=== PATIENT | female | born 1970 | race Hispanic/Latino ===

== ENCOUNTER 2018-02-02 13:15 | Inpatient (IN) | payer MEDICAID, OTHER ==
[2018-02-02 13:22] VITALS: BMI 43.0
[2018-02-02] MEDS ORDERED: Albuterol-Ipratrop 3 mg / 0.5 (3 ml) UD IH STA (13:28)
[2018-02-02] MEDS ORDERED: Magnesium Sulfate 2 GM in Sodium Chloride 0.9% 100 ML IVPB ONE (13:28)
--- NOTE | 2018-02-02 13:34 | ED PDOC ---
Arrival/HPI - General Time Seen by Provider: 02/02/18 13:28 Historian: Patient - History of Present Illness Narrative History of Present Illness (Text): 02/02/18 13:29 47 year old female, with past medical history of asthma, presents to the ED complaining of shortness of breath associated with cough since prior to arrival. [place], prompting her to present to the Ed for medical evaluation. Patient states her last episode of asthma exacerbation was many years ago and is currently not on any breathing treatment. Patient denies any chest pain, fever, chills, nausea, vomiting, abdominal pain, palpitations or any other complaints. Patient denies smoking cigarettes. Time/Duration: Prior to Arrival Symptom Onset: Gradual Symptom Course: Unchanged Activities at Onset: Light Context: Other ([facility]) Past Medical History - Provider Review Nursing Documentation Reviewed: Yes - Infectious Disease Hx of Infectious Diseases: None - Tetanus Immunization Tetanus Immunization: Unknown - Past Medical History Past Medical History: No Previous - Psychiatric Hx Depression: No Hx Emotional Abuse: No Hx Physical Abuse: No Hx Substance Use: No - Past Surgical History Past Surgical History: No Previous - Suicidal Assessment Feels Threatened In Home Enviroment: No Family/Social History - Physician Review Nursing Documentation Reviewed: Yes Family/Social History: No Known Family HX Hx Alcohol Use: No Hx Substance Use: No Hx Substance Use Treatment: No Allergies/Home Meds Allergies/Adverse Reactions: Allergies No Known Allergies Allergy (Verified 10/29/12 05:37) Review of Systems - Physician Review All systems were reviewed & negative as marked: Yes - Review of Systems Constitutional: absent: Fevers Respiratory: SOB, Cough Cardiovascular: absent: Chest Pain, Palpitations Gastrointestinal: absent: Abdominal Pain, Nausea, Vomiting Physical Exam Vital Signs Reviewed: Yes Vital Signs Temp Pulse Resp BP Pulse Ox 02/02/18 17:50 115 H 18 145/87 98 02/02/18 17:04 109 H 18 149/90 93 L 02/02/18 14:51 112 H 18 152/94 H 93 L 02/02/18 13:50 18 02/02/18 13:40 98.7 F 02/02/18 13:32 123 H 24 164/99 H 100 Temperature: Afebrile Blood Pressure: Hypertensive Pulse: Tachycardic Respiratory Rate: Normal Appearance: Positive for: Well-Appearing, Non-Toxic Pain Distress: None Mental Status: Positive for: Alert and Oriented X 3 - Systems Exam Head: Present: Atraumatic, Normocephalic Pupils: Present: PERRL Extroacular Muscles: Present: EOMI Conjunctiva: Present: Normal Mouth: Present: Moist Mucous Membranes Neck: Present: Normal Range of Motion Respiratory/Chest: Present: Good Air Exchange, Wheezes (prolonged expiratory wheeze ). No: Respiratory Distress, Accessory Muscle Use Cardiovascular: Present: Regular Rate and Rhythm, Normal S1, S2. No: Murmurs Abdomen: No: Tenderness, Distention, Peritoneal Signs Back: Present: Normal Inspection Upper Extremity: Present: Normal Inspection. No: Cyanosis, Edema Lower Extremity: Present: Normal Inspection. No: Edema Neurological: Present: GCS=15, CN II-XII Intact, Speech Normal Skin: Present: Warm, Dry, Normal Color. No: Rashes Psychiatric: Present: Alert, Oriented x 3, Normal Insight, Normal Concentration Medical Decision Making ED Course and Treatment: 02/02/18 13:28 Impression: 47 year old female presents to the ED for shortness of breath associated with cough since prior to arrival. Plan: -- EKG -- Labs -- CXR -- Albuterol -- solumedrol Progress Note: 02/02/18 13:52 EKG: Ordered, reviewed, and independently interpreted the EKG. Rate : 122 BPM Rhythm : Sinus Tachycardia Interpretation : Normal axis; normal interval; non-specific ST/T wave changes. 02/02/18 16:49 Patient ambulating in ED and talking on phone. States she is feeling better. Patient continues to wheeze. Discussed case with Dr. Dixon, who is aware and agrees with Emergency department management plan to admit patient to remote Telemetry for further observation. - Lab Interpretations Lab Results: 02/02/18 13:40 02/02/18 13:40 Lab Results 02/02/18 13:40: Sodium 140, Potassium 4.5, Chloride 102, Carbon Dioxide 23, Anion Gap 19, BUN 21, Creatinine 1.0, Est GFR ( Amer) > 60, Est GFR (Non- Af Amer) 59, Random Glucose 118 H, Calcium 9.1, Magnesium 2.2, Total Bilirubin 0.6, AST 59 H, ALT 55, Alkaline Phosphatase 103, Lactate Dehydrogenase 872 H, Total Creatine Kinase 1528 H, CK-MB (CK-2) 6.3 H, CK-MB (CK-2) % 0.4 L, Troponin I < 0.01, Total Protein 8.1, Albumin 4.7, Globulin 3.4, Albumin/ Globulin Ratio 1.4 02/02/18 13:40: WBC 17.9 H, RBC 3.94, Hgb 11.1 L, Hct 34.7 L, MCV 88.1, MCH 28.2 , MCHC 32.0, RDW 15.7 H, Plt Count 411, MPV 8.5, Gran % 74.4 H, Lymph % (Auto) 16.3 L, [place] % (Auto) 6.7 H, Eos % (Auto) 2.4, Baso % (Auto) 0.2, Gran # 13.31 H , Lymph # (Auto) 2.9, [place] # (Auto) 1.2 H, Eos # (Auto) 0.4, Baso # (Auto) 0.03 - RAD Interpretation Narrative RAD Interpretations (Text): 02/02/18 14:35 Chest X-ray reviewed by radiologist, shows: no active disease. Radiology Orders: 02/02/18 13:29 CHEST PORTABLE [RAD] Stat Baggage Checker: Radiologist - EKG Interpretation Interpreted by ED Physician: Yes Type: 12 lead EKG - Medication Orders Current Medication Orders: Ipratropium [place] (Atrovent) 0.5 mg IH [id number] PRN PRN Reason: Shortness of Breath Levalbuterol HCl (Xopenex) 1.25 mg IH [id number] MANJINDER Levalbuterol HCl (Xopenex) 1.25 mg IH [id number] PRN PRN Reason: Shortness of Breath Methylprednisolone (Solu-Medrol) 60 mg IVP Q12 MANJINDER Oxycodone/Acetaminophen (Percocet 5/325 Mg Tab) 1 tab PO Q6H PRN PRN Reason: Pain, moderate (4-7) Stop: 02/05/18 19:47 Discontinued Medications Albuterol/Ipratropium (Duoneb 3 Mg/0.5 Mg (3 Ml) Ud) 3 ml IH STAT STA Stop: 02/02/18 13:29 Last Admin: 02/02/18 13:41 Dose: 3 ml Alprazolam (Xanax) 0.5 mg PO STAT STA PRN Reason: Protocol Stop: 02/02/18 19:25 Last Admin: 02/02/18 19:36 Dose: 0.5 mg Behavioural Document 02/02/18 19:36 FC (Rec: 02/02/18 19:36 FC [id number]) Maintenance Maintenance Dose No Nonmedicinal Nonmedicinal Interventions Redirect Behavior Behavior for Medication: Anxiety Continuous crying/screaming/ yelling Re-Assess: Reassess Psych Meds Document 02/02/18 20:36 FC (Rec: 02/02/18 20:52 FC [id number]) Reassess Psych Med Effective Magnesium 2 gm/50 ml NS (Magnesium Sulfate 2 Gm/50 Ml Ns) 2 gm in 50 mls @ 102 mls/hr IVPB ONCE ONE Stop: 02/02/18 13:57 Last Admin: 02/02/18 14:17 Dose: 102 mls/hr eMAR Start Stop Document 02/02/18 14:17 SF (Rec: 02/02/18 14:17 SF [id number]) Intravenous Solution Start Date 02/02/18 Start Time 14:17 End Date 02/02/18 End time 14:47 Total Infusion Time 30 Azithromycin (Zithromax 500mg In Ns) 500 mg in 250 mls @ 167 mls/hr IVPB STAT STA PRN Reason: Protocol Stop: 02/02/18 18:26 Last Admin: 02/02/18 17:49 Dose: 167 mls/hr eMAR Start Stop Document 02/02/18 17:49 SF (Rec: 02/02/18 17:50 SF [id number]) Intravenous Solution Start Date 02/02/18 Start Time 17:49 End Date 02/02/18 End time 19:20 Total Infusion Time 91 Levalbuterol HCl (Xopenex) 1.25 mg IH STAT STA Stop: 02/02/18 19:17 Last Admin: 02/02/18 19:28 Dose: 1.25 mg Methylprednisolone (Solu-Medrol) 125 mg IVP STAT STA Stop: 02/02/18 13:29 Last Admin: 02/02/18 13:41 Dose: 125 mg IVP Administration Document 02/02/18 13:41 GMD (Rec: 02/02/18 13:41 GMD [id number]) Charges for Administration # of IVP Administrations 1 Methylprednisolone (Solu-Medrol) 60 mg IVP STAT STA Stop: 02/02/18 19:10 Last Admin: 02/02/18 19:26 Dose: 60 mg IVP Administration Document 02/02/18 19:26 JULITA (Rec: 02/02/18 19:26 [id number]) Charges for Administration # of IVP Administrations 1 Pneumococcal Polyvalent Vaccine (Pneumovax 23 Vaccine) 0.5 ml IM .ONCE ONE Stop: 02/02/18 21:19 - Scribe Statement The provider has reviewed the documentation as recorded by the Scribe Minda White. All medical record entries made by the Scribe were at my direction and personally dictated by me. I have reviewed the chart and agree that the record accurately reflects my personal performance of the history, physical exam, medical decision making, and the department course for this patient. I have also personally directed, reviewed, and agree with the discharge instructions and disposition. Disposition/Present on Arrival - Present on Arrival Any Indicators Present on Arrival: No History of DVT/PE: No History of Uncontrolled Diabetes: No Urinary Catheter: No History Surgical Site Infection Following: None - Disposition Have Diagnosis and Disposition been Completed?: Yes Diagnosis: Asthma exacerbation Disposition: HOSPITALIZED Disposition Time: 15:00 Condition: STABLE
[2018-02-02] MEDS ORDERED: Magnesium 2 gm/50 ml NS 2 GM/50 ML BAG IVPB ONE (13:39)
[2018-02-02 13:56] LABS: BASO # 0.03 K/mm3 (0.0-2.0); BASO % 0.2 % (0.0-3.0); EOS # 0.4 (0.0-0.7); EOS % 2.4 % (1.5-5.0); GRAN # 13.31 (1.4-6.5); GRAN % 74.4 % (50.0-68.0); HEMOGLOBIN 11.1 g/dL (12.0-16.0); LYMPH # 2.9 (1.2-3.4); LYMPH % 16.3 % (22.0-35.0); MEAN CELL VOLUME 88.1 fl (80.0-105.0); MEAN CORPUSCULAR HEMOGLOBIN 28.2 pg (25.0-35.0); MEAN PLATELET VOLUME 8.5 fl (7.0-11.0); MONO # 1.2 (0.1-0.6); MONO % 6.7 % (1.0-6.0); RBC 3.94 10^6/uL (3.5-6.1); RED CELL DISTRIBUTION WIDTH 15.7 % (11.5-14.5); WHITE BLOOD COUNT 17.9 10^3/ul (4.5-11.0)
[2018-02-02 13:57] LABS: ALB/GLOB RATIO 1.4 (1.1-1.8); ALBUMIN 4.7 g/dL (3.0-4.8); ALT/SGPT 55 U/L (7-56); AST/SGOT 59 U/L (14-36); BLOOD UREA NITROGEN 21 mg/dL (7-21); CALCIUM 9.1 mg/dL (8.4-10.5); GFR AFRICAN-AMERICAN > 60; GFR NON-AFRICAN AMERICAN 59
[2018-02-02 14:09] LABS: TROPONIN I < 0.01 ng/mL
--- NOTE | 2018-02-02 14:24 | RAD ---
Date of service: 02/02/2018 HISTORY: r/o infiltrate COMPARISON: No prior. FINDINGS: LUNGS: No active pulmonary disease. PLEURA: No significant pleural effusion identified, no pneumothorax apparent. CARDIOVASCULAR: Cardiomegaly. No evidence of acute, significant cardiovascular disease. OSSEOUS STRUCTURES: No significant abnormalities. VISUALIZED UPPER ABDOMEN: Normal. OTHER FINDINGS: None. IMPRESSION: No active disease.
[2018-02-02 14:42] LABS: CK MB% 0.4 % (2.5-3.0); CK-MB 6.3 ng/mL (0.0-3.6)
--- NOTE | 2018-02-02 16:36 | CARD ---
APPROVED REPORT Date of service: 02/02/2018 EKG Measurement Heart [id number] <Conclusion> Sinus tachycardia Minimal voltage criteria for LVH, may be normal variant Anteroseptal infarct, age undetermined Abnormal ECG
[2018-02-02] MEDS ORDERED: Azithromycin 500MG/NS 250ml 500 MG/250 ML BAG IVPB STA (16:57)
[2018-02-02] MEDS ORDERED: Albuterol 0.083% Inhal Sol (2.5 mg/3 mL) UD INH PRN (16:58)
[2018-02-02] MEDS ORDERED: Albuterol-Ipratrop 3 mg / 0.5 (3 ml) UD ONE (19:10)
[2018-02-02] MEDS ORDERED: Albuterol 0.042% Inhal Sol (1.25 mg/3 mL) UD IH STA (19:10)
[2018-02-02] MEDS ORDERED: Levalbuterol 0.63 MG/3 ML Inhal Soln UD ONE (19:14)
[2018-02-02] MEDS ORDERED: methylPREDNISolone 60 MG in Sodium Chloride 0.9% 100 ML IVPB ONE (19:15)
[2018-02-02] MEDS ORDERED: Levalbuterol 1.25 MG/3 ML Inhal Soln UD IH STA (19:16)
[2018-02-02 19:23] LABS: ARTERIAL BLOOD GAS HCO3 16.9 mmol/L (21-28); ARTERIAL BLOOD GAS HEMOGLOBIN 10.7 g/dL (11.7-17.4); ARTERIAL BLOOD GAS O2 CAPACITY 15.2 mL/dl (16-24); ARTERIAL BLOOD GAS O2 CONTENT 15.1 ML/dl (15-23); ARTERIAL BLOOD GAS O2 SAT 99.6 % (95-98); ARTERIAL BLOOD GAS PCO2 32 mm/Hg (35-45); ARTERIAL BLOOD GAS PH 7.33 (7.35-7.45); ARTERIAL BLOOD GAS TCO2 17.9 mmol.L (22-28)
[2018-02-02] MEDS ORDERED: Levalbuterol 1.25 MG/3 ML Inhal Soln UD ONE (19:27)
[2018-02-02] MEDS ORDERED: Ipratropium 0.02% Inhal Soln (0.5 mg/2.5 ml) UD IH PRN (19:42)
--- NOTE | 2018-02-02 19:42 | PCM.RRT ---
<Heron Gonzales - Last Filed: 02/02/18 20:42> [employer]PORATE B[employer]ING OFFICER Nurse Assessment - Situation Date: 02/02/18 Time CORPORATE BANKING OFFICER was called: 17:00 CORPORATE BANKING OFFICER Responder Arrival Time: 17:05 CORPORATE BANKING OFFICER Location:: [address] [place] [address] [employer]PORATE B[employer]ING OFFICER Reason for Call: Respiratory Distress CORPORATE BANKING OFFICER Called By: RN - IV IV Inserted during CORPORATE BANKING OFFICER?: No - Respiratory Oxygen Delivery Method: Face Mask @% Oxygen Flow Rate: 50 Received Nebulizer Treatments:: Yes Was the Patient Ventilated with Bag/Mask 100% O2?: No Secretions Suctioned?: No Was the Patient Intubated?: No Was the Patient Placed on a Ventilator?: No - Medication Medications Administered During CORPORATE BANKING OFFICER: Solumedrol. Albuterol. DuoNebs - Diagnostic Test Ordered EKG: Yes Chest X-Ray: No CT Scan: No - Stat Labs Ordered CORPORATE BANKING OFFICER Stat Labs Ordered: TROPONIN, ABG CPR started during CORPORATE BANKING OFFICER?: No - Vital Signs Vital Sign: Rapid Response Vital Sign Blood Pressure 150/92 Pulse Rate 120 Respiratory Rate 24 Temperature 98.2 F Oxygen Saturation 100 - Time CORPORATE BANKING OFFICER Ended Time CORPORATE BANKING OFFICER Ended: 19:25 - Vital Signs at end of CORPORATE BANKING OFFICER Vital Signs at end of CORPORATE BANKING OFFICER: Rapid Response End Vital Sign Blood Pressure 148/89 Pulse Rate 110 Respiratory Rate 19 Temperature 98.6 F - Recommendations Notifications: Attending Physician, Consultations, Family or Designated Caregiver I.Reason for CORPORATE BANKING OFFICER - A) Acute Change in Patient: (Select all that apply): Staff member or family is worried about patient Subjective: Rapid response team was called to evaluate pt for worsening shortness of breath. Per staff, pt was hyperventilating and was having difficulty breathing. Pt was a recent admission from the ED this am. Pt was complaining also of associated chest tightness, non-radiating. Pt was placed on venti mask at 50 L O2, was given duonebs and xopenex x3 with improvement. Pt received 1x dose solumedrrol 125 mg in ED earlier in day, then received 60 mg solumedrol x1 during rapid response. Spoke with PMD Dr. Dixon, who agreed with intervention and recommended pt be evaluated by ICU finishing area supervisor. Dr. Taylor notified. Dr. Walton present at bedside during rapid response. Per discussion with pt's son, pt is trying to kill herself and has been taking her late 's pain meds which he was prescribed for his cancer. Pt denied suicidal ideation/homicidal ideation at time of rapid response. 1:1 watch and psych consult ordered. EKG was sinus tachycardia, otherwise no acute St-T changes. VS: 154/98, P 131, SpO2 100% on 50 L venti mask Gen: mild acute distress, hyperventilating at bedside HEENT: NCAT, PERRLA CV: normal s1/s2, tachycardic Resp: diffuse wheezes heard in all lung kerr, increased respirations ( improved s/p duonebs, oxygen, and xopenex) Abd: soft, NTND, normal bowel sounds x4 Ext: normal capillary refill, 1+ nonpitting edema in lower exts b/l - Neurological Status (Select all that apply): Alert, Responsive, Oriented, Verbal, Follows Commands - Respiratory Oxygen Delivery Method: Face Mask @% Oxygen Flow Rate: 50 - Constitutional Additional Comments: Mild acute distress - Head Head Exam: ATRAUMATIC, NORMAL INSPECTION, NORMOCEPHALIC - Eyes Eye Exam: EOMI, Normal appearance, PERRL - Respiratory Exam Additional comments: Rapid breathing pattern, wheezes auscultated in all lung kerr - Cardiovascular Exam Cardiovascular Exam: Tachycardia, +S1, +S2 - GI/Abdominal Exam GI & Abdominal Exam: Soft, Normal Bowel Sounds - Neurological Exam Neurological Exam: Alert, Awake, Oriented x3 - Extremities Exam Extremities Exam: Full ROM, Normal Capillary Refill, Normal Inspection Additional comments: 1+ lower extremity edema b/l, nonpitting Plan - Assessment of Findings&Treatment Plan 47 y o female PMhx HTN, asthma, admitted for asthma exacerbation, presenting with worsening shortness of breath. Likely 2/2 asthma exacerbation vs. anxiety attack. Pt's clinical status improved s/p duonebs x3 and xopenex. EKG showed sinus tachycardia. Pt placed on 1:1 watch and psych consult ordered. ABG performed, pH 7.33, pC02 32, pO2 215, HCO3 16.9. Serial troponins ordered, to be trended overnight. Plan d/w Dr. Walton, attending. Pending ICU consult as per Dr. Dixon, Dr. Taylor aware. Dr. Dixon notified, agrees with management. <Yamila Walton - Last Filed: 02/02/18 22:49> CORPORATE BANKING OFFICER Nurse Assessment - Vital Signs Vital Sign: Rapid Response Vital Sign Blood Pressure 150/92 Pulse Rate 120 Respiratory Rate 24 Temperature 98.2 F Oxygen Saturation 100 - Vital Signs at end of CORPORATE BANKING OFFICER Vital Signs at end of CORPORATE BANKING OFFICER: Rapid Response End Vital Sign Blood Pressure 148/89 Pulse Rate 110 Respiratory Rate 19 Temperature 98.6 F Attending/Attestation - Attestation I have personally seen and examined this patient.: Yes I have fully participated in the care of the patient.: Yes I have reviewed all pertinent clinical information, including history, physical exam and plan: Yes Notes (Text): 02/02/18 22:49 Patient was seen. Agree with documentation by resident.
[2018-02-02] MEDS ORDERED: Levalbuterol 1.25 MG/3 ML Inhal Soln UD IH PRN (19:49)
[2018-02-02] MEDS ORDERED: Levalbuterol 1.25 MG/3 ML Inhal Soln UD IH SCH ×2 (20:00→21:00)
[2018-02-02 20:05] LABS: TROPONIN I < 0.01 ng/mL
[2018-02-02 20:12] LABS: CK-MB 4.8 ng/mL (0.0-3.6)
--- NOTE | 2018-02-02 20:31 | CP.PCM.CON ---
History of Present Illness - History of Present Illness History of Present Illness: ICU consult note for Dr. Claudia Rodriguez PGY2 Chief Complaint: Dyspnea HPI: Patient is a 47 F with past history significant for asthma for which she was never intubated and currently not medicated for as well as present history of opioid abuse presenting with complains of dyspnea and productive cough which has been going on for the past few days. Patient states her symptoms have been going on for the past few days but were exacerbated today during the burial of her . In the ED patient was given STAT duonebs, magnesium, 125 mg solumedrol IVP, and one dose of azithromycin. As per patient's son, patient has been addicted to opioids since her was receiving treatment for his cancer and is currently consuming xanax/oxycodone/percocet. Patient was taking 's pain meds in excess as of late in attempts to commit suicide. Due to patient's acute respiratory distress, Rapid response was called for which patient was given 3 rounds of xopenex and 60 mg IVP solumedrol and Xanax which appeared to have help alleviate patient's symptoms. Review of Systems - Constitutional Constitutional: absent: Anorexia, Chills, Fever - EENT Eyes: absent: Blurred Vision - Cardiovascular Cardiovascular: absent: Chest Pain (chest tightness) - Respiratory Respiratory: Cough, Dyspnea, Chest Congestion, Change in Mucous Color (green) - Gastrointestinal Gastrointestinal: absent: Abdominal Pain, Bloating - Genitourinary Genitourinary: absent: Hematuria - Neurological Neurological: absent: Dizziness, Numbness - Psychiatric Psychiatric: Anxiety, Suicidal Ideation - Endocrine Endocrine: Fatigue Past Patient History - Infectious Disease Hx of Infectious Diseases: None - Tetanus Immunizations Tetanus Immunization: Unknown - Past Social History Smoking Status: Never Smoked - CARDIAC Hx Hypertension: Yes - PULMONARY Hx Asthma: Yes - MUSCULOSKELETAL/RHEUMATOLOGICAL Other/Comment: R leg problem - PSYCHIATRIC Hx Depression: No Hx Emotional Abuse: No Hx Physical Abuse: No Hx Substance Use: No Meds Allergies/Adverse Reactions: Allergies Allergy/AdvReac Type Severity Reaction Status Date / Time No Known Allergies Allergy Verified 10/29/12 05:37 - Medications Medications: Current Medications Ipratropium [place] (Atrovent) 0.5 mg IH [id number] PRN PRN Reason: Shortness of Breath Levalbuterol HCl (Xopenex) 1.25 mg IH [id number] MANJINDER Levalbuterol HCl (Xopenex) 1.25 mg IH [id number] PRN PRN Reason: Shortness of Breath Methylprednisolone (Solu-Medrol) 60 mg IVP Q12 MANJINDER Oxycodone/Acetaminophen (Percocet 5/325 Mg Tab) 1 tab PO Q6H PRN PRN Reason: Pain, moderate (4-7) Stop: 02/05/18 19:47 Physical Exam - Head Exam Head Exam: ATRAUMATIC, NORMAL INSPECTION, NORMOCEPHALIC - Eye Exam Eye Exam: EOMI, Normal appearance - ENT Exam ENT Exam: Mucous Membranes Moist - Respiratory Exam Respiratory Exam: Rhonchi, Wheezes. absent: Clear to Auscultation Bilateral, NORMAL BREATHING PATTERN - Cardiovascular Exam Cardiovascular Exam: Tachycardia, REGULAR RHYTHM, +S1, +S2 - GI/Abdominal Exam GI & Abdominal Exam: Normal Bowel Sounds, Soft - Extremities Exam Extremities exam: Positive for: normal inspection - Back Exam Back exam: NORMAL INSPECTION - Neurological Exam Neurological exam: Alert, Oriented x3 - Psychiatric Exam Psychiatric exam: Anxious - Skin Skin Exam: Normal Color, Warm Results - Vital Signs Recent Vital Signs: Last Vital Signs Temp 98.5 F 02/02/18 18:02 Pulse 114 H 02/02/18 18:02 Resp 18 02/02/18 18:02 BP 145/87 02/02/18 17:50 Pulse Ox 97 02/02/18 18:02 - Labs Result Diagrams: 02/02/18 13:40 02/02/18 13:40 Labs: Laboratory Results - last 24 hr 02/02/18 02/02/18 18:15 19:25 pCO2 32 L pO2 215.0 H HCO3 16.9 L ABG pH 7.33 L ABG Total CO2 17.9 L ABG O2 Saturation 99.6 H ABG O2 Content 15.1 ABG Base Excess -8.1 L ABG Hemoglobin 10.7 L ABG Carboxyhemoglobin 1.4 POC ABG HHb (Measured) 0.4 ABG Methemoglobin 1.5 ABG O2 Capacity 15.2 L Hgb O2 Saturation 96.8 FiO2 50.0 Lactate Dehydrogenase 828 H Total Creatine Kinase 1320 H CK-MB (CK-2) 4.8 H CK-MB (CK-2) % Cancelled Troponin I < 0.01 Assessment & Plan - Assessment and Plan (Free Text) Assessment: Patient is a 47 F with past history significant for asthma for which she was never intubated and currently not medicated for as well as present history of opioid abuse presenting with complains of dyspnea and productive cough which has been going on for the past few days. Plan: Neurological/Psychiatric -AAO x3 -Current hx of drug abuse (xanax,oxycodone,percocet) -Psychiatry consulted -Hx of suicidal ideation; 1:1 sitter -Continue 1 dose of percocet q6 so patient does not go through withdrawals Cardiovascular -EKG from admission reveals Sinus tachycardia, LVH. Repeat EKG reveals no acute changes -Troponin negative x 2 Respiratory -ABG on room air: PCO2 32, pO2 215, HCO3 16.9, pH 7.33 -99% on 2L NC -Continue with xopenex, acetylcysteine, atrovent, solu-medrol, robitussin -Continue with azithromycin Infectious disease -Leukocytosis 17.9 -Continue with azthromycin -Procalcitonin ordered; results pending -Urinalysis ordered; results pending Gastroinestinal -Protonix for GI ppx -Heart healthy diet Hematological -Heparin for DVT ppx -Monitor H&H currently 11.1&34.7 Nephrological -CPK >1000 -Will treat with NS @100 Patient does not need ICU admission at this time and will remain on remote telemetry for continued management and treamtnet.
[2018-02-02] MEDS ORDERED: Pneumococcal 23-Valent Vaccine IM ONE (21:18)
[2018-02-02] MEDS: Levalbuterol 1.25 MG/3 ML Inhal Soln UD IH SCH (22:54)
[2018-02-03] MEDS: guaiFENesin DM 200 mg-20 mg/10 ml UD PO PRN ×3 (00:14→22:31)
[2018-02-03] MEDS: Sodium Chloride 0.9% 1,000 ML IV SCH ×2 (00:14→10:31)
[2018-02-03] MEDS: Acetylcysteine 20% Inhal Soln (4ml) IH SCH ×3 (01:07→23:20)
[2018-02-03] MEDS: Levalbuterol 1.25 MG/3 ML Inhal Soln UD IH SCH ×6 (04:16→23:20)
[2018-02-03 07:01] LABS: URINE BILIRUBIN NEGATIVE (NEGATIVE); URINE BLOOD NEGATIVE (NEGATIVE); URINE GLUCOSE (UA) 250 mg/dL (NEGATIVE); URINE LEUKOCYTE ESTERASE NEGATIVE Leu/uL (NEGATIVE); URINE PROTEIN NEGATIVE mg/dL (<30 mg/dL); URINE UROBILINOGEN 0.2 E.U./dL (<1 E.U./dL)
[2018-02-03 07:35] LABS: PHENCYCLIDINE, UR NEGATIVE (NEGATIVE)
[2018-02-03 07:46] LABS: URINE APPEARANCE CLEAR (CLEAR); URINE COLOR YELLOW (YELLOW)
[2018-02-03 07:52] LABS: BARBITURATES, UR NEGATIVE (NEGATIVE); BENZODIAZEPINES, UR POSITIVE (NEGATIVE); OPIATES, UR POSITIVE (NEGATIVE)
--- NOTE | 2018-02-03 08:27 | CARD ---
APPROVED REPORT Date of service: 02/02/2018 EKG Measurement Heart [id number] <Conclusion> Sinus tachycardia Septal infarct, age Probably Old.
[2018-02-03] MEDS ORDERED: Oxycodone/Acetaminophen 5/325 mg Tab PO ONE (09:00)
[2018-02-03] MEDS: Azithromycin 500MG/NS 250ml 500 MG/250 ML BAG IVPB SCH (10:19)
[2018-02-03] MEDS: Insulin Reg-LOW-Coverage SC SCH ×2 (16:34→22:29)
[2018-02-04] MEDS: Acetylcysteine 20% Inhal Soln (4ml) IH SCH ×5 (02:01→19:01)
[2018-02-04] MEDS: guaiFENesin DM 200 mg-20 mg/10 ml UD PO PRN ×3 (03:18→22:20)
[2018-02-04] MEDS: Levalbuterol 1.25 MG/3 ML Inhal Soln UD IH SCH ×6 (03:22→23:40)
--- NOTE | 2018-02-04 03:28 | CON ---
DATE: 02/03/2018 HISTORY OF PRESENT ILLNESS: Shortly, the patient is a 47-year-old female with not known previous psychiatric history, multiple medical problems including asthma. The patient [place] when symptoms of asthma worsened and the patient came to the hospital for help. The patient was admitted on the medical side for evaluation of asthma exacerbation. The patient was in rapid response because the patient was not able to breathe. This ad copy writer consult was called for evaluation of possible suicidal ideation. The patient was seen and examined. The patient presented to be alert and oriented. The patient reported that she feels a little bit better. The patient currently is on one-to-one. The patient reported that yesterday it was very hard day for her. The patient said that she never verbalized any thoughts of killing herself and she does care about her kids who, two of them are adults 32 and 25 and her daughter is 12 years old. The patient reported that she promised her that she would raise kids and she will take good care of them. The patient adamantly denied that she wanted to kill herself. The patient reported that yesterday her sister who has "a lot of problems maybe seen in the cemetery and she was very upset." The patient presented to be emotional, crying, but not appears to be severely depressed. The patient seems to be adjusting to her laws relatively well. The patient reported that her was dying from cancer for the past 4 years and that was kind of expected. At the same time, the patient reported that she was with her for more than 30 years and she is grieving, which is expected. The patient denied hearing voices, denied seeing things, denied paranoid ideation. Medical team raised concerns about possible overdosing on the patient's 's pain medication. The patient adamantly denied of doing so. The patient said that she is prescribed painkillers for her arthritis. The patient gave permission to speak to her son. Supervisor Wool Shearing was advised to give a call and obtain collateral information up until then. The patient requires one-to-one for observation. The patient reported no history of mental illness. The patient denied that she ever tried to kill herself. The patient denied any intent or plan to kill herself right now. The patient denied hearing any voices, seeing things. Denied using any drugs. The patient reports that she feels anxious now, but denied history of anxiety. No history of admission to the psychiatric inpatient unit. Denied history of suicidal attempt. MEDICATIONS: Reviewed. The patient is on , atenolol, Zithromax, Robitussin, heparin, Humulin, Atrovent, , Solu-Medrol, Percocet as needed, Protonix, sodium chloride. LABORATORY DATA: Reviewed. WBC cells 17.9, hemoglobin and hematocrit 11.1 and 34.7. Blood gas reviewed. Chemistry reviewed. The patient's lactate dehydrogenase is 828, creatine kinase is 1320. Urinalysis reviewed. Toxicology positive for opioids and benzodiazepines. MENTAL STATUS EXAMINATION: The patient appears to be alert and oriented, pleasant, cooperative, at times tearful, which is expected. Mood described as "I am sad. I lost my , but I am fine." Affect was tearful, but reactive. Mood congruent. Thought process coherent and goal directed. Thought content, the patient denied visual, auditory or tactile hallucinations. Denied paranoid ideation. The patient denied thoughts of harming herself or others. Denied intent or plan. Insight and judgment seems to be fair. Impulses are well controlled. IMPRESSION: Most likely, this is adjustment disorder with depressed and anxious mood. PLAN: Continue one-to-one up until collateral information will be obtained from the family. Ativan as needed for anxiety. The patient denied feeling hopeless or helpless. Denied feeling depressed. We will follow up and advise accordingly. Thank you very much for letting me participate in the care of your patient. The patient was willing to provide consent for collateral information from the family. Thank you very much. Zee Bloom MD
--- NOTE | 2018-02-04 04:29 | CON ---
DATE: 02/03/2018 PULMONARY CONSULT REFERRING PHYSICIAN: Blas Dixon MD REASON FOR CONSULT: Chronic lung disease. HISTORY OF PRESENT ILLNESS: This is a 47 years old female with past medical history significant for childhood asthma, from the last few days been having some cough, shortness of breath, and wheezing, came into emergency room, received IV and inhaled bronchodilator, and was admitted for further workup. This morning, has a rapid response called because of shortness of breath. She was given inhaled bronchodilator and felt better. Presently under one-to-one supervision, lying in the bed, feels better, but still have cough and shortness of breath. No hemoptysis or emesis. No hematuria, no diarrhea reported. PAST MEDICAL HISTORY: As per the history of present illness. FAMILY HISTORY: No significant cardiopulmonary disease reported. SOCIAL HISTORY: Denying smoking or alcohol use. ALLERGIES: NONE KNOWN. MEDICATIONS: She is on Mucomyst inhaled every 6 hours, lorazepam 0.5 mg three times a day p.r.n., Atrovent inhaled every 6 hours, heparin 5000 units subcu every 12 hours, insulin coverage, Percocet 5/325 one tablet every 6 hours p.r.n., Protonix 40 mg daily, Robitussin DM 10 mL every 4 hours p.r.n., IV fluid normal saline 100 mL/hour, Solu-Medrol 60 mg every 12 hours, Tenormin 25 mg daily, Xopenex inhale every 6 hours p.r.n., also Zithromax 500 mg daily. REVIEW OF SYSTEMS: No headache. Has some rhinitis, cough, clear sputum, shortness of breath, wheezing. No nausea, no vomiting, no diarrhea. No leg pain or leg swelling. PHYSICAL EXAMINATION: GENERAL: No acute distress. VITAL SIGNS: Temperature is 98, heart rate is 99, respiratory rate is 20, blood pressure 136/80, pulse ox 95% on nasal cannula. HEENT: Moist mucous membranes. Crowded airway. NECK: Supple. No JVD. LUNGS: Expiratory wheezing. Few scattered rhonchi. HEART: S1 and S2. ABDOMEN: Soft, nontender. No organomegaly. EXTREMITIES: No edema. NEUROLOGIC: Awake, alert, and follows simple commands. LABORATORY DATA: Shows hemoglobin 11.1, hematocrit 34.7, WBC 17.9, and platelet count is 411. Blood gases show pH 7.33, pCO2 of 32, O2 of 215, this is on 50% oxygen. Sodium 140, potassium 4.5, chloride 102, bicarbonate 23. BUN 21, creatinine 1. Glucose 128. Calcium 9.1, magnesium 2.2. Total bili 0.6, AST 59, ALT 55, alk phos is 103. LDH 828. Troponin less than 0.01. Procalcitonin 0.12. Drug screen done today is opiates and benzodiazepine positive. Chest x-ray done yesterday in ER, there is no active disease. IMPRESSION AND PLAN: Exacerbation of chronic obstructive lung disease, rule out anxiety disorder, adjustment disorder. Pulmonary point of view, keep steroids, antibiotics, inhaled bronchodilator. Gastric and deep venous thrombosis prophylaxes. We will recommend PFT as outpatient, need Psychiatry consult. Thank you and we will follow with you. Miguelina Glynn MD
[2018-02-04] MEDS: Sodium Chloride 0.9% 1,000 ML IV SCH ×2 (06:08→16:47)
[2018-02-04] MEDS: Pantoprazole 40 mg EC Tab PO SCH ×2 (08:39→09:39)
[2018-02-04] MEDS: Azithromycin 500MG/NS 250ml 500 MG/250 ML BAG IVPB SCH (09:31)
[2018-02-04] MEDS: Insulin Reg-LOW-Coverage SC SCH ×4 (09:32→22:23)
[2018-02-04] MEDS: Oxycodone/Acetaminophen 5/325 mg Tab PO PRN ×2 (11:58→17:40)
--- NOTE | 2018-02-04 14:53 | PN ---
DATE: 02/04/2018 FOLLOWUP NOTE SUBJECTIVE: The patient was on one-to-one observation since the time of admission for questionable suicide precaution. This advertising copy writer initially evaluated the patient yesterday. Please see initial evaluation for more detailed information. As per one-to-one report, the patient is talkative, does not express any thoughts of harming herself or others. The patient is compliant with the medications. Has episodes of crying spells, but which is expected because the patient's at the day when the patient was admitted to the medical floor. There are no signs of agitation or aggression. The patient is compliant with the medication. As per nursing report, the patient had some bag of medications and it was sent to the pharmacy. The patient is not psychotic. The patient is not aggressive. This advertising copy writer called to the patient's pharmacy, phone number is [phone] and it was confirmed that the patient was prescribed oxycodone 30 mg three times a day, last time the patient filled medication on 12/18/2017 and 1-month supply was given to her, alprazolam 2 mg twice a day, the patient filled that medication at the same day, the patient got 1-month supply. The patient also was on amitriptyline 25 mg at the nighttime, prescriber is Dr. Enrique Hernandez. As per the patient, this is her pain management doctor and amitriptyline was prescribed to her for her chronic pain and insomnia. The patient reported that she was compliant with the medication and did not take any increased doses or did not overuse or abuse medication. In regards of the notes of Medical team, the patient was consuming her 's medication in order to kill herself. The patient adamantly denied that. This advertising copy writer gave a call to the patient's son, Dat, phone number [phone]. There is no option to leave a message because mailbox is full. The patient reported that she has 12-year-old daughter and 2 grown kids and she promised her that she will take care of them. The patient wants to keep her promises. Vital signs reviewed. Pulse is 107, blood pressure 158/97. Medications reviewed. The patient is on atenolol, N-acetylcysteine, Zithromax 500 mg daily, Robitussin, heparin, Humulin, Atrovent, Claritin, lorazepam 0.5 mg three times a day as needed for anxiety, Solu-Medrol, Singulair, Percocet, Protonix, sodium chloride. We will resume amitriptyline at the nighttime as needed for insomnia. The patient's vital signs reviewed. Medications reviewed. Labs most recent were from 02/02/2018. Urine drug screen was positive for opioids as well as benzodiazepines. At the same time, the patient was prescribed oxycodone as well as alprazolam. MENTAL STATUS EXAMINATION: The patient appears to be alert and oriented, pleasant, cooperative, talkative, at times tearful during the interview, which is expected. The patient lost her less than 3 days ago. Mood described, I am hanging in there. Affect was constricted, but reactive. Mood congruent. Thought process was coherent and goal directed. Thought content, the patient denied visual, auditory or tactile hallucinations. Denied paranoid ideation. The patient denied thoughts of harming herself or others. Denied intent or plan. Insight and judgment seems to be fair. Impulses are well controlled. IMPRESSION: Rule out adjustment disorder. PLAN: We will discontinue one-to-one for now. This advertising copy writer attempted to call to her son, but mailbox is full. Medications confirmed. The patient does not exhibit any aggressive or agitated behavior. This advertising copy writer will follow up and advise accordingly. Should you have any questions, give me a call back. Zee Bloom MD MTDMati
--- NOTE | 2018-02-04 19:32 | HP ---
MAIN COMPLAINT: Dyspnea. HISTORY OF PRESENT ILLNESS: This is a 47-year-old female with a history of asthma. She came in with shortness of breath, wheezing, coughing, and the patient does note she has been sick for the last couple of days, got worse, and came to the emergency room for evaluation. She does have some cough, but she denied any nausea, any vomiting, any diarrhea, any fever or chills. The patient does have a history of asthma; however, her asthma is not severe. She has been off any medications for years, and for being intubated or in the ICU due to her asthma. The patient denied any allergic reaction to any chemicals or perfumes. The patient noted that she does have a lot of emotional stress due to loss of her recently. FAMILY HISTORY: Grandfather has coronary artery disease. Also, there is a family history of breast CA. PAST MEDICAL HISTORY: As I mentioned, asthma. She also has meniscus injury, and recently she has been suffering from anxiety, for which she was taking the 's oxycodone for her knee pain, 30 mg three times or four times depending on her pain. She also was taking his Xanax 2 mg or Ativan 2 mg everyday, I think Xanax 2 mg everyday, for her chronic anxiety from the 's medications. The patient also has been taking sleeping pills, Elavil 25 mg at night from 's medications. REVIEW OF SYSTEMS: As in the present illness, she does have knee pain and anxiety. Denied any chest pain, any cardiac disease, any GI symptoms or any urological symptoms. ALLERGIES: NO KNOWN ALLERGY. SOCIAL HISTORY: She does not smoke or drink, or used any other except in recent years from 's medications. HOME MEDICATIONS: As I mentioned, oxycodone and Xanax from the , and he reported also tramadol. PHYSICAL EXAMINATION GENERAL: The patient was seen initially by our physician; however, she did have a lot of anxiety associated with her asthma. Now, she is calm, quite and seems comfortable, no respiratory distress. She is alert, awake, oriented x3. VITAL SIGNS: Temperature is 97.8, heart rate 99, blood pressure 136/80, respirations 20, saturating is 95% on room air and she has been 99% on 2 liters before that. HEAD AND NECK: Normal. No JVD. No thyromegaly. CHEST: Few rhonchi; otherwise, chest is clear, good air entry bilaterally. CARDIAC: First sound and second sound normal. No murmur, rub or gallop. ABDOMEN: Obese, nontender. EXTREMITIES: No edema. NEUROLOGIC: Normal. LABORATORY DATA: When she came in, white count 17.9, hemoglobin 11.1, hematocrit 34.7, platelets 411. Chemistry: Sodium 140, potassium 4.5, chloride 102, bicarb 23, BUN 21, creatinine is 1. The patient's blood sugar 118, magnesium 2.2, total bilirubin 0.6, AST 59, ALT 55, alkaline phosphatase 103. The patient has CPK of 1528, and CK-MB is 6.3. Troponin x2 are negative. Procalcitonin was done, was 0.12 which is low. The patient also had a chest x-ray which shows no active disease. She also had an EKG which shows sinus tachycardia, minimal voltage criteria for LVH, anteroseptal infarct age undermined, abnormal EKG. IMPRESSION AND PLAN: 1. A 47-year-old female with history of asthma with recent emotional distress, probably reactive depression, on Xanax 2 mg daily, not using her asthma pump on the regular basis, came in with acute asthma exacerbation. Plan is to admit the patient to telemetry and IV Solu-Medrol; the patient received mg IV now, and we will continue 60 IV every 6, insulin coverage, inhaled bronchodilator, Xopenex, Combivent, and we will follow up clinically. 2. Chronic anxiety, benzodiazepine dependence. We will maintain her benzodiazepine. Psychiatry consult for possible depression, and will follow up with the psychiatrist. 3. Morbid obesity. The patient needs to avoid excessive calorie intake. Weight loss is recommended to prevent further medical illnesses. 4. Possible obstructive sleep apnea. The patient will benefit from sleep study as outpatient. 5. Chronic meniscus injury with knee pain. She does take pain medicine at the home. Probably, the patient is narcotic or opioid dependent, she may benefit from Suboxone therapy or more with psychiatric consultation. 6. Anemia. The patient needs further evaluation of her anemia, underlying etiology, and may benefit from GI evaluations, colonoscopy and upper endoscopy. The patient will benefit from mammogram on a regular basis. At this time, continue current medications, Zithromax IV, Xopenex, Solu-Medrol, IV fluid and given Percocet p.r.n. for pain. She is on deep venous thrombosis prophylaxis and follow up clinically. She is also on Mucomyst and Ativan 0.5 t.i.d. Blas Dixon MD
--- NOTE | 2018-02-04 22:10 | PN ---
DATE: 02/04/2018 PULMONARY/MEDICINE PROGRESS NOTE REFERRING PHYSICIAN: Blas Dixon MD SUBJECTIVE: She is lying in the bed, head at 45 degrees. Feels better. Decreased cough and shortness of breath. No nausea. No vomiting, no diarrhea. No leg pain or leg swelling. OBJECTIVE GENERAL: In no acute distress. VITAL SIGNS: Temperature is 98, heart rate is 85, respiratory rate is 20, blood pressure 177/114, pulse ox 100% on nasal cannula. HEENT: Moist mucous membrane. Crowded airway. Mallampati score is 4. NECK: Supple. No JVD. LUNGS: Have a few scattered rhonchi. HEART: S1 and S2. ABDOMEN: Soft, nontender. No organomegaly. EXTREMITIES: No edema. NEUROLOGICAL: Awake and alert. Follows simple command. MEDICATIONS: She is on Mucomyst 20% inhaled every 6 hours, lorazepam 0.5 mg three times a day p.r.n., mg every 6 hours p.r.n., clonidine 0.1 mg every 6 hours p.r.n., Claritin 10 mg daily, Elavil 25 mg at bedtime p.r.n., heparin 5000 units subcu every 12 hours, insulin coverage, Percocet 5/325 one tablet every 6 hours p.r.n., Protonix 40 mg a.c.b. Singulair 10 mg daily, Robitussin DM 10 mL every 4 hours p.r.n., Solu-Medrol 60 mg every 12 hours, Tenormin 25 mg twice a day, Xopenex inhaled every 6 hours p.r.n., Zithromax 500 mg daily LABORATORY DATA: Shows blood sugar this morning is 104, procalcitonin is 0.12. IMPRESSION AND PLAN: Exacerbation of chronic obstructive lung disease, anxiety disorder, adjustment disorder. Pulmonary point of view, she is doing okay. I am going to cut down steroids to 40 mg every 12 hours, continue antibiotics, gastric prophylaxis, deep venous thrombosis prophylaxis, Psychiatry followup. Thank you and we will follow with you. Miguelina Glynn MD
[2018-02-04] MEDS: MethylPREDNISolone 40 mg Vial IVP SCH (22:22)
[2018-02-05] MEDS: Oxycodone/Acetaminophen 5/325 mg Tab PO PRN ×2 (03:14→08:54)
[2018-02-05] MEDS: Levalbuterol 1.25 MG/3 ML Inhal Soln UD IH SCH ×5 (03:31→19:50)
[2018-02-05] MEDS: Acetylcysteine 20% Inhal Soln (4ml) IH SCH ×4 (07:25→19:50)
[2018-02-05] MEDS: Insulin Reg-LOW-Coverage SC SCH ×4 (08:31→21:31)
[2018-02-05] MEDS: guaiFENesin DM 200 mg-20 mg/10 ml UD PO PRN ×4 (08:57→21:28)
[2018-02-05] MEDS: Pantoprazole 40 mg EC Tab PO SCH ×2 (08:57→12:38)
[2018-02-05] MEDS: MethylPREDNISolone 40 mg Vial IVP SCH ×2 (10:41→21:28)
[2018-02-05] MEDS: Azithromycin 500MG/NS 250ml 500 MG/250 ML BAG IVPB SCH (10:44)
--- NOTE | 2018-02-05 13:05 | PN ---
DATE: 02/05/2018 FOLLOWUP NOTE SUBJECTIVE: Shortly, the patient is a 47-year-old who was admitted on the medical site for evaluation of asthma exacerbation. Psych consult was called for evaluation of depressive symptoms. The patient burred her at the time of admission and medical. The patient's family was concerned about suicidality, which the patient adamantly denied. This account underwriter was following on this patient for the past 2 days. The patient does not have signs of any suicidal ideations. The patient is not psychotic, compliant with the medications. At times has tearful spells, which is expected because her just 3 days ago. The patient does not exhibit any aggression or agitation. The patient's medications were confirmed with the pharmacy, resumed. Vital signs seems to be stable, but blood pressure is elevated 171/97, pulse is 69, temperature 97.6, respirations 20, oxygen saturation of 98. Medications reviewed. The patient is on Elavil 25 mg at the nighttime as needed for insomnia, atenolol 25 mg twice a day, Zithromax, Catapres, Robitussin, heparin, Humulin, Atrovent, , Claritin, Ativan as needed, Solu-Medrol, Singulair, Percocet and Protonix. Labs were reviewed. Most recent was from 02/02/2018. Urine drug screen was positive for opioids as well as benzodiazepines. Benzodiazepines and opioids were prescribed by her primary care physician. MENTAL STATUS EXAMINATION: The patient presented to be alert and oriented, pleasant, cooperative, fair eye contact. Speech was normal rate, tone, quality and quantity, but at times overproductive. Thought process, coherent and goal directed. Thought content, the patient denied visual, auditory or tactile hallucinations. Denied paranoid ideation. Denied thoughts of harming herself or others. Denied intents or plan. Thought content, no psychosis. Insight and judgment fair. Impulses are well controlled. IMPRESSION: Rule out adjustment disorder. Medical team raised concern about possible overusing and abusing medication, but the patient adamantly denied. Moreover, the patient was prescribed benzodiazepines and pain killers. PLAN: This account underwriter attempted to speak to the to the patient's son, but mailbox is full. There is no option to leave a message. The patient does not exhibit any aggression or agitation. Never verbalized thoughts of killing herself. Affect is full. The patient is doing well in regards of grieving. This account underwriter will follow up every other day on this patient. There is no need of one-to-one. Please contact family for collaterals. Meanwhile, continue current management. Elavil was confirmed 25 mg at the nighttime as needed for insomnia. Thank you very much for letting me participate in the care of your patient. Zee Bloom MD
--- NOTE | 2018-02-05 14:22 | PN ---
DATE: 02/05/2018 PULMONARY PROGRESS NOTE REFERRING PHYSICIAN: Blas Dixon MD SUBJECTIVE: The patient is lying in the bed, head at 45 degrees, night was unremarkable. Breathing is okay, but still has some cough. No more sputum production. No nausea, vomiting, or diarrhea. No leg pain, no leg swelling. OBJECTIVE: GENERAL: In no acute distress. VITAL SIGNS: Temperature is 98, heart rate 72, respiratory rate is 20, blood pressure 171/97, pulse 78, on nasal cannula. HEENT: Moist mucous membrane. Crowded airway. NECK: Supple. No JVD. LUNGS: Scattered rhonchi. HEART: S1, S2. ABDOMEN: Soft, nontender. No organomegaly. EXTREMITIES: There is no edema. NEUROLOGIC: Awake, alert, follow simple commands. MEDICATIONS: She is on Mucomyst twice a day, the patient refused this morning. Ativan 0.5 mg three times a day p.r.n., Atrovent 0.5 mg inhaled every 6 hours, clonidine 0.1 mg every 6 hours p.r.n., Claritin 10 mg daily, Elavil 25 mg at bedtime p.r.n., heparin 5000 units subcu every 12 hours, Percocet 5/325 one tablet every 6 hours p.r.n., Protonix 40 mg daily, Robitussin DM 10 mL every 4 hours p.r.n., Singulair 10 mg daily, Solu-Medrol 40 mg every 12 hours, Tenormin 25 mg twice a day, Xopenex inhaled every 6 hours p.r.n., Zithromax 500 mg daily. LABORATORY DATA: Reviewed and noted. No new changes in medications reported since yesterday. IMPRESSION AND PLAN: Exacerbation of chronic obstructive lung disease, anxiety disorder, adjustment disorder. Pulmonary point of view, doing okay. Continue IV and inhaled bronchodilator. Keep head at 45 degrees. Cough suppressant. Gastric prophylaxis. She will follow by Psychiatry. Thank you and we will follow with you. Miguelina Glynn MD
[2018-02-05] MEDS ORDERED: hydroCHLOROthiazide-Triamterene 25 mg-37.5 mg Cap UD PO ONE (17:43)
[2018-02-05] MEDS: Oxycodone/Acetaminophen 10/325 mg Tab PO PRN ×2 (18:03→22:54)
[2018-02-05] MEDS: Sodium Chloride 0.9% 1,000 ML IV SCH (22:12)
[2018-02-06] MEDS: Levalbuterol 1.25 MG/3 ML Inhal Soln UD IH SCH ×6 (00:15→19:46)
[2018-02-06] MEDS: guaiFENesin DM 200 mg-20 mg/10 ml UD PO PRN ×3 (01:44→21:05)
[2018-02-06] MEDS: Oxycodone/Acetaminophen 10/325 mg Tab PO PRN ×3 (01:45→21:04)
[2018-02-06] MEDS: Acetylcysteine 20% Inhal Soln (4ml) IH SCH ×4 (03:55→19:46)
[2018-02-06] MEDS: Insulin Reg-LOW-Coverage SC SCH ×4 (07:30→22:40)
[2018-02-06] MEDS ORDERED: MethylPREDNISolone 40 mg Vial IV SCH (08:00)
[2018-02-06] MEDS ORDERED: Sodium Chloride 0.45% 1,000 ML IV SCH (08:00)
[2018-02-06 09:50] LABS: MEAN CELL VOLUME 87.1 fl (80.0-105.0); MEAN CORPUSCULAR HEMOGLOBIN 28.2 pg (25.0-35.0); MEAN CORPUSCULAR HGB CONC 32.4 g/dl (31.0-37.0); MEAN PLATELET VOLUME 8.6 fl (7.0-11.0); RBC 4.25 10^6/uL (3.5-6.1); RED CELL DISTRIBUTION WIDTH 15.6 % (11.5-14.5)
[2018-02-06 09:59] LABS: ALB/GLOB RATIO 1.3 (1.1-1.8); ALBUMIN 4.3 g/dL (3.0-4.8); ALT/SGPT 94 U/L (7-56); AST/SGOT 38 U/L (14-36); BLOOD UREA NITROGEN 17 mg/dL (7-21); CALCIUM 9.5 mg/dL (8.4-10.5); GFR AFRICAN-AMERICAN > 60; GFR NON-AFRICAN AMERICAN > 60
[2018-02-06] MEDS ORDERED: hydroCHLOROthiazide-Triamterene 25 mg-37.5 mg Cap UD PO SCH (10:00)
[2018-02-06] MEDS: Azithromycin 500MG/NS 250ml 500 MG/250 ML BAG IVPB SCH (10:00)
[2018-02-06] MEDS: hydroCHLOROthiazide-Triamterene 25 mg-37.5 mg Cap UD PO SCH (10:17)
[2018-02-06] MEDS: Pantoprazole 40 mg EC Tab PO SCH (10:18)
--- NOTE | 2018-02-06 12:22 | CP.PCM.CON ---
History of Present Illness - History of Present Illness History of Present Illness: Nephrology Consultation Note: Assessment: Stable uncontrolled severe HTN possibly trigger as asthma exacerbation mild rhabomyolysis glycosuria hypertension (years), chronic back pain, asthma and morbid obesity adjustment disorder Plan Hypertension control with meds as ordered. Patient not on ACEI/ARB hence started losartan 50 mg/day. agree with Diazide sec HTN work up with renin/nikos, metanephrines, TSH, renal artery doppler. also checking vit D level, A1c CPK level normal now hence d/c IVF if CPK level high recurrence in future then consider further work up Dose meds/antibiotics for GFR >60. Glycemic control Recommend weight loss, diet, exercise and lifestyle modifications Further work up/management as per primary team Thanks for allowing me to participate in care of your patient. Will follow patient with you. Please call if any Qs. had d/w team Dr Eloy Iyer Office: [phone] Chief Complaint; high BP reason for consult: HTN and rhabdo management HPI: Pt is a 47 F with hx of hypertension (years), chronic back pain, asthma and morbid obesity presented with complaints of SOB and is being managed for asthma exacerbation. pt also seen by psychiatry for evaluation of depression. pt feels better at this time. SOB is much better. has cough which is mild. Denies OTC/herbal meds or NSAIDs No recent iodinated contrast exposure. denies tobacco/smoking/etoh/drugs. ROS: Cardiovascular: No chest pain. Pulmonary: No shortness of breath now Gastrointestinal: denies abdominal pain No nausea. No vomiting. Genitourinary: No pain while urinating. Denies blood in urine. All other negative except as mentioned in HPI Physical Examination: General Appearance: Comfortable, in no acute respiratory distress, co-operative . obese Vitals reviewed and noted as below Head; Atraumatic, normocephalic ENT: no ulcers no thrush. Tongue is midline. Oropharynx: no rash or ulcers. EYES: Pupils are equal, round and reactive to light accommodation. Eye muscles and extraocular movement intact. Sclera is anicteric. Neck; supple no lymphadenopathy, no thyromegaly or bruit Lungs: Normal respiratory rate/effort. Breath sounds bilateral equal and clear Heart: Normal rate. s1s2 normal. No rub or gallop. Extremities: no edema. No varicose veins Neurological: Patient is alert, awake and oriented to person, place and time. No focal deficit. Strength bilateral appropriate and equal Skin: Warm and dry. Normal turgor. No rash. Palpitation: Normal elasticity for age Abdomen: Abdomen is soft. Bowel sounds +. There is no abdominal tenderness, no guarding/rigidity no organomegaly Psych: normal insight and normal affect/mood MSK: no joint tenderness or swelling. Digits and nails normal, no deformity : kidney or bladder not palpable Labs/imaging reviewed. Past medical history, past surgical history, family history, social history, allergy reviewed and noted as below Family hx: no hx of CKD. Rest non-contributory work up: UA no protein Past Patient History - Infectious Disease Hx of Infectious Diseases: None - Tetanus Immunizations Tetanus Immunization: Unknown - Past Social History Smoking Status: Never Smoked - CARDIAC Hx Hypertension: Yes - PULMONARY Hx Asthma: Yes - NEUROLOGICAL Hx Neurological Disorder: No - HEENT Hx HEENT Problems: No - RENAL Hx Chronic Kidney Disease: No - ENDOCRINE/METABOLIC Hx Endocrine Disorders: No - HEMATOLOGICAL/ONCOLOGICAL Hx Blood Disorders: No - INTEGUMENTARY Hx Dermatological Problems: No - MUSCULOSKELETAL/RHEUMATOLOGICAL Other/Comment: R leg problem - GASTROINTESTINAL Hx Gastrointestinal Disorders: Yes (obese) - GENITOURINARY/GYNECOLOGICAL Hx Genitourinary Disorders: No - PSYCHIATRIC Hx Depression: No Hx Emotional Abuse: No Hx Physical Abuse: No Hx Substance Use: No - SURGICAL HISTORY Hx Surgeries: No Meds Allergies/Adverse Reactions: Allergies Allergy/AdvReac Type Severity Reaction Status Date / Time No Known Allergies Allergy Verified 10/29/12 05:37 - Medications Medications: Current Medications Acetylcysteine (Acetylcysteine 20%) 4 ml IH [id number] [facility] Last Admin: 02/06/18 11:02 Dose: 4 ml Amitriptyline HCl (Elavil) 25 mg PO HS PRN PRN Reason: Insomnia Last Admin: 02/05/18 23:00 Dose: 25 mg Atenolol (Tenormin) 25 mg PO BID [facility] Last Admin: 02/06/18 10:18 Dose: 25 mg Clonidine HCl (Catapres) 0.1 mg PO Q4 PRN PRN Reason: Systolic Blood Pressure Clonidine HCl (Catapres) 0.1 mg PO BID [facility] Last Admin: 02/06/18 10:16 Dose: 0.1 mg Guaifenesin/Dextromethorphan (Robitussin Dm) 10 ml PO Q4H PRN PRN Reason: Cough Last Admin: 02/06/18 09:08 Dose: 10 ml Heparin Sodium (Porcine) (Heparin) 5,000 units SC Q12 MANJINDER PRN Reason: Protocol Last Admin: 02/06/18 10:17 Dose: 5,000 units Hydralazine HCl (Apresoline) 10 mg IVP Q6 PRN PRN Reason: SBP 170 or greater Insulin Human Regular (Humulin R Low) 0 units SC ACHS MANJINDER PRN Reason: Protocol Last Admin: 02/05/18 21:31 Dose: Not Given Ipratropium [place] (Atrovent) 0.5 mg IH [id number] PRN PRN Reason: Shortness of Breath Levalbuterol HCl (Xopenex) 1.25 mg IH [id number] MANJINDER Last Admin: 02/06/18 11:02 Dose: 1.25 mg Levalbuterol HCl (Xopenex) 1.25 mg IH [id number] PRN PRN Reason: Shortness of Breath Last Admin: 02/03/18 01:07 Dose: 1.25 mg Loratadine (Claritin) 10 mg PO DAILY [facility] Last Admin: 02/06/18 10:17 Dose: 10 mg Lorazepam (Ativan) 0.5 mg PO TID PRN; Protocol PRN Reason: Anxiety/AGITATION Last Admin: 02/05/18 18:02 Dose: 0.5 mg Losartan Potassium (Cozaar) 50 mg PO DAILY [facility] Last Admin: 02/06/18 11:07 Dose: 50 mg Methylprednisolone (Solu-Medrol) 40 mg IVP Q12 [facility] Last Admin: 02/05/18 21:28 Dose: 40 mg Methylprednisolone (Solu-Medrol) 30 mg IV Q12H [facility] Last Admin: 02/06/18 09:07 Dose: 30 mg Montelukast Sodium (Singulair) 10 mg PO HS [facility] Last Admin: 02/05/18 21:29 Dose: 10 mg Oxycodone/Acetaminophen (Percocet 10/325 Mg Tab) 1 tab PO Q4H PRN PRN Reason: Pain, severe (8-10) Last Admin: 02/06/18 09:06 Dose: 1 tab Pantoprazole Sodium (Protonix Ec Tab) 40 mg PO ACB MANJINDER Last Admin: 02/06/18 10:18 Dose: 40 mg Triamterene/HCTZ (Dyazide 25 Mg-37.5 Mg) 1 cap PO DAILY [facility] Last Admin: 02/06/18 10:17 Dose: 1 cap Results - Vital Signs Recent Vital Signs: Last Vital Signs Temp 97.9 F 02/06/18 08:51 Pulse 68 02/06/18 10:16 Resp 18 02/06/18 08:51 BP 158/86 H 02/06/18 10:16 Pulse Ox 98 02/06/18 08:51 - Labs Result Diagrams: 02/06/18 07:50 02/06/18 07:50 Labs: Laboratory Results - last 24 hr 02/06/18 11:08 POC Glucose (mg/dL) 80
--- NOTE | 2018-02-06 16:25 | US ---
PROCEDURE: Bilateral renal artery duplex ultrasound. CLINICAL HISTORY: Renal artery stenosis. Uncontrolled hypertension. Evaluate for renovascular hypertension. PHYSICIAN(S): Tam Rodgers M.D. TECHNIQUE: Duplex sonography with color-flow Doppler was used to evaluate the visualized segments of the main renal arteries. The patient was evaluated in a fasting state. Imaging in a supine and decubitus position was performed. Limited evaluation of the arcuate waveforms and resistive indices were performed. FINDINGS: The exam is somewhat limited by body habitus. The kidneys are normal in size, shape, and location. The right kidney measures 9.9cm in length and the left kidney measures 10.1cm in length. No solid renal masses, abnormal calcifications, or hydronephrosis is seen. The main right renal artery is well visualized from the aorta to the hilum. The peak systolic velocity in the right main renal artery is 91 cm/sec. This is consistent with a 0 to 49% stenosis in the main right renal artery. The arcuate waveforms are normal. The resistive index is normal. The main left renal artery is somewhat tortuous and only visualized in segments.. The peak systolic velocity in the main left renal artery is 77cm/sec. This corresponds to a 0 to 49% stenosis in the main left renal artery. The arcuate waveforms and resistive indices are normal. IMPRESSION: 1. The main renal arteries are fairly well visualized. 2. No sonographically significant stenosis is identified. 3. The kidneys are normal and symmetric in size. There are no solid renal masses, abnormal calcifications or hydronephrosis noted.
--- NOTE | 2018-02-06 21:00 | PN ---
DATE: 02/06/2018 SUBJECTIVE: The patient was followed up today. The patient presented with reactive affect. The patient presented very well today. The patient reported that she feels much better. Her breathing is improving. The patient reported that her mood is the same. She feels hopeful for the future dealing with the loss of her well. The patient does not exhibit any agitation or aggression. The patient has fair appetite and sleep. The patient tolerated medications well. No side effects observed or reported. As per nursing report, the patient never verbalized any thoughts of harming herself or others, compliant with the medications, not in any acute distress. VITAL SIGNS: Reviewed. Temperature 97.9, pulse 68, blood pressure 158/86, respirations 18, oxygen saturation is 98. MEDICATIONS: Reviewed. She is on acetylcysteine, Elavil was resumed 25 mg at the nighttime, atenolol, Catapres, Robitussin, heparin, hydralazine, Humulin, Atrovent, levalbuterol , Claritin, Ativan as needed, Cozaar, Solu-Medrol, Percocet, and . LABORATORY DATA: Reviewed. Most recent was from today. WBC cells 12. MENTAL STATUS EXAMINATION: The patient presented to be alert and oriented, pleasant, cooperative. Mood described, "I feel better." Affect was reactive, mood congruent. Thought process was coherent and goal directed. Thought content, the patient denied visual, auditory, tactile hallucinations. Denied paranoid ideation. The patient denied thoughts of harming herself or others. Denied intent or plan. Insight and judgment seems to be improving. Impulses well controlled. IMPRESSION: Rule out adjustment disorder. Normal grief. PLAN: Continue current management. Continue current medication. There are no signs of aggression or agitation. The patient never verbalized thoughts of killing herself or others. The patient is taking her medication. Denied any side effects. Information about outpatient program provided to the patient. The patient pose no imminent danger to self or others. Can be followed up with her outpatient primary care physician, pain management as well as information about outpatient clinic provided. This information writer will sign off. Should you have any questions give me a call back. Thank you very much for letting me participate in care of your patient. Zee Bloom MD [facility] # [phone]
--- NOTE | 2018-02-06 21:06 | PN ---
DATE: 02/06/2018 PULMONARY PROGRESS NOTE REFERRING PHYSICIAN: Blas Dixon MD SUBJECTIVE: The patient is ambulating in the room. Night was unremarkable. Feels better. Decreased cough. Decreased shortness of breath. No nausea. No vomiting or diarrhea. No leg pain or leg swelling. OBJECTIVE: GENERAL: In no acute distress. VITAL SIGNS: Temperature is 99, heart rate 74, respiratory rate is 20, blood pressure 158/97, pulse ox 95% on nasal cannula. HEENT: Moist mucous membrane. No ulcer or oral thrush noted. NECK: Supple. No JVD. LUNGS: Have a fair airflow with few rhonchi. HEART: S1 and S2. ABDOMEN: Soft, nontender. No organomegaly. EXTREMITIES: No edema. NEUROLOGICAL: Awake and alert. Follows simple command. MEDICATIONS: She is on Mucomyst inhaled every 6 hours, hydralazine 10 mg every 6 hours p.r.n., lorazepam 0.5 mg three times a day p.r.n., Atrovent inhaled every 6 hours p.r.n., clonidine 0.1 mg every 4 hours p.r.n., Catapres 0.1 mg twice a day, Claritin 10 mg daily, Cozaar 50 mg daily, Dyazide 25/37.5 one tablet daily, Elavil 25 mg at bedtime, heparin 5000 units subcu every 12 hours, insulin coverage, Percocet 10/325 every 4 hours p.r.n., Protonix 40 mg daily, Robitussin DM 10 mL every 4 hours p.r.n., Singulair 10 mg daily, Solu-Medrol 30 mg every 12 hours, Tenormin 25 mg twice a day, Xopenex inhaled every 6 hours p.r.n. LABORATORY DATA: Shows hemoglobin 12, hematocrit 37, WBC 12, platelet is 384. Sodium 141, potassium 3.8, chloride 99, bicarbonate 28, BUN 17, creatinine 0.6, glucose 105, calcium 9.5, AST 38, ALT 94, alkaline phosphatase is 93, creatine kinase 60, albumin is 4.3. Beta-hCG quantitative less than 2.39. Has a renal artery duplex done, which shows the main renal arteries are fairly well visualized. No sonographic evidence of stenosis is identified. IMPRESSION AND PLAN: Chronic obstructive lung disease, adjustment disorder, anxiety disorder, may have sleep apnea syndrome. Pulmonary point of view, doing okay. We will discontinue Solu-Medrol, Be-Tab prednisone 20 mg daily and taper off. Sleep apnea precaution. Fall precaution. Recommend sleep study and PFT as outpatient. Thank you and we will follow with you. Miguelina Glynn MD
[2018-02-07] MEDS: Levalbuterol 1.25 MG/3 ML Inhal Soln UD IH SCH ×5 (01:21→16:32)
--- NOTE | 2018-02-07 01:39 | CON ---
DATE: 02/06/2018 SERVICE: CARDIOLOGY REASON FOR THE CONSULTATION: Cardiac evaluation, abnormal EKG flipping of T-wave, chest pain, admitted with asthma. BRIEF CLINICAL HISTORY: This is a 47-year-old female with past medical history significant for asthma since childhood, improved and recently did not have any asthma attacks, but recently the patient was taking the grandson to the park and was stressed out because of the 's cancer, he . So, because of lot of social issues, the patient started feeling tightness in chest, shortness of breath and asthma, and was admitted here. Denies any prior episodes of dyspnea on exertion or chest pain on exertion. PAST MEDICAL HISTORY: Significant for hypertension for more than 13 to 15 years, was on atenolol at one time. Recently, the patient started taking lot of analgesics from the 's, including oxycodone for the knee pain. On admission, history of hypertension and asthma. FAMILY HISTORY: Significant for coronary artery disease in grandfather from the mother's side. Mother has hypertension history of coronary artery disease. Family history of breast cancer. CURRENT MEDICATIONS: The patient at home was taking atenolol, tramadol and potassium pills. SOCIAL HISTORY: Denies any smoking. Denies any history of alcohol abuse. No recent cardiac workup is done. REVIEW OF SYSTEMS: As per HPI. PHYSICAL EXAMINATION: VITAL SIGNS: Height of the patient is 5 feet 2 inches, weight of the patient 230 pounds, body mass index 43 kg/m2. Rest of the vitals shows temperature afebrile, heart rate 60, blood pressure 150/86. HEENT: PERRLA. Extraocular muscles are intact. NECK: Supple. No carotid bruit. No thyromegaly. CHEST: Clear to auscultation. HEART: S1 and S2 regular. ABDOMEN: Soft. EXTREMITIES: Clubbing and cyanosis negative. LABORATORY DATA: Blood workup as follows; WBC 12, hemoglobin 12, hematocrit 37, platelet count 384. Chemistry shows sodium 141, potassium 3.8, chloride 99, carbon dioxide 28, anion gap of 18, BUN 17, creatinine 0.6. Total protein 7.5, albumin 4.3, albumin globulin ratio 1.3. EKG shows normal sinus rhythm, no acute ST-T changed noted, but telemetry strip shows II, III, aVF T wave flipping in the telemetry and was an upright in EKG but now is T wave inversion noted. IMPRESSION: A 47-year-old female with past medical history significant for obesity, increased body mass index, hypertension for many years, admitted with acute exacerbation of COPD, taking a lot of analgesics, narcotic analgesics, from the and complaining of the knee pain. Admitted with some chest tightness secondary to wheezing, but flipping of T wave so far, does not look like any acute myocardial infarction, but given the multiple risk factors for coronary artery disease, suggest echo and a stress test. She has a troponin x2 negative, but given the risk factors including diabetes, hypertension for many years, obesity and abnormal EKG flipping the T wave in telemetry suggest echo and a stress test, lipid profile, TSH and hemoglobin A1c. Further recommendations after the stress test. We will follow with you. We will keep n.p.o. after get echo and a stress test. Thank you Dr. Dixon for providing us the opportunity in taking of the patient, Lashaun Mosher. Miguelina Bains MD
[2018-02-07] MEDS: Acetylcysteine 20% Inhal Soln (4ml) IH SCH ×3 (06:38→16:26)
[2018-02-07 07:10] LABS: HDL CHOLESTEROL 44 mg/dL (29-60)
--- NOTE | 2018-02-07 07:11 | CP.PCM.PN ---
Subjective - Date & Time of Evaluation Date of Evaluation: 02/07/18 Time of Evaluation: 06:05 - Subjective Subjective: Awake, alert, in the bathroom,denies shortness of breath Reason for consultation and follow up: Cardiac evaluation for chest pain who came in to the ER due to shortness of breath. history of asthma Seen and examined by me and Dr. Bains Objective - Vital Signs/Intake and Output Vital Signs (last 24 hours): Temp Pulse Resp BP Pulse Ox 99.0 F 65 19 158/97 H 95 02/06/18 18:00 02/07/18 05:59 02/06/18 18:00 02/06/18 18:00 02/06/18 18:00 Intake and Output: 02/07/18 02/07/18 06:59 18:59 Intake Total 360 Balance 360 - Medications Medications: Current Medications Acetylcysteine (Acetylcysteine 20%) 4 ml IH [id number] [facility] Last Admin: 02/07/18 06:38 Dose: Not Given Amitriptyline HCl (Elavil) 25 mg PO HS PRN PRN Reason: Insomnia Last Admin: 02/06/18 23:15 Dose: 25 mg Atenolol (Tenormin) 25 mg PO BID [facility] Last Admin: 02/06/18 17:29 Dose: 25 mg Clonidine HCl (Catapres) 0.1 mg PO Q4 PRN PRN Reason: Systolic Blood Pressure Clonidine HCl (Catapres) 0.1 mg PO BID [facility] Last Admin: 02/06/18 17:28 Dose: 0.1 mg Guaifenesin/Dextromethorphan (Robitussin Dm) 10 ml PO Q4H PRN PRN Reason: Cough Last Admin: 02/06/18 21:05 Dose: 10 ml Heparin Sodium (Porcine) (Heparin) 5,000 units SC Q12 MANJINDER PRN Reason: Protocol Last Admin: 02/06/18 21:01 Dose: 5,000 units Hydralazine HCl (Apresoline) 10 mg IVP Q6 PRN PRN Reason: SBP 170 or greater Insulin Human Regular (Humulin R Low) 0 units SC ACHS MANJINDER PRN Reason: Protocol Last Admin: 02/06/18 22:40 Dose: Not Given Ipratropium [place] (Atrovent) 0.5 mg IH [id number] PRN PRN Reason: Shortness of Breath Levalbuterol HCl (Xopenex) 1.25 mg IH [id number] [facility] Last Admin: 02/07/18 06:38 Dose: Not Given Levalbuterol HCl (Xopenex) 1.25 mg IH [id number] PRN PRN Reason: Shortness of Breath Last Admin: 02/03/18 01:07 Dose: 1.25 mg Loratadine (Claritin) 10 mg PO DAILY [facility] Last Admin: 02/06/18 10:17 Dose: 10 mg Lorazepam (Ativan) 0.5 mg PO TID PRN; Protocol PRN Reason: Anxiety/AGITATION Last Admin: 02/05/18 18:02 Dose: 0.5 mg Losartan Potassium (Cozaar) 50 mg PO DAILY [facility] Last Admin: 02/06/18 11:07 Dose: 50 mg Montelukast Sodium (Singulair) 10 mg PO HS [facility] Last Admin: 02/06/18 21:01 Dose: 10 mg Oxycodone/Acetaminophen (Percocet 10/325 Mg Tab) 1 tab PO Q4H PRN PRN Reason: Pain, severe (8-10) Last Admin: 02/06/18 21:04 Dose: 1 tab Pantoprazole Sodium (Protonix Ec Tab) 40 mg PO ACB [facility] Last Admin: 02/06/18 10:18 Dose: 40 mg Prednisone (Prednisone Tab) 20 mg PO DAILY [facility] Triamterene/HCTZ (Dyazide 25 Mg-37.5 Mg) 1 cap PO DAILY [facility] Last Admin: 02/06/18 10:17 Dose: 1 cap - Constitutional Appears: No Acute Distress - Eye Exam Eye Exam: Normal appearance - ENT Exam ENT Exam: Mucous Membranes Moist - Respiratory Exam Respiratory Exam: Decreased Breath Sounds, Rhonchi, NORMAL BREATHING PATTERN - Cardiovascular Exam Cardiovascular Exam: REGULAR RHYTHM, +S1, +S2 Additional comments: telemetry NSR 70's - Exam Additional comments: continent - Extremities Exam Extremities Exam: Normal Capillary Refill - Neurological Exam Neurological Exam: Alert, Awake, Oriented x3 - Psychiatric Exam Psychiatric exam: Normal Affect - Skin Skin Exam: Dry, Warm Assessment and Plan - Assessment and Plan (Free Text) Assessment: A 47 year old female who came in to the ER due to shortness of breath and chest thightness. History of asthma and hypertension. recently due to cancer. [employer] yesterday due to worsening shortness of breath. no previous cardiac work up. Plan: Denies chest pain or shortness of breath For ECHO and Stress test today Control blood pressure Pulmonary on consult Nephrology on consult On Tenormin 25 mg BID, Catapres 0.1 mg BID,Cozaar 50 mg daily, Triamterene/HCTZ 1 tab daily, PRN Clonidine and Hydralazine for elevated BP Lifestyle modification Continue current treatment Continue current medications Will follow up Plan and treatment discusses with Dr. Bains
[2018-02-07 07:20] LABS: LDL CHOLESTEROL 100 mg/dL (0-129)
[2018-02-07] MEDS: Insulin Reg-LOW-Coverage SC SCH (08:48)
[2018-02-07 09:18] VITALS: RESP 20; TEMP 98; O2SAT 94
[2018-02-07] MEDS ORDERED: Potassium Chloride 20 mEq ER Tab PO ONE (09:54)
[2018-02-07] MEDS ORDERED: Ergocalciferol 50,000 Intl Units Cap PO SCH (12:30)
--- NOTE | 2018-02-07 12:43 | CARD ---
APPROVED REPORT Date of service: 02/07/2018 EXAM: Two-dimensional and M-mode echocardiogram with Doppler and color Doppler. INDICATION 2D DIMENSIONS IVSd1.0 (0.7-1.1cm)LVDd5.3 (3.9-5.9cm) PWd1.1 (0.7-1.1cm)LVDs3.6 (2.5-4.0cm) FS (%) 31.3 %LVEF (%)58.8 (>50%) M-Mode DIMENSIONS Left Atrium (MM)4.60 (2.5-4.0cm)Aortic Root2.80 (2.2-3.7cm) Aortic Cusp Exc.2.00 (1.5-2.0cm) Aortic Valve AoV Peak Myoqwqwf258.0cm/Xavier Peak GR.8mmHg Mitral Valve MV E Ntcjtdpj44.8cm/sMV A Forrwwhy764.0cm/sE/A ratio0.9 TDI Lateral E' Peak V6.43cm/sMedial E' Peak V4.87cm/sE/Lateral E'14.3 E/Medial E'18.9 Tricuspid Valve TR Peak [id number]/sRAP [id number] Peak Gr.23mmHg [id number] LEFT VENTRICLE The left ventricle is normal size. There is normal left ventricular wall thickness. The left ventricular function is normal.EF-55-60% There is normal LV segmental wall motion. The left ventricular diastolic function is normal. No left ventricle thrombus noted on this study. There is no ventricular septal defect visualized. There is no left ventricular aneurysm. There is no mass noted in the left ventricle. RIGHT VENTRICLE The right ventricle is normal size. There is normal right ventricular wall thickness. The right ventricular systolic function is normal. ATRIA The left atrium is mildly dilated. The right atrium size is normal. The interatrial septum is intact with no evidence for an atrial septal defect. AORTIC VALVE The aortic valve is thickened but opens well. No aortic regurgitation is present. There is no aortic valvular stenosis. There is no aortic valvular vegetation. MITRAL VALVE The mitral valve is thickened but opens well. Mitral regurgitation is trace. There is no mitral valve stenosis. There is no evidence of mitral valve prolapse. TRICUSPID VALVE The tricuspid valve leaflets are thickened , but open well. There is trace to mild tricuspid regurgitation.RVSP-33 mmof Hg. There is no tricuspid valve stenosis. There is no tricuspid valve prolapse or vegetation. PULMONIC VALVE The pulmonic valve is borderline thickened. There is trace pulmonic valvular regurgitation. There is no pulmonic valvular stenosis. GREAT VESSELS The aortic root is normal in size. The ascending aorta is normal in size. The pulmonary artery is normal. The IVC is normal in size and collapses >50% with inspiration. PERICARDIAL EFFUSION There is no pleural effusion. There is no pericardial effusion. <Conclusion> The left ventricle is normal size. There is normal left ventricular wall thickness. The left ventricular function is normal.EF-55-60% Mitral regurgitation is trace. There is trace to mild tricuspid regurgitation.RVSP-33 mmof Hg. There is trace pulmonic valvular regurgitation. The IVC is normal in size and collapses >50% with inspiration. There is no pericardial effusion.
--- NOTE | 2018-02-07 13:29 | PN ---
DATE: 02/06/2018 SUBJECTIVE: The patient sitting in the bed, comfortable, in no respiratory distress. Blood pressure is down and she feels comfortable, off IV fluid right now, and laboratory checked was okay. PHYSICAL EXAMINATION: VITAL SIGNS: Afebrile. Temperature is 97.9, heart rate 68, blood pressure 158/86, respirations 18, saturation 98% on 4 liters. HEAD AND NECK: Normal. No JVD. No thyromegaly. CHEST: Clear bilaterally. No wheezing. CARDIAC: First sound and second sound normal. ABDOMEN: Soft, obese, nontender. EXTREMITIES: No edema. NEUROLOGICAL: Normal. LABORATORY DATA: Her laboratory studies show white count 12, which is down; hemoglobin 12; hematocrit 37; platelets 384. Chemistry shows blood sugar in the 90, here. Sodium 141, potassium 3.8, chloride 99, bicarbonate 28, BUN 17, creatinine 0.6. Liver function tests are slightly elevated. AST 38, ALT 94 and total bilirubin 0.8. Blood glucose 168, calcium 9.5. Albumin, globulin, and alkaline phosphatase is normal. IMPRESSION AND PLAN: 1. Acute asthma exacerbations. Continue tapering down steroids; probably the patient is doing very well, we may need to switch to p.o. and discharge her. Her blood pressure is better. Dr. Eloy Iyer will see her. According to him, it is possibly asthma related. The patient is doing well with her current regimen, possible part of it was withdrawal from narcotics with hyperadrenergic state causing tachycardia and high blood pressures, so continue clonidine which help blood pressure and withdrawal twice a day, in addition p.r.n. every four hours. 2. Chronic pain due to osteoarthritis. According to her, she has seen Pain Management as outpatient and was given here oxycodone higher dose. She seems okay with the current dose. Continue oxycodone as prescribed here 10 mg, and we will continue to monitor her condition. She should follow up with her Pain Management doctor. 3. Abnormal liver function tests, probably medication related, should be monitored as outpatient. I did discuss the lab with the patient in detail including liver function abnormalities. 4. Osteoarthritis, chronic osteoarthritis of her back and knee and shoulder and follow up with the jet inspector. The patient also has some chronic anxiety, possible depression, continue Elavil 25 mg nightly, continue Ativan 0.5 mg t.i.d. p.r.n. PLAN: Continue current therapy. We are starting the patient on p.o. medications. Hopefully, we will taper her down at home and will be discharged in the morning. CURRENT MEDICATIONS: Mucomyst, hydralazine 10 mg IV every six hours p.r.n., Ativan 0.5 t.i.d., Atrovent, Catapres every six hours p.r.n., Claritin, Cozaar 50 mg p.o. daily, Dyazide one capsule daily, heparin subcu for DVT prophylaxis, insulin coverage due to steroids, Percocet 10 every four hours p.r.n., Protonix 40, Robitussin DM, Singulair, Tenormin 25 b.i.d., Xopenex every four hours scheduled and every six hours p.r.n. Continue current therapy. Follow up clinically. Blas Dixon MD
[2018-02-07] MEDS: hydroCHLOROthiazide-Triamterene 25 mg-37.5 mg Cap UD PO SCH (14:38)
[2018-02-07] MEDS: Pantoprazole 40 mg EC Tab PO SCH (14:39)
[2018-02-07 14:42] VITALS: BP 160/90; PULSE 82
--- NOTE | 2018-02-07 15:17 | PN ---
DATE: 02/07/2018 PULMONARY PROGRESS NOTE REFERRING PHYSICIAN: Blas Dixon MD SUBJECTIVE: Night was unremarkable. No new pulmonary complaints. Still has a mild cough. No sputum production. No nausea, vomiting or diarrhea. No leg pain or leg swelling. PHYSICAL EXAMINATION: GENERAL: In no acute distress. VITAL SIGNS: Temperature is 98, heart rate 60, respiratory rate is 20, blood pressure 163/90, pulse ox 94% on room air. HEENT: Moist mucous membrane. Crowded airway. NECK: Supple. No JVD. LUNGS: Have a fair airflow with prolonged expiratory phase. HEART: S1 and S2. ABDOMEN: Soft, nontender. No organomegaly. EXTREMITIES: No edema. NEUROLOGICAL: Awake and alert. Follows simple command. MEDICATIONS: She is on Mucomyst inhaled every 6 hours, hydralazine 10 mg every 6 hours p.r.n., lorazepam 0.5 mg three times a day p.r.n., Atrovent inhaled every 6 hours p.r.n., Catapres 0.1 mg twice a day, Claritin 10 mg daily, Cozaar 100 mg daily, Dyazide 25/37.5 one capsule daily, Elavil 25 mg at bedtime p.r.n., heparin 5000 units subcu every 12 hours, Percocet 10/325 one tab every 4 hours p.r.n., prednisone 20 mg daily, Protonix 40 mg daily, guaifenesin p.r.n. basis, Singulair 10 mg daily, Tenormin 25 mg twice a day, Xopenex inhaled also p.r.n. basis. LABORATORY DATA: Shows blood sugar this morning 78, cholesterol is 180, triglycerides 218. IMPRESSION AND PLAN: Chronic obstructive lung disease, adjustment disorder, anxiety disorder, may have sleep apnea. Cardiac workup is in progress. Pulmonary point of view, doing well. Taper off prednisone next couple of days. Continue inhaled bronchodilator, antihistamine, nasal steroids. Will benefit outpatient sleep study and pulmonary function test. Fall precaution. Thank you and we will follow with you. Miguelina Glynn MD [facility] # [id number]
--- NOTE | 2018-02-07 22:35 | CARD ---
APPROVED REPORT Date of service: 02/07/2018 Protocol: LEXISCAN Test Type: Lexiscan Sestamibi Stress Test Attending Physician: Dr. Miguelina Bains Referring Physician: Dr. Blas Dixon Test Indications: Chest Pain Height:5 ft 2 in Weight:235lbs Medications: Claritin,Ativan,Cozaar, Singulair, Percocet, Protonix, Prednisone, Heparin,Elavil, Diazide,Muconyst Medical History: 47 y/o female. Hx of chest pain,shortness of breath, asthma,hypertension,anxiety, family hx of heart disease. Target HR: 172 bpm Resting ECG: NSR Poor RR progression Resting Heart Rate: 76 bpm Resting Blood Pressure: 162/94mmHg Submaximum (85%): 146 bpm PROCEDURE Pharmacologic stress testing was performed using 0.4mg per 5ml of regadenoson given intravenously over 7-10 seconds. Reversal agent aminophyline 50 mg, given intravenously for Other. POST EXERCISE Reason for Termination: Protocol completed Target HR: No Max HR: 76 bpm 51% of Maximum Predicted HR: 172 bpm Exercise duration: 00:33 min:sec, 0 Stage Exercise capacity: 1.0METs Max Blood Pressure: 162/94mmHg Blood Pressure response to exercise: normal resting BP - appropriate response Heart Rate response to exercise: appropriate Chest Pain: No, none Angina index: 0 Arrhythmia: No, none ST Change: No, none Deviation: 0 mm INTERPRETATION Stress EKG Conclusion: Negative IV Lexiscan for ischemia and for chest pain, Nuclear scan to follow. Signed by Miguelina Bains Electronically Approved: 02/07/2018 11:50:38 EXAM: Myocardial Perfusion REST/STRESS Stress Test Type: Pharmacologic Imaging Protocol Rest Spect myocardial perfusion imaging was performed in supine position 45 minutes following the injection of 10.3 mCi of Tc-99 Myoview. At peak stress, the patient was injected intravenously with 30.8mCi of Tc-99 tetrofosmin after an infusion time of 0 minutes and 10 seconds. Gated StressStress Spect was performed 65 minutes after intravenous Tc-99 Myoview injection. The images were gated to evaluate regional wall motion and calculate ventricular ejection fraction.Images were reconstructed using backfilter projection method in short horizontal and verticle long axis. Spect slices were generated. LV Perfusion The quality of the study is somewhat suboptimal due to significant breast attenuation on stress and rest studies. The left ventricle is normal in size. The right ventricle is unremarkable. The lung uptake is normal. The distribution of tracer reveals mildly decreased perfusion involving mid to distal anteroseptal wall on the stress study. The remainder of the LV myocardium is unremarkable. The rest myocardial perfusion study shows slight improvemento the defect. Wall Motion Gated wall motion study shows good contractility of the left ventricle. LVEF = 70%. Conclusion 1. Probably normal SPECT myocardial perfusion study. 2. Partially reversible, anteroseptal defect is most likely due to shifting breast artifact rather than ischemia. 3. Normal gated wall motion of the left ventricle.
--- NOTE | 2018-02-08 19:35 | DS ---
HISTORY OF PRESENT ILLNESS: A 47-year-old female came in with acute asthma exacerbations. The patient was given IV steroids, pulmonary consult Dr. Glynn. The patient improved clinically regarding her asthma, was given Zithromax and she did well. However, blood pressure was very high. The patient has been on narcotics for chronic arthritis of her knees, her back and seen by Pain Management as outpatient and she was taking oxycodone 30 mg, part of it from her and part of it from Pain Management. The patient was given Percocet 10 mg to control her symptoms. She was having no pain and she was doing okay. Also was seen by psychiatrist due to chronic anxiety and of course with loss of her , so was given Ativan 0.5 mg t.i.d. While she was in the hospital, she was seen by renal consult and her duplex renal was negative and she was maintained on current blood pressure medicine and follow it up by her primary care or follow it up in the office within one week. The patient was advised to maintain her medicines including blood pressure medicine, Medrol Dosepak, antibiotic, and follow up clinically. PHYSICAL EXAMINATION: VITAL SIGNS: Temperature 98, heart rate 68, blood pressure is 160/90, respirations 20, saturation 95% on room air. LABORATORY STUDIES: Last lab shows white count 12, hemoglobin 12, hematocrit 37, and platelets 384. Chemistries: Blood sugar in 90s, hemoglobin A1c 5.7, blood sugar was not high. Sodium 141, potassium 3.8, chloride 99, bicarb 28. BUN 17, creatinine 0.6. She does have slight liver function elevation, AST 38 and ALT 94. The patient has been discussed all the labs, all the findings with the patient. DISCHARGE DIAGNOSES: 1. Acute asthma exacerbation. 2. Hypertension, could be chronic with worsening recently due to asthma and stress. 3. Obesity. 4. Chronic osteoarthritis and back pain. 5. Generalized anxiety disorder. PLAN: Continue current medication. The patient have already pain medicine at home, so she does not want any pain medicine, 10 mg of Percocet, she have it. She was given Ativan 0.5 mg t.i.d. for one week or 10 days to follow up with her primary care for followup, Protonix 40 mg once a day, Singulair 10, Claritin 10, Medrol Dosepak, Cozaar 100 mg daily, and she was given Advair 50/250 b.i.d., Tenormin 25 b.i.d., Elavil 25 mg p.o. daily, and Dyazide one capsule daily. The patient was also advised to get clonidine b.i.d. especially with a blood pressure above 170 and she should follow up with her primary care doctor. Clonidine helped for withdrawal symptoms from chronic narcotic abuse and drug abuse and helped her symptoms due to anxiety and advised to follow up with me in a week or her primary care doctor. All medication risks explained to the patient, her condition explained in details, and risk and benefits explained of all medications. Follow up clinically in one week in my office. Blas Dixon MD
== END 2018-02-07 17:31 | disposition home or self-care (01) | DRG 88 ==
LOC: ED 13:15 → ERH 16:59 → 3RSO 18:24 → OBSVTOIN 02-06 07:53
PROVIDERS: ADMIT Internal Medicine; ATTEND Internal Medicine
DX: J44.1 Chronic obstructive pulmonary disease with (acute) exacerbation (principal); J45.901 Unspecified asthma with (acute) exacerbation; F11.20 Opioid dependence, uncomplicated; F13.20 Sedative, hypnotic or anxiolytic dependence, uncomplicated; F43.23 Adjustment disorder with mixed anxiety and depressed mood; D64.9 Anemia, unspecified; E11.9 Type 2 diabetes mellitus without complications; E66.01 Morbid (severe) obesity due to excess calories; G47.00 Insomnia, unspecified; G89.29 Other chronic pain; I10 Essential (primary) hypertension; M19.90 Unspecified osteoarthritis, unspecified site; Z80.3 Family history of malignant neoplasm of breast; Z82.49 Family history of ischemic heart disease and other diseases of the circulatory system; Z68.41 Body mass index [BMI] 40.0-44.9, adult

== ENCOUNTER 2018-02-10 11:06 | Inpatient (IN) | payer MEDICAID ==
[2018-02-10] MEDS ORDERED: Albuterol-Ipratrop 3 mg / 0.5 (3 ml) UD ONE (11:53)
--- NOTE | 2018-02-10 12:10 | ED PDOC ---
Arrival/HPI - General Time Seen by Provider: 02/10/18 11:24 Historian: EMS EM Caveat: Respiratory Distress - Critical Care Critical Care Minutes: 30 minutes - History of Present Illness Narrative History of Present Illness (Text): 02/10/18 12:08 A 47 year old female, whose past medical history includes asthma, is brought into the emergency room by EMS for complaint of shortness of breath. Patient is brought into the emergency room covered in stool and unkept. She was showered in the emergency room. Patient ROS/ HPI is limited due to respiratory distress. Time/Duration: Prior to Arrival Symptom Onset: Sudden Symptom Course: Unchanged Activities at Onset: Rest, Light Context: Home Past Medical History - Provider Review Nursing Documentation Reviewed: Yes - Infectious Disease Hx of Infectious Diseases: None - Tetanus Immunization Tetanus Immunization: Unknown - Past Medical History Past Medical History: No Previous - Cardiac Hx Hypertension: Yes - Pulmonary Hx Asthma: Yes - Neurological Hx Neurological Disorder: No - HEENT Hx HEENT Disorder: No - Renal Hx Renal Disorder: No - Endocrine/Metabolic Hx Endocrine Disorders: No - Hematological/Oncological Hx Blood Disorders: No - Integumentary Hx Dermatological Disorder: No - Musculoskeletal/Rheumatological Other/Comment: R leg problem - Gastrointestinal Hx Gastrointestinal Disorders: Yes (obese) - Genitourinary/Gynecological Hx Genitourinary Disorders: No - Psychiatric Hx Depression: No Hx Emotional Abuse: No Hx Physical Abuse: No Hx Substance Use: No - Past Surgical History Past Surgical History: No Previous - Suicidal Assessment Feels Threatened In Home Enviroment: No Family/Social History - Physician Review Nursing Documentation Reviewed: Yes Family/Social History: No Known Family HX Smoking Status: Never Smoked Hx Alcohol Use: No Hx Substance Use: No Hx Substance Use Treatment: No Allergies/Home Meds Allergies/Adverse Reactions: Allergies No Known Allergies Allergy (Verified 02/10/18 11:56) Review of Systems - Physician Review All systems were reviewed & negative as marked: Yes - Review of Systems Systems not reviewed;Unavailable: Respiratory Distress Respiratory: SOB Physical Exam Vital Signs Reviewed: Yes Vital Signs Temp Pulse Resp BP Pulse Ox 02/10/18 14:15 100.6 F H 02/10/18 13:51 107 H 20 150/73 95 02/10/18 11:56 117 H 24 121/62 67 L 02/10/18 11:39 99.0 F 100 H 22 121/62 100 Temperature: Febrile Blood Pressure: Normal Pulse: Regular Respiratory Rate: Normal Appearance: Positive for: Non-Toxic, Unkept Pain Distress: None Mental Status: Positive for: Lethargic - Systems Exam Head: Present: Atraumatic, Normocephalic, Other (Periorbital edema. ) Pupils: Present: PERRL Extroacular Muscles: Present: EOMI Conjunctiva: Present: Normal Mouth: Present: Moist Mucous Membranes Neck: Present: Normal Range of Motion Respiratory/Chest: Present: Respiratory Distress (Severe), Accessory Muscle Use , Wheezes (Severe wheezing), Decreased Breath Sounds (Decreased breath sounds bilaterally), Retracting, Tachypneic Cardiovascular: Present: Tachycardic Abdomen: No: Tenderness, Distention, Peritoneal Signs Back: Present: Normal Inspection Upper Extremity: Present: Normal Inspection. No: Cyanosis, Edema Lower Extremity: Present: Normal Inspection. No: Edema Neurological: Present: GCS=15, CN II-XII Intact, Speech Normal Skin: Present: Warm, Dry, Normal Color. No: Rashes Psychiatric: Present: Alert, Oriented x 3, Normal Insight, Normal Concentration Medical Decision Making ED Course and Treatment: 02/10/18 12:18 Impression: A 47 year old female is brought into the emergency room via EMS for worsening shortness of breath. Plan: -- EKG -- Chest X-ray -- Labs -- Blood Culture -- Urinalysis -- Aspirin, Duoneb, Pepcid, SOLU-Medrol, Rocephin, Pepcid, -- Reassess and disposition Progress Notes: 02/10/18 12:20: Patient was seen immediately upon arrival. Patient was placed on BiPAP 02/10/18 13:27: Case discussed in detail with Dr. Dixon who accepts patient to his service. Dr. Kendall will take patient to the unit. 02/10/18 13:30: Chest X-ray shows bilateral increased marking consistent with congestive heart failure. No infiltrates. 02/10/18 13:44 EKG shows sinus tachycardia rate approximately [address] or T-wave changes and poor R-wave progression. Patient was seen in the emergency department by the telemetry tech and the PMD. 02/10/18 13:47 Dr. Glynn will see in consult. 02/10/18 14:27 - Lab Interpretations Lab Results: 02/10/18 12:15 02/10/18 12:15 Lab Results 02/10/18 13:05: Urine Opiates Screen Positive H, Urine Methadone Screen Negative , Ur Barbiturates Screen Negative, Ur Phencyclidine Scrn Negative, Ur Amphetamines Screen Negative, U Benzodiazepines Scrn Positive H, U Oth Cocaine Metabols Negative, U Cannabinoids Screen Negative 02/10/18 13:05: Urine Color Yellow, Urine Appearance Sl cloudy, Urine pH 6.0, Ur Specific [place] >= 1.030, Urine Protein 100 H, Urine Glucose (UA) Negative, Urine Ketones Negative, Urine Blood Large H, Urine Nitrate Negative, Urine Bilirubin Negative, Urine Urobilinogen 0.2, Ur Leukocyte Esterase Negative, Urine RBC 5 - 10, Urine WBC 2 - 5, Ur Epithelial Cells 4 - 5, Amorphous Sediment Few, Urine Bacteria Many, Coarse Granular Casts Small H, Urine HCG, Qual Negative 02/10/18 12:40: pCO2 44, pO2 92.0, HCO3 21.6, ABG pH 7.30 L, ABG Total CO2 23.0 , ABG O2 Saturation 98.7 H, ABG O2 Content 12.5 L, ABG Base Excess -4.6 L, ABG Hemoglobin 9.2 L, ABG Carboxyhemoglobin 1.9 H, POC ABG HHb (Measured) 1.3, ABG Methemoglobin 1.2, ABG O2 Capacity 12.7 L, Hgb O2 Saturation 95.7, FiO2 40.0 02/10/18 12:15: Alcohol, Quantitative < 10 02/10/18 12:15: Sodium 140, Potassium 4.3, Chloride 100, Carbon Dioxide 25, Anion Gap 19, BUN 57 H, Creatinine 1.7 H, Est GFR ( Amer) 39, Est GFR ( Non-Af Amer) 32, Random Glucose 138 H, Calcium 8.5, Magnesium 2.3 H, Total Bilirubin 0.7, AST 68 H D, ALT 65 H, Alkaline Phosphatase 128 H D, Lactate Dehydrogenase 1725 H, Total Creatine Kinase 1563 H, CK-MB (CK-2) 24.2 H, CK-MB ( CK-2) % 1.5 L, Troponin I 0.08 D, NT-Pro-B Natriuret Pep 2320 H, Total Protein 7.4, Albumin 4.1, Globulin 3.3, Albumin/Globulin Ratio 1.2 02/10/18 12:15: PT 12.2, INR 1.06, APTT 26.4, D-Dimer, Quantitative 924 H 02/10/18 12:15: WBC 26.4 H* D, RBC 3.58, Hgb 10.1 L, Hct 31.3 L, MCV 87.4, MCH 28.2, MCHC 32.3, RDW 16.3 H, Plt Count 353, MPV 8.9, Gran % 94.6 H, Lymph % ( Auto) 2.3 L, [place] % (Auto) 3.0, Eos % (Auto) 0.1 L, Baso % (Auto) 0.0, Gran # 24.99 H, Lymph # (Auto) 0.6 L, [place] # (Auto) 0.8 H, Eos # (Auto) 0.0, Baso # ( Auto) 0.01, Neutrophils % (Manual) 89 H, Band Neutrophils % 3 H, Lymphocytes % ( Manual) 3 L, Monocytes % (Manual) 5, Platelet Evaluation Normal I have reviewed the lab results: Yes - RAD Interpretation Radiology Orders: 02/10/18 12:17 CHEST PORTABLE [RAD] Stat 02/10/18 13:23 LUNG PERF & VENT SCAN [NM] Stat - EKG Interpretation Interpreted by ED Physician: Yes Type: 12 lead EKG - Medication Orders Current Medication Orders: Albuterol/Ipratropium (Duoneb 3 Mg/0.5 Mg (3 Ml) Ud) 3 ml IH Q2H PRN PRN Reason: Shortness of Breath Vancomycin HCl (Vancomycin 1gm) 1 gm in 250 mls @ 167 mls/hr IVPB DAILY MANJINDER PRN Reason: Protocol Last Admin: 02/10/18 14:20 Dose: 167 mls/hr eMAR Start Stop Document 02/10/18 14:20 EL[facility] (Rec: 02/10/18 14:21 [email or web address] Intravenous Solution Start Date 02/10/18 Start Time 14:20 Piperacillin Sod/Tazobactam Sod (Zosyn 3.375 In Ns 100ml) 100 mls @ 200 mls/hr IVPB Q6 MANJINDER PRN Reason: Protocol Stop: 02/11/18 00:29 Lorazepam (Ativan) 0.5 mg IVP Q6H PRN; Protocol PRN Reason: Anxiety Discontinued Medications Albuterol/Ipratropium (Duoneb 3 Mg/0.5 Mg (3 Ml) Ud) 3 ml IH STAT STA Stop: 02/10/18 12:17 Last Admin: 02/10/18 12:05 Dose: 3 ml Albuterol/Ipratropium (Duoneb 3 Mg/0.5 Mg (3 Ml) Ud) 3 ml IH STAT STA Stop: 02/10/18 12:33 Last Admin: 02/10/18 12:15 Dose: 3 ml Albuterol/Ipratropium (Duoneb 3 Mg/0.5 Mg (3 Ml) Ud) 3 ml IH STAT STA Stop: 02/10/18 14:03 Last Admin: 02/10/18 14:21 Dose: 3 ml Aspirin (Aspirin Supp) 300 mg RC STAT STA Stop: 02/10/18 13:26 Last Admin: 02/10/18 13:58 Dose: 300 mg Famotidine (Pepcid) 20 mg IVP STAT STA Stop: 02/10/18 12:18 Last Admin: 02/10/18 12:25 Dose: 20 mg IVP Administration Document 02/10/18 12:25 [email or web address] Charges for Administration # of IVP Administrations 1 Ceftriaxone Sodium (Rocephin 1 Gram Ivpb) 1 gm in 100 mls @ 200 mls/hr IVPB STAT STA PRN Reason: Protocol Stop: 02/10/18 13:07 Last Admin: 02/10/18 13:21 Dose: 200 mls/hr eMAR Start Stop Document 02/10/18 13:21 ELSA (Rec: 02[facility]10/18 13:22 [email or web address] Intravenous Solution Start Date 02/10/18 Start Time 13:22 End Date 02/10/18 End time 13:52 Total Infusion Time 30 Methylprednisolone (Solu-Medrol) 125 mg IVP STAT STA Stop: 02/10/18 12:17 Last Admin: 02/10/18 12:10 Dose: 125 mg IVP Administration Document 02/10/18 12:10 ELSA (Rec: 02/10/18 12:25 [email or web address] Charges for Administration # of IVP Administrations 1 - Scribe Statement Yoanna Dobbins Provider Scribe Attestation: All medical record entries made by the Scribe were at my direction and personally dictated by me. I have reviewed the chart and agree that the record accurately reflects my personal performance of the history, physical exam, medical decision making, and the department course for this patient. I have also personally directed, reviewed, and agree with the discharge instructions and disposition. Disposition/Present on Arrival - Present on Arrival Any Indicators Present on Arrival: No History of DVT/PE: No History of Uncontrolled Diabetes: No Urinary Catheter: No History of Decub. Ulcer: No History Surgical Site Infection Following: None - Disposition Have Diagnosis and Disposition been Completed?: Yes Diagnosis: Respiratory failure, Renal failure, Elevated troponin, Hypoxia, Congestive heart failure, Altered mental status, Elevated d-dimer Disposition: HOSPITALIZED Disposition Time: 13:33 Patient Plan: Admission, ICU Patient Problems: Current Active Problems Problem Status Onset Altered mental status Acute Congestive heart failure Acute Elevated d-dimer Acute Elevated troponin Acute Hypoxia Acute Renal failure Acute Respiratory failure Acute Condition: CRITICAL
[2018-02-10 12:16] VITALS: BMI 37.8
[2018-02-10] MEDS ORDERED: Albuterol-Ipratrop 3 mg / 0.5 (3 ml) UD IH STA ×3 (12:16→14:02)
[2018-02-10 12:35] LABS: BASO # 0.01 K/mm3 (0.0-2.0); EOS % 0.1 % (1.5-5.0); GRAN # 24.99 (1.4-6.5); GRAN % 94.6 % (50.0-68.0); HEMOGLOBIN 10.1 g/dL (12.0-16.0); LYMPH # 0.6 (1.2-3.4); LYMPH % 2.3 % (22.0-35.0); MEAN CELL VOLUME 87.4 fl (80.0-105.0); MEAN CORPUSCULAR HEMOGLOBIN 28.2 pg (25.0-35.0); MEAN CORPUSCULAR HGB CONC 32.3 g/dl (31.0-37.0); MEAN PLATELET VOLUME 8.9 fl (7.0-11.0); MONO # 0.8 (0.1-0.6); PLATELET COUNT 353 10^3/uL (120.0-450.0); RBC 3.58 10^6/uL (3.5-6.1); RED CELL DISTRIBUTION WIDTH 16.3 % (11.5-14.5)
[2018-02-10 12:37] LABS: WHITE BLOOD COUNT 26.4 10^3/ul (4.5-11.0)
[2018-02-10] MEDS ORDERED: cefTRIAXone 1 gm 1 GM/100 ML BAG IVPB STA (12:38)
[2018-02-10 12:45] LABS: ARTERIAL BLOOD GAS HCO3 21.6 mmol/L (21-28); ARTERIAL BLOOD GAS HEMOGLOBIN 9.2 g/dL (11.7-17.4); ARTERIAL BLOOD GAS O2 CAPACITY 12.7 mL/dl (16-24); ARTERIAL BLOOD GAS O2 CONTENT 12.5 ML/dl (15-23); ARTERIAL BLOOD GAS O2 SAT 98.7 % (95-98); ARTERIAL BLOOD GAS PCO2 44 mm/Hg (35-45)
[2018-02-10 12:48] LABS: INR 1.06 (0.93-1.08); PARTIAL THROMBOPLASTIN TIME 26.4 Seconds (25.1-36.5); PROTHROMBIN TIME 12.2 SECONDS (9.4-12.5)
[2018-02-10 13:04] LABS: ALB/GLOB RATIO 1.2 (1.1-1.8); ALBUMIN 4.1 g/dL (3.0-4.8); CALCIUM 8.5 mg/dL (8.4-10.5)
[2018-02-10 13:06] LABS: TROPONIN I 0.08 ng/mL
[2018-02-10 13:07] LABS: CK MB% 1.5 % (2.5-3.0); CK-MB 24.2 ng/mL (0.0-3.6)
[2018-02-10] MEDS ORDERED: Iohexol 350 MG/100 ML VIAL ONE (13:07)
--- NOTE | 2018-02-10 13:10 | RAD ---
Date of service: 02/10/2018 HISTORY: sob COMPARISON: No prior. FINDINGS: LUNGS: Moderate vascular and interstitial congestion PLEURA: No significant pleural effusion identified, no pneumothorax apparent. CARDIOVASCULAR: Normal. OSSEOUS STRUCTURES: No significant abnormalities. VISUALIZED UPPER ABDOMEN: Normal. OTHER FINDINGS: None. IMPRESSION: Moderate vascular and interstitial congestion
[2018-02-10 13:19] LABS: BAND 3 % (0-2); LYMPHOCYTE 3 % (22.0-35.0); MONOCYTE 5 % (1.0-6.0); NEUTROPHIL 89 % (50.0-70.0); PLATELET ESTIMATE NORMAL (NORMAL)
[2018-02-10 13:30] LABS: URINE BILIRUBIN NEGATIVE (NEGATIVE); URINE BLOOD LARGE (NEGATIVE); URINE GLUCOSE (UA) NEGATIVE (NEGATIVE); URINE LEUKOCYTE ESTERASE NEGATIVE Leu/uL (NEGATIVE); URINE PROTEIN 100 mg/dL (<30 mg/dL); URINE UROBILINOGEN 0.2 E.U./dL (<1 E.U./dL)
[2018-02-10 13:36] LABS: URINE APPEARANCE SL CLOUDY (CLEAR); URINE COLOR YELLOW (YELLOW)
[2018-02-10 13:49] LABS: URINE BACTERIA MANY (NEG)
[2018-02-10 13:50] LABS: HCG,QUALITATIVE URINE NEGATIVE (NEGATIVE); URINE AMORPHOUS SEDIMENT FEW; URINE COARSE GRANULAR CAST SMALL /hpf (0-2)
[2018-02-10 14:14] LABS: BARBITURATES, UR NEGATIVE (NEGATIVE); BENZODIAZEPINES, UR POSITIVE (NEGATIVE)
[2018-02-10 14:15] LABS: OPIATES, UR POSITIVE (NEGATIVE); PHENCYCLIDINE, UR NEGATIVE (NEGATIVE)
[2018-02-10] MEDS: Vancomycin 1gm in NS 250ml 1 GM/250 ML BAG IVPB SCH (14:20)
--- NOTE | 2018-02-10 14:55 | CP.PCM.CON ---
<Anjum Ayers - Last Filed: 02/10/18 14:33> History of Present Illness - History of Present Illness History of Present Illness: Anjum Ayers, PGY1 Critical Care Consult Note for Dr. Kendall Patient is a 47 y/o F with PMHx of Asthma, Anxiety and Bipolar disorder who presented to the ED complaining of shortness of breath. In the ED, patient was covered in stool and unkempt. She was showered in the ED. She was in respiratory distress in the ED, with wheezing on exam and accessory muscle use. In the ED, patient received EKG, CXR, blood cultures, UA, ASA, duonebs, steroids. CXR indicated moderate congestion. BNP noted to be 2320. Patient's ABG was 7.30/44/92. Vital signs on presentation were Temp 99, HR 98, BP 140/69, RR 21. History was limited since patient was in respiratory distress. As per ED nurse, patient had an episode of desaturation to 67%. Patient was placed on BiPAP in the ED. ICU was consulted. Patient was interviewed, however, she was in respiratory distress and had a dry, hacking cough that made history difficult to obtain. As noted from prior charts, patient was admitted to [facility] in the past for a similar presentation. Patient has asthma but has been off medications for years. Patient also has a recent history of anxiety related to loss of her . PMHx: Asthma, Anxiety, Bipolar Disorder, HTN PSHx: None Meds: Ativan, Amitrptyline, Claritin, Cozaar, Singulair, Protonix, Ultracet, Triamterene-Hctz, Advair Allergies: NKDA SocialHx: denies smoking and drinking. FamilyHx: Grandfather has CAD. Review of Systems - Review of Systems Systems not reviewed;Unavailable: Respiratory Distress (Patient on BiPAP with frequent, hacking cough. ROS difficult to obtain) Past Patient History - Infectious Disease Hx of Infectious Diseases: None - Tetanus Immunizations Tetanus Immunization: Unknown - Past Social History Smoking Status: Never Smoked - CARDIAC Hx Hypertension: Yes - PULMONARY Hx Asthma: Yes - NEUROLOGICAL Hx Neurological Disorder: No - HEENT Hx HEENT Problems: No - RENAL Hx Chronic Kidney Disease: No - ENDOCRINE/METABOLIC Hx Endocrine Disorders: No - HEMATOLOGICAL/ONCOLOGICAL Hx Blood Disorders: No - INTEGUMENTARY Hx Dermatological Problems: No - MUSCULOSKELETAL/RHEUMATOLOGICAL Other/Comment: R leg problem - GASTROINTESTINAL Hx Gastrointestinal Disorders: Yes (obese) - GENITOURINARY/GYNECOLOGICAL Hx Genitourinary Disorders: No - PSYCHIATRIC Hx Depression: No Hx Emotional Abuse: No Hx Physical Abuse: No Hx Substance Use: No - SURGICAL HISTORY Hx Surgeries: No Meds Allergies/Adverse Reactions: Allergies Allergy/AdvReac Type Severity Reaction Status Date / Time No Known Allergies Allergy Verified 02/10/18 11:56 - Medications Medications: Current Medications Albuterol/Ipratropium (Duoneb 3 Mg/0.5 Mg (3 Ml) Ud) 3 ml IH Q2H PRN PRN Reason: Shortness of Breath Vancomycin HCl (Vancomycin 1gm) 1 gm in 250 mls @ 167 mls/hr IVPB DAILY MANJINDER PRN Reason: Protocol Last Admin: 02/10/18 14:20 Dose: 167 mls/hr Piperacillin Sod/Tazobactam Sod (Zosyn 3.375 In Ns 100ml) 100 mls @ 200 mls/hr IVPB Q6 MANJINDER PRN Reason: Protocol Stop: 02/11/18 00:29 Lorazepam (Ativan) 0.5 mg IVP Q6H PRN; Protocol PRN Reason: Anxiety Physical Exam - Constitutional Appears: Unkempt - Head Exam Head Exam: ATRAUMATIC, NORMAL INSPECTION, NORMOCEPHALIC - Eye Exam Pupil Exam: PERRL - Neck Exam Neck exam: Positive for: Full Rom - Respiratory Exam Respiratory Exam: Wheezes (wheezing heard bilaterally ), Respiratory Distress. absent: Accessory Muscle Use, Decreased Breath Sounds, Rhonchi Additional comments: Frequent, hacking dry cough - Cardiovascular Exam Cardiovascular Exam: RRR, +S1, +S2. absent: JVD - GI/Abdominal Exam GI & Abdominal Exam: Normal Bowel Sounds, Soft. absent: Bruit, Organomegaly, Rebound, Rigid, Tenderness - Extremities Exam Extremities exam: Positive for: pedal edema, pedal pulses present. Negative for : calf tenderness, tenderness Additional comments: bilateral swelling of the lower extremities - Back Exam Back exam: NORMAL INSPECTION - Neurological Exam Neurological exam: Alert (Alert and Oriented x2 (Person, Time)) - Psychiatric Exam Psychiatric exam: Anxious - Skin Skin Exam: Dry, Normal Color, Warm Results - Vital Signs Recent Vital Signs: Last Vital Signs Temp 100.6 F H 07/27/18 14:15 Pulse 98 H 02/10/18 14:30 Resp 21 02/10/18 14:30 BP 140/69 02/10/18 14:30 Pulse Ox 96 02/10/18 14:30 - Labs Result Diagrams: 02/10/18 12:15 02/10/18 12:15 Assessment & Plan - Assessment and Plan (Free Text) Assessment: Patient is a 47 y/o F with PMHx of Asthma, Anxiety and Bipolar disorder who presented to the ED complaining of shortness of breath. Patient was in respiratory distress in the ED, using accessory muscles to breath and had an episode of desaturation to SaO2 67%. BiPAP was placed and appropriate labwork was ordered. ICU was consulted. Patient is being worked up for respiratory distress 2/2 Asthma/COPD Exacerbation. Plan: 1. Respiratory Distress 2/2 Asthma/COPD Exacerbation - c/w BiPAP - duonebs prn - Leukocytosis (26.4) and low grade fever (100.6) - vanc/zosyn broad spectrum coverage - f/u cbc - f/u blood cx - Possibly related to anxiety: ativan .5 mg prn - hold diuretics and fluids 2. Acute Kidney Injury - BUN/Cr 57/1.7 (baseline Cr is 0.6) - f/u BMP - Renal sonogram - UA - Urine lytes - Mark catheter in place: draining 150 cc 3. Mild Transaminitis - AST/ALT 68/65 - f/u LFTs 4. HTN - Currently normotensive - Maintain MAP > 65 - c/w home meds once stable 5. Bipolar disorder: - c/w home meds once stable Dispo: Patient will be monitored in the ICU. Case was discussed and reviewed with Attending Physician Dr. Kendall. <Sebastien Kendall - Last Filed: 02/10/18 15:54> Meds - Medications Medications: Current Medications Albuterol/Ipratropium (Duoneb 3 Mg/0.5 Mg (3 Ml) Ud) 3 ml IH Q2H PRN PRN Reason: Shortness of Breath Vancomycin HCl (Vancomycin 1gm) 1 gm in 250 mls @ 167 mls/hr IVPB DAILY MANJINDER PRN Reason: Protocol Last Admin: 02/10/18 14:20 Dose: 167 mls/hr Cefepime HCl (Maxipime 2gm) 2 gm in 100 mls @ 100 mls/hr IVPB Q12 MANJINDER PRN Reason: Protocol Stop: 02/15/18 15:01 Doxycycline Hyclate 100 mg/ (Sodium Chloride) 100 mls @ 100 mls/hr IVPB Q12 MANJINDER PRN Reason: Protocol Sodium Chloride (Sodium Chloride 0.9%) 1,000 mls @ 75 mls/hr IV [id number] MANJINDER Lorazepam (Ativan) 0.5 mg IVP Q6H PRN; Protocol PRN Reason: Anxiety Results - Vital Signs Recent Vital Signs: Last Vital Signs Temp 100.6 F H 02/10/18 14:15 Pulse 98 H 02/10/18 14:35 Resp 20 02/10/18 14:35 BP 140/69 02/10/18 14:35 Pulse Ox 96 02/10/18 14:35 - Labs Result Diagrams: 02/10/18 12:15 02/10/18 12:15 Assessment & Plan - Assessment and Plan (Free Text) Plan: Patient seen and examined on rounds with resident, agree with note with following additions/exceptions: Patient is 47yo female with PMHx of morbid obesity, asthma, MARIAM, bipolar disorder, presents with SOB, unkept, covered in feces. Patient was placed on BIPAP amd given IV steroids, with improvement in SOB. Currently afebrile, BP stable, sat 95% on BIPAP 12//40% Resp failure COPD/Asthma exacerbation SOB HTN Renal failure Leukocytosis Recommend: - cont with BIPAP as tolerated, wean off, to NC - Duonebs PRN - IV steroids Solumedrol - Broad spectrum abx, Vanco, Zosyn - Panculture, UCx, BCx, procal - ECHO - ID eval - UA, Ulytes - renal sono - GI ppx - DVT ppx - Admit to MICU critical care time 30 minutes
[2018-02-10] MEDS ORDERED: Cefepime IV 2 gm in NS 2 GM/100 ML BAG IVPB SCH (15:00)
--- NOTE | 2018-02-10 16:15 | NM ---
Date of service: 02/10/2018 COMPARISON: February 10, 2018. Chest radiograph TECHNIQUE: 30.4 mCi technetium 99-m DTPA aerosol. 3.2 mCI technetium 99-m MAA administered intravenously. FINDINGS: VENTILATION COMPONENT: Diminished ventilation which is moderately heterogeneous consistent with findings on comparison chest radiograph. Retention of radionuclide in the tracheobronchial tree and ingestion of radionuclide in the stomach, incidental findings PERFUSION COMPONENT: Heterogeneous distribution of radionuclide. Similar findings in distribution to that seen on chest radiograph and ventilatory component. No geographic, segmental, lobar abnormalities apparent on the present examination. IMPRESSION: Low probability ventilation perfusion scan for pulmonary embolism.
--- NOTE | 2018-02-10 16:25 | CP.PCM.CON ---
History of Present Illness - History of Present Illness History of Present Illness: 47 year old female with PMH of obesity with BMI 38, anxiety, bipolar disorder, asthma, HTN came in to [facility] complaining of shortness of breath. She was seen by her PMD as an outpatient and was given a course of Z-primo and steroids but she continued to have shortness of breath. In the ED, she was noted to be somewhat lethargic and was placed on BiPAP. She was noted to have leukocytosis and low grade fever. There is no note of vomiting, no diarrhea. Infectious diseases consult is requested to further evaluate and manage. Review of Systems - Review of Systems Systems not reviewed;Unavailable: Other (lethargic) Past Patient History - Infectious Disease Hx of Infectious Diseases: None - Tetanus Immunizations Tetanus Immunization: Unknown - Past Social History Smoking Status: Never Smoked - CARDIAC Hx Hypertension: Yes - PULMONARY Hx Asthma: Yes - NEUROLOGICAL Hx Neurological Disorder: No - HEENT Hx HEENT Problems: No - RENAL Hx Chronic Kidney Disease: No - ENDOCRINE/METABOLIC Hx Endocrine Disorders: No - HEMATOLOGICAL/ONCOLOGICAL Hx Blood Disorders: No - INTEGUMENTARY Hx Dermatological Problems: No - MUSCULOSKELETAL/RHEUMATOLOGICAL Other/Comment: R leg problem - GASTROINTESTINAL Hx Gastrointestinal Disorders: Yes (obese) - GENITOURINARY/GYNECOLOGICAL Hx Genitourinary Disorders: No - PSYCHIATRIC Hx Depression: No Hx Emotional Abuse: No Hx Physical Abuse: No Hx Substance Use: No - SURGICAL HISTORY Hx Surgeries: No Meds Allergies/Adverse Reactions: Allergies Allergy/AdvReac Type Severity Reaction Status Date / Time No Known Allergies Allergy Verified 02/10/18 11:56 - Medications Medications: Current Medications Albuterol/Ipratropium (Duoneb 3 Mg/0.5 Mg (3 Ml) Ud) 3 ml IH Q2H PRN PRN Reason: Shortness of Breath Vancomycin HCl (Vancomycin 1gm) 1 gm in 250 mls @ 167 mls/hr IVPB DAILY MANJINDER PRN Reason: Protocol Last Admin: 02/10/18 14:20 Dose: 167 mls/hr Cefepime HCl (Maxipime 2gm) 2 gm in 100 mls @ 100 mls/hr IVPB Q12 MANJINDER PRN Reason: Protocol Stop: 02/15/18 15:01 Lorazepam (Ativan) 0.5 mg IVP Q6H PRN; Protocol PRN Reason: Anxiety Physical Exam - Constitutional Appears: Chronically Ill, Other (lethargic, on BiPAP) - Head Exam Head Exam: NORMAL INSPECTION - Neck Exam Neck exam: Negative for: Meningismus - Respiratory Exam Respiratory Exam: Decreased Breath Sounds - Cardiovascular Exam Cardiovascular Exam: +S1, +S2 - GI/Abdominal Exam GI & Abdominal Exam: Soft. absent: Tenderness Results - Vital Signs Recent Vital Signs: Last Vital Signs Temp 100.6 F H 02/10/18 14:15 Pulse 98 H 02/10/18 14:35 Resp 20 02/10/18 14:35 BP 140/69 02/10/18 14:35 Pulse Ox 96 02/10/18 14:35 - Labs Result Diagrams: 02/10/18 12:15 02/10/18 12:15 Assessment & Plan - Assessment and Plan (Free Text) Plan: Assessment systemic inflammatory response syndrome with hypoxic respiratory failure and acute renal failure, R/O severe sepsis due to healthcare-associated pneumonia with possible gram positive cocci and/or gram negative bacilli and/or atypical organisms, on top of acute bronchitis in this patient with chronic asthma obesity with BMI 38 anxiety bipolar disorder HTN Plan Started the patient on intermittent Vancomycin, Cefepime and Doxycycline pending blood, sputum cx, PCT; reviewed CXR follow up Pulmonary evaluation and recommendations will monitor clinically will check HIV test due to her age
[2018-02-10 17:11] LABS: URINE BILIRUBIN NEGATIVE (NEGATIVE); URINE BLOOD LARGE (NEGATIVE); URINE GLUCOSE (UA) NEGATIVE (NEGATIVE); URINE LEUKOCYTE ESTERASE NEGATIVE Leu/uL (NEGATIVE); URINE PROTEIN 100 mg/dL (<30 mg/dL); URINE UROBILINOGEN 0.2 E.U./dL (<1 E.U./dL)
[2018-02-10 17:12] LABS: URINE APPEARANCE SLIGHT-CLOUDY (CLEAR); URINE COLOR YELLOW (YELLOW)
[2018-02-10] MEDS: Sodium Chloride 0.9% 1,000 ML IV SCH (17:16)
[2018-02-10 17:19] LABS: URINE BACTERIA MANY (NEG)
[2018-02-10 17:20] LABS: URINE AMORPHOUS SEDIMENT FEW
--- NOTE | 2018-02-10 17:30 | CARD ---
APPROVED REPORT Date of service: 02/10/2018 EKG Measurement Heart [id number] <Conclusion> Sinus tachycardia Possible Left atrial enlargement Septal infarct, age undetermined Abnormal ECG
--- NOTE | 2018-02-10 17:56 | US ---
Date of service: 02/10/2018 PROCEDURE: Ultrasound of the Kidneys HISTORY: Worsening Renal function COMPARISON: None available. TECHNIQUE: Sonogram of the kidneys. FINDINGS: RIGHT KIDNEY: Measures: 10.8 x 4.9 x 5.9 cm. Normal in size, contour and echogenicity. No stone, solid mass lesion or hydronephrosis visualized. LEFT KIDNEY: Measures: 10.7 x 4.9 x 5.2 cm. Normal in size, contour and echogenicity. No stone, solid mass lesion or hydronephrosis visualized. OTHER FINDINGS: None. IMPRESSION: Unremarkable renal sonogram.
[2018-02-10] MEDS ORDERED: Piperacillin/Tazobact 3.375 gm 100 ML IVPB SCH (18:00)
[2018-02-10] MEDS ORDERED: Pneumococcal 23-Valent Vaccine IM ONE (22:34)
[2018-02-11] MEDS: Albuterol-Ipratrop 3 mg / 0.5 (3 ml) UD IH PRN ×3 (00:10→07:54)
[2018-02-11] MEDS: guaiFENesin 600 mg ER Tab PO SCH ×3 (00:19→18:51)
[2018-02-11] MEDS: Cefepime IV 2 gm in NS 2 GM/100 ML BAG IVPB SCH ×2 (05:17→18:56)
[2018-02-11 05:46] LABS: BASO # 0.01 K/mm3 (0.0-2.0); BASO % 0.1 % (0.0-3.0); GRAN # 17.39 (1.4-6.5); GRAN % 92.3 % (50.0-68.0); HEMOGLOBIN 9.2 g/dL (12.0-16.0); LYMPH # 0.9 (1.2-3.4); LYMPH % 4.7 % (22.0-35.0); MEAN CELL VOLUME 88.6 fl (80.0-105.0); MEAN CORPUSCULAR HEMOGLOBIN 27.5 pg (25.0-35.0); MEAN CORPUSCULAR HGB CONC 31.1 g/dl (31.0-37.0); MEAN PLATELET VOLUME 9.1 fl (7.0-11.0); MONO # 0.6 (0.1-0.6); MONO % 2.9 % (1.0-6.0); RBC 3.34 10^6/uL (3.5-6.1); RED CELL DISTRIBUTION WIDTH 16.8 % (11.5-14.5); WHITE BLOOD COUNT 18.8 10^3/ul (4.5-11.0)
[2018-02-11 05:55] LABS: ALB/GLOB RATIO 1.1 (1.1-1.8); ALBUMIN 3.6 g/dL (3.0-4.8); ALT/SGPT 58 U/L (7-56); AST/SGOT 64 U/L (14-36); BLOOD UREA NITROGEN 28 mg/dL (7-21); CALCIUM 8.6 mg/dL (8.4-10.5); GFR AFRICAN-AMERICAN > 60; GFR NON-AFRICAN AMERICAN > 60
[2018-02-11 06:49] LABS: ARTERIAL BLOOD GAS HCO3 27.2 mmol/L (21-28); ARTERIAL BLOOD GAS HEMOGLOBIN 9.4 g/dL (11.7-17.4); ARTERIAL BLOOD GAS O2 CAPACITY 13.1 mL/dl (16-24); ARTERIAL BLOOD GAS O2 SAT 99.2 % (95-98); ARTERIAL BLOOD GAS PCO2 46 mm/Hg (35-45); ARTERIAL BLOOD GAS PH 7.38 (7.35-7.45); ARTERIAL BLOOD GAS TCO2 28.6 mmol.L (22-28)
--- NOTE | 2018-02-11 08:32 | PN ---
DATE: 02/11/2018 SUBJECTIVE: The patient is in bed, in no acute distress. She is awake. She had an uneventful night. She did have a low-grade fevers yesterday. PHYSICAL EXAMINATION: VITAL SIGNS: Temperature is 98, T-max for 24 hours is 100.6, respiratory rate of 18, heart rate of 85. HEENT: Examination of HEENT is unremarkable. NECK: Supple. LUNGS: Have decreased breath sounds. HEART: Normal S1, S2. ABDOMEN: Soft, nontender. No rebound or guarding. LABORATORY DATA: Laboratory examination reveals a white count of 18,000, hemoglobin is 9, platelets of 284. BUN of 28, creatinine of 0.8. Urinalysis is noted. Urine for Legionella antigen is negative. ASSESSMENT AND PLAN: A 47-year-old female with obesity with body mass index of 38, anxiety, bipolar disorder, asthma, hypertension, who is admitted with systemic inflammatory response syndrome with acute renal failure and possible severe sepsis with healthcare-associated possible gram-positive cocci, possible gram-negative kristin pneumonia. Urinary antigen is negative. Her renal function is resolved being the creatinine today is down to 0.8. Awaiting for a procalcitonin and culture results. Currently on the doxycycline, cefepime and vancomycin. We will make further recommendations. Harley Le MD
--- NOTE | 2018-02-11 09:31 | CP.PCM.PN ---
Subjective - Date & Time of Evaluation Date of Evaluation: 02/11/18 Time of Evaluation: 07:30 - Subjective Subjective: Patient seen and examined on rounds, reports to be doing well. OFF BIPAP, on 2LNC, sat 100% Complaining of cough. Objective - Vital Signs/Intake and Output Vital Signs (last 24 hours): Temp Pulse Resp BP Pulse Ox 9 F L 86 19 161/84 H 92 L 02/11/18 04:00 02/11/18 06:00 02/11/18 06:00 02/11/18 06:00 02/11/18 06:00 Intake and Output: 02/11/18 02/11/18 06:59 18:59 Intake Total 1350 Output Total 800 Balance 550 - Medications Medications: Current Medications Albuterol/Ipratropium (Duoneb 3 Mg/0.5 Mg (3 Ml) Ud) 3 ml IH Q2H PRN PRN Reason: Shortness of Breath Last Admin: 02/11/18 07:54 Dose: 3 ml Albuterol/Ipratropium (Duoneb 3 Mg/0.5 Mg (3 Ml) Ud) 3 ml IH [id number] MANJINDER Arformoterol Tartrate (Brovana) 15 mcg IH [id number] MANJINDER Benzonatate (Tessalon Perles) 100 mg PO TID MANJINDER Budesonide (Pulmicort Respules) 0.25 mg IH [id number] MANJINDER Guaifenesin (Mucinex La) 600 mg PO BID [facility] Last Admin: 02/11/18 00:19 Dose: 600 mg Guaifenesin/Codeine Phosphate (Robitussin W/Codeine) 5 ml PO Q6H PRN PRN Reason: Cough and congestion Vancomycin HCl (Vancomycin 1gm) 1 gm in 250 mls @ 167 mls/hr IVPB DAILY MANJINDER PRN Reason: Protocol Last Admin: 02/10/18 14:20 Dose: 167 mls/hr Doxycycline Hyclate 100 mg/ (Sodium Chloride) 100 mls @ 100 mls/hr IVPB Q12 MANJINDER PRN Reason: Protocol Last Admin: 02/10/18 21:44 Dose: 100 mls/hr Sodium Chloride (Sodium Chloride 0.9%) 1,000 mls @ 75 mls/hr IV [id number] [facility] Last Admin: 02/10/18 17:16 Dose: 75 mls/hr Cefepime HCl (Maxipime 2gm) 2 gm in 100 mls @ 100 mls/hr IVPB 0600,1800 MANJINDER PRN Reason: Protocol Stop: 02/15/18 15:01 Last Admin: 02/11/18 05:17 Dose: 100 mls/hr Lorazepam (Ativan) 0.5 mg IVP Q6H PRN; Protocol PRN Reason: Anxiety - Labs Labs: 02/11/18 05:00 02/11/18 05:00 PT 12.2 SECONDS (9.4-12.5) 02/10/18 12:15 INR 1.06 (0.93-1.08) 02/10/18 12:15 APTT 26.4 Seconds (25.1-36.5) 02/10/18 12:15 - Constitutional Appears: Non-toxic, No Acute Distress - Head Exam Head Exam: NORMAL INSPECTION - Eye Exam Eye Exam: Normal appearance - ENT Exam ENT Exam: Mucous Membranes Moist - Respiratory Exam Respiratory Exam: Wheezes, NORMAL BREATHING PATTERN - Cardiovascular Exam Cardiovascular Exam: REGULAR RHYTHM, +S1, +S2 - GI/Abdominal Exam GI & Abdominal Exam: Soft, Normal Bowel Sounds - Extremities Exam Extremities Exam: Full ROM, Normal Inspection - Back Exam Back Exam: NORMAL INSPECTION - Neurological Exam Neurological Exam: Alert, Awake, Oriented x3 - Psychiatric Exam Psychiatric exam: Normal Mood - Skin Skin Exam: Normal Color, Warm Assessment and Plan - Assessment and Plan (Free Text) Assessment: Patient is 47yo female with PMHx of morbid obesity, asthma, MARIAM, bipolar disorder, presented with SOB. Patient was placed on BIPAP amd given IV steroids, with improvement in SOB. Currently OFF BIPAP, doing well. Currently afebrile, BP stable, sat 100% on 2LNC Renal function markedly improved, on IVF STABLE Resp failure, resolved COPD/Asthma exacerbation SOB HTN Renal failure Leukocytosis Recommend: - cont with supp o2 as needed - Duonebs PRN - IV steroids Solumedrol - Broad spectrum abx, as per ID - Panculture, UCx, BCx, procal - ECHO - Codeine for cough - ID follow up - renal sono - GI ppx - DVT ppx - transfer to med surg
[2018-02-11] MEDS: Vancomycin 1gm in NS 250ml 1 GM/250 ML BAG IVPB SCH (09:40)
[2018-02-11] MEDS: Morphine 4 mg/ml ISec IVP PRN ×2 (10:35→22:07)
[2018-02-11] MEDS: Albuterol-Ipratrop 3 mg / 0.5 (3 ml) UD IH SCH ×3 (11:30→20:10)
--- NOTE | 2018-02-11 18:53 | HP ---
DATE OF EXAM: 02/10/2018 LOCATION: The patient was seen in the emergency room. REASON FOR ADMISSION: Acute respiratory distress. HISTORY OF PRESENT ILLNESS: This is a 47-year-old female with history of asthma, depression, anxiety, hypertension who was recently discharged 3-4 days ago with asthma exacerbation and she was doing fine. According to her, she got her medicine as prescribed; however, she started getting worse in the last couple of days and she came to the emergency room complaining of coughing, wheezing, short of breath. No chest pain, no nausea, no vomiting, no dizziness, no fever, no chills. The patient was discharged on Medrol Dosepak and bronchodilators, Ativan. She does use oxycodone for her chronic back pain and hip arthritis and was given cough medicine and she finished a course of Zithromax. However, the patient came in with similar symptoms of respiratory distress. PAST MEDICAL HISTORY: 1. As I mentioned, asthma, history of arthritis of back, hips and knees, she was seen by pain management as outpatient. 2. Anxiety, seen by psychiatrist, Dr. Zee Bloom. She was given Ativan 0.5 b.i.d. 3. Severe asthma. 4. Mild depression. 5. Hypertension. HOME MEDICATIONS: According to her, she takes oxycodone at home. Presently, she did have no prescription given. She takes also Dyazide, Protonix, Singulair, Medrol Dosepak, Cozaar 100, Ativan 0.5 b.i.d., Claritin 10 mg once a day, Advair 50/250 b.i.d., Tenormin 25 b.i.d. and Elavil 25 at bedtime. ALLERGIES: NO KNOWN ALLERGIES. SOCIAL HISTORY: She lives by herself now. She lost her recently a few weeks ago and she has a supportive family, sisters and brothers. REVIEW OF SYSTEMS: According to the present illness, she does have dyspnea and wheezing, which she has never been intubated and no severe asthma in the past. She does not use inhalers on a regular basis. Hip arthritis, chronic pain. PHYSICAL EXAMINATION: GENERAL: The patient was seen in the emergency room on BiPAP machine at 10:05 and she seems doing okay. She was alert and awake. She responds properly to questions and moving all extremities. VITAL SIGNS: Temperature 98.2, heart rate 87, respirations 12 on BiPAP machine, saturating 100%. HEAD AND NECK: Normal. No JVD. No thyromegaly. CHEST: Bilateral wheeze. CARDIAC: First sound and second sound normal. ABDOMEN: Soft, obese, nontender. EXTREMITIES: No edema. NEUROLOGIC: Normal. LABORATORY DATA: Chest x-ray shows congestion. Laboratory studies show white count 26.4, hemoglobin 10.1, hematocrit 31.3, and platelets 353. Chemistry shows sodium 140, potassium 4.3, chloride 100, bicarbonate 25, BUN is 7, creatinine 1.7, her sugar 138, calcium 8.5, magnesium 2.3. She also has liver function test which is elevated slightly. Her AST 68, ALT 65, alkaline phosphatase 128, lactate dehydrogenase is 1725, total CK 1563, CK-MB is normal. Troponin is slightly elevated at 0.08. ProBNP 2320. IMPRESSION AND PLAN: 1. Acute respiratory failure, possibility of congestive heart failure should be considered, also asthma exacerbation is the main reason. We will admit the patient. We will give her IV steroids, inhaled bronchodilators, BiPAP machine. We will get back to Dr. Glynn to follow up on that and we will give her sedation. IV antibiotic was given. Consult with Dr. Mick Maldonado to evaluate her. Currently, she received and doxycycline plus meropenem. Also, steroid-induced leukocytosis should be considered also. 2. Sepsis, could be due to lung etiology, pulmonary etiology. Continue current therapy as per ID consults. 3. Positive troponin. The patient had a normal stress test and good left ventricular function in echo. We will get Dr. Bains, licensed tax consultant, to see the patient and we will monitor her regularly. She is on penicillin. Continue heparin. Monitor her laboratory study and troponin in the morning. 4. Depression, anxiety, chronic pain syndrome, hypertension, acute renal failure. We will follow up on that. Repeat labs in the morning. The patient will be admitted to the unit. Blas Dixon MD [facility] # [id number]
[2018-02-11] MEDS ORDERED: Arformoterol 15 mcg/2 ml Inh Sol IH SCH ×2 (20:00)
[2018-02-11] MEDS: Budesonide 0.25 mg/2 ml Inhal Susp UD IH SCH (20:11)
[2018-02-11] MEDS: guaiFENesin-Codeine 100-10mg/5ml Syrup (5 ml) UD PO PRN (22:07)
[2018-02-11] MEDS: Sodium Chloride 0.9% 1,000 ML IV SCH (22:11)
--- NOTE | 2018-02-12 00:11 | CON ---
DATE: 02/11/2018 PULMONARY CONSULTATION REFERRING PHYSICIAN: Blas Dixon MD. REASON FOR CONSULT: Asthma, short of breath and wheezing. HISTORY OF PRESENT ILLNESS: This is a 47-year-old female, known to me, just recently discharged after asthma exacerbation, has a history of anxiety, asthma, bipolar disorder. According to the patient, she was cleaning her bathroom with Clorox, got increased cough and shortness of breath, presented to emergency room with diffuse wheezing, given steroids, antibiotics. 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 Presently lying in the bed. Has a cough, shortness of breath and wheezing. No hemoptysis. No chest pain. No nausea. No vomiting, diarrhea, leg pain, leg swelling. PAST MEDICAL HISTORY: Asthma, anxiety disorder, bipolar disorder, hypertension. SOCIAL HISTORY: Denies any smoking or alcohol use. ALLERGIES: NONE KNOWN. FAMILY HISTORY: Positive for coronary artery disease. MEDICATIONS: She is on Ativan 0.5 mg every 6 hours p.r.n., doxycycline 100 mg twice a day, DuoNeb every 2 hours p.r.n. and every 4 hours [id number], cefepime 2 g IV every 12 hours, morphine 4 mg every 4 hours p.r.n., Mucinex LA 600 mg twice a day, Pulmicort inhaled twice a day, Robitussin with Codeine 5 mL every 6 p.r.n., IV fluid normal saline 75 mL/hour, Tessalon Perles three times a day, vancomycin 1 g IV daily. REVIEW OF SYSTEMS: No headache, no rhinitis. Has cough, shortness of breath, wheezing. No chest pain. No nausea. No vomiting, diarrhea, leg pain, leg swelling. PHYSICAL EXAMINATION: GENERAL: Lying in the bed with mild cough and shortness of breath. VITAL SIGNS: Temperature is 98, heart rate is 90, respiratory rate is 20, blood pressure 161/84, pulse ox 100% on nasal cannula. HEENT: Moist mucous membrane. Crowded airway. Mallampati score is 4. NECK: Supple. No JVD. LUNGS: Have prolonged expiratory phase with wheezing and rhonchi. HEART: S1 and S2. ABDOMEN: Soft, nontender, no organomegaly. EXTREMITIES: No edema. NEUROLOGICAL: Awake and alert. Follows simple command. LABORATORY DATA: Shows hemoglobin 9.2, hematocrit 29.6, WBC 18.8, platelet count is 284. INR 1.06. Blood gases this morning showed pH 7.38, pCO2 of 46, O2 of 149 that is on supplemental oxygen. Sodium 146, potassium 4.5, chloride 104, bicarbonate 31, BUN 28, creatinine 0.8, glucose 107, calcium 8.6, magnesium 2.6, AST 64, ALT 58, alk phos is 106. Troponin less than 0.04, albumin is 3.6, procalcitonin 9.59. Drug screen shows opiates and benzodiazepine are positive. Microbiology: Blood culture one out of two has a gram-positive cocci. Sputum culture, there is no growth. V/Q scan is low probability of pulmonary embolism. Chest x-ray done in the ER shows vascular congestion. IMPRESSION AND PLAN: Exacerbation of chronic obstructive lung disease, bipolar disorder, hypertension, renal insufficiency. Agree with the present treatment. Also has one blood culture out of two positive gram-positive cocci. Seen by Infectious Diseases. We will add Solu-Medrol 40 every 8 hours. Continue inhaled bronchodilators. Repeat chest x-ray. Last admission had an echocardiogram, which was normal. Stress test was unremarkable. May need sleep study upon discharge as outpatient. Thank you and we will follow with you. Miguelina Glynn MD
[2018-02-12] MEDS: Albuterol-Ipratrop 3 mg / 0.5 (3 ml) UD IH SCH ×7 (00:12→23:48)
--- NOTE | 2018-02-12 02:35 | CON ---
DATE: 02/11/2018 LOCATION: The patient is in CCU 129, bed 7. REASON FOR CONSULTATION: Shortness of breath, cardiac evaluation, history of hypertension, history of asthma. HISTORY OF PRESENT ILLNESS: A 47-year-old female, known case of asthma and hypertension, was admitted to the hospital with shortness of breath. Patient denies any chest pain, palpitation at that time. Patient is a known case of hypertension about 13 years and asthma about 25 years. Patient has poor compliance. Patient in the past had stopped medications on her own. Patient's breathing has now improved. PAST MEDICAL HISTORY: As mentioned, patient has hypertension 13 years and asthma 25 years, sometimes she gets swelling on the legs, which was relieved by when she sleeps. PERSONAL HISTORY: She smoked in childhood, only occasionally one or so cigarettes off and on. No drinking. ALLERGIES : PATIENT DENIES ANY ALLERGIES. FAMILY HISTORY: Grandfather at young age with coronary artery disease, one cousin also has coronary artery disease at young age. HOME MEDICATIONS: Triamterene/hydrochlorothiazide 37.5/25 mg daily, Protonix 40 daily, Singulair 10 daily. She recently started taking Medrol Dosepak, Cozaar 100 mg daily, Ativan 0.5 b.i.d. p.r.n., Advair 250/50 Diskus, atenolol 25 daily, Elavil 25 at bedtime. REVIEW OF SYSTEMS: All the systems reviewed. Positive as mentioned in the history, others are negative. PHYSICAL EXAMINATION: VITAL SIGNS: Blood pressure 133/70, respirations 24, pulse 85, patient is afebrile. HEENT: Head is normocephalic. Eyes: Pupils normal. Conjunctivae slightly pale. NECK: JVP low. Carotids equal. THORAX: AP diameter normal. LUNGS: Few rales and has wheezing sounds. CARDIOVASCULAR: S1 and S2. ABDOMEN: Soft, nontender. No organomegaly. EXTREMITIES: No clubbing. No cyanosis. LABORATORY DATA: WBC 18.8, hemoglobin 9.2, hematocrit 29.6, platelet 284, yesterday WBC count was 26.4, granulocytes 92.3. Sodium 146, potassium 4.5, BUN 28, creatinine 0.8, yesterday BUN was 57 and creatinine 1.7, magnesium 2.6, calcium 8.6. AST 64, ALT 58, troponin x2, first one was 0.08, second one was 0.04, they are indeterminate range. Total protein and albumin normal. NT-pro-B natriuretic peptide yesterday 2320. IMAGING DATA: Chest x-ray done by radiologist, vascular congestion. I reviewed the x-ray, looks like infiltrate. DIAGNOSTIC DATA: EKG shows sinus tachycardia 108 per minute, possible left atrial enlargement, poor progression of R, V1 to V3. DIAGNOSES: Acute shortness of breath with pneumonia with sepsis, hypertension, exacerbation of asthma, troponin of 0.08 and 0.04, indeterminate reason. PLAN: Patient is already on doxycycline 100 mg IV every 12 hours. Patient is being seen by Infectious Disease also, cefepime IV 2 g b.i.d. Patient is getting IV fluid therapy for renal dysfunction also patient is on vancomycin 1 g IV daily. Patient is getting albuterol-ipratropium nebulizer therapy. There is no evidence of acute SC at this moment. We will order echocardiogram and when patient improved, we will do a stress test. In the meantime, we will continue present therapy and we will follow with you. Miguelina Tavarez MD
[2018-02-12] MEDS ORDERED: MethylPREDNISolone 40 mg Vial IVP SCH (02:36)
[2018-02-12] MEDS: Cefepime IV 2 gm in NS 2 GM/100 ML BAG IVPB SCH ×2 (05:14→17:59)
[2018-02-12] MEDS: Budesonide 0.25 mg/2 ml Inhal Susp UD IH SCH ×2 (07:49→20:07)
[2018-02-12 10:27] LABS: GRAN # 13.54 (1.4-6.5); GRAN % 92.4 % (50.0-68.0); HEMOGLOBIN 10.5 g/dL (12.0-16.0); LYMPH % 6.6 % (22.0-35.0); MEAN CELL VOLUME 88.3 fl (80.0-105.0); MEAN CORPUSCULAR HEMOGLOBIN 27.9 pg (25.0-35.0); MEAN CORPUSCULAR HGB CONC 31.6 g/dl (31.0-37.0); MEAN PLATELET VOLUME 8.9 fl (7.0-11.0); MONO # 0.1 (0.1-0.6); RBC 3.76 10^6/uL (3.5-6.1); RED CELL DISTRIBUTION WIDTH 16.8 % (11.5-14.5); WHITE BLOOD COUNT 14.6 10^3/ul (4.5-11.0)
--- NOTE | 2018-02-12 10:30 | CP.PCM.PN ---
Subjective - Date & Time of Evaluation Date of Evaluation: 02/12/18 Time of Evaluation: 07:00 - Subjective Subjective: sleeping but easily awaken, no distress, denies shortness of breath Reason for consultation and follow up: Cardiac evaluation for shortness of breath, history of hypertension, asthma Seen and examined by me and Dr. Tavarez Objective - Vital Signs/Intake and Output Vital Signs (last 24 hours): Temp Pulse Resp BP Pulse Ox 98.1 F 59 L 18 167/96 H 98 02/12/18 08:02 02/12/18 08:02 02/12/18 08:02 02/12/18 08:02 02/12/18 08:02 Intake and Output: 02/12/18 02/12/18 06:59 18:59 Intake Total 740 Output Total 450 Balance 290 - Medications Medications: Current Medications Albuterol/Ipratropium (Duoneb 3 Mg/0.5 Mg (3 Ml) Ud) 3 ml IH Q2H PRN PRN Reason: Shortness of Breath Last Admin: 02/11/18 07:54 Dose: 3 ml Albuterol/Ipratropium (Duoneb 3 Mg/0.5 Mg (3 Ml) Ud) 3 ml [facility] [id number] [facility] Last Admin: 02/12/18 07:48 Dose: Not Given Amlodipine Besylate (Norvasc) 5 mg PO DAILY [facility] Atenolol (Tenormin) 25 mg PO BID [facility] Last Admin: 02/11/18 18:52 Dose: 25 mg Benzonatate (Tessalon Perles) 100 mg PO TID [facility] Last Admin: 02/11/18 18:52 Dose: 100 mg Budesonide (Pulmicort Respules) 0.25 mg IH [id number] [facility] Last Admin: 02/12/18 07:49 Dose: Not Given Clonidine HCl (Catapres) 0.1 mg PO Q4 PRN PRN Reason: Systolic Blood Pressure Last Admin: 02/12/18 05:14 Dose: 0.1 mg Enoxaparin Sodium (Lovenox) 40 mg SC DAILY [facility] PRN Reason: Protocol Guaifenesin (Mucinex La) 600 mg PO BID [facility] Last Admin: 02/11/18 18:51 Dose: 600 mg Guaifenesin/Codeine Phosphate (Robitussin W/Codeine) 5 ml PO Q6H PRN PRN Reason: Cough and congestion Last Admin: 02/11/18 22:07 Dose: 5 ml Hydralazine HCl (Apresoline) 10 mg PO QID [facility] Last Admin: 02/11/18 22:07 Dose: 10 mg Hydrochlorothiazide (Microzide) 12.5 mg PO DAILY [facility] Sodium Chloride (Sodium Chloride 0.9%) 1,000 mls @ 75 mls/hr IV .[id number] MANJINDER Last Admin: 02/11/18 22:11 Dose: 75 mls/hr Cefepime HCl (Maxipime 2gm) 2 gm in 100 mls @ 100 mls/hr IVPB 0600,1800 MANJINDER PRN Reason: Protocol Stop: 02/15/18 15:01 Last Admin: 02/12/18 05:14 Dose: 100 mls/hr Vancomycin HCl (Vancomycin 1gm) 1 gm in 250 mls @ 167 mls/hr IVPB Q12H MANJINDER PRN Reason: Protocol Stop: 02/21/18 09:46 Lorazepam (Ativan) 0.5 mg IVP Q6H PRN; Protocol PRN Reason: Anxiety Losartan Potassium (Cozaar) 100 mg PO DAILY [facility] Methylprednisolone (Solu-Medrol) 40 mg IVP Q8 [facility] Last Admin: 02/12/18 05:14 Dose: 40 mg Morphine Sulfate (Morphine) 4 mg IVP Q4H PRN PRN Reason: Pain, moderate (4-7) Last Admin: 02/11/18 22:07 Dose: 4 mg Oxycodone HCl (Oxycodone Immediate Release Tab) 10 mg PO BID PRN PRN Reason: Pain, severe (8-10) Zolpidem Tartrate (Ambien) 10 mg PO HS PRN; Protocol PRN Reason: Insomnia Last Admin: 02/12/18 02:43 Dose: 10 mg - Labs Labs: 02/11/18 05:00 02/11/18 05:00 PT 12.2 SECONDS (9.4-12.5) 02/10/18 12:15 INR 1.06 (0.93-1.08) 02/10/18 12:15 APTT 26.4 Seconds (25.1-36.5) 02/10/18 12:15 - Constitutional Appears: No Acute Distress - Eye Exam Eye Exam: Normal appearance - ENT Exam ENT Exam: Mucous Membranes Moist - Respiratory Exam Respiratory Exam: Decreased Breath Sounds, NORMAL BREATHING PATTERN Additional comments: nasal cannula - Cardiovascular Exam Cardiovascular Exam: +S1, +S2 - GI/Abdominal Exam GI & Abdominal Exam: Soft, Normal Bowel Sounds - Extremities Exam Extremities Exam: Full ROM Additional comments: 1-2+edema - Neurological Exam Neurological Exam: Alert, Awake, Oriented x3 - Psychiatric Exam Psychiatric exam: Normal Affect - Skin Skin Exam: Dry, Warm Assessment and Plan - Assessment and Plan (Free Text) Assessment: A 47 year old female who came in to the ER due to shortness of breath. History of hypertension and asthma. Non compliant with medicationsObese. Seen by Psychiatry for anxiety and depression. ID on consult. D-dimer elevated, VQ scan done low probability of pulmonary embolism.Renal ultrasound done-unremarkable findings. Exacerbation of asthma.urine positive for opiates and benzodiapines. Plan: ECHO to evaluate LV function Continue IV for hydration Watch for drug withdrawal symptoms Uncontrolled blood pressure On Norvasc 5 mg daily,Tenormin 25 mg daily,Catapres 0.1 mg PRN, Lovenox 40 mg daily,Apresoline 10 mg PO QID, Microzide 12.5 mg daily Cozaar 100 mg PO Will increase Apresoline dose Continue antibiotics per ID Pulmonary on consult Continue current treatment Continue current medications Will follow up Plan and treatment discussed with Dr. Tavarez
[2018-02-12 10:41] LABS: ALB/GLOB RATIO 1.1 (1.1-1.8); ALT/SGPT 69 U/L (7-56); AST/SGOT 47 U/L (14-36); BLOOD UREA NITROGEN 27 mg/dL (7-21); CALCIUM 9.3 mg/dL (8.4-10.5); GFR AFRICAN-AMERICAN > 60; GFR NON-AFRICAN AMERICAN > 60
[2018-02-12] MEDS: Vancomycin 1gm in NS 250ml 1 GM/250 ML BAG IVPB SCH ×2 (10:44→23:00)
[2018-02-12] MEDS: Enoxaparin 40 mg Syringe SC SCH (10:46)
[2018-02-12] MEDS: guaiFENesin 600 mg ER Tab PO SCH ×2 (10:46→17:41)
--- NOTE | 2018-02-12 10:47 | PN ---
DATE: 02/12/2018 SUBJECTIVE: The patient is in bed, was seen early this morning, in no acute distress, nontoxic. PHYSICAL EXAMINATION: VITAL SIGNS: Temperature of 98, blood pressure is 160/90, respiratory rate of 18, heart rate of 59. HEENT: Examination of HEENT is unremarkable. NECK: Supple. LUNGS: Have decreased breath sounds. HEART: Normal S1, S2. ABDOMEN: Soft, nontender. LABORATORY DATA: Laboratory examination reveals a white count of 18,800, hemoglobin of 9, platelets of 284. BUN of 28, creatinine is 0.8, which is improved from her creatinine of 1.7. LFTs have somewhat improved and the procalcitonin is 9.59. Troponin is negative x2. Urinalysis is noted and urine for Legionella antigen is negative. The patient's blood culture from 02/10/2018 is positive for Staph aureus, one bottle. Review of orders reveals the patient to be on doxycycline. The patient is also on cefepime and Solu-Medrol and vancomycin. There nares MRSA is not detected. The sputum culture is normal praveen. Dr. Glynn's consultation from yesterday is reviewed. He states the patient has chronic obstructive lung disease and may need sleep . Dr. Tavarez's consultation is reviewed, which says no evidence of acute LA. Dr. Sebastien Kendall's progress note is reviewed. The patient's renal ultrasound is reviewed. Unremarkable. The chest x-ray is also reviewed. Moderate vascular and interstitial congestion. ASSESSMENT AND PLAN: A 47-year-old female as stated with severe sepsis; acute kidney injury; Staphylococcus aureus bacteremia, unknown etiology; healthcare-associated pneumonia with elevated procalcitonin, on vancomycin, cefepime, doxycycline. Day #3 of cefepime. We will discontinue the doxycycline. The patient's urine for Legionella antigen is negative. We will continue the vancomycin since the renal function has improved. We will readjust the vancomycin to b.i.d. instead of once daily. Repeat the blood cultures. Check on echocardiogram and sedimentation rate and C-reactive protein. The patient has no intravascular devices as my prolonged discussion with the patient. We will make further recommendations. The patient is on Solu-Medrol. We will need a vancomycin trough level, the fourth dose. We will follow with you. Harley Le MD [facility] # [id number]
[2018-02-12] MEDS: oxyCODONE 10 mg Immediate Release Tab PO PRN ×2 (13:50→20:51)
--- NOTE | 2018-02-12 14:42 | PN ---
DATE: 02/12/2018 PULMONARY PROGRESS NOTE REFERRING PHYSICIAN: Blas Dixon MD. SUBJECTIVE: She is lying in the bed, head at 45 degrees. Night was unremarkable. Feels much better. Cough and wheezing are better. No nausea. No vomiting, diarrhea, leg pain, leg swelling. OBJECTIVE: GENERAL: In no acute distress. VITAL SIGNS: Temperature is 98, heart rate is 59, respiratory rate is 18, blood pressure 167/96, pulse ox 98% on 3 L nasal cannula. HEENT: Moist mucous membrane. Crowded airway. Mallampati score is 4. NECK: Supple. No JVD. LUNGS: Have a prolonged expiratory phase with some wheezing, but much better airflow than yesterday. HEART: S1 and S2. ABDOMEN: Soft, nontender. No organomegaly. EXTREMITIES: No edema. NEUROLOGICAL: Awake and alert. Follows simple command. MEDICATIONS: She is on Ambien 10 mg at bedtime p.r.n., hydralazine 50 mg every 12 hours, lorazepam 0.5 mg every 6 hours p.r.n., Catapres 0.1 mg every 4 hours p.r.n., Cozaar 100 mg daily, DuoNeb every 2 hours p.r.n. and every 4 hours [id number], Lovenox 40 mg daily, cefepime 2 g IV every 12 hours, hydrochlorothiazide 12.5 mg daily, morphine 4 mg every 4 hours p.r.n., Mucinex 600 mg twice a day, Norvasc 5 mg daily, oxycodone immediate release 10 mg twice a day p.r.n., Pulmicort inhaled twice a day, Robitussin with Codeine every 6 hours p.r.n., IV fluid normal saline 75 mL/hour, Solu-Medrol 40 mg every 8 hours, Tenormin is 25 mg twice a day, Tessalon Perles 100 mg three times a day, vancomycin 1 g IV every 12 hours. LABORATORY DATA: Shows hemoglobin 10.5, hematocrit 33.2, WBC 14.6, platelet is 360. Blood gases show pH 7.38, pCO2 of 46, O2 of 149 that is on 60% oxygen. Sodium 145, potassium 4.1, chloride 104, bicarbonate 25, BUN 27, creatinine 0.7, glucose 145, calcium 9.3, phosphorus 2.2, AST 47, ALT 69, alk phos is 146, albumin is 4. IMPRESSION AND PLAN: Exacerbation of chronic obstructive lung disease, bipolar disorder, hypertension, renal insufficiency. Pulmonary point of view, she is doing well. We will decrease Solu-Medrol to 40 every 12 hours. Continue antibiotics, inhaled bronchodilator. Continue IV fluid. Gastric prophylaxis. Deep venous thrombosis prophylaxis. Out of bed to chair. I had long discussion with the patient about her chronic obstructive lung disease relation to environmental toxin including Clorox and mold exposure. The patient's home has some leakage in the bathroom. There was a lot of mold which she tried to clean up with the Clorox. She expressed understanding. Thank you and we will follow with you. Miguelina Glynn MD
--- NOTE | 2018-02-12 18:29 | PN ---
DATE: 02/11/2018 SUBJECTIVE: The patient feels better, less short of breath. She is still coughing, but no chest pain and no fever. The patient does complain of hip pain, back pain and knee pain especially at night. PHYSICAL EXAMINATION: VITAL SIGNS: Temperature 98, heart rate 90, blood pressure 169/84, respirations 19, sat 100%. HEAD AND NECK: Normal. No JVD. No thyromegaly. CHEST: Clear bilateral. CARDIAC: First sound and second sound normal. No murmur, rub or gallop. ABDOMEN: Obese, nontender. EXTREMITIES: No edema. NEUROLOGIC: Normal. LABORATORY DATA: Laboratory study shows white count 18.8, hemoglobin 9.2, hematocrit 29.6, platelets 284. Chemistry shows sodium 146, potassium 4.5, chloride 104, bicarb 31, BUN 28, creatinine 0.8, magnesium 2.6. AST and ALT are elevated. Procalcitonin is very high at 9.59. IMPRESSION AND PLAN: 1. Acute asthma exacerbations. 2. Sepsis due to respiratory infections. 3. Hypertension. 4. Chronic back pain, chronic anxiety. 5. Leukocytosis, probably due to lung infection. 6. Abnormal liver function test. We will consider repeat liver function test in the morning. If it is still abnormal or elevated, we will consider ultrasound of the liver and GI evaluation. Continue current therapy. We will add Mucomyst, chest physical therapy, Percocet p.r.n. for pain. Blas Dixon MD
--- NOTE | 2018-02-12 18:41 | PN ---
DATE: 02/12/2018 SUBJECTIVE: The patient is feeling more and much better, less congested and wheezing and comfortable. She is sitting on the edge of the bed. No respiratory distress. PHYSICAL EXAMINATION: Today, VITAL SIGNS: Blood pressure 167/96, respirations 18, heart rate 59, temperature 98.1 and saturation 98. HEAD AND NECK: Normal. No JVD. No thyromegaly. CHEST: Bilaterally clear. CARDIAC: First sound and second sound normal. ABDOMEN: Soft, nontender. There is no tenderness. EXTREMITIES: No edema. NEUROLOGIC: Normal. LABORATORY STUDY: White count 14.6, it is better; hemoglobin 10.5; hematocrit 33.2; platelets 360. Chemistry: Sodium 145, potassium 4.1, chloride 104, bicarb 25, BUN 27, creatinine 0.7, blood sugar 145, calcium 9.3, phosphorus 2.2. AST elevated at 47; alk phos 146, elevated and ALT elevated at 69. It is less than than admission. IMPRESSION: 1. Acute asthma exacerbation. Continue current therapy. IV and inhaled bronchodilators. Mucomyst. Chest physical therapy. IV antibiotics. The patient is getting vancomycin and meropenem, Maxipime 2 g IV every 8. 2. Hypertension. Still uncontrolled. Renal consult on the case. He increased the hydralazine 50 b.i.d. Continue Cozaar 100. Continue hydrochlorothiazide and continue atenolol. 3. Acute renal failure, improved. Renal function is normal. 4. Chronic anxiety, chronic osteoarthritis, continue Percocet, continue Ativan p.r.n. We will follow up clinically. 5. Abnormal liver functions test. Etiology unclear. Could be medications. Could be congestion. We will get ultrasound of the liver with GIDr. Rothman to evaluate. Blas Dixon MD
[2018-02-12] MEDS: guaiFENesin-Codeine 100-10mg/5ml Syrup (5 ml) UD PO PRN (20:51)
[2018-02-12] MEDS: MethylPREDNISolone 40 mg Vial IVP SCH (22:45)
[2018-02-13] MEDS: Albuterol-Ipratrop 3 mg / 0.5 (3 ml) UD IH SCH ×5 (04:00→19:58)
[2018-02-13] MEDS: guaiFENesin-Codeine 100-10mg/5ml Syrup (5 ml) UD PO PRN ×4 (04:20→22:50)
[2018-02-13] MEDS: Cefepime IV 2 gm in NS 2 GM/100 ML BAG IVPB SCH ×2 (06:45→17:26)
[2018-02-13 07:02] LABS: BASO # 0.01 K/mm3 (0.0-2.0); BASO % 0.1 % (0.0-3.0); GRAN # 14.55 (1.4-6.5); GRAN % 87.1 % (50.0-68.0); HEMOGLOBIN 10.1 g/dL (12.0-16.0); LYMPH # 1.6 (1.2-3.4); LYMPH % 9.5 % (22.0-35.0); MEAN CELL VOLUME 87.8 fl (80.0-105.0); MEAN CORPUSCULAR HEMOGLOBIN 27.9 pg (25.0-35.0); MEAN CORPUSCULAR HGB CONC 31.8 g/dl (31.0-37.0); MEAN PLATELET VOLUME 9.4 fl (7.0-11.0); MONO # 0.6 (0.1-0.6); MONO % 3.3 % (1.0-6.0); RBC 3.62 10^6/uL (3.5-6.1); RED CELL DISTRIBUTION WIDTH 16.9 % (11.5-14.5); WHITE BLOOD COUNT 16.7 10^3/ul (4.5-11.0)
[2018-02-13 07:17] LABS: ALB/GLOB RATIO 1.1 (1.1-1.8); ALBUMIN 3.4 g/dL (3.0-4.8); ALT/SGPT 77 U/L (7-56); AST/SGOT 58 U/L (14-36); BLOOD UREA NITROGEN 25 mg/dL (7-21); CALCIUM 8.9 mg/dL (8.4-10.5); GFR AFRICAN-AMERICAN > 60; GFR NON-AFRICAN AMERICAN > 60
--- NOTE | 2018-02-13 07:26 | CP.PCM.PN ---
Subjective - Date & Time of Evaluation Date of Evaluation: 02/13/18 Time of Evaluation: 06:30 - Subjective Subjective: Awake, feels better, no distress, denies shortness of breath Reason for consultation and follow up: Cardiac evaluation for shortness of breath, history of hypertension, asthma Seen and examined by me and Dr. Bains Objective - Vital Signs/Intake and Output Vital Signs (last 24 hours): Temp Pulse Resp BP Pulse Ox 98 F 84 20 177/103 H 100 02/12/18 18:00 02/12/18 22:59 02/12/18 18:00 02/12/18 22:59 02/12/18 18:00 Intake and Output: 02/13/18 02/13/18 06:59 18:59 Intake Total 360 Balance 360 - Medications Medications: Current Medications Albuterol/Ipratropium (Duoneb 3 Mg/0.5 Mg (3 Ml) Ud) 3 ml IH Q2H PRN PRN Reason: Shortness of Breath Last Admin: 02/11/18 07:54 Dose: 3 ml Albuterol/Ipratropium (Duoneb 3 Mg/0.5 Mg (3 Ml) Ud) 3 ml IH [id number] [facility] Last Admin: 02/13/18 04:00 Dose: Not Given Amlodipine Besylate (Norvasc) 5 mg PO DAILY [facility] Last Admin: 02/12/18 10:47 Dose: 5 mg Atenolol (Tenormin) 25 mg PO BID [facility] Last Admin: 02/12/18 17:41 Dose: 25 mg Benzonatate (Tessalon Perles) 100 mg PO TID [facility] Last Admin: 02/12/18 17:41 Dose: 100 mg Budesonide (Pulmicort Respules) 0.25 mg IH [id number] [facility] Last Admin: 02/12/18 20:07 Dose: 0.25 mg Clonidine HCl (Catapres) 0.1 mg PO Q4 PRN PRN Reason: Systolic Blood Pressure Last Admin: 02/12/18 05:14 Dose: 0.1 mg Enoxaparin Sodium (Lovenox) 40 mg SC DAILY [facility] PRN Reason: Protocol Last Admin: 02/12/18 10:46 Dose: 40 mg Guaifenesin (Mucinex La) 600 mg PO BID [facility] Last Admin: 02/12/18 17:41 Dose: 600 mg Guaifenesin/Codeine Phosphate (Robitussin W/Codeine) 5 ml PO Q6H PRN PRN Reason: Cough and congestion Last Admin: 02/13/18 04:20 Dose: 5 ml Hydralazine HCl (Apresoline) 50 mg PO Q12 [facility] Last Admin: 02/12/18 22:59 Dose: 50 mg Hydrochlorothiazide (Microzide) 12.5 mg PO DAILY [facility] Last Admin: 02/12/18 10:46 Dose: 12.5 mg Sodium Chloride (Sodium Chloride 0.9%) 1,000 mls @ 75 mls/hr IV .[id number] [facility] Last Admin: 02/11/18 22:11 Dose: 75 mls/hr Cefepime HCl (Maxipime 2gm) 2 gm in 100 mls @ 100 mls/hr IVPB 0600,1800 [facility] PRN Reason: Protocol Stop: 02/15/18 15:01 Last Admin: 02/13/18 06:45 Dose: 100 mls/hr Vancomycin HCl (Vancomycin 1gm) 1 gm in 250 mls @ 167 mls/hr IVPB Q12H [facility] PRN Reason: Protocol Stop: 02/21/18 09:46 Last Admin: 02/12/18 23:00 Dose: 167 mls/hr Lorazepam (Ativan) 0.5 mg IVP Q6H PRN; Protocol PRN Reason: Anxiety Losartan Potassium (Cozaar) 100 mg PO DAILY [facility] Last Admin: 02/12/18 10:46 Dose: 100 mg Methylprednisolone (Solu-Medrol) 40 mg IVP Q12 [facility] Last Admin: 02/12/18 22:45 Dose: 40 mg Morphine Sulfate (Morphine) 4 mg IVP Q4H PRN PRN Reason: Pain, moderate (4-7) Last Admin: 02/11/18 22:07 Dose: 4 mg Oxycodone HCl (Oxycodone Immediate Release Tab) 10 mg PO BID PRN PRN Reason: Pain, severe (8-10) Last Admin: 02/12/18 20:51 Dose: 10 mg Zolpidem Tartrate (Ambien) 10 mg PO HS PRN; Protocol PRN Reason: Insomnia Last Admin: 02/12/18 22:59 Dose: 10 mg - Labs Labs: 02/13/18 06:30 02/13/18 06:30 PT 12.2 SECONDS (9.4-12.5) 02/10/18 12:15 INR 1.06 (0.93-1.08) 02/10/18 12:15 APTT 26.4 Seconds (25.1-36.5) 02/10/18 12:15 - Constitutional Appears: No Acute Distress - Eye Exam Eye Exam: Normal appearance - ENT Exam ENT Exam: Mucous Membranes Moist - Respiratory Exam Respiratory Exam: Decreased Breath Sounds, NORMAL BREATHING PATTERN - Cardiovascular Exam Cardiovascular Exam: REGULAR RHYTHM, +S1, +S2 - GI/Abdominal Exam GI & Abdominal Exam: Soft, Normal Bowel Sounds - Neurological Exam Neurological Exam: Alert, Awake, Oriented x3 - Psychiatric Exam Psychiatric exam: Normal Affect - Skin Skin Exam: Dry, Intact, Warm Assessment and Plan - Assessment and Plan (Free Text) Assessment: A 47 year old female who came in to the ER due to shortness of breath. History of hypertension and asthma. Non compliant with medications,Obese. Seen by Psychiatry for anxiety and depression. ID on consult. D-dimer elevated, VQ scan done low probability of pulmonary embolism.Renal ultrasound done-unremarkable findings. Exacerbation of asthma. urine positive for opiates and benzodiapines.uncontrolled hypertension. Plan: ECHO to evaluate LV function Uncontrolled blood pressure, On Norvasc 5 mg daily,Tenormin 25 mg daily,Catapres 0.1 mg every 4 hours Lovenox 40 mg daily,Apresoline 50 mg q 12 hours,, Microzide 12.5 mg daily Cozaar 100 mg daily, Blood culture (one set) Staphyloccus aureaus Continue antibiotics per ID Pulmonary on consult Continue current treatment Continue current medications Will follow up Plan and treatment discussed with Dr. Herson real
[2018-02-13] MEDS: Budesonide 0.25 mg/2 ml Inhal Susp UD IH SCH ×2 (07:49→19:59)
[2018-02-13] MEDS: Enoxaparin 40 mg Syringe SC SCH (09:25)
[2018-02-13] MEDS: guaiFENesin 600 mg ER Tab PO SCH ×2 (09:26→17:14)
[2018-02-13] MEDS: Vancomycin 1gm in NS 250ml 1 GM/250 ML BAG IVPB SCH (09:27)
[2018-02-13] MEDS: MethylPREDNISolone 40 mg Vial IVP SCH ×2 (09:27→21:33)
[2018-02-13] MEDS: oxyCODONE 10 mg Immediate Release Tab PO PRN ×2 (09:49→17:17)
--- NOTE | 2018-02-13 10:05 | CP.PCM.CON ---
<Zhanna Horton - Last Filed: 02/13/18 12:11> History of Present Illness - History of Present Illness History of Present Illness: GI Fellow PGY5 Consult Note This is a 47 y/o F with PMHx of Asthma, HTN, Anxiety and Bipolar disorder who presented to the ED complaining of shortness of breath. In the ED, patient was covered in stool and was showered in the ED. She was in respiratory distress in the ED, with wheezing on exam and accessory muscle use. with an episode of desaturation to 67% and placed on BiPAP. GI was consulted for elevated LFTs. Pt denies any history etoh abuse, no drug use and no exposure to hepatitis. She has no complaints related to her GI tract and tolerating a diet. No prior hx of colonoscopy or EGD. ROS: A 12pt ROS was negative except as above PMHx: As stated in HPI PSHx: None SHx: Denies tobacco, drugs, etoh FHx: Neg for colon cancer Past Patient History - Infectious Disease Hx of Infectious Diseases: None - Tetanus Immunizations Tetanus Immunization: Unknown - Past Social History Smoking Status: Never Smoked - CARDIAC Hx Hypertension: Yes Hx Peripheral Edema: Yes (ble +2 pitting) - PULMONARY Hx Asthma: Yes - NEUROLOGICAL Hx Neurological Disorder: No - HEENT Hx HEENT Problems: No - RENAL Hx Chronic Kidney Disease: No - ENDOCRINE/METABOLIC Hx Endocrine Disorders: No - HEMATOLOGICAL/ONCOLOGICAL Hx Blood Disorders: No - INTEGUMENTARY Hx Dermatological Problems: Yes Other/Comment: bruising multiple left arm - MUSCULOSKELETAL/RHEUMATOLOGICAL Hx Falls: No - GASTROINTESTINAL Hx Gastrointestinal Disorders: Yes (obese) Hx Gastroesophageal Reflux: Yes - GENITOURINARY/GYNECOLOGICAL Hx Genitourinary Disorders: No - PSYCHIATRIC Hx Substance Use: No - SURGICAL HISTORY Hx Surgeries: No Meds Allergies/Adverse Reactions: Allergies Allergy/AdvReac Type Severity Reaction Status Date / Time No Known Allergies Allergy Verified 02/10/18 11:56 - Medications Medications: Current Medications Albuterol/Ipratropium (Duoneb 3 Mg/0.5 Mg (3 Ml) Ud) 3 ml IH Q2H PRN PRN Reason: Shortness of Breath Last Admin: 02/11/18 07:54 Dose: 3 ml Albuterol/Ipratropium (Duoneb 3 Mg/0.5 Mg (3 Ml) Ud) 3 ml IH [id number] [facility] Last Admin: 02/13/18 07:49 Dose: 3 ml Amlodipine Besylate (Norvasc) 5 mg PO DAILY [facility] Last Admin: 02/13/18 09:26 Dose: 5 mg Atenolol (Tenormin) 25 mg PO BID [facility] Last Admin: 02/13/18 09:26 Dose: 25 mg Benzonatate (Tessalon Perles) 100 mg PO TID [facility] Last Admin: 02/13/18 09:25 Dose: 100 mg Budesonide (Pulmicort Respules) 0.25 mg IH [id number] [facility] Last Admin: 02/13/18 07:49 Dose: 0.25 mg Clonidine HCl (Catapres) 0.1 mg PO BID [facility] Last Admin: 02/13/18 09:26 Dose: 0.1 mg Enoxaparin Sodium (Lovenox) 40 mg SC DAILY [facility] PRN Reason: Protocol Last Admin: 02/13/18 09:25 Dose: 40 mg Guaifenesin (Mucinex La) 600 mg PO BID [facility] Last Admin: 02/13/18 09:26 Dose: 600 mg Guaifenesin/Codeine Phosphate (Robitussin W/Codeine) 5 ml PO Q6H PRN PRN Reason: Cough and congestion Last Admin: 02/13/18 09:24 Dose: 5 ml Hydralazine HCl (Apresoline) 50 mg PO Q12 [facility] Last Admin: 02/13/18 09:24 Dose: 50 mg Hydralazine HCl (Apresoline) 10 mg IVP Q6 PRN PRN Reason: Systolic Blood Pressure Hydrochlorothiazide (Microzide) 12.5 mg PO DAILY [facility] Last Admin: 02/13/18 09:27 Dose: 12.5 mg Sodium Chloride (Sodium Chloride 0.9%) 1,000 mls @ 75 mls/hr IV .[id number] [facility] Last Admin: 02/11/18 22:11 Dose: 75 mls/hr Cefepime HCl (Maxipime 2gm) 2 gm in 100 mls @ 100 mls/hr IVPB 0600,1800 [facility] PRN Reason: Protocol Stop: 02/15/18 15:01 Last Admin: 02/13/18 06:45 Dose: 100 mls/hr Vancomycin HCl (Vancomycin 1gm) 1 gm in 250 mls @ 167 mls/hr IVPB Q12H [facility] PRN Reason: Protocol Stop: 02/21/18 09:46 Last Admin: 02/13/18 09:27 Dose: 167 mls/hr Lorazepam (Ativan) 0.5 mg IVP Q6H PRN; Protocol PRN Reason: Anxiety Losartan Potassium (Cozaar) 100 mg PO DAILY [facility] Last Admin: 02/13/18 09:25 Dose: 100 mg Methylprednisolone (Solu-Medrol) 40 mg IVP Q12 [facility] Last Admin: 02/13/18 09:27 Dose: 40 mg Morphine Sulfate (Morphine) 4 mg IVP Q4H PRN PRN Reason: Pain, moderate (4-7) Last Admin: 02/11/18 22:07 Dose: 4 mg Oxycodone HCl (Oxycodone Immediate Release Tab) 10 mg PO BID PRN PRN Reason: Pain, severe (8-10) Last Admin: 02/13/18 09:49 Dose: 10 mg Zolpidem Tartrate (Ambien) 10 mg PO HS PRN; Protocol PRN Reason: Insomnia Last Admin: 02/12/18 22:59 Dose: 10 mg Physical Exam - Constitutional Appears: Non-toxic, No Acute Distress - Head Exam Head Exam: ATRAUMATIC, NORMAL INSPECTION, NORMOCEPHALIC - Eye Exam Eye Exam: EOMI, Normal appearance, PERRL Pupil Exam: PERRL - ENT Exam ENT Exam: Mucous Membranes Moist - Respiratory Exam Respiratory Exam: Decreased Breath Sounds, NORMAL BREATHING PATTERN - Cardiovascular Exam Cardiovascular Exam: RRR, +S1, +S2 - GI/Abdominal Exam GI & Abdominal Exam: Normal Bowel Sounds, Soft. absent: Distended, Guarding, Organomegaly - Rectal Exam Rectal Exam: Deferred - Extremities Exam Extremities exam: Positive for: full ROM, normal inspection - Back Exam Back exam: NORMAL INSPECTION - Neurological Exam Neurological exam: Alert, Oriented x3 - Psychiatric Exam Psychiatric exam: Normal Affect, Normal Mood - Skin Skin Exam: Dry, Intact, Normal Color, Warm Results - Vital Signs Recent Vital Signs: Last Vital Signs Temp 98.5 F 02/13/18 08:05 Pulse 71 02/13/18 09:26 Resp 20 02/13/18 08:05 BP 164/77 H 02/13/18 09:26 Pulse Ox 95 02/13/18 08:05 - Labs Result Diagrams: 02/13/18 06:30 02/13/18 06:30 Labs: Laboratory Results - last 24 hr 02/12/18 02/12/18 02/12/18 10:15 10:15 10:15 WBC 14.6 H D RBC 3.76 Hgb 10.5 L Hct 33.2 L MCV 88.3 MCH 27.9 MCHC 31.6 RDW 16.8 H Plt Count 360 MPV 8.9 Gran % 92.4 H Lymph % (Auto) 6.6 L [place] % (Auto) 1.0 Eos % (Auto) 0.0 L Baso % (Auto) 0.0 Gran # 13.54 H Lymph # (Auto) 1.0 L [place] # (Auto) 0.1 Eos # (Auto) 0.0 Baso # (Auto) 0.00 ESR 107 H Sodium 145 Potassium 4.1 Chloride 104 Carbon Dioxide 25 Anion Gap 20 BUN 27 H Creatinine 0.7 Est GFR ( Amer) > 60 Est GFR (Non-Af Amer) > 60 Random Glucose 145 H Calcium 9.3 Phosphorus 2.2 L Magnesium 2.1 Total Bilirubin 0.8 AST 47 H D ALT 69 H Alkaline Phosphatase 146 H D C-Reactive Protein Total Protein 7.5 Albumin 4.0 Globulin 3.6 Albumin/Globulin Ratio 1.1 02/12/18 02/13/18 02/13/18 10:15 06:30 06:30 WBC 16.7 H RBC 3.62 Hgb 10.1 L Hct 31.8 L MCV 87.8 MCH 27.9 MCHC 31.8 RDW 16.9 H Plt Count 380 MPV 9.4 Gran % 87.1 H Lymph % (Auto) 9.5 L [place] % (Auto) 3.3 Eos % (Auto) 0.0 L Baso % (Auto) 0.1 Gran # 14.55 H Lymph # (Auto) 1.6 [place] # (Auto) 0.6 Eos # (Auto) 0.0 Baso # (Auto) 0.01 ESR Sodium 142 Potassium 4.4 Chloride 105 Carbon Dioxide 29 Anion Gap 13 BUN 25 H Creatinine 0.8 Est GFR ( Amer) > 60 Est GFR (Non-Af Amer) > 60 Random Glucose 118 H Calcium 8.9 Phosphorus 3.5 Magnesium 1.9 Total Bilirubin 0.8 AST 58 H D ALT 77 H Alkaline Phosphatase 128 H C-Reactive Protein 194.10 H Total Protein 6.6 Albumin 3.4 Globulin 3.2 Albumin/Globulin Ratio 1.1 Assessment & Plan - Assessment and Plan (Free Text) Assessment: This is a 47yf presenting with SOB. 1. Elevated LFTs 2. Asthma and COPD exacerbation Plan: -Continue supportive care and medical treatment per primary team -Pt with elevated LFTs and no significant abnormality of alk phos and Tbili -No abdominal pain -Will order hepatitis and autoimmune serologies -Abd US to evaluate liver parenchyma -Monitor LFTs, likely elevated from fatty liver -Will continue to follow pt closely <Mina Rothman V - Last Filed: 02/13/18 21:51> Meds - Medications Medications: Current Medications Albuterol/Ipratropium (Duoneb 3 Mg/0.5 Mg (3 Ml) Ud) 3 ml IH Q2H PRN PRN Reason: Shortness of Breath Last Admin: 02/11/18 07:54 Dose: 3 ml Albuterol/Ipratropium (Duoneb 3 Mg/0.5 Mg (3 Ml) Ud) 3 ml IH [id number] [facility] Last Admin: 02/13/18 19:58 Dose: 3 ml Amlodipine Besylate (Norvasc) 5 mg PO DAILY [facility] Last Admin: 02/13/18 09:26 Dose: 5 mg Atenolol (Tenormin) 25 mg PO BID [facility] Last Admin: 02/13/18 17:23 Dose: 25 mg Benzonatate (Tessalon Perles) 100 mg PO TID [facility] Last Admin: 02/13/18 17:27 Dose: 100 mg Budesonide (Pulmicort Respules) 0.25 mg IH [id number] [facility] Last Admin: 02/13/18 19:59 Dose: 0.25 mg Clonidine HCl (Catapres) 0.1 mg PO BID [facility] Last Admin: 02/13/18 17:13 Dose: 0.1 mg Enoxaparin Sodium (Lovenox) 40 mg SC DAILY [facility] PRN Reason: Protocol Last Admin: 02/13/18 09:25 Dose: 40 mg Guaifenesin (Mucinex La) 600 mg PO BID [facility] Last Admin: 02/13/18 17:14 Dose: 600 mg Guaifenesin/Codeine Phosphate (Robitussin W/Codeine) 5 ml PO Q6H PRN PRN Reason: Cough and congestion Last Admin: 02/13/18 17:14 Dose: 5 ml Hydralazine HCl (Apresoline) 50 mg PO Q12 [facility] Last Admin: 02/13/18 21:32 Dose: 50 mg Hydralazine HCl (Apresoline) 10 mg IVP Q6 PRN PRN Reason: Systolic Blood Pressure Last Admin: 02/13/18 17:23 Dose: 10 mg Hydrochlorothiazide (Microzide) 12.5 mg PO DAILY [facility] Last Admin: 02/13/18 09:27 Dose: 12.5 mg Sodium Chloride (Sodium Chloride 0.9%) 1,000 mls @ 75 mls/hr IV .[id number] [facility] Last Admin: 02/13/18 14:21 Dose: 75 mls/hr Cefepime HCl (Maxipime 2gm) 2 gm in 100 mls @ 100 mls/hr IVPB 0600,1800 [facility] PRN Reason: Protocol Stop: 02/15/18 15:01 Last Admin: 02/13/18 17:26 Dose: 100 mls/hr Lorazepam (Ativan) 0.5 mg IVP Q6H PRN; Protocol PRN Reason: Anxiety Last Admin: 02/13/18 17:13 Dose: 0.5 mg Losartan Potassium (Cozaar) 100 mg PO DAILY [facility] Last Admin: 02/13/18 09:25 Dose: 100 mg Methylprednisolone (Solu-Medrol) 40 mg IVP Q12 [facility] Last Admin: 02/13/18 21:33 Dose: 40 mg Morphine Sulfate (Morphine) 4 mg IVP Q4H PRN PRN Reason: Pain, moderate (4-7) Last Admin: 02/11/18 22:07 Dose: 4 mg Oxycodone HCl (Oxycodone Immediate Release Tab) 10 mg PO BID PRN PRN Reason: Pain, severe (8-10) Last Admin: 02/13/18 17:17 Dose: 10 mg Zolpidem Tartrate (Ambien) 10 mg PO HS PRN; Protocol PRN Reason: Insomnia Last Admin: 02/12/18 22:59 Dose: 10 mg Results - Vital Signs Recent Vital Signs: Last Vital Signs Temp 98.5 F 02/13/18 19:00 Pulse 71 02/13/18 21:32 Resp 20 02/13/18 19:00 BP 166/87 H 02/13/18 21:32 Pulse Ox 96 02/13/18 19:00 - Labs Result Diagrams: 02/13/18 06:30 02/13/18 06:30 Labs: Laboratory Results - last 24 hr 02/13/18 02/13/18 02/13/18 06:30 06:30 11:00 WBC 16.7 H RBC 3.62 Hgb 10.1 L Hct 31.8 L MCV 87.8 MCH 27.9 MCHC 31.8 RDW 16.9 H Plt Count 380 MPV 9.4 Gran % 87.1 H Lymph % (Auto) 9.5 L [place] % (Auto) 3.3 Eos % (Auto) 0.0 L Baso % (Auto) 0.1 Gran # 14.55 H Lymph # (Auto) 1.6 [place] # (Auto) 0.6 Eos # (Auto) 0.0 Baso # (Auto) 0.01 Sodium 142 Potassium 4.4 Chloride 105 Carbon Dioxide 29 Anion Gap 13 BUN 25 H Creatinine 0.8 Est GFR ( Amer) > 60 Est GFR (Non-Af Amer) > 60 Random Glucose 118 H Calcium 8.9 Phosphorus 3.5 Magnesium 1.9 Iron TIBC % Saturation Ferritin Total Bilirubin 0.8 AST 58 H D ALT 77 H Alkaline Phosphatase 128 H Total Protein 6.6 Albumin 3.4 Globulin 3.2 Albumin/Globulin Ratio 1.1 IgG Hepatitis A IgM Ab Negative Hep Bs Antigen Negative Hep B Core IgM Ab Negative Hepatitis C Antibody Negative 02/13/18 02/13/18 02/13/18 11:00 11:00 11:00 WBC RBC Hgb Hct MCV MCH MCHC RDW Plt Count MPV Gran % Lymph % (Auto) [place] % (Auto) Eos % (Auto) Baso % (Auto) Gran # Lymph # (Auto) [place] # (Auto) Eos # (Auto) Baso # (Auto) Sodium Potassium Chloride Carbon Dioxide Anion Gap BUN Creatinine Est GFR ( Amer) Est GFR (Non-Af Amer) Random Glucose Calcium Phosphorus Magnesium Iron 50 TIBC 346 % Saturation 14 L Ferritin 35.7 Total Bilirubin AST ALT Alkaline Phosphatase Total Protein Albumin Globulin Albumin/Globulin Ratio IgG 785.6 Hepatitis A IgM Ab Hep Bs Antigen Hep B Core IgM Ab Hepatitis C Antibody Attending/Attestation - Attestation I have personally seen and examined this patient.: Yes I have fully participated in the care of the patient.: Yes I have reviewed all pertinent clinical information: Yes Notes (Text): Associated This is an addendum to GI consult report dictated by the GI Fellow.The patient was seen and examined earlier. Medical records, lab studies , imagings were reviewed. Last 24 hours events reviewed. Agreed with the above treatment plan as outlined in GI Fellow 's notes the with the addition of the following elevated liver enzyme Sonogram reviewed would recommend hepatitis profile Autoimmune markers follow-up LFTs further evaluation based on above workup and clinical course 02/13/18 21:49
--- NOTE | 2018-02-13 11:12 | US ---
Date of service: 02/13/2018 HISTORY: abnormal lfts COMPARISON: None. TECHNIQUE: Sonographic evaluation of the right upper quadrant of the abdomen. FINDINGS: LIVER: Measures 18.5 cm in length. Increased echogenicity of the liver parenchyma. No mass. No intrahepatic bile duct dilatation. GALLBLADDER: The gallbladder is contracted COMMON BILE DUCT: Measures 5.1 mm. No stones. No dilatation. PANCREAS: Unremarkable as visualized. No mass. No ductal dilatation. RIGHT KIDNEY: Measures 10.2 x 5.2 x 4.9 cm in length. Normal echogenicity. No calculus, mass, or hydronephrosis. AORTA: No aneurysmal dilatation. IVC: Unremarkable. OTHER FINDINGS: None . IMPRESSION: No significant findings
[2018-02-13 11:19] LABS: IRON 50 ug/dL (45-180)
[2018-02-13 11:28] LABS: % IRON SATURATION 14 % (20-55); TOTAL IRON BINDING CAPACITY 346 ug/dL (265-497)
[2018-02-13] MEDS: Sodium Chloride 0.9% 1,000 ML IV SCH (14:21)
--- NOTE | 2018-02-13 16:18 | CP.PCM.PN ---
Subjective - Date & Time of Evaluation Date of Evaluation: 02/13/18 Time of Evaluation: 12:55 - Subjective Subjective: Breathing better, no fevers, not in distress, no diarrhea, no nausea. Objective - Vital Signs/Intake and Output Vital Signs (last 24 hours): Temp Pulse Resp BP Pulse Ox 98.5 F 71 20 164/77 H 95 02/13/18 08:05 02/13/18 09:26 02/13/18 08:05 02/13/18 09:26 02/13/18 08:05 Intake and Output: 02/13/18 02/13/18 06:59 18:59 Intake Total 360 Balance 360 - Medications Medications: Current Medications Albuterol/Ipratropium (Duoneb 3 Mg/0.5 Mg (3 Ml) Ud) 3 ml IH Q2H PRN PRN Reason: Shortness of Breath Last Admin: 02/11/18 07:54 Dose: 3 ml Albuterol/Ipratropium (Duoneb 3 Mg/0.5 Mg (3 Ml) Ud) 3 ml IH [id number] [facility] Last Admin: 02/13/18 11:03 Dose: 3 ml Amlodipine Besylate (Norvasc) 5 mg PO DAILY [facility] Last Admin: 02/13/18 09:26 Dose: 5 mg Atenolol (Tenormin) 25 mg PO BID [facility] Last Admin: 02/13/18 09:26 Dose: 25 mg Benzonatate (Tessalon Perles) 100 mg PO TID [facility] Last Admin: 02/13/18 09:25 Dose: 100 mg Budesonide (Pulmicort Respules) 0.25 mg IH [id number] [facility] Last Admin: 02/13/18 07:49 Dose: 0.25 mg Clonidine HCl (Catapres) 0.1 mg PO BID [facility] Last Admin: 02/13/18 09:26 Dose: 0.1 mg Enoxaparin Sodium (Lovenox) 40 mg SC DAILY [facility] PRN Reason: Protocol Last Admin: 02/13/18 09:25 Dose: 40 mg Guaifenesin (Mucinex La) 600 mg PO BID [facility] Last Admin: 02/13/18 09:26 Dose: 600 mg Guaifenesin/Codeine Phosphate (Robitussin W/Codeine) 5 ml PO Q6H PRN PRN Reason: Cough and congestion Last Admin: 02/13/18 09:24 Dose: 5 ml Hydralazine HCl (Apresoline) 50 mg PO Q12 [facility] Last Admin: 02/13/18 09:24 Dose: 50 mg Hydralazine HCl (Apresoline) 10 mg IVP Q6 PRN PRN Reason: Systolic Blood Pressure Hydrochlorothiazide (Microzide) 12.5 mg PO DAILY [facility] Last Admin: 02/13/18 09:27 Dose: 12.5 mg Sodium Chloride (Sodium Chloride 0.9%) 1,000 mls @ 75 mls/hr IV .[id number] [facility] Last Admin: 02/11/18 22:11 Dose: 75 mls/hr Cefepime HCl (Maxipime 2gm) 2 gm in 100 mls @ 100 mls/hr IVPB 0600,1800 [facility] PRN Reason: Protocol Stop: 02/15/18 15:01 Last Admin: 02/13/18 06:45 Dose: 100 mls/hr Vancomycin HCl (Vancomycin 1gm) 1 gm in 250 mls @ 167 mls/hr IVPB Q12H [facility] PRN Reason: Protocol Stop: 02/21/18 09:46 Last Admin: 02/13/18 09:27 Dose: 167 mls/hr Lorazepam (Ativan) 0.5 mg IVP Q6H PRN; Protocol PRN Reason: Anxiety Losartan Potassium (Cozaar) 100 mg PO DAILY [facility] Last Admin: 02/13/18 09:25 Dose: 100 mg Methylprednisolone (Solu-Medrol) 40 mg IVP Q12 [facility] Last Admin: 02/13/18 09:27 Dose: 40 mg Morphine Sulfate (Morphine) 4 mg IVP Q4H PRN PRN Reason: Pain, moderate (4-7) Last Admin: 02/11/18 22:07 Dose: 4 mg Oxycodone HCl (Oxycodone Immediate Release Tab) 10 mg PO BID PRN PRN Reason: Pain, severe (8-10) Last Admin: 02/13/18 09:49 Dose: 10 mg Zolpidem Tartrate (Ambien) 10 mg PO HS PRN; Protocol PRN Reason: Insomnia Last Admin: 02/12/18 22:59 Dose: 10 mg - Labs Labs: 02/13/18 06:30 02/13/18 06:30 PT 12.2 SECONDS (9.4-12.5) 02/10/18 12:15 INR 1.06 (0.93-1.08) 02/10/18 12:15 APTT 26.4 Seconds (25.1-36.5) 02/10/18 12:15 - Constitutional Appears: Chronically Ill - Head Exam Head Exam: NORMAL INSPECTION - Neck Exam Neck Exam: absent: Meningismus - Respiratory Exam Respiratory Exam: Decreased Breath Sounds - Cardiovascular Exam Cardiovascular Exam: +S1, +S2 - GI/Abdominal Exam GI & Abdominal Exam: Soft. absent: Tenderness Assessment and Plan - Assessment and Plan (Free Text) Plan: Assessment severe sepsis due to healthcare-associated pneumonia with possible gram positive cocci and/or gram negative bacilli and/or atypical organisms, as well as Methicillin-sensitive Staph aureus bacteremia, source to be determined chronic asthma obesity with BMI 38 anxiety bipolar disorder HTN Plan continue Cefepime (which should cover MSSA) and Doxycycline day 4 and will follow up repeat blood cx; should get 2D echo will monitor clinically
[2018-02-13 17:31] LABS: HEPATITIS A IGM NEGATIVE (NEGATIVE)
[2018-02-13 17:43] LABS: HEPATITIS C ANTIBODY NEGATIVE (NEGATIVE)
[2018-02-13 18:01] LABS: HEPATITIS B CORE AB NEGATIVE (NEGATIVE)
[2018-02-13 19:21] LABS: HEPATITIS B SURFACE AG Negative (NEGATIVE)
[2018-02-13] MEDS: Morphine 4 mg/ml ISec IVP PRN (22:51)
[2018-02-14] MEDS: Albuterol-Ipratrop 3 mg / 0.5 (3 ml) UD IH SCH ×6 (01:10→19:58)
[2018-02-14 02:33] LABS: PH,URINE 5.5 (4.7-8.0); URINE BILIRUBIN NEGATIVE (NEGATIVE); URINE BLOOD NEGATIVE (NEGATIVE); URINE GLUCOSE (UA) NEGATIVE (NEGATIVE); URINE LEUKOCYTE ESTERASE NEGATIVE Leu/uL (NEGATIVE); URINE PROTEIN NEGATIVE mg/dL (<30 mg/dL); URINE UROBILINOGEN 0.2 E.U./dL (<1 E.U./dL)
[2018-02-14 02:34] LABS: URINE APPEARANCE CLEAR (CLEAR); URINE COLOR YELLOW (YELLOW)
--- NOTE | 2018-02-14 03:38 | PN ---
Copied To: Miguelina Glynn MD DATE: 02/13/2018 PULMONARY PROGRESS NOTE REFERRING PHYSICIAN: Blas Dixon MD. SUBJECTIVE: The patient is out of bed to chair, feels much better, breathing is better. Still has a cough. No chest pain. No nausea, vomiting, diarrhea, leg pain, leg swelling. OBJECTIVE: GENERAL: In no acute distress. VITAL SIGNS: Temperature is 98, heart rate is 71, respiratory rate is 20, blood pressure 166/87, pulse ox 96% on room air. HEENT: Moist mucous membrane. Crowded airway. NECK: Supple. No JVD. LUNGS: Better airflow. Prolonged expiratory phase. Not much wheezing. HEART: S1 and S2. ABDOMEN: Soft, nontender. No organomegaly. EXTREMITIES: There is no edema. NEUROLOGICAL: Awake and alert. Follows simple command. MEDICATIONS: She is on Ambien 10 mg at bedtime p.r.n., hydralazine 50 mg twice a day, Ativan 0.5 mg every 6 hours p.r.n., clonidine 0.1 mg twice a day, Cozaar 100 mg daily, DuoNeb every 2 hours p.r.n. and every 4 hours [id number], Lovenox 40 mg daily, cefepime 1 g IV every 12 hours, hydrochlorothiazide 12.5 mg daily, morphine 4 mg every 4 hours p.r.n., Mucinex LA 600 mg twice a day, Norvasc 5 mg daily, oxycodone 10 mg every 12 hours p.r.n., Pulmicort inhaled twice a day, IV fluid normal saline 75 mL/hour, Solu-Medrol 40 mg every 12 hours, Tenormin 25 mg twice a day, Tessalon Perles 100 mg three times a day. LABORATORY DATA: Shows hemoglobin 10.1, hematocrit 31.8, WBC 16.7, platelet count is 380. Sodium 142, potassium 4.4, chloride 105, bicarbonate 29, BUN 25, creatinine 0.8, glucose 118, calcium 8.9, phosphorus 3.5, magnesium 1.9, iron is 50, AST 58, ALT 77, alk phos is 128, C-reactive protein of 194, albumin is 3.4. Has a gallbladder ultrasound done yesterday shows no significant finding. IMPRESSION AND PLAN: Exacerbation of chronic obstructive lung disease, bipolar disorder, hypertension, renal insufficiency. Pulmonary point of view, doing well. Continue Solu-Medrol, inhaled bronchodilator, antibiotics, gastric prophylaxis, deep venous thrombosis prophylaxis, fall precaution, pain management, cough suppressor. Educated the patient about noxious stimuli to avoid triggers. Thank you and we will follow with you. Miguelina Glynn MD
[2018-02-14] MEDS: Cefepime IV 2 gm in NS 2 GM/100 ML BAG IVPB SCH (05:32)
[2018-02-14] MEDS: guaiFENesin-Codeine 100-10mg/5ml Syrup (5 ml) UD PO PRN ×3 (06:11→22:04)
--- NOTE | 2018-02-14 07:30 | CP.PCM.PN ---
Subjective - Date & Time of Evaluation Date of Evaluation: 02/14/18 Time of Evaluation: 06:25 - Subjective Subjective: Awake, feels better, no distress, denies shortness of breath Reason for consultation and follow up: Cardiac evaluation for shortness of breath, history of hypertension, asthma Seen and examined by me and Dr. Bains Objective - Vital Signs/Intake and Output Vital Signs (last 24 hours): Temp Pulse Resp BP Pulse Ox 99.7 F H 74 20 200/100 H 99 02/14/18 00:00 02/14/18 00:00 02/14/18 00:00 02/14/18 07:04 02/14/18 00:00 Intake and Output: 02/14/18 02/14/18 06:59 18:59 Intake Total 100 Balance 100 - Medications Medications: Current Medications Albuterol/Ipratropium (Duoneb 3 Mg/0.5 Mg (3 Ml) Ud) 3 ml IH Q2H PRN PRN Reason: Shortness of Breath Last Admin: 02/11/18 07:54 Dose: 3 ml Albuterol/Ipratropium (Duoneb 3 Mg/0.5 Mg (3 Ml) Ud) 3 ml IH [id number] [facility] Last Admin: 02/14/18 04:26 Dose: Not Given Amlodipine Besylate (Norvasc) 5 mg PO DAILY [facility] Last Admin: 02/13/18 09:26 Dose: 5 mg Atenolol (Tenormin) 25 mg PO BID [facility] Last Admin: 02/13/18 17:23 Dose: 25 mg Benzonatate (Tessalon Perles) 100 mg PO TID [facility] Last Admin: 02/13/18 17:27 Dose: 100 mg Budesonide (Pulmicort Respules) 0.25 mg IH [id number] [facility] Last Admin: 02/13/18 19:59 Dose: 0.25 mg Clonidine HCl (Catapres) 0.1 mg PO BID [facility] Last Admin: 02/14/18 07:04 Dose: 0.1 mg Enoxaparin Sodium (Lovenox) 40 mg SC DAILY [facility] PRN Reason: Protocol Last Admin: 02/13/18 09:25 Dose: 40 mg Guaifenesin (Mucinex La) 600 mg PO BID [facility] Last Admin: 02/13/18 17:14 Dose: 600 mg Guaifenesin/Codeine Phosphate (Robitussin W/Codeine) 5 ml PO Q6H PRN PRN Reason: Cough and congestion Last Admin: 02/14/18 06:11 Dose: 5 ml Hydralazine HCl (Apresoline) 50 mg PO Q12 [facility] Last Admin: 02/13/18 21:32 Dose: 50 mg Hydralazine HCl (Apresoline) 10 mg IVP Q6 PRN PRN Reason: Systolic Blood Pressure Last Admin: 02/13/18 17:23 Dose: 10 mg Hydrochlorothiazide (Microzide) 12.5 mg PO DAILY [facility] Last Admin: 02/13/18 09:27 Dose: 12.5 mg Cefepime HCl (Maxipime 2gm) 2 gm in 100 mls @ 100 mls/hr IVPB 0600,1800 [facility] PRN Reason: Protocol Stop: 02/15/18 15:01 Last Admin: 02/14/18 05:32 Dose: 100 mls/hr Lorazepam (Ativan) 0.5 mg IVP Q6H PRN; Protocol PRN Reason: Anxiety Last Admin: 02/13/18 17:13 Dose: 0.5 mg Losartan Potassium (Cozaar) 100 mg PO DAILY [facility] Last Admin: 02/13/18 09:25 Dose: 100 mg Methylprednisolone (Solu-Medrol) 40 mg IVP Q12 [facility] Last Admin: 02/13/18 21:33 Dose: 40 mg Morphine Sulfate (Morphine) 4 mg IVP Q4H PRN PRN Reason: Pain, moderate (4-7) Last Admin: 02/13/18 22:51 Dose: 4 mg Oxycodone HCl (Oxycodone Immediate Release Tab) 10 mg PO BID PRN PRN Reason: Pain, severe (8-10) Last Admin: 02/13/18 17:17 Dose: 10 mg Zolpidem Tartrate (Ambien) 10 mg PO HS PRN; Protocol PRN Reason: Insomnia Last Admin: 02/14/18 00:55 Dose: 10 mg - Labs Labs: 02/13/18 06:30 02/13/18 06:30 PT 12.2 SECONDS (9.4-12.5) 02/10/18 12:15 INR 1.06 (0.93-1.08) 02/10/18 12:15 APTT 26.4 Seconds (25.1-36.5) 02/10/18 12:15 - Constitutional Appears: No Acute Distress - Eye Exam Eye Exam: Normal appearance - ENT Exam ENT Exam: Mucous Membranes Moist - Respiratory Exam Respiratory Exam: Decreased Breath Sounds, Clear to Ausculation Bilateral, NORMAL BREATHING PATTERN - Cardiovascular Exam Cardiovascular Exam: +S1, +S2 - GI/Abdominal Exam GI & Abdominal Exam: Soft, Normal Bowel Sounds - Extremities Exam Additional comments: 1+edema - Neurological Exam Neurological Exam: Alert, Awake, Oriented x3 - Psychiatric Exam Psychiatric exam: Normal Affect - Skin Skin Exam: Intact, Warm Assessment and Plan - Assessment and Plan (Free Text) Assessment: A 47 year old female obese,who came in to the ER due to shortness of breath. History of hypertension and asthma. Non compliant with medications, Seen by Psychiatry for anxiety and depression. ID on consult. D-dimer elevated, VQ scan done low probability of pulmonary embolism.Renal ultrasound done-unremarkable findings. Exacerbation of asthma. urine positive for opiates and benzodiapines.uncontrolled hypertension.Blood culture positive for Staphyloccus celina, ID on consult, on IV antibiotics. Plan: Uncontrolled blood pressure, medications increased doses yesterday, Will reevaluate after giving today's medications. On Tenormin 25 mg daily,Catapres 0.1 mg BID,Hydralazine 50 very 12 hours. Lovenox 40 mg daily,Apresoline 50 mg q 12 hours,, Microzide 12.5 mg daily Cozaar 100 mg daily, Blood culture (one set) Staphyloccus celina Continue antibiotics per ID Pulmonary on consult GI on consult for elevated LFT's US of abdomen, unremarkable findings/normal Lifestyle modification Weight reduction Continue current treatment Continue current medications Will follow up Plan and treatment discussed with Dr. Bains
[2018-02-14] MEDS: Budesonide 0.25 mg/2 ml Inhal Susp UD IH SCH ×2 (07:31→19:58)
[2018-02-14 07:51] LABS: ALB/GLOB RATIO 1.1 (1.1-1.8); ALBUMIN 3.5 g/dL (3.0-4.8); ALT/SGPT 73 U/L (7-56); AST/SGOT 32 U/L (14-36); BLOOD UREA NITROGEN 20 mg/dL (7-21); CALCIUM 9.1 mg/dL (8.4-10.5); GFR AFRICAN-AMERICAN > 60; GFR NON-AFRICAN AMERICAN > 60
--- NOTE | 2018-02-14 08:11 | CP.PCM.PN ---
<Zhanna Horton - Last Filed: 02/14/18 18:57> Subjective - Date & Time of Evaluation Date of Evaluation: 02/14/18 Time of Evaluation: 07:00 - Subjective Subjective: GI Fellow PGY5 Progress Note Pt seen and evaluated at bedside, she is doing well with no complaints. No abdominal pain, N/V. Tolerating diet. ROS: A 12pt ROS was negative except as above. Objective - Vital Signs/Intake and Output Vital Signs (last 24 hours): Temp Pulse Resp BP Pulse Ox 99.7 F H 74 20 200/100 H 99 02/14/18 00:00 02/14/18 00:00 02/14/18 00:00 02/14/18 07:04 02/14/18 00:00 Intake and Output: 02/14/18 02/14/18 06:59 18:59 Intake Total 100 Balance 100 - Medications Medications: Current Medications Albuterol/Ipratropium (Duoneb 3 Mg/0.5 Mg (3 Ml) Ud) 3 ml IH Q2H PRN PRN Reason: Shortness of Breath Last Admin: 02/11/18 07:54 Dose: 3 ml Albuterol/Ipratropium (Duoneb 3 Mg/0.5 Mg (3 Ml) Ud) 3 ml IH [id number] [facility] Last Admin: 02/14/18 07:31 Dose: 3 ml Amlodipine Besylate (Norvasc) 5 mg PO DAILY [facility] Last Admin: 02/13/18 09:26 Dose: 5 mg Amlodipine Besylate (Norvasc) 10 mg PO DAILY [facility] Atenolol (Tenormin) 25 mg PO BID [facility] Last Admin: 02/13/18 17:23 Dose: 25 mg Benzonatate (Tessalon Perles) 100 mg PO TID [facility] Last Admin: 02/13/18 17:27 Dose: 100 mg Budesonide (Pulmicort Respules) 0.25 mg IH [id number] [facility] Last Admin: 02/14/18 07:31 Dose: 0.25 mg Chlorthalidone (Hygroton) 25 mg PO DAILY [facility] Clonidine HCl (Catapres) 0.1 mg PO TID [facility] Enoxaparin Sodium (Lovenox) 40 mg SC DAILY [facility] PRN Reason: Protocol Last Admin: 02/13/18 09:25 Dose: 40 mg Guaifenesin (Mucinex La) 600 mg PO BID [facility] Last Admin: 02/13/18 17:14 Dose: 600 mg Guaifenesin/Codeine Phosphate (Robitussin W/Codeine) 5 ml PO Q6H PRN PRN Reason: Cough and congestion Last Admin: 02/14/18 06:11 Dose: 5 ml Hydralazine HCl (Apresoline) 50 mg PO Q12 [facility] Last Admin: 02/13/18 21:32 Dose: 50 mg Hydralazine HCl (Apresoline) 10 mg IVP Q6 PRN PRN Reason: Systolic Blood Pressure Last Admin: 02/13/18 17:23 Dose: 10 mg Cefepime HCl (Maxipime 2gm) 2 gm in 100 mls @ 100 mls/hr IVPB 0600,1800 [facility] PRN Reason: Protocol Stop: 02/15/18 15:01 Last Admin: 02/14/18 05:32 Dose: 100 mls/hr Lorazepam (Ativan) 0.5 mg IVP Q6H PRN; Protocol PRN Reason: Anxiety Last Admin: 02/13/18 17:13 Dose: 0.5 mg Losartan Potassium (Cozaar) 100 mg PO DAILY [facility] Last Admin: 02/13/18 09:25 Dose: 100 mg Methylprednisolone (Solu-Medrol) 40 mg IVP Q12 [facility] Last Admin: 02/13/18 21:33 Dose: 40 mg Morphine Sulfate (Morphine) 4 mg IVP Q4H PRN PRN Reason: Pain, moderate (4-7) Last Admin: 02/13/18 22:51 Dose: 4 mg Oxycodone HCl (Oxycodone Immediate Release Tab) 10 mg PO BID PRN PRN Reason: Pain, severe (8-10) Last Admin: 02/13/18 17:17 Dose: 10 mg Zolpidem Tartrate (Ambien) 10 mg PO HS PRN; Protocol PRN Reason: Insomnia Last Admin: 02/14/18 00:55 Dose: 10 mg - Labs Labs: 02/13/18 06:30 02/14/18 07:00 PT 12.2 SECONDS (9.4-12.5) 02/10/18 12:15 INR 1.06 (0.93-1.08) 02/10/18 12:15 APTT 26.4 Seconds (25.1-36.5) 02/10/18 12:15 - Constitutional Appears: Non-toxic, No Acute Distress - Head Exam Head Exam: ATRAUMATIC, NORMAL INSPECTION, NORMOCEPHALIC - Eye Exam Eye Exam: EOMI, Normal appearance, PERRL Pupil Exam: PERRL - ENT Exam ENT Exam: Mucous Membranes Moist - Neck Exam Neck Exam: Full ROM, Normal Inspection - Respiratory Exam Respiratory Exam: Clear to Ausculation Bilateral, NORMAL BREATHING PATTERN - Cardiovascular Exam Cardiovascular Exam: REGULAR RHYTHM, RRR, +S1, +S2 - GI/Abdominal Exam GI & Abdominal Exam: Soft, Normal Bowel Sounds. absent: Tenderness, Organomegaly - Rectal Exam Rectal Exam: Deferred - Extremities Exam Extremities Exam: Full ROM, Normal Inspection - Back Exam Back Exam: NORMAL INSPECTION - Neurological Exam Neurological Exam: Alert, Awake, Oriented x3 - Psychiatric Exam Psychiatric exam: Normal Affect, Normal Mood - Skin Skin Exam: Dry, Intact, Normal Color, Warm Assessment and Plan - Assessment and Plan (Free Text) Assessment: This is a 47yf presenting with SOB. 1. Elevated LFTs 2. Asthma and COPD exacerbation Plan: -Continue supportive care and medical treatment per primary team -Pt with elevated LFTs and no significant abnormality of alk phos and Tbili -No abdominal pain -Hepatitis negative and autoimmune serologies IgG negative -Abd US to evaluate liver parenchyma -Monitor LFTs, likely elevated from fatty liver -LFTs are trending down -Pt okay for outpt followup <Mina Rothman V - Last Filed: 02/14/18 22:38> Objective - Vital Signs/Intake and Output Vital Signs (last 24 hours): Temp Pulse Resp BP Pulse Ox 98.5 F 74 18 165/99 H 98 02/14/18 21:05 02/14/18 22:05 02/14/18 21:05 02/14/18 22:05 02/14/18 21:05 Intake and Output: 02/14/18 02/15/18 18:59 06:59 Intake Total 1140 Balance 1140 - Medications Medications: Current Medications Albuterol/Ipratropium (Duoneb 3 Mg/0.5 Mg (3 Ml) Ud) 3 ml IH Q2H PRN PRN Reason: Shortness of Breath Last Admin: 02/11/18 07:54 Dose: 3 ml Albuterol/Ipratropium (Duoneb 3 Mg/0.5 Mg (3 Ml) Ud) 3 ml IH [id number] [facility] Last Admin: 02/14/18 19:58 Dose: 3 ml Amlodipine Besylate (Norvasc) 10 mg PO DAILY [facility] Last Admin: 02/14/18 09:32 Dose: 10 mg Atenolol (Tenormin) 25 mg PO BID [facility] Last Admin: 02/14/18 17:09 Dose: 25 mg Benzocaine/Menthol (Cepacol Sore Throat) 1 mago MT Q2H PRN PRN Reason: Sore Throat Last Admin: 02/14/18 22:14 Dose: 1 mago Benzonatate (Tessalon Perles) 100 mg PO TID [facility] Last Admin: 02/14/18 17:09 Dose: 100 mg Budesonide (Pulmicort Respules) 0.25 mg IH [id number] [facility] Last Admin: 02/14/18 19:58 Dose: 0.25 mg Chlorthalidone (Hygroton) 25 mg PO DAILY [facility] Last Admin: 02/14/18 09:31 Dose: 25 mg Clonazepam (Klonopin) 0.5 mg PO BID [facility] PRN Reason: Protocol Last Admin: 02/14/18 17:09 Dose: 0.5 mg Clonidine HCl (Catapres) 0.1 mg PO TID [facility] Last Admin: 02/14/18 17:09 Dose: 0.1 mg Clonidine HCl (Catapres) 0.1 mg PO Q4H PRN PRN Reason: Systolic Blood Pressure Enoxaparin Sodium (Lovenox) 40 mg SC DAILY [facility] PRN Reason: Protocol Last Admin: 02/14/18 09:31 Dose: 40 mg Ergocalciferol (Drisdol 50,000 Intl Units Cap) 1 cap PO Q7D [facility] Last Admin: 02/14/18 13:11 Dose: 1 cap Ferrous Gluconate (Fergon) 324 mg PO TID [facility] Last Admin: 02/14/18 17:09 Dose: 324 mg Folic Acid (Folic Acid) 1 mg PO DAILY [facility] Last Admin: 02/14/18 09:31 Dose: 1 mg Guaifenesin (Mucinex La) 600 mg PO BID [facility] Last Admin: 02/14/18 17:09 Dose: 600 mg Guaifenesin/Codeine Phosphate (Robitussin W/Codeine) 5 ml PO Q6H PRN PRN Reason: Cough and congestion Last Admin: 02/14/18 22:04 Dose: 5 ml Hydralazine HCl (Apresoline) 10 mg IVP Q6 PRN PRN Reason: Systolic Blood Pressure Last Admin: 02/13/18 17:23 Dose: 10 mg Hydralazine HCl (Apresoline) 100 mg PO Q12 [facility] Last Admin: 02/14/18 22:05 Dose: 100 mg Cefazolin Sodium (Ancef 1gm In Ns) 1 gm in 100 mls @ 100 mls/hr IVPB Q8 [facility] PRN Reason: Protocol Stop: 02/23/18 14:05 Last Admin: 02/14/18 22:15 Dose: 100 mls/hr Lorazepam (Ativan) 0.5 mg IVP Q6H PRN; Protocol PRN Reason: Anxiety Last Admin: 02/13/18 17:13 Dose: 0.5 mg Losartan Potassium (Cozaar) 100 mg PO DAILY [facility] Last Admin: 02/14/18 09:32 Dose: 100 mg Methylprednisolone (Solu-Medrol) 20 mg IVP Q12 [facility] Last Admin: 02/14/18 22:12 Dose: 20 mg Morphine Sulfate (Morphine) 4 mg IVP Q4H PRN PRN Reason: Pain, moderate (4-7) Last Admin: 02/14/18 19:19 Dose: 4 mg Nystatin (Nystatin Oral Susp) 5 ml PO QID [facility] Last Admin: 02/14/18 22:10 Dose: 5 ml Oxycodone HCl (Oxycodone Immediate Release Tab) 10 mg PO BID PRN PRN Reason: Pain, severe (8-10) Last Admin: 02/13/18 17:17 Dose: 10 mg Vitamin B Complex/Vit C/Folic Acid (Nephro-Karely) 1 tab PO 0800 [facility] Zolpidem Tartrate (Ambien) 10 mg PO HS PRN; Protocol PRN Reason: Insomnia Last Admin: 02/14/18 00:55 Dose: 10 mg - Labs Labs: 02/13/18 06:30 02/14/18 07:00 PT 12.2 SECONDS (9.4-12.5) 02/10/18 12:15 INR 1.06 (0.93-1.08) 02/10/18 12:15 APTT 26.4 Seconds (25.1-36.5) 02/10/18 12:15 Attending/Attestation - Attestation I have personally seen and examined this patient.: Yes I have fully participated in the care of the patient.: Yes I have reviewed all pertinent clinical information, including history, physical exam and plan: Yes Notes (Text): This is an addendum to GI progress report dictated by the GI Fellow.The patient was seen and examined earlier. Medical records, lab studies, imagings were reviewed. Last 24 hours events reviewed. Agreed with the above treatment plan as outlined in GI Fellow 's notes the with the addition of the following patient denies any complaintof abdominal pain Abdomen soft no tenderness LFT shows downward trend Advised to follow-up 02/14/18 22:37
[2018-02-14 09:22] LABS: CERULOPLASMIN 42 mg/dL (18-53)
[2018-02-14] MEDS: Enoxaparin 40 mg Syringe SC SCH (09:31)
[2018-02-14] MEDS: MethylPREDNISolone 40 mg Vial IVP SCH ×2 (09:31→22:12)
[2018-02-14] MEDS: guaiFENesin 600 mg ER Tab PO SCH ×2 (09:32→17:09)
[2018-02-14] MEDS: Morphine 4 mg/ml ISec IVP PRN ×3 (09:39→23:38)
--- NOTE | 2018-02-14 11:39 | CARD ---
APPROVED REPORT Date of service: 02/14/2018 EXAM: Two-dimensional and M-mode echocardiogram with Doppler and color Doppler. INDICATION Infection:Rule out subacute bacterial endocarditis 2D DIMENSIONS Left Atrium (2D)4.3 (1.6-4.0cm)IVSd1.3 (0.7-1.1cm) LVDd4.3 (3.9-5.9cm)PWd1.3 (0.7-1.1cm) LVDs2.8 (2.5-4.0cm)FS (%) 35.0 % LVEF (%)64.7 (>50%) M-Mode DIMENSIONS Aortic Root2.20 (2.2-3.7cm)Aortic Cusp Exc.2.00 (1.5-2.0cm) Aortic Valve AoV Peak Focmwblo996.0cm/Xavier Peak GR.14mmHg Mitral Valve E/A ratio0.0 TDI E/Lateral E'0.0E/Medial E'0.0 Tricuspid Valve TR Peak [id number] Peak Gr.12mmHg [id number] LEFT VENTRICLE The left ventricle is normal size. There is mild concentric left ventricular hypertrophy. The left ventricular function is normal.EF-65% There is normal LV segmental wall motion. The left ventricular diastolic function is normal. No left ventricle thrombus noted on this study. There is no ventricular septal defect visualized. There is no left ventricular aneurysm. There is no mass noted in the left ventricle. RIGHT VENTRICLE The right ventricle is normal size. There is normal right ventricular wall thickness. The right ventricular systolic function is normal. ATRIA The left atrium is mildly dilated. The right atrium size is normal. The interatrial septum is intact with no evidence for an atrial septal defect. AORTIC VALVE The aortic valve is thickened but opens well. There is trace aortic regurgitation. There is no aortic valvular stenosis. There is no aortic valvular vegetation. MITRAL VALVE The mitral valve is thickened but opens well. Mitral regurgitation is trace. There is no mitral valve stenosis. There is no evidence of mitral valve prolapse. TRICUSPID VALVE The tricuspid valve leaflets are thickened , but open well. There is trace to mild tricuspid regurgitation.[id number] mmof Hg. There is no tricuspid valve stenosis. There is no tricuspid valve prolapse or vegetation. PULMONIC VALVE The pulmonary valve is normal in structure. There is no pulmonic valvular regurgitation. There is no pulmonic valvular stenosis. GREAT VESSELS The aortic root is normal in size. The ascending aorta is normal in size. The pulmonary artery is normal. The IVC is normal in size and collapses >50% with inspiration. PERICARDIAL EFFUSION There is no pleural effusion. There is no pericardial effusion. <Conclusion> The left ventricle is normal size. There is mild concentric left ventricular hypertrophy. The left ventricular function is normal.EF-65% There is trace aortic regurgitation. Mitral regurgitation is trace. There is trace to mild tricuspid regurgitation.RVSP_22 mmof Hg. There is no pulmonic valvular regurgitation. The IVC is normal in size and collapses >50% with inspiration. There is no pericardial effusion. This is a repeat Studyafter one week to R/o Enodocarditis. No Evidence of endocarditis noted in this study.
[2018-02-14] MEDS ORDERED: Ergocalciferol 50,000 Intl Units Cap PO SCH (12:00)
--- NOTE | 2018-02-14 12:58 | PN ---
DATE: 02/13/2018 SUBJECTIVE: The patient is comfortable. Sitting on the edge of the bed. No distress. Feeling a lot better. There is no nausea, no abdominal pain, no vomiting. PHYSICAL EXAMINATION: As follows; VITAL SIGNS: Temperature 98, heart rate 81, blood pressure 148/68, respirations 20, saturation 96%. HEAD AND NECK: Normal. No JVD. No thyromegaly. CHEST: Clear bilaterally. CARDIAC: First sound and second sound normal. ABDOMEN: Obese, nontender. EXTREMITIES: No edema. NEUROLOGIC: Normal. DATA: Laboratory study shows white count 16.7, hemoglobin 10.1, hematocrit 31.8, platelets 380. Chemistry shows 142 sodium, potassium 4.4, chloride 105, bicarb 29, BUN 25, creatinine 0.8. Blood sugar 118. Liver function test: Slightly elevated AST, ALT and alkaline phosphatase. C-reactive protein 194. IMPRESSION AND PLAN: 1. Acute asthma exacerbation. She is on cefepime, continue that and she has one-time Gram-positive coccemia, has received vancomycin which was discontinued. Patient is clinically better; however, her laboratory finding is a little bit different, high white count, high C-reactive protein. Also, patient had ultrasound of the liver and gallbladder, which was negative and there was nothing to explain high white count with the ultrasound of kidney looking normal, aorta looking normal. We will continue current therapy. 2. Hypertension. The patient has hodbjtjyp-rh-utcvcic blood pressure. She is getting hydralazine 50 mg b.i.d. and hydralazine 10 mg intravenously every 6 hours. Patient is getting also clonidine 0.1 b.i.d. on regular basis and getting Cozaar 100 mg in addition to Microzide 12.5 mg. She is also getting Norvasc 5 mg. We will continue current therapy and atenolol 25 mg b.i.d. Patient has difficult blood pressure control. We will follow up with , we saw her in the past and will continue blood pressure medication. We may increase Norvasc to 10 mg. 3. Chronic anxiety. We will get Dr. Koch to see the patient and will follow up clinically. Continue current therapy. Also, Dr. Bains has been consulted for cardiac evaluation and patient had normal stress test. Blas Dixon MD [facility] # [id number]
[2018-02-14] MEDS: ceFAZolin 1 gm in NS 1 GM/100 ML BAG IVPB SCH ×2 (14:33→22:15)
--- NOTE | 2018-02-14 15:06 | CP.PCM.CON ---
History of Present Illness - History of Present Illness History of Present Illness: Nephrology Consultation Note: Assessment: Stable uncontrolled severe HTN SADIE resolved asthma exacerbation with acute respi failure and HCAP, sepsis mild rhabomyolysis hypertension (years), chronic back pain, asthma and morbid obesity adjustment disorder iron def anemia, vit D def Plan Hypertension control with meds as ordered. Patient on multiple BP meds, agree with thiazide, losartan and norvasc. als on clonidine and atenolol. will increase hydralazine secondary HTN work up negative abnormal LFT and mild elevated CPK: work up in progress started weekly Vit D, iron and MVI supplements GI, ID and pulmonary following Dose meds/antibiotics for GFR >60. Glycemic control Recommend weight loss, diet, exercise and lifestyle modifications Further work up/management as per primary team Thanks for allowing me to participate in care of your patient. Will follow patient with you. Please call if any Qs. had d/w team Dr Eloy Iyer Office: [phone] Chief Complaint; shortness of breath and high BP reason for consult: HTN and SADIE management HPI: Pt is a 47 F with hx of hypertension (years), chronic back pain, asthma and morbid obesity presented with complaints of SOB and is being managed for asthma exacerbation, Acute respiratory failure and pneumonia.pt feels better at this time. SOB is much better. has cough which is improved. also had abnormal LFT and mildly elevated CPK Denies OTC/herbal meds or NSAIDs No recent iodinated contrast exposure. denies tobacco/smoking/etoh/drugs. ROS: Cardiovascular: No chest pain. Pulmonary: improved shortness of breath now Gastrointestinal: denies abdominal pain No nausea. No vomiting. Genitourinary: No pain while urinating. Denies blood in urine. All other negative except as mentioned in HPI Physical Examination: General Appearance: Comfortable, in no acute respiratory distress, co-operative . obese Vitals reviewed and noted as below Head; Atraumatic, normocephalic ENT: no ulcers no thrush. Tongue is midline. Oropharynx: no rash or ulcers. EYES: Pupils are equal, round and reactive to light accommodation. Eye muscles and extraocular movement intact. Sclera is anicteric. Neck; supple no lymphadenopathy, no thyromegaly or bruit Lungs: Normal respiratory rate/effort. Breath sounds bilateral equal and Has right basilar crackles Heart: Normal rate. s1s2 normal. No rub or gallop. Extremities: no edema. No varicose veins Neurological: Patient is alert, awake and oriented to person, place and time. No focal deficit. Strength bilateral appropriate and equal Skin: Warm and dry. Normal turgor. No rash. Palpitation: Normal elasticity for age Abdomen: Abdomen is soft. Bowel sounds +. There is no abdominal tenderness, no guarding/rigidity no organomegaly Psych: normal insight and normal affect/mood MSK: no joint tenderness or swelling. Digits and nails normal, no deformity : kidney or bladder not palpable Labs/imaging reviewed. Past medical history, past surgical history, family history, social history, allergy reviewed and noted as below Family hx: no hx of CKD. Rest non-contributory work up: UA no protein now Aldosterone 12 renin 0.1 metanephrines WNL renal artery Doppler no evidence for FERNY Vitamin D less than 12.8 Iron saturation 14% ferritin 35 Past Patient History - Infectious Disease Hx of Infectious Diseases: None - Tetanus Immunizations Tetanus Immunization: Unknown - Past Social History Smoking Status: Never Smoked - CARDIAC Hx Hypertension: Yes Hx Peripheral Edema: Yes (ble +2 pitting) - PULMONARY Hx Asthma: Yes - NEUROLOGICAL Hx Neurological Disorder: No - HEENT Hx HEENT Problems: No - RENAL Hx Chronic Kidney Disease: No - ENDOCRINE/METABOLIC Hx Endocrine Disorders: No - HEMATOLOGICAL/ONCOLOGICAL Hx Blood Disorders: No - INTEGUMENTARY Hx Dermatological Problems: Yes Other/Comment: bruising multiple left arm - MUSCULOSKELETAL/RHEUMATOLOGICAL Hx Falls: No - GASTROINTESTINAL Hx Gastrointestinal Disorders: Yes (obese) Hx Gastroesophageal Reflux: Yes - GENITOURINARY/GYNECOLOGICAL Hx Genitourinary Disorders: No - PSYCHIATRIC Hx Substance Use: No - SURGICAL HISTORY Hx Surgeries: No Meds Allergies/Adverse Reactions: Allergies Allergy/AdvReac Type Severity Reaction Status Date / Time No Known Allergies Allergy Verified 02/10/18 11:56 - Medications Medications: Current Medications Albuterol/Ipratropium (Duoneb 3 Mg/0.5 Mg (3 Ml) Ud) 3 ml IH Q2H PRN PRN Reason: Shortness of Breath Last Admin: 02/11/18 07:54 Dose: 3 ml Albuterol/Ipratropium (Duoneb 3 Mg/0.5 Mg (3 Ml) Ud) 3 ml IH [id number] [facility] Last Admin: 02/14/18 11:09 Dose: 3 ml Amlodipine Besylate (Norvasc) 10 mg PO DAILY [facility] Last Admin: 02/14/18 09:32 Dose: 10 mg Atenolol (Tenormin) 25 mg PO BID [facility] Last Admin: 02/14/18 09:31 Dose: 25 mg Benzocaine/Menthol (Cepacol Sore Throat) 1 mago MT Q2H PRN PRN Reason: Sore Throat Benzonatate (Tessalon Perles) 100 mg PO TID [facility] Last Admin: 02/14/18 13:09 Dose: 100 mg Budesonide (Pulmicort Respules) 0.25 mg IH [id number] [facility] Last Admin: 02/14/18 07:31 Dose: 0.25 mg Chlorthalidone (Hygroton) 25 mg PO DAILY [facility] Last Admin: 02/14/18 09:31 Dose: 25 mg Clonazepam (Klonopin) 0.5 mg PO BID [facility] PRN Reason: Protocol Last Admin: 02/14/18 09:32 Dose: 0.5 mg Clonidine HCl (Catapres) 0.1 mg PO TID [facility] Last Admin: 02/14/18 13:09 Dose: 0.1 mg Clonidine HCl (Catapres) 0.1 mg PO Q4H PRN PRN Reason: Systolic Blood Pressure Enoxaparin Sodium (Lovenox) 40 mg SC DAILY [facility] PRN Reason: Protocol Last Admin: 02/14/18 09:31 Dose: 40 mg Ergocalciferol (Drisdol 50,000 Intl Units Cap) 1 cap PO Q7D [facility] Last Admin: 02/14/18 13:11 Dose: 1 cap Ferrous Gluconate (Fergon) 324 mg PO TID [facility] Last Admin: 02/14/18 13:09 Dose: 324 mg Folic Acid (Folic Acid) 1 mg PO DAILY [facility] Last Admin: 02/14/18 09:31 Dose: 1 mg Guaifenesin (Mucinex La) 600 mg PO BID [facility] Last Admin: 02/14/18 09:32 Dose: 600 mg Guaifenesin/Codeine Phosphate (Robitussin W/Codeine) 5 ml PO Q6H PRN PRN Reason: Cough and congestion Last Admin: 02/14/18 14:33 Dose: 5 ml Hydralazine HCl (Apresoline) 10 mg IVP Q6 PRN PRN Reason: Systolic Blood Pressure Last Admin: 02/13/18 17:23 Dose: 10 mg Hydralazine HCl (Apresoline) 100 mg PO Q12 [facility] Cefazolin Sodium (Ancef 1gm In Ns) 1 gm in 100 mls @ 100 mls/hr IVPB Q8 MANJINDER PRN Reason: Protocol Stop: 02/23/18 14:05 Last Admin: 02/14/18 14:33 Dose: 100 mls/hr Lorazepam (Ativan) 0.5 mg IVP Q6H PRN; Protocol PRN Reason: Anxiety Last Admin: 02/13/18 17:13 Dose: 0.5 mg Losartan Potassium (Cozaar) 100 mg PO DAILY [facility] Last Admin: 02/14/18 09:32 Dose: 100 mg Methylprednisolone (Solu-Medrol) 40 mg IVP Q12 [facility] Last Admin: 02/14/18 09:31 Dose: 40 mg Morphine Sulfate (Morphine) 4 mg IVP Q4H PRN PRN Reason: Pain, moderate (4-7) Last Admin: 02/14/18 09:39 Dose: 4 mg Oxycodone HCl (Oxycodone Immediate Release Tab) 10 mg PO BID PRN PRN Reason: Pain, severe (8-10) Last Admin: 02/13/18 17:17 Dose: 10 mg Vitamin B Complex/Vit C/Folic Acid (Nephro-Karely) 1 tab PO 0800 [facility] Zolpidem Tartrate (Ambien) 10 mg PO HS PRN; Protocol PRN Reason: Insomnia Last Admin: 02/14/18 00:55 Dose: 10 mg Results - Vital Signs Recent Vital Signs: Last Vital Signs Temp 98 F 02/14/18 08:14 Pulse 77 02/14/18 08:14 Resp 20 02/14/18 08:14 BP 186/72 H 02/14/18 09:32 Pulse Ox 96 02/14/18 08:14 - Labs Result Diagrams: 02/13/18 06:30 02/14/18 07:00 Labs: Laboratory Results - last 24 hr 02/13/18 02/13/18 02/13/18 11:00 11:00 11:00 Sodium Potassium Chloride Carbon Dioxide Anion Gap BUN Creatinine Est GFR ( Amer) Est GFR (Non-Af Amer) Random Glucose Calcium Ferritin 35.7 Total Bilirubin AST ALT Alkaline Phosphatase Total Protein Albumin Globulin Albumin/Globulin Ratio Ceruloplasmin Urine Color Urine Appearance Urine pH Ur Specific Linch Urine Protein Urine Glucose (UA) Urine Ketones Urine Blood Urine Nitrate Urine Bilirubin Urine Urobilinogen Ur Leukocyte Esterase IgG 785.6 Hepatitis A IgM Ab Negative Hep Bs Antigen Negative Hep B Core IgM Ab Negative Hepatitis C Antibody Negative 02/13/18 02/14/18 02/14/18 11:00 02:10 07:00 Sodium 143 Potassium 4.2 Chloride 104 Carbon Dioxide 30 Anion Gap 13 BUN 20 Creatinine 0.7 Est GFR ( Amer) > 60 Est GFR (Non-Af Amer) > 60 Random Glucose 106 Calcium 9.1 Ferritin Total Bilirubin 0.9 AST 32 ALT 73 H Alkaline Phosphatase 108 Total Protein 6.6 Albumin 3.5 Globulin 3.1 Albumin/Globulin Ratio 1.1 Ceruloplasmin 42 Urine Color Yellow Urine Appearance Clear Urine pH 5.5 Ur Specific Linch 1.010 Urine Protein Negative Urine Glucose (UA) Negative Urine Ketones Negative Urine Blood Negative Urine Nitrate Negative Urine Bilirubin Negative Urine Urobilinogen 0.2 Ur Leukocyte Esterase Negative IgG Hepatitis A IgM Ab Hep Bs Antigen Hep B Core IgM Ab Hepatitis C Antibody
[2018-02-14] MEDS: Benzocaine/Menthol (Cepacol) Lozenge MT PRN ×2 (17:09→22:14)
--- NOTE | 2018-02-14 19:23 | PN ---
Copied To: Harley Le MD Attending MD: Harley Le MD DATE: 02/14/2018 SUBJECTIVE: The patient is in bed in no acute distress, nontoxic. PHYSICAL EXAMINATION: VITAL SIGNS: Temperature is 98, blood pressure is 160/80, respiratory rate of 20, heart rate of 74. HEENT: Unremarkable. NECK: Supple. LUNGS: Have decreased breath sounds. HEART: Normal S1, S2. ABDOMINAL: Soft, nontender. LABORATORY EXAMINATION: Reveals a white count of 16,700. Sed rate is 107. Chemistries reveals a BUN of 20, creatinine of 0.7. C-reactive protein is 194. The patient has a procalcitonin of 9.59. Urinalysis is noted and toxicology is noted. Serology is noted. Urine for Legionella antigen and hepatitis profile is negative. Microbiology reveals one bottle is positive for sensitive staph aureus. Repeat blood cultures from are negative. MRSA nares detection is negative. Review of orders reveals the patient to be on cefepime, Solu-Medrol. The patient also had an echo today. No evidence of endocarditis noted in this study. The patient had an ultrasound of gallbladder, which is negative. ASSESSMENT AND PLAN: A 47-year-old female was seen earlier in [facility], bed 1, who was admitted with severe sepsis with healthcare-associated pneumonia and sensitive staph aureus bacteremia, etiology unclear in a patient with obesity with BMI of 38, anxiety, bipolar disorder and the cefepime and doxycycline, day #5 IM today and they have completed the pneumonia treatment with procalcitonin which is 9.59 on 02/11/2018. We will treat the patient with a sensitive staph aureus. Today is day #3 of at least 14 days to 21 days with extremely high sed rate and C-reactive protein. We will discontinue the cefepime. Doxycycline has already been discontinued by pharmacy and start the patient on Ancef will be day #3 since the blood cultures have been negative of at least 14. I will follow closely with you. We will also order a new procalcitonin level. Harley Le MD : 02/14/2018 14:05:30 [facility] # [id number]
[2018-02-14] MEDS: Nystatin 100,000 Units/ml Oral Susp 5 ml UD PO SCH (22:10)
[2018-02-15] MEDS: Albuterol-Ipratrop 3 mg / 0.5 (3 ml) UD IH SCH ×6 (00:15→20:35)
--- NOTE | 2018-02-15 02:46 | PN ---
Copied To: Miguelina Glynn MD Attending MD: Miguelina Glynn MD DATE: 02/14/2018 PULMONARY PROGRESS NOTE REFERRING PHYSICIAN: Bals Dixon MD SUBJECTIVE: Sitting in the side of the bed. Overall feels better. Still has some cough. No nausea. No vomiting. No diarrhea. No leg pain or leg swelling. OBJECTIVE: GENERAL: In no acute distress. VITAL SIGNS: Temp is 98, heart rate is 74, respiratory rate is 18, blood pressure 165/85, pulse ox 98% on room air. HEENT: Moist mucous membrane. Crowded airway. NECK: Supple. No JVD. LUNGS: Prolonged expiratory phase. HEART: S1 and S2. ABDOMEN: Soft and nontender. No organomegaly. EXTREMITIES: No edema. NEUROLOGIC: Awake, alert. Follows simple command. MEDICATIONS: She is on Ambien 10 mg at bedtime p.r.n., Ancef 1 g IV every 8 hours, hydralazine 100 mg twice a day, lorazepam 0.5 mg every 6 hours, clonidine 0.1 mg every 4 hours, Cepacol lozenges every 12 hours p.r.n., Cozaar 100 mg daily, vitamin D 50,000 units every 7 days, DuoNeb every 4 hours round the clock, ferrous sulfate 324 mg three times a day, folic acid 1 mg daily, chlorthalidone 25 mg daily, Klonopin 0.5 mg twice a day, Lovenox 40 mg daily, morphine 4 mg every 4 hours p.r.n., Mucinex LA 600 mg twice a day, Nephro vitamins daily, Norvasc 10 mg daily, oxycodone immediate release 10 mg every 12 hours p.r.n., Pulmicort inhaled twice a day, Robitussin with Codeine every 6 hours p.r.n., Solu-Medrol 40 mg every 12 hours, Tenormin 25 mg daily, Tessalon Perles 100 mg three times a day. LABORATORY DATA: Shows hemoglobin 10.1, hematocrit 31.8. Sodium 143, potassium 4.2, chloride 104, bicarbonate 30, BUN 20, creatinine 0.7, glucose is 106, calcium 9.1, AST 32, ALT 73, alk phos is 108, albumin is 3.5. Had echocardiogram done, which shows right ventricular systolic pressure is 22, is normal size, mild concentric left ventricular hypertrophy, LV ejection fraction is 65. IMPRESSION AND PLAN: Exacerbation of chronic obstructive lung disease, bipolar disorder, hypertension, renal insufficiency, may have oropharyngeal candidiasis. We will decrease Solu-Medrol. Add nystatin swish and swallow. Gastric prophylaxis. Deep vein thrombosis prophylaxis. Pain management as per Dr. Dixon. Thank you and we will follow with you. Miguelina Glynn MD
[2018-02-15] MEDS: ceFAZolin 1 gm in NS 1 GM/100 ML BAG IVPB SCH ×3 (05:44→22:33)
[2018-02-15] MEDS: Morphine 4 mg/ml ISec IVP PRN (05:49)
[2018-02-15] MEDS: Budesonide 0.25 mg/2 ml Inhal Susp UD IH SCH ×2 (07:42→20:35)
--- NOTE | 2018-02-15 07:49 | CP.PCM.PN ---
Subjective - Date & Time of Evaluation Date of Evaluation: 02/15/18 Time of Evaluation: 06:20 - Subjective Subjective: sitting side of bed, awake, feels better, no distress, denies shortness of breath Reason for consultation and follow up: Cardiac evaluation for shortness of breath, history of hypertension, asthma Seen and examined by me and Dr. Bains Objective - Vital Signs/Intake and Output Vital Signs (last 24 hours): Temp Pulse Resp BP Pulse Ox 98.9 F 74 20 168/95 H 96 02/15/18 00:00 02/15/18 00:00 02/15/18 00:00 02/15/18 00:00 02/15/18 00:00 Intake and Output: 02/15/18 02/15/18 06:59 18:59 Intake Total 620 Balance 620 - Medications Medications: Current Medications Albuterol/Ipratropium (Duoneb 3 Mg/0.5 Mg (3 Ml) Ud) 3 ml IH Q2H PRN PRN Reason: Shortness of Breath Last Admin: 02/11/18 07:54 Dose: 3 ml Albuterol/Ipratropium (Duoneb 3 Mg/0.5 Mg (3 Ml) Ud) 3 ml IH [id number] [facility] Last Admin: 02/15/18 07:42 Dose: 3 ml Amlodipine Besylate (Norvasc) 10 mg PO DAILY [facility] Last Admin: 02/14/18 09:32 Dose: 10 mg Atenolol (Tenormin) 25 mg PO BID [facility] Last Admin: 02/14/18 17:09 Dose: 25 mg Benzocaine/Menthol (Cepacol Sore Throat) 1 mago MT Q2H PRN PRN Reason: Sore Throat Last Admin: 02/14/18 22:14 Dose: 1 mago Benzonatate (Tessalon Perles) 100 mg PO TID [facility] Last Admin: 02/14/18 17:09 Dose: 100 mg Budesonide (Pulmicort Respules) 0.25 mg IH [id number] [facility] Last Admin: 02/15/18 07:42 Dose: 0.25 mg Chlorthalidone (Hygroton) 25 mg PO DAILY [facility] Last Admin: 02/14/18 09:31 Dose: 25 mg Clonazepam (Klonopin) 0.5 mg PO BID [facility] PRN Reason: Protocol Last Admin: 02/14/18 17:09 Dose: 0.5 mg Clonidine HCl (Catapres) 0.1 mg PO TID [facility] Last Admin: 02/14/18 17:09 Dose: 0.1 mg Clonidine HCl (Catapres) 0.1 mg PO Q4H PRN PRN Reason: Systolic Blood Pressure Enoxaparin Sodium (Lovenox) 40 mg SC DAILY [facility] PRN Reason: Protocol Last Admin: 02/14/18 09:31 Dose: 40 mg Ergocalciferol (Drisdol 50,000 Intl Units Cap) 1 cap PO Q7D [facility] Last Admin: 02/14/18 13:11 Dose: 1 cap Ferrous Gluconate (Fergon) 324 mg PO TID [facility] Last Admin: 02/14/18 17:09 Dose: 324 mg Folic Acid (Folic Acid) 1 mg PO DAILY [facility] Last Admin: 02/14/18 09:31 Dose: 1 mg Guaifenesin (Mucinex La) 600 mg PO BID [facility] Last Admin: 02/14/18 17:09 Dose: 600 mg Guaifenesin/Codeine Phosphate (Robitussin W/Codeine) 5 ml PO Q6H PRN PRN Reason: Cough and congestion Last Admin: 02/14/18 22:04 Dose: 5 ml Hydralazine HCl (Apresoline) 10 mg IVP Q6 PRN PRN Reason: Systolic Blood Pressure Last Admin: 02/13/18 17:23 Dose: 10 mg Hydralazine HCl (Apresoline) 100 mg PO Q12 [facility] Last Admin: 02/14/18 22:05 Dose: 100 mg Cefazolin Sodium (Ancef 1gm In Ns) 1 gm in 100 mls @ 100 mls/hr IVPB Q8 MANJINDER PRN Reason: Protocol Stop: 02/23/18 14:05 Last Admin: 02/15/18 05:44 Dose: 100 mls/hr Lorazepam (Ativan) 0.5 mg IVP Q6H PRN; Protocol PRN Reason: Anxiety Last Admin: 02/13/18 17:13 Dose: 0.5 mg Losartan Potassium (Cozaar) 100 mg PO DAILY [facility] Last Admin: 02/14/18 09:32 Dose: 100 mg Methylprednisolone (Solu-Medrol) 20 mg IVP Q12 [facility] Last Admin: 02/14/18 22:12 Dose: 20 mg Morphine Sulfate (Morphine) 4 mg IVP Q4H PRN PRN Reason: Pain, moderate (4-7) Last Admin: 02/15/18 05:49 Dose: 4 mg Nystatin (Nystatin Oral Susp) 5 ml PO QID [facility] Last Admin: 02/14/18 22:10 Dose: 5 ml Oxycodone HCl (Oxycodone Immediate Release Tab) 10 mg PO BID PRN PRN Reason: Pain, severe (8-10) Last Admin: 02/13/18 17:17 Dose: 10 mg Vitamin B Complex/Vit C/Folic Acid (Nephro-Karely) 1 tab PO 0800 [facility] Zolpidem Tartrate (Ambien) 10 mg PO HS PRN; Protocol PRN Reason: Insomnia Last Admin: 02/15/18 01:51 Dose: 10 mg - Labs Labs: 02/13/18 06:30 02/14/18 07:00 PT 12.2 SECONDS (9.4-12.5) 02/10/18 12:15 INR 1.06 (0.93-1.08) 02/10/18 12:15 APTT 26.4 Seconds (25.1-36.5) 02/10/18 12:15 - Constitutional Appears: No Acute Distress - Eye Exam Eye Exam: Normal appearance - ENT Exam ENT Exam: Mucous Membranes Moist - Respiratory Exam Respiratory Exam: Decreased Breath Sounds, NORMAL BREATHING PATTERN - Cardiovascular Exam Cardiovascular Exam: +S1, +S2 - GI/Abdominal Exam GI & Abdominal Exam: Soft, Normal Bowel Sounds - Extremities Exam Additional comments: 1+edema - Neurological Exam Neurological Exam: Alert, Awake, Oriented x3 - Psychiatric Exam Psychiatric exam: Normal Affect - Skin Skin Exam: Intact, Warm Assessment and Plan - Assessment and Plan (Free Text) Assessment: A 47 year old female obese,who came in to the ER due to shortness of breath. History of hypertension and asthma. Non compliant with medications, Seen by Psychiatry for anxiety and depression. ID on consult. D-dimer elevated, VQ scan done low probability of pulmonary embolism.Renal ultrasound done-unremarkable findings. Exacerbation of asthma. urine positive for opiates and benzodiapines.uncontrolled hypertension.Blood culture positive for Staphyloccus aureaus, ID on consult, on IV antibiotics. Plan: ECHO no evidence of vegetations.normal, LVEF-65% Feels good Blood pressure improved from SBP of 190-200's to 160's Improved after adjusting antihypertensive medications Continue current medications On Tenormin 25 mg daily,Catapres 0.1 mg TID ,Hydralazine 50 very 12 hours. Lovenox 40 mg daily,Apresoline 100 mg q 12 hours,, Microzide 12.5 mg daily Cozaar 100 mg daily, Blood culture (one set) Staphyloccus aureaus Continue antibiotics per ID Pulmonary on consult GI on consult for elevated LFT's Lifestyle modification Weight reduction Continue current treatment Continue current medications Instructed to be compliant with medications and follow up with her physicians. Will follow up Plan and treatment discussed with Dr. Bains
[2018-02-15] MEDS: Enoxaparin 40 mg Syringe SC SCH (09:33)
[2018-02-15] MEDS: guaiFENesin 600 mg ER Tab PO SCH ×2 (09:34→17:12)
[2018-02-15] MEDS: Multivitamin Vitamin B Complex (Nephro-Vite) Tab PO SCH (09:34)
[2018-02-15] MEDS: Nystatin 100,000 Units/ml Oral Susp 5 ml UD PO SCH ×4 (09:35→22:33)
[2018-02-15] MEDS: MethylPREDNISolone 40 mg Vial IVP SCH ×2 (09:35→22:29)
--- NOTE | 2018-02-15 12:12 | PN ---
Copied To: Harley Le MD Attending MD: Harley Le MD DATE: 02/15/2018 SUBJECTIVE: The patient is in bed, in no acute distress, nontoxic. PHYSICAL EXAMINATION: VITAL SIGNS: Temperature is 98, blood pressure is 168/90, respiratory rate of 20, heart rate of 74. HEENT: Unremarkable. NECK: Supple. LUNGS: Have decreased breath sounds. HEART: Normal S1, S2. ABDOMEN: Soft, nontender. DATA: Laboratory examination reveals a white count of 16,700, hemoglobin of 10, platelets of 380. BUN of 20, creatinine of 0.7. Urine for Legionella antigen is negative. The staph aureus in the blood is noted and repeat blood cultures are negative. It is pansensitive for Staph aureus. Review of orders reveals the patient to be on Ancef. Sedimentation rate of 107 is concerning as is C-reactive protein of 194. ASSESSMENT AND PLAN: This is a 47-year-old female admitted with severe sepsis with healthcare-associated pneumonia, sensitive Staph aureus bacteremia, obesity, body mass index of 38, anxiety, bipolar and today is day #4 of at least 14 to 21 days of therapy, day #4 of 14 to 21 days of Ancef with an extremely high sedimentation rate and C-reactive protein. We will continue the Ancef day #4 of at least 14 to 21 days with her CBC, SMA-18, sedimentation rate, C-reactive protein inflammatory markers. May need longer therapy as the inflammatory markers are persistently high and we will follow with you. Harley Le MD
[2018-02-15] MEDS: oxyCODONE 10 mg Immediate Release Tab PO PRN (14:35)
--- NOTE | 2018-02-15 14:58 | CP.PCM.PN ---
Subjective - Date & Time of Evaluation Date of Evaluation: 02/15/18 Time of Evaluation: 14:58 - Subjective Subjective: Nephrology Consultation Note: Assessment: Stable uncontrolled severe HTN SADIE resolved asthma exacerbation with acute respi failure and HCAP, sepsis mild rhabomyolysis hypertension (years), chronic back pain, asthma and morbid obesity adjustment disorder iron def anemia, vit D def Plan Hypertension control with meds as ordered. Patient on multiple BP meds, agree with thiazide, losartan and norvasc. also on clonidine and atenolol. increased hydralazine secondary HTN work up negative abnormal LFT and mild elevated CPK: work up in progress started weekly Vit D, iron and MVI supplements GI, ID and pulmonary following Dose meds/antibiotics for GFR >60. Glycemic control Recommend weight loss, diet, exercise and lifestyle modifications Further work up/management as per primary team Thanks for allowing me to participate in care of your patient. Will follow patient with you. Please call if any Qs. had d/w team Dr Eloy Iyer Office: [phone] Chief Complaint; shortness of breath and high BP reason for consult: HTN and SADIE management HPI: Pt is a 47 F with hx of hypertension (years), chronic back pain, asthma and morbid obesity presented with complaints of SOB and is being managed for asthma exacerbation, Acute respiratory failure and pneumonia.pt feels better at this time. SOB is much better. has cough which is improved. also had abnormal LFT and mildly elevated CPK Denies OTC/herbal meds or NSAIDs No recent iodinated contrast exposure. denies tobacco/smoking/etoh/drugs. ROS: Cardiovascular: No chest pain. Pulmonary: improved shortness of breath now Gastrointestinal: denies abdominal pain No nausea. No vomiting. Genitourinary: No pain while urinating. Denies blood in urine. All other negative except as mentioned in HPI Physical Examination: General Appearance: Comfortable, in no acute respiratory distress, co-operative . obese Vitals reviewed and noted as below Head; Atraumatic, normocephalic ENT: no ulcers no thrush. Tongue is midline. Oropharynx: no rash or ulcers. EYES: Pupils are equal, round and reactive to light accommodation. Eye muscles and extraocular movement intact. Sclera is anicteric. Neck; supple no lymphadenopathy, no thyromegaly or bruit Lungs: Normal respiratory rate/effort. Breath sounds bilateral equal and Has right basilar crackles Heart: Normal rate. s1s2 normal. No rub or gallop. Extremities: no edema. No varicose veins Neurological: Patient is alert, awake and oriented to person, place and time. No focal deficit. Strength bilateral appropriate and equal Skin: Warm and dry. Normal turgor. No rash. Palpitation: Normal elasticity for age Abdomen: Abdomen is soft. Bowel sounds +. There is no abdominal tenderness, no guarding/rigidity no organomegaly Psych: normal insight and normal affect/mood MSK: no joint tenderness or swelling. Digits and nails normal, no deformity : kidney or bladder not palpable Labs/imaging reviewed. Past medical history, past surgical history, family history, social history, allergy reviewed and noted as below Family hx: no hx of CKD. Rest non-contributory work up: UA no protein now Aldosterone 12 renin 0.1 metanephrines WNL renal artery Doppler no evidence for FERNY Vitamin D less than 12.8 Iron saturation 14% ferritin 35 Objective - Vital Signs/Intake and Output Vital Signs (last 24 hours): Temp Pulse Resp BP Pulse Ox 98.1 F 82 70 H 167/85 H 97 02/15/18 06:00 02/15/18 14:33 02/15/18 06:00 02/15/18 14:33 02/15/18 06:00 Intake and Output: 02/15/18 02/15/18 06:59 18:59 Intake Total 620 Balance 620 - Medications Medications: Current Medications Albuterol/Ipratropium (Duoneb 3 Mg/0.5 Mg (3 Ml) Ud) 3 ml IH Q2H PRN PRN Reason: Shortness of Breath Last Admin: 02/11/18 07:54 Dose: 3 ml Albuterol/Ipratropium (Duoneb 3 Mg/0.5 Mg (3 Ml) Ud) 3 ml IH [id number] [facility] Last Admin: 02/15/18 11:04 Dose: 3 ml Amlodipine Besylate (Norvasc) 10 mg PO DAILY [facility] Last Admin: 02/15/18 09:34 Dose: 10 mg Atenolol (Tenormin) 25 mg PO BID [facility] Last Admin: 02/15/18 09:36 Dose: 25 mg Benzocaine/Menthol (Cepacol Sore Throat) 1 mago MT Q2H PRN PRN Reason: Sore Throat Last Admin: 02/14/18 22:14 Dose: 1 mago Benzonatate (Tessalon Perles) 100 mg PO TID [facility] Last Admin: 02/15/18 14:35 Dose: 100 mg Budesonide (Pulmicort Respules) 0.25 mg IH [id number] [facility] Last Admin: 02/15/18 07:42 Dose: 0.25 mg Chlorthalidone (Hygroton) 25 mg PO DAILY [facility] Last Admin: 02/15/18 09:32 Dose: 25 mg Clonazepam (Klonopin) 0.5 mg PO BID [facility] PRN Reason: Protocol Last Admin: 02/15/18 09:32 Dose: 0.5 mg Clonidine HCl (Catapres) 0.1 mg PO TID [facility] Last Admin: 02/15/18 14:33 Dose: 0.1 mg Clonidine HCl (Catapres) 0.1 mg PO Q4H PRN PRN Reason: Systolic Blood Pressure Enoxaparin Sodium (Lovenox) 40 mg SC DAILY [facility] PRN Reason: Protocol Last Admin: 02/15/18 09:33 Dose: 40 mg Ergocalciferol (Drisdol 50,000 Intl Units Cap) 1 cap PO Q7D [facility] Last Admin: 02/14/18 13:11 Dose: 1 cap Ferrous Gluconate (Fergon) 324 mg PO TID [facility] Last Admin: 02/15/18 14:34 Dose: 324 mg Folic Acid (Folic Acid) 1 mg PO DAILY [facility] Last Admin: 02/15/18 09:32 Dose: 1 mg Guaifenesin (Mucinex La) 600 mg PO BID [facility] Last Admin: 02/15/18 09:34 Dose: 600 mg Guaifenesin/Codeine Phosphate (Robitussin W/Codeine) 5 ml PO Q6H PRN PRN Reason: Cough and congestion Last Admin: 02/14/18 22:04 Dose: 5 ml Hydralazine HCl (Apresoline) 10 mg IVP Q6 PRN PRN Reason: Systolic Blood Pressure Last Admin: 02/13/18 17:23 Dose: 10 mg Hydralazine HCl (Apresoline) 100 mg PO Q12 [facility] Last Admin: 02/15/18 09:30 Dose: 100 mg Cefazolin Sodium (Ancef 1gm In Ns) 1 gm in 100 mls @ 100 mls/hr IVPB Q8 [facility] PRN Reason: Protocol Stop: 02/23/18 14:05 Last Admin: 02/15/18 14:33 Dose: 100 mls/hr Lorazepam (Ativan) 0.5 mg IVP Q6H PRN; Protocol PRN Reason: Anxiety Last Admin: 02/13/18 17:13 Dose: 0.5 mg Losartan Potassium (Cozaar) 100 mg PO DAILY [facility] Last Admin: 02/15/18 09:31 Dose: 100 mg Methylprednisolone (Solu-Medrol) 20 mg IVP Q12 [facility] Last Admin: 02/15/18 09:35 Dose: 20 mg Nystatin (Nystatin Oral Susp) 5 ml PO QID [facility] Last Admin: 02/15/18 14:35 Dose: 5 ml Oxycodone HCl (Oxycodone Immediate Release Tab) 10 mg PO BID PRN PRN Reason: Pain, severe (8-10) Last Admin: 02/15/18 14:35 Dose: 10 mg Vitamin B Complex/Vit C/Folic Acid (Nephro-Karely) 1 tab PO 0800 [facility] Last Admin: 02/15/18 09:34 Dose: 1 tab Zolpidem Tartrate (Ambien) 10 mg PO HS PRN; Protocol PRN Reason: Insomnia Last Admin: 02/15/18 01:51 Dose: 10 mg - Labs Labs: 02/13/18 06:30 02/14/18 07:00 PT 12.2 SECONDS (9.4-12.5) 02/10/18 12:15 INR 1.06 (0.93-1.08) 02/10/18 12:15 APTT 26.4 Seconds (25.1-36.5) 02/10/18 12:15
[2018-02-15] MEDS: Benzocaine/Menthol (Cepacol) Lozenge MT PRN (17:16)
[2018-02-15] MEDS: guaiFENesin-Codeine 100-10mg/5ml Syrup (5 ml) UD PO PRN (20:17)
--- NOTE | 2018-02-15 20:47 | PN ---
Copied To: Miguelina Glynn MD Attending MD: Miguelina Glynn MD DATE: 02/15/2018 PULMONARY PROGRESS NOTE REFERRING PHYSICIAN: Blas Dixon MD SUBJECTIVE: She is out of bed to chair, feels much better. Night was unremarkable. Sore throat is better. No nausea. No vomiting. No diarrhea. No leg pain or leg swelling. OBJECTIVE: GENERAL: In no acute distress. VITAL SIGNS: Temp is 98, heart rate is 82, respiratory rate is 20, blood pressure 167/85, pulse ox 96% on room air. HEENT: Moist mucous membrane. No ulcer or thrush noted. NECK: Supple. No JVD. LUNGS: Has a fair airflow. HEART: S1 and S2. ABDOMEN: Soft and nontender. No organomegaly. EXTREMITIES: No edema. NEUROLOGIC: Awake, alert. Follows simple command. MEDICATIONS: She is on Ambien 10 mg at bedtime p.r.n., Ancef 1 g IV every 8 hours, hydralazine 10 mg every 6 hours p.r.n., Ativan 0.5 mg every 6 hours p.r.n., clonidine 0.1 mg every 4 hours p.r.n., Cepacol lozenges every 2 hours p.r.n., Cozaar 100 mg daily, vitamin D 50,000 units every 7 days, DuoNeb every 2 hours p.r.n., Fergon 324 mg three times a day, folic acid 1 mg daily, chlorthalidone 25 mg daily, Klonopin 0.5 mg twice a day, Lovenox 40 mg daily, Mucinex LA 600 mg twice a day, Nephro-Karely daily, Norvasc 10 mg daily, nystatin oral suspension 5 mL q.i.d., oxycodone immediate release 10 mg twice a day p.r.n., budesonide inhaled twice a day, Robitussin with Codeine every 6 hours p.r.n., Solu-Medrol 20 mg every 12 hours, Tenormin 25 mg twice a day, Tessalon Perles 100 mg three times a day. LABORATORY DATA: Reviewed and noted. Total creatine kinase today is 63. IMPRESSION AND PLAN: Exacerbation of chronic obstructive lung disease, bipolar disorder, hypertension, renal insufficiency. From a Pulmonary point of view, doing well. Steroids being tapered. Continue inhaled bronchodilators. I spoke to the patient about reactive airway/asthma and avoid environmental toxins. She expressed understanding, could be discharged with tapered dose of steroids and inhaled bronchodilators. Thank you and we will follow with you. Miguelina Glynn MD
--- NOTE | 2018-02-15 21:09 | PN ---
Copied To: Blas Dixon MD Attending MD: Blas Dixon MD DATE: 02/14/2018 SUBJECTIVE: Patient is sitting on the chair, comfortable. No distress. Blood pressure is still running high, 200/100 this morning. Patient still on IV antibiotics, IV steroids and still needs further management. She does have positive blood cultures. She wants to go home; I explained her to need to stay for continuation of therapy and risk of leaving early. Patient has no chest pain, no short of breath. She feels better. PHYSICAL EXAMINATION: VITAL SIGNS: As I mentioned, temperature 98, blood pressure 200/100, respirations 20, saturation 96% on room air. HEAD AND NECK: Normal. No JVD. No thyromegaly. CHEST: Clear bilateral. CARDIAC: First sounds and second sounds normal. ABDOMEN: Soft, obese, nontender. EXTREMITIES: No edema. LABORATORY DATA: White count 16.7, hemoglobin 10.1, hematocrit 31.8, platelet 380. Chemistry showed the following, sodium 143, potassium 4.2, chloride 104, bicarb 30, BUN 20, creatinine 0.7. Liver function test is within normal range now except an ALT of 73. Her iron saturation is low, 14; and iron and total iron binding capacity are normal; ferritin 35.7. Patient also had high procalcitonin. IMPRESSION AND PLAN: 1. Acute respiratory failure, acute asthma exacerbation, possible pneumonia. Continue current therapy. 2. Positive blood cultures, Gram-positive Staphylococcus aureus, x1. She was on vancomycin, switch now to Ancef. Patient was getting Merrem for underlying pneumonia and she seems improving. We will follow up with Infectious Disease consult and follow up his recommendations. Continue inhaled and IV bronchodilators. 3. Anemia. Patient was advised to get colonoscopy, explained to her that she . She may benefit from colonoscopy and follow up as outpatient. 4. Abnormal liver function tests, etiology unclear, serology sent by GI fellow, and ultrasound of the liver shows fatty liver. 5. Hypertension, poorly controlled and difficult to control. Continue hydralazine 50 b.i.d., 10 mg IV every 6 hours given because of lack of telemetry on that particular patient. We will continue clonidine 0.1 mg increased to three times a day and 0.1 every four hours p.r.n. Continue Norvasc and atenolol 25 mg b.i.d. Amlodipine, we increased it to 10 mg once a day. I will follow up with Nephrology consult and follow up his recommendation. 6. Chronic anxiety, hip arthritis. Continue Ambien, continue Percocet, and will follow up clinically. Patient otherwise seems doing better and follow up with Psychiatry Dr. Koch and other consultants. Blas Dixon MD
--- NOTE | 2018-02-15 22:11 | CON ---
Copied To: Zee Bloom MD Attending MD: Zee Bloom MD DATE: 02/15/2018 HISTORY OF PRESENT ILLNESS: Shortly, the patient is a 47-year-old, reported history of asthma. The patient recently lost her , recent admission to the medical floor on 02/07, the patient was discharged. The patient was admitted this time for respiratory failure. Psych consult was called because the patient has history of anxiety. This grant writer is very familiar with this patient from the previous admission to the medical site and the patient was feeling overwhelmed and depressed because she lost her . The patient was followed up today. The patient presented to be alert and oriented, pleasant, cooperative. The patient said that she is adjusting with loss of her very well. The patient knows that "I know that he is with the god right now and he is not suffering. The patient denied being depressed. Denied thoughts of harming herself or others. Denied intent or plan. The patient also denied hearing voices, denied seeing things. The patient denied anxiety as of now. The patient reported she sleeps better, feels better. No concerns at present moment. VITAL SIGNS: Reviewed. Temperature is 98.1, pulse 74, blood pressure 175/90, respiration 20, oxygen saturation is 97. MEDICATIONS: Reviewed. The patient is on DuoNeb, Norvasc, atenolol, Cepacol, benzonatate, Pulmicort, cefazolin, Hygroton, Klonopin 0.5 mg twice a day, Catapres, Lovenox, Fergon, folic acid, Mucinex, Robitussin, Ativan 0.5 mg every 6 hours p.r.n. and the patient last time took it yesterday, Solu-Medrol, oxycodone, vitamin D and Ambien 10 mg at the nighttime as needed for insomnia. LABORATORY DATA: WBC cells 16.7, hemoglobin 10.1, hematocrit 31.8. Chemistry reviewed. Sodium 143, potassium 4.2, ALT is 73. Toxicology positive for benzodiazepines and opioids, but the patient was prescribed those medications. Immunology reviewed. Serology reviewed. MENTAL STATUS EXAMINATION: The patient presented to be alert and oriented, pleasant, cooperative, socially appropriate. The patient had good eye contact. Mood described, "I am in peace right now". Affect was reactive, mood congruent. Thought process was coherent and goal directed. Thought content, the patient denied visual, auditory, or tactile hallucinations. Denied paranoid ideation. The patient denied thoughts of harming herself or others. Denied intent or plan. As per nursing staff, the patient does not exhibit any agitated or aggressive behavior. The patient is pleasant, cooperative, socially appropriate. IMPRESSION: As per history, the patient just lost her less than a month ago but adjusting well, rule out adjustment disorder with depressed and anxious mood. PLAN: Continue current management. Continue current medication. The patient has followup appointment with her primary care physician. The patient does not exhibit any aggressive or agitated behavior, pleasant, cooperative. The patient was advised to take her medication as prescribed. The patient reported that she was cleaning her bathroom for mold and she put some bleach and that is why she had difficulty to breathe. Patient was advised to take it easy and follow up with outpatient provider. The patient is not in any imminent danger to self or others. This grant writer will sign off. Should you have any questions, give me a call back. Zee Bloom MD
[2018-02-16] MEDS: Albuterol-Ipratrop 3 mg / 0.5 (3 ml) UD IH SCH ×8 (00:15→23:46)
[2018-02-16] MEDS: ceFAZolin 1 gm in NS 1 GM/100 ML BAG IVPB SCH ×3 (06:33→21:46)
[2018-02-16] MEDS: Benzocaine/Menthol (Cepacol) Lozenge MT PRN ×2 (06:38→21:48)
--- NOTE | 2018-02-16 07:44 | CP.PCM.PN ---
Subjective - Date & Time of Evaluation Date of Evaluation: 02/16/18 Time of Evaluation: 06:30 - Subjective Subjective: Lying in bed, easily awaken , no distress, denies shortness of breath, dry cough Reason for consultation and follow up: Cardiac evaluation for shortness of breath, history of hypertension, asthma Seen and examined by me and Dr. Bains Objective - Vital Signs/Intake and Output Vital Signs (last 24 hours): Temp Pulse Resp BP Pulse Ox 97.4 F L 77 18 167/90 H 99 02/15/18 22:00 02/15/18 22:00 02/15/18 22:00 02/16/18 06:33 02/15/18 22:00 Intake and Output: 02/16/18 02/16/18 06:59 18:59 Intake Total 640 Balance 640 - Medications Medications: Current Medications Albuterol/Ipratropium (Duoneb 3 Mg/0.5 Mg (3 Ml) Ud) 3 ml IH Q2H PRN PRN Reason: Shortness of Breath Last Admin: 02/11/18 07:54 Dose: 3 ml Albuterol/Ipratropium (Duoneb 3 Mg/0.5 Mg (3 Ml) Ud) 3 ml IH [id number] [facility] Last Admin: 02/16/18 03:35 Dose: Not Given Amlodipine Besylate (Norvasc) 10 mg PO DAILY [facility] Last Admin: 02/15/18 09:34 Dose: 10 mg Atenolol (Tenormin) 25 mg PO BID [facility] Last Admin: 02/15/18 17:13 Dose: 25 mg Benzocaine/Menthol (Cepacol Sore Throat) 1 mago MT Q2H PRN PRN Reason: Sore Throat Last Admin: 02/16/18 06:38 Dose: 1 mago Benzonatate (Tessalon Perles) 100 mg PO TID [facility] Last Admin: 02/15/18 17:13 Dose: 100 mg Budesonide (Pulmicort Respules) 0.25 mg IH [id number] [facility] Last Admin: 02/15/18 20:35 Dose: 0.25 mg Chlorthalidone (Hygroton) 25 mg PO DAILY [facility] Last Admin: 02/15/18 09:32 Dose: 25 mg Clonazepam (Klonopin) 0.5 mg PO BID [facility] PRN Reason: Protocol Last Admin: 02/15/18 17:12 Dose: 0.5 mg Clonidine HCl (Catapres) 0.1 mg PO TID [facility] Last Admin: 02/15/18 17:11 Dose: 0.1 mg Clonidine HCl (Catapres) 0.1 mg PO Q4H PRN PRN Reason: Systolic Blood Pressure Enoxaparin Sodium (Lovenox) 40 mg SC DAILY [facility] PRN Reason: Protocol Last Admin: 02/15/18 09:33 Dose: 40 mg Ergocalciferol (Drisdol 50,000 Intl Units Cap) 1 cap PO Q7D [facility] Last Admin: 02/14/18 13:11 Dose: 1 cap Ferrous Gluconate (Fergon) 324 mg PO TID [facility] Last Admin: 02/15/18 17:12 Dose: 324 mg Folic Acid (Folic Acid) 1 mg PO DAILY [facility] Last Admin: 02/15/18 09:32 Dose: 1 mg Guaifenesin (Mucinex La) 600 mg PO BID [facility] Last Admin: 02/15/18 17:12 Dose: 600 mg Guaifenesin/Codeine Phosphate (Robitussin W/Codeine) 5 ml PO Q6H PRN PRN Reason: Cough and congestion Last Admin: 02/15/18 20:17 Dose: 5 ml Hydralazine HCl (Apresoline) 10 mg IVP Q6 PRN PRN Reason: Systolic Blood Pressure Last Admin: 02/16/18 06:33 Dose: 10 mg Hydralazine HCl (Apresoline) 100 mg PO Q12 [facility] Last Admin: 02/15/18 22:33 Dose: 100 mg Cefazolin Sodium (Ancef 1gm In Ns) 1 gm in 100 mls @ 100 mls/hr IVPB Q8 [facility] PRN Reason: Protocol Stop: 02/23/18 14:05 Last Admin: 02/16/18 06:33 Dose: 100 mls/hr Lorazepam (Ativan) 0.5 mg IVP Q6H PRN; Protocol PRN Reason: Anxiety Last Admin: 02/13/18 17:13 Dose: 0.5 mg Losartan Potassium (Cozaar) 100 mg PO DAILY [facility] Last Admin: 02/15/18 09:31 Dose: 100 mg Methylprednisolone (Solu-Medrol) 20 mg IVP Q12 [facility] Last Admin: 02/15/18 22:29 Dose: 20 mg Nystatin (Nystatin Oral Susp) 5 ml PO QID [facility] Last Admin: 02/15/18 22:33 Dose: 5 ml Vitamin B Complex/Vit C/Folic Acid (Nephro-Karely) 1 tab PO 0800 [facility] Last Admin: 02/15/18 09:34 Dose: 1 tab Zolpidem Tartrate (Ambien) 10 mg PO HS PRN; Protocol PRN Reason: Insomnia Last Admin: 02/15/18 22:34 Dose: 10 mg - Labs Labs: 02/13/18 06:30 02/14/18 07:00 PT 12.2 SECONDS (9.4-12.5) 02/10/18 12:15 INR 1.06 (0.93-1.08) 02/10/18 12:15 APTT 26.4 Seconds (25.1-36.5) 02/10/18 12:15 - Constitutional Appears: No Acute Distress - Eye Exam Eye Exam: Normal appearance - ENT Exam ENT Exam: Mucous Membranes Moist - Respiratory Exam Respiratory Exam: Decreased Breath Sounds, NORMAL BREATHING PATTERN - Cardiovascular Exam Cardiovascular Exam: +S1, +S2 - GI/Abdominal Exam GI & Abdominal Exam: Soft, Normal Bowel Sounds - Extremities Exam Additional comments: 1+ edema - Neurological Exam Neurological Exam: Alert, Awake, Oriented x3 - Psychiatric Exam Psychiatric exam: Normal Affect - Skin Skin Exam: Intact, Warm Assessment and Plan - Assessment and Plan (Free Text) Assessment: A 47 year old female obese,who came in to the ER due to shortness of breath. History of hypertension and asthma. Non compliant with medications, Seen by Psychiatry for anxiety and depression. ID on consult. D-dimer elevated, VQ scan done low probability of pulmonary embolism.Renal ultrasound done-unremarkable findings. Exacerbation of asthma. urine positive for opiates and benzodiapines.uncontrolled hypertension.Blood culture positive for Staphyloccus aureaus, ID on consult, on IV antibiotics.ECHO no evidence of vegetations.normal , LVEF-65% Plan: Feels good, wanted to go home Blood pressure improved from SBP of 160's Improved after adjusting antihypertensive medications however difficult to maintain Had given Hydralazine this morning for BP 167/90 Continue current medications On Tenormin 25 mg daily,Catapres 0.1 mg TID ,Hydralazine 50 very 12 hours. Lovenox 40 mg daily,Apresoline 100 mg q 12 hours,, Microzide 12.5 mg daily Cozaar 100 mg daily, Blood culture (one set) Staphyloccus aureaus Continue antibiotics per ID Pulmonary on consult GI on consult for elevated LFT's Renal on consult Lifestyle modification Weight reduction Continue current treatment Continue current medications Will follow up Plan and treatment discussed with Dr. Bains
[2018-02-16] MEDS: Multivitamin Vitamin B Complex (Nephro-Vite) Tab PO SCH (09:18)
[2018-02-16] MEDS: Enoxaparin 40 mg Syringe SC SCH (09:18)
[2018-02-16] MEDS: guaiFENesin 600 mg ER Tab PO SCH ×2 (09:18→17:11)
[2018-02-16] MEDS: Nystatin 100,000 Units/ml Oral Susp 5 ml UD PO SCH ×4 (09:19→21:47)
--- NOTE | 2018-02-16 11:53 | PN ---
Copied To: Harley Le MD Attending MD: Harley Le MD DATE: 02/16/2018 SUBJECTIVE: The patient is in bed, in no acute distress, nontoxic. PHYSICAL EXAMINATION: VITAL SIGNS: Temperature is 97, blood pressure is 160/90, respiratory rate of 18, heart rate of 77. HEENT: Examination of HEENT is unremarkable. NECK: Supple. LUNGS: Have decreased breath sounds. HEART: Normal S1, S2. ABDOMEN: Soft, nontender. LABORATORY DATA: Laboratory examination reveals a white count of 16,700, hemoglobin of 10, platelets of 380. BUN of 20, creatinine of 0.7. The patient's sed rate is 107. The chemistries are noted. The patient's procalcitonin is 0.57 with a C-reactive protein is elevated at 194. The urinalysis is noted. The patient's urine for Legionella antigen is negative. ASSESSMENT AND PLAN: A 47-year-old female, admitted with severe sepsis, healthcare-associated pneumonia, sensitive Staphylococcus aureus bacteremia, obesity, body mass index of 38, anxiety . Today is day #5 of antibiotics. I would complete at least 21 days due to an elevated C-reactive protein, sedimentation rate. The patient is complaining of lower back pain. We will order an MRI of the spine to rule out diskitis and/or vertebral osteomyelitis in a patient who has history of chronic back pain. My tendency was to treat this patient with prolonged antibiotics because of her back pain, sedimentation rate, C-reactive protein elevation. We will order an MRI to rule out diskitis and vertebral osteomyelitis. Also order an human immunodeficiency virus test in this 47 year old because of her age. We will continue cefazolin. The patient is also on prednisone. Today is day #5 of cefazolin. Would complete at least 21 days. If the MRI is positive, will need longer therapy. Harley Le MD
[2018-02-16] MEDS: oxyCODONE 10 mg Immediate Release Tab PO PRN ×2 (11:59→21:47)
--- NOTE | 2018-02-16 13:48 | CP.PCM.PN ---
Subjective - Date & Time of Evaluation Date of Evaluation: 02/16/18 Time of Evaluation: 13:47 - Subjective Subjective: Nephrology Consultation Note: Assessment: Stable uncontrolled severe HTN SADIE resolved asthma exacerbation with acute respi failure and HCAP, sepsis mild rhabomyolysis hypertension (years), chronic back pain, asthma and morbid obesity adjustment disorder iron def anemia, vit D def Plan Hypertension control with meds as ordered. Patient on multiple BP meds, agree with thiazide, losartan and norvasc. also on clonidine and atenolol. increased hydralazine 100 mg tid secondary HTN work up negative abnormal LFT and mild elevated CPK: work up in progress started weekly Vit D, iron and MVI supplements GI, ID and pulmonary following Dose meds/antibiotics for GFR >60. Glycemic control Recommend weight loss, diet, exercise and lifestyle modifications Further work up/management as per primary team Thanks for allowing me to participate in care of your patient. Will follow patient with you. Please call if any Qs. had d/w team Dr Eloy Iyer Office: [phone] Chief Complaint; shortness of breath and high BP reason for consult: HTN and SADIE management HPI: Pt is a 47 F with hx of hypertension (years), chronic back pain, asthma and morbid obesity presented with complaints of SOB and is being managed for asthma exacerbation, Acute respiratory failure and pneumonia.pt feels better at this time. SOB is much better. has cough which is improved. also had abnormal LFT and mildly elevated CPK Denies OTC/herbal meds or NSAIDs No recent iodinated contrast exposure. denies tobacco/smoking/etoh/drugs. ROS: c/o chronic pain due to injuries in past Cardiovascular: No chest pain. Pulmonary: improved shortness of breath now Gastrointestinal: denies abdominal pain No nausea. No vomiting. Genitourinary: No pain while urinating. Denies blood in urine. All other negative except as mentioned in HPI Physical Examination: General Appearance: Comfortable, in no acute respiratory distress, co-operative . obese Vitals reviewed and noted as below Head; Atraumatic, normocephalic ENT: no ulcers no thrush. Tongue is midline. Oropharynx: no rash or ulcers. EYES: Pupils are equal, round and reactive to light accommodation. Eye muscles and extraocular movement intact. Sclera is anicteric. Neck; supple no lymphadenopathy, no thyromegaly or bruit Lungs: Normal respiratory rate/effort. Breath sounds bilateral equal and clear Heart: Normal rate. s1s2 normal. No rub or gallop. Extremities: no edema. No varicose veins Neurological: Patient is alert, awake and oriented to person, place and time. No focal deficit. Strength bilateral appropriate and equal Skin: Warm and dry. Normal turgor. No rash. Palpitation: Normal elasticity for age Abdomen: Abdomen is soft. Bowel sounds +. There is no abdominal tenderness, no guarding/rigidity no organomegaly Psych: normal insight and normal affect/mood MSK: no joint tenderness or swelling. Digits and nails normal, no deformity : kidney or bladder not palpable Labs/imaging reviewed. Past medical history, past surgical history, family history, social history, allergy reviewed and noted as below Family hx: no hx of CKD. Rest non-contributory work up: UA no protein now Aldosterone 12 renin 0.1 metanephrines WNL renal artery Doppler no evidence for FERNY Vitamin D less than 12.8 Iron saturation 14% ferritin 35 Objective - Vital Signs/Intake and Output Vital Signs (last 24 hours): Temp Pulse Resp BP Pulse Ox 97.8 F 82 20 167/90 H 95 02/16/18 08:39 02/16/18 09:20 02/16/18 08:39 02/16/18 09:20 02/16/18 08:39 Intake and Output: 02/16/18 02/16/18 06:59 18:59 Intake Total 640 Balance 640 - Medications Medications: Current Medications Albuterol/Ipratropium (Duoneb 3 Mg/0.5 Mg (3 Ml) Ud) 3 ml IH Q2H PRN PRN Reason: Shortness of Breath Last Admin: 02/11/18 07:54 Dose: 3 ml Albuterol/Ipratropium (Duoneb 3 Mg/0.5 Mg (3 Ml) Ud) 3 ml IH [id number] [facility] Last Admin: 02/16/18 09:03 Dose: 3 ml Amlodipine Besylate (Norvasc) 10 mg PO DAILY [facility] Last Admin: 02/16/18 09:19 Dose: 10 mg Atenolol (Tenormin) 25 mg PO BID [facility] Last Admin: 02/16/18 09:20 Dose: 25 mg Benzocaine/Menthol (Cepacol Sore Throat) 1 mago MT Q2H PRN PRN Reason: Sore Throat Last Admin: 02/16/18 06:38 Dose: 1 mago Benzonatate (Tessalon Perles) 100 mg PO TID [facility] Last Admin: 02/16/18 09:20 Dose: 100 mg Budesonide (Pulmicort Respules) 0.25 mg IH [id number] [facility] Last Admin: 02/15/18 20:35 Dose: 0.25 mg Chlorthalidone (Hygroton) 25 mg PO DAILY [facility] Last Admin: 02/16/18 09:17 Dose: 25 mg Clonazepam (Klonopin) 0.5 mg PO BID [facility] PRN Reason: Protocol Last Admin: 02/16/18 09:17 Dose: 0.5 mg Clonidine HCl (Catapres) 0.1 mg PO TID [facility] Last Admin: 02/16/18 09:15 Dose: 0.1 mg Clonidine HCl (Catapres) 0.1 mg PO Q4H PRN PRN Reason: Systolic Blood Pressure Enoxaparin Sodium (Lovenox) 40 mg SC DAILY [facility] PRN Reason: Protocol Last Admin: 02/16/18 09:18 Dose: Not Given Ergocalciferol (Drisdol 50,000 Intl Units Cap) 1 cap PO Q7D [facility] Last Admin: 02/14/18 13:11 Dose: 1 cap Ferrous Gluconate (Fergon) 324 mg PO TID [facility] Last Admin: 02/16/18 09:16 Dose: 324 mg Folic Acid (Folic Acid) 1 mg PO DAILY [facility] Last Admin: 02/16/18 09:17 Dose: 1 mg Guaifenesin (Mucinex La) 600 mg PO BID [facility] Last Admin: 02/16/18 09:18 Dose: 600 mg Guaifenesin/Codeine Phosphate (Robitussin W/Codeine) 5 ml PO Q6H PRN PRN Reason: Cough and congestion Last Admin: 02/15/18 20:17 Dose: 5 ml Hydralazine HCl (Apresoline) 10 mg IVP Q6 PRN PRN Reason: Systolic Blood Pressure Last Admin: 02/16/18 06:33 Dose: 10 mg Hydralazine HCl (Apresoline) 100 mg PO TID [facility] Cefazolin Sodium (Ancef 1gm In Ns) 1 gm in 100 mls @ 100 mls/hr IVPB Q8 [facility] PRN Reason: Protocol Stop: 02/23/18 14:05 Last Admin: 02/16/18 06:33 Dose: 100 mls/hr Lorazepam (Ativan) 0.5 mg IVP Q6H PRN; Protocol PRN Reason: Anxiety Last Admin: 02/13/18 17:13 Dose: 0.5 mg Losartan Potassium (Cozaar) 100 mg PO DAILY [facility] Last Admin: 02/16/18 09:16 Dose: 100 mg Nystatin (Nystatin Oral Susp) 5 ml PO QID [facility] Last Admin: 02/16/18 09:19 Dose: 5 ml Oxycodone HCl (Oxycodone Immediate Release Tab) 10 mg PO Q6H PRN PRN Reason: Pain, moderate (4-7) Last Admin: 02/16/18 11:59 Dose: 10 mg Prednisone (Prednisone Tab) 20 mg PO DAILY [facility] Last Admin: 02/16/18 09:20 Dose: 20 mg Vitamin B Complex/Vit C/Folic Acid (Nephro-Karely) 1 tab PO 0800 [facility] Last Admin: 02/16/18 09:18 Dose: 1 tab Zolpidem Tartrate (Ambien) 10 mg PO HS PRN; Protocol PRN Reason: Insomnia Last Admin: 02/15/18 22:34 Dose: 10 mg - Labs Labs: 02/13/18 06:30 02/14/18 07:00 PT 12.2 SECONDS (9.4-12.5) 02/10/18 12:15 INR 1.06 (0.93-1.08) 02/10/18 12:15 APTT 26.4 Seconds (25.1-36.5) 02/10/18 12:15
--- NOTE | 2018-02-16 15:45 | MRI ---
Date of service: 02/16/2018 PROCEDURE: MR LUMBAR SPINE WITHOUT CONTRAST HISTORY: r/o discitis and vert osteo COMPARISON: None available. TECHNIQUE: Multiecho multiplanar sequences were performed through the lumbar spine without the use of intravenous contrast. FINDINGS: Normal lumbar lordosis. Vertebral body heights are preserved. Marrow signal unremarkable. Conus medullaris unremarkable at the level of T12 Paraspinal soft tissues are unremarkable. T12-L1: No disc herniation, spinal canal stenosis or neural foraminal narrowing. L1-2: No disc herniation, spinal canal stenosis or neural foraminal narrowing. L2-3: No disc herniation, spinal canal stenosis or neural foraminal narrowing. L3-4: No disc herniation, spinal canal stenosis or neural foraminal narrowing. L4-5: There is severe facet arthropathy. There is mild disc degeneration. There is no significant stenosis L5-S1: No disc herniation, spinal canal stenosis or neural foraminal narrowing. OTHER FINDINGS: None. IMPRESSION: L4-5. Severe facet arthropathy. Mild disc degeneration. No stenosis. No acute findings. No evidence of discitis or osteomyelitis
[2018-02-16] MEDS: Budesonide 0.25 mg/2 ml Inhal Susp UD IH SCH (19:17)
[2018-02-16] MEDS: guaiFENesin-Codeine 100-10mg/5ml Syrup (5 ml) UD PO PRN (21:51)
--- NOTE | 2018-02-17 00:21 | PN ---
Copied To: Miguelina Glynn MD Attending MD: Miguelina Glynn MD DATE: 02/16/2018 PULMONARY PROGRESS NOTE REFERRING PHYSICIAN: Blas Dixon MD SUBJECTIVE: The patient is sitting in the side of the bed. Feels better. Had some back pain, got MRI. Breathing is better. No nausea, vomiting, diarrhea, leg pain or leg swelling. OBJECTIVE: GENERAL: In no acute distress. VITAL SIGNS: Temp is 98, heart rate is 84, respiratory rate is 20, blood pressure 137/76, pulse ox 98% on room air. HEENT: Moist mucous membrane. Small oral cavity. Crowded airway. NECK: Supple. No JVD. LUNGS: Has a fair airflow with rhonchi. HEART: S1 and S2. ABDOMEN: Soft and nontender. No organomegaly. EXTREMITIES: No edema. NEUROLOGIC: Awake, alert. Follows simple command. MEDICATIONS: She is on Ambien 10 mg at bedtime p.r.n., Ancef 1 g every 8 hours, hydralazine 10 mg every 6 hours p.r.n., Ativan 0.5 mg every 6 hours p.r.n., clonidine patch 0.1 mg every 4 hours p.r.n., also has a clonidine 0.1 mg three times a day round the clock, Cepacol lozenges every 2 hours p.r.n., Cozaar 100 mg daily, vitamin D every 7 days, DuoNeb every 2 hours p.r.n., folic acid 1 mg daily, ferrous gluconate 325 mg 3 times a day, chlorthalidone 25 mg daily, Lovenox 40 mg daily, Mucinex 600 mg twice a day, Nephro vitamins daily, Norvasc 10 mg daily, oxycodone immediate release 10 mg every 6 hours, prednisone 20 mg daily, Pulmicort inhaled twice a day, Robitussin with codeine 5 mL every 6 hours p.r.n., Tenormin 25 mg twice a day, Tessalon 100 mg three times a day. LABORATORY DATA: Reviewed and noted. No new lab since yesterday. She has MRI of the lumbar spine done, which shows L4-L5 severe facet arthropathy, mild disc degeneration, no stenosis, no acute finding, no evidence of diskitis and osteomyelitis. IMPRESSION AND PLAN: Exacerbation of chronic obstructive lung disease, bipolar disorder, hypertension, renal insufficiency, lumbar radiculopathy. Pulmonary point of view, she is doing well. May continue taper of steroids, antibiotics, inhaled bronchodilator. Advised patient to avoid respiratory trigger for asthma. Fall precaution. Thank you and we will follow with you. Miguelina Glynn MD
[2018-02-17] MEDS: Benzocaine/Menthol (Cepacol) Lozenge MT PRN ×2 (05:55→21:39)
[2018-02-17] MEDS: ceFAZolin 1 gm in NS 1 GM/100 ML BAG IVPB SCH (05:55)
--- NOTE | 2018-02-17 07:36 | CP.PCM.PN ---
Subjective - Date & Time of Evaluation Date of Evaluation: 02/17/18 Time of Evaluation: 06:30 - Subjective Subjective: awake,no distress, denies shortness of breath, dry cough, wanted to go home Reason for consultation and follow up: Cardiac evaluation for shortness of breath, history of hypertension, asthma Seen and examined by me and Dr. Bains Objective - Vital Signs/Intake and Output Vital Signs (last 24 hours): Temp Pulse Resp BP Pulse Ox 97.6 F 84 20 137/76 98 02/16/18 18:00 02/16/18 18:00 02/16/18 18:00 02/16/18 18:00 02/16/18 18:00 Intake and Output: 02/17/18 02/17/18 06:59 18:59 Intake Total 300 Output Total 2 Balance 298 - Medications Medications: Current Medications Albuterol/Ipratropium (Duoneb 3 Mg/0.5 Mg (3 Ml) Ud) 3 ml IH Q2H PRN PRN Reason: Shortness of Breath Last Admin: 02/11/18 07:54 Dose: 3 ml Albuterol/Ipratropium (Duoneb 3 Mg/0.5 Mg (3 Ml) Ud) 3 ml IH [id number] [facility] Last Admin: 02/16/18 23:46 Dose: Not Given Amlodipine Besylate (Norvasc) 10 mg PO DAILY [facility] Last Admin: 02/16/18 09:19 Dose: 10 mg Atenolol (Tenormin) 25 mg PO BID [facility] Last Admin: 02/16/18 17:13 Dose: 25 mg Benzocaine/Menthol (Cepacol Sore Throat) 1 mago MT Q2H PRN PRN Reason: Sore Throat Last Admin: 02/17/18 05:55 Dose: 1 mago Benzonatate (Tessalon Perles) 100 mg PO TID [facility] Last Admin: 02/16/18 17:13 Dose: 100 mg Budesonide (Pulmicort Respules) 0.25 mg IH [id number] [facility] Last Admin: 02/16/18 19:17 Dose: 0.25 mg Chlorthalidone (Hygroton) 25 mg PO DAILY [facility] Last Admin: 02/16/18 09:17 Dose: 25 mg Clonazepam (Klonopin) 0.5 mg PO BID [facility] PRN Reason: Protocol Last Admin: 02/16/18 17:10 Dose: 0.5 mg Clonidine HCl (Catapres) 0.1 mg PO TID [facility] Last Admin: 02/16/18 17:08 Dose: 0.1 mg Clonidine HCl (Catapres) 0.1 mg PO Q4H PRN PRN Reason: Systolic Blood Pressure Enoxaparin Sodium (Lovenox) 40 mg SC DAILY [facility] PRN Reason: Protocol Last Admin: 02/16/18 09:18 Dose: Not Given Ergocalciferol (Drisdol 50,000 Intl Units Cap) 1 cap PO Q7D [facility] Last Admin: 02/14/18 13:11 Dose: 1 cap Ferrous Gluconate (Fergon) 324 mg PO TID [facility] Last Admin: 02/16/18 17:10 Dose: 324 mg Folic Acid (Folic Acid) 1 mg PO DAILY [facility] Last Admin: 02/16/18 09:17 Dose: 1 mg Guaifenesin (Mucinex La) 600 mg PO BID [facility] Last Admin: 02/16/18 17:11 Dose: 600 mg Guaifenesin/Codeine Phosphate (Robitussin W/Codeine) 5 ml PO Q6H PRN PRN Reason: Cough and congestion Last Admin: 02/16/18 21:51 Dose: 5 ml Hydralazine HCl (Apresoline) 10 mg IVP Q6 PRN PRN Reason: Systolic Blood Pressure Last Admin: 02/16/18 06:33 Dose: 10 mg Hydralazine HCl (Apresoline) 100 mg PO TID [facility] Last Admin: 02/16/18 17:08 Dose: 100 mg Cefazolin Sodium (Ancef 1gm In Ns) 1 gm in 100 mls @ 100 mls/hr IVPB Q8 [facility] PRN Reason: Protocol Stop: 02/23/18 14:05 Last Admin: 02/17/18 05:55 Dose: 100 mls/hr Lorazepam (Ativan) 0.5 mg IVP Q6H PRN; Protocol PRN Reason: Anxiety Last Admin: 02/13/18 17:13 Dose: 0.5 mg Losartan Potassium (Cozaar) 100 mg PO DAILY [facility] Last Admin: 02/16/18 09:16 Dose: 100 mg Nystatin (Nystatin Oral Susp) 5 ml PO QID [facility] Last Admin: 02/16/18 21:47 Dose: 5 ml Oxycodone HCl (Oxycodone Immediate Release Tab) 10 mg PO Q6H PRN PRN Reason: Pain, moderate (4-7) Last Admin: 02/16/18 21:47 Dose: 10 mg Prednisone (Prednisone Tab) 20 mg PO DAILY [facility] Last Admin: 02/16/18 09:20 Dose: 20 mg Vitamin B Complex/Vit C/Folic Acid (Nephro-Karely) 1 tab PO 0800 [facility] Last Admin: 02/16/18 09:18 Dose: 1 tab Zolpidem Tartrate (Ambien) 10 mg PO HS PRN; Protocol PRN Reason: Insomnia Last Admin: 02/16/18 21:48 Dose: 10 mg - Labs Labs: 02/13/18 06:30 02/14/18 07:00 PT 12.2 SECONDS (9.4-12.5) 02/10/18 12:15 INR 1.06 (0.93-1.08) 02/10/18 12:15 APTT 26.4 Seconds (25.1-36.5) 02/10/18 12:15 - Constitutional Appears: No Acute Distress - Eye Exam Eye Exam: Normal appearance - ENT Exam ENT Exam: Mucous Membranes Moist - Respiratory Exam Respiratory Exam: Decreased Breath Sounds, NORMAL BREATHING PATTERN - Cardiovascular Exam Cardiovascular Exam: +S1, +S2 - GI/Abdominal Exam GI & Abdominal Exam: Soft, Normal Bowel Sounds - Extremities Exam Additional comments: 1+ edema - Neurological Exam Neurological Exam: Alert, Awake, Oriented x3 - Psychiatric Exam Psychiatric exam: Normal Affect - Skin Skin Exam: Dry, Warm Assessment and Plan - Assessment and Plan (Free Text) Assessment: A 47 year old female obese,who came in to the ER due to shortness of breath. History of hypertension and asthma. Non compliant with medications, Seen by Psychiatry for anxiety and depression. ID on consult. D-dimer elevated, VQ scan done low probability of pulmonary embolism.Renal ultrasound done-unremarkable findings. Exacerbation of asthma. urine positive for opiates and benzodiapines.uncontrolled hypertension.Blood culture positive for Staphyloccus auredon, ID on consult, on IV antibiotics.ECHO no evidence of vegetations.normal , LVEF-65% Plan: Feels good, wanted to go home Controlled blood pressure Continue current medications On Tenormin 25 mg daily,Catapres 0.1 mg TID ,Hydralazine 50 very 12 hours. Lovenox 40 mg daily,Apresoline 100 mg q 12 hours,, Microzide 12.5 mg daily Cozaar 100 mg daily, Continue antibiotics per ID Pulmonary on consult Lifestyle modification Weight reduction Continue current treatment Continue current medications Instructed to be compliant with medications and follow up with physicians. Will follow up Plan and treatment discussed with Dr. Bains
[2018-02-17] MEDS: Budesonide 0.25 mg/2 ml Inhal Susp UD IH SCH ×2 (08:19→20:00)
[2018-02-17] MEDS: Albuterol-Ipratrop 3 mg / 0.5 (3 ml) UD IH SCH ×5 (08:20→23:50)
[2018-02-17] MEDS: Enoxaparin 40 mg Syringe SC SCH (09:34)
[2018-02-17] MEDS: Multivitamin Vitamin B Complex (Nephro-Vite) Tab PO SCH (09:34)
[2018-02-17] MEDS: guaiFENesin 600 mg ER Tab PO SCH ×2 (09:34→17:57)
[2018-02-17] MEDS: Nystatin 100,000 Units/ml Oral Susp 5 ml UD PO SCH ×4 (09:35→21:30)
--- NOTE | 2018-02-17 12:29 | CP.PCM.PN ---
Subjective - Date & Time of Evaluation Date of Evaluation: 02/17/18 Time of Evaluation: 12:28 - Subjective Subjective: Nephrology Consultation Note: Assessment: Stable uncontrolled severe HTN; now better SADIE resolved asthma exacerbation with acute respi failure and HCAP, sepsis mild rhabomyolysis hypertension (years), chronic back pain, asthma and morbid obesity adjustment disorder iron def anemia, vit D def Plan Hypertension control with meds as ordered. Patient on multiple BP meds, agree with thiazide, losartan and norvasc. also on clonidine and atenolol. increased hydralazine 100 mg tid secondary HTN work up negative abnormal LFT and mild elevated CPK: work up in progress started weekly Vit D, iron and MVI supplements GI, ID and pulmonary following Dose meds/antibiotics for GFR >60. Glycemic control Recommend weight loss, diet, exercise and lifestyle modifications Further work up/management as per primary team Thanks for allowing me to participate in care of your patient. Will follow patient with you. Please call if any Qs. had d/w team Dr Eloy Iyer Office: [phone] Chief Complaint; shortness of breath and high BP reason for consult: HTN and SADIE management HPI: Pt is a 47 F with hx of hypertension (years), chronic back pain, asthma and morbid obesity presented with complaints of SOB and is being managed for asthma exacerbation, Acute respiratory failure and pneumonia.pt feels better at this time. SOB is much better. has cough which is improved. also had abnormal LFT and mildly elevated CPK Denies OTC/herbal meds or NSAIDs No recent iodinated contrast exposure. denies tobacco/smoking/etoh/drugs. ROS: c/o chronic pain due to injuries in past Cardiovascular: No chest pain. Pulmonary: improved shortness of breath now Gastrointestinal: denies abdominal pain No nausea. No vomiting. Genitourinary: No pain while urinating. Denies blood in urine. All other negative except as mentioned in HPI Physical Examination: General Appearance: Comfortable, in no acute respiratory distress, co-operative . obese Vitals reviewed and noted as below Head; Atraumatic, normocephalic ENT: no ulcers no thrush. Tongue is midline. Oropharynx: no rash or ulcers. EYES: Pupils are equal, round and reactive to light accommodation. Eye muscles and extraocular movement intact. Sclera is anicteric. Neck; supple no lymphadenopathy, no thyromegaly or bruit Lungs: Normal respiratory rate/effort. Breath sounds bilateral equal and clear Heart: Normal rate. s1s2 normal. No rub or gallop. Extremities: no edema. No varicose veins Neurological: Patient is alert, awake and oriented to person, place and time. No focal deficit. Strength bilateral appropriate and equal Skin: Warm and dry. Normal turgor. No rash. Palpitation: Normal elasticity for age Abdomen: Abdomen is soft. Bowel sounds +. There is no abdominal tenderness, no guarding/rigidity no organomegaly Psych: normal insight and normal affect/mood MSK: no joint tenderness or swelling. Digits and nails normal, no deformity : kidney or bladder not palpable Labs/imaging reviewed. Past medical history, past surgical history, family history, social history, allergy reviewed and noted as below Family hx: no hx of CKD. Rest non-contributory work up: UA no protein now Aldosterone 12 renin 0.1 metanephrines WNL renal artery Doppler no evidence for FERNY Vitamin D less than 12.8 Iron saturation 14% ferritin 35 Objective - Vital Signs/Intake and Output Vital Signs (last 24 hours): Temp Pulse Resp BP Pulse Ox 97.6 F 78 18 162/95 H 99 02/17/18 07:42 02/17/18 09:36 02/17/18 07:42 02/17/18 09:36 02/17/18 07:42 Intake and Output: 02/17/18 02/17/18 06:59 18:59 Intake Total 300 Output Total 2 Balance 298 - Medications Medications: Current Medications Albuterol/Ipratropium (Duoneb 3 Mg/0.5 Mg (3 Ml) Ud) 3 ml IH Q2H PRN PRN Reason: Shortness of Breath Last Admin: 02/11/18 07:54 Dose: 3 ml Albuterol/Ipratropium (Duoneb 3 Mg/0.5 Mg (3 Ml) Ud) 3 ml IH [id number] [facility] Last Admin: 02/17/18 11:48 Dose: 3 ml Amlodipine Besylate (Norvasc) 10 mg PO DAILY [facility] Last Admin: 02/17/18 09:34 Dose: 10 mg Atenolol (Tenormin) 25 mg PO BID [facility] Last Admin: 02/17/18 09:36 Dose: 25 mg Benzocaine/Menthol (Cepacol Sore Throat) 1 mago MT Q2H PRN PRN Reason: Sore Throat Last Admin: 02/17/18 05:55 Dose: 1 mago Benzonatate (Tessalon Perles) 100 mg PO TID [facility] Last Admin: 02/17/18 09:36 Dose: 100 mg Budesonide (Pulmicort Respules) 0.25 mg IH [id number] [facility] Last Admin: 02/17/18 08:19 Dose: 0.25 mg Chlorthalidone (Hygroton) 25 mg PO DAILY [facility] Last Admin: 02/17/18 09:33 Dose: 25 mg Clonazepam (Klonopin) 0.5 mg PO BID [facility] PRN Reason: Protocol Last Admin: 02/17/18 09:33 Dose: 0.5 mg Clonidine HCl (Catapres) 0.1 mg PO TID [facility] Last Admin: 02/17/18 09:32 Dose: 0.1 mg Clonidine HCl (Catapres) 0.1 mg PO Q4H PRN PRN Reason: Systolic Blood Pressure Enoxaparin Sodium (Lovenox) 40 mg SC DAILY [facility] PRN Reason: Protocol Last Admin: 02/17/18 09:34 Dose: Not Given Ergocalciferol (Drisdol 50,000 Intl Units Cap) 1 cap PO Q7D [facility] Last Admin: 02/14/18 13:11 Dose: 1 cap Ferrous Gluconate (Fergon) 324 mg PO TID [facility] Last Admin: 02/17/18 09:33 Dose: 324 mg Folic Acid (Folic Acid) 1 mg PO DAILY [facility] Last Admin: 02/17/18 09:33 Dose: 1 mg Guaifenesin (Mucinex La) 600 mg PO BID [facility] Last Admin: 02/17/18 09:34 Dose: 600 mg Guaifenesin/Codeine Phosphate (Robitussin W/Codeine) 5 ml PO Q6H PRN PRN Reason: Cough and congestion Last Admin: 02/16/18 21:51 Dose: 5 ml Hydralazine HCl (Apresoline) 10 mg IVP Q6 PRN PRN Reason: Systolic Blood Pressure Last Admin: 02/16/18 06:33 Dose: 10 mg Hydralazine HCl (Apresoline) 100 mg PO TID [facility] Last Admin: 02/17/18 09:31 Dose: 100 mg Cefazolin Sodium (Ancef 1gm In Ns) 1 gm in 100 mls @ 100 mls/hr IVPB Q8 [facility] PRN Reason: Protocol Stop: 02/23/18 14:05 Last Admin: 02/17/18 05:55 Dose: 100 mls/hr Lorazepam (Ativan) 0.5 mg IVP Q6H PRN; Protocol PRN Reason: Anxiety Last Admin: 02/13/18 17:13 Dose: 0.5 mg Losartan Potassium (Cozaar) 100 mg PO DAILY [facility] Last Admin: 02/17/18 09:32 Dose: 100 mg Nystatin (Nystatin Oral Susp) 5 ml PO QID [facility] Last Admin: 02/17/18 09:35 Dose: 5 ml Oxycodone HCl (Oxycodone Immediate Release Tab) 10 mg PO Q6H PRN PRN Reason: Pain, moderate (4-7) Last Admin: 02/16/18 21:47 Dose: 10 mg Prednisone (Prednisone Tab) 20 mg PO DAILY [facility] Last Admin: 02/17/18 09:35 Dose: 20 mg Vitamin B Complex/Vit C/Folic Acid (Nephro-Karely) 1 tab PO 0800 [facility] Last Admin: 02/17/18 09:34 Dose: 1 tab Zolpidem Tartrate (Ambien) 10 mg PO HS PRN; Protocol PRN Reason: Insomnia Last Admin: 02/16/18 21:48 Dose: 10 mg - Labs Labs: 02/13/18 06:30 02/14/18 07:00 PT 12.2 SECONDS (9.4-12.5) 02/10/18 12:15 INR 1.06 (0.93-1.08) 02/10/18 12:15 APTT 26.4 Seconds (25.1-36.5) 02/10/18 12:15
[2018-02-17] MEDS: oxyCODONE 10 mg Immediate Release Tab PO PRN ×2 (13:35→21:37)
--- NOTE | 2018-02-17 14:13 | PN ---
Copied To: Blas Dixon MD Attending MD: Blas Dixon MD DATE: 02/16/2018 SUBJECTIVE: Patient is comfortable. No distress. Her pain issue has been addressed. She is on Percocet three times a day. Breathing is better and she feels better. Discussed with the patient. She need to stay because of her bacteremia and possibility for osteomyelitis and positive blood cultures x2. PHYSICAL EXAMINATION: VITAL SIGNS: Temperature 97.6, heart rate 84, blood pressure 137/76, respirations 20, saturation 98%. HEAD AND NECK: Normal. No JVD. No thyromegaly CHEST: Clear bilaterally. CARDIAC: First sound and second sound normal. ABDOMEN: Soft, obese, nontender. EXTREMITIES: No edema. NEUROLOGIC: Normal. DATA: Last lab shows white count 16.7, hemoglobin 10.1, hematocrit 31.8, platelets 380. Chemistry shows sodium 143, potassium 4.2, chloride 104, bicarbonate 30, BUN 20, creatinine 0.7. Patient has low iron, 14, low iron saturation. Liver enzymes are improving, only ALT is 73. IMPRESSION AND PLAN: 1. Sepsis, etiology unclear. Patient has leukocytosis. She had a fever. She has respiratory distress and she has positive blood culture. Urine bacteremia x2, Staphylococcus aureus coagulase positive. We will continue current therapy as per Dr. Le. Current medications, the patient is getting Ancef, which she states 1 g IV every 8 hours and MRI of the spine since the patient complained of back pain. 2. Acute asthma exacerbation, has been improving. She is currently on p.o. We will switch IV Solu-Medrol to p.o. prednisone. Continue inhaled bronchodilator. 3. Hypertension, difficult to control. Discussed with . Continue current therapy as it is, clonidine 0.1 mg every four hours p.r.n., hydralazine 100 mg t.i.d. and 10 mg IV every 6 hours p.r.n. Patient also getting losartan 100 mg daily. She is getting chlorthalidone 25 mg p.o. daily. She is getting Norvasc 10 mg p.o. daily, atenolol 25 b.i.d. 4. Patient is moving around, getting physical therapy, chest PT and she is getting also physical therapy. Continue current therapy. Continue GI and DVT prophylaxis. Patient will need positive blood culture, need to be treated at least six weeks as per Dr. Le's recommendations. We will follow up on that and continue current therapy for now. Case has been discussed with the patient. Continue current pain medicines. Continue her other medicines, Klonopin 0.5 mg b.i.d. and oxycodone 10 mg every 6 hours p.r.n. Blas Dixon MD
[2018-02-17] MEDS: guaiFENesin-Codeine 100-10mg/5ml Syrup (5 ml) UD PO PRN ×2 (14:54→21:37)
[2018-02-17] MEDS: ceFAZolin IV 2 gm in Dextrose 2 GM/50 ML BAG IVPB SCH ×2 (15:02→21:22)
--- NOTE | 2018-02-17 15:23 | CP.PCM.PN ---
Subjective - Date & Time of Evaluation Date of Evaluation: 02/17/18 Time of Evaluation: 12:25 - Subjective Subjective: Comfortable in bed, no fevers, not in distress, no nausea, no diarrhea, no dysuria. Objective - Vital Signs/Intake and Output Vital Signs (last 24 hours): Temp Pulse Resp BP Pulse Ox 97.6 F 78 18 162/95 H 99 02/17/18 07:42 02/17/18 09:36 02/17/18 07:42 02/17/18 09:36 02/17/18 07:42 Intake and Output: 02/17/18 02/17/18 06:59 18:59 Intake Total 300 Output Total 2 Balance 298 - Medications Medications: Current Medications Albuterol/Ipratropium (Duoneb 3 Mg/0.5 Mg (3 Ml) Ud) 3 ml IH Q2H PRN PRN Reason: Shortness of Breath Last Admin: 02/11/18 07:54 Dose: 3 ml Albuterol/Ipratropium (Duoneb 3 Mg/0.5 Mg (3 Ml) Ud) 3 ml IH [id number] [facility] Last Admin: 02/17/18 11:48 Dose: 3 ml Amlodipine Besylate (Norvasc) 10 mg PO DAILY [facility] Last Admin: 02/17/18 09:34 Dose: 10 mg Atenolol (Tenormin) 25 mg PO BID [facility] Last Admin: 02/17/18 09:36 Dose: 25 mg Benzocaine/Menthol (Cepacol Sore Throat) 1 mago MT Q2H PRN PRN Reason: Sore Throat Last Admin: 02/17/18 05:55 Dose: 1 mago Benzonatate (Tessalon Perles) 100 mg PO TID [facility] Last Admin: 02/17/18 09:36 Dose: 100 mg Budesonide (Pulmicort Respules) 0.25 mg IH [id number] [facility] Last Admin: 02/17/18 08:19 Dose: 0.25 mg Chlorthalidone (Hygroton) 25 mg PO DAILY [facility] Last Admin: 02/17/18 09:33 Dose: 25 mg Clonazepam (Klonopin) 0.5 mg PO BID [facility] PRN Reason: Protocol Last Admin: 02/17/18 09:33 Dose: 0.5 mg Clonidine HCl (Catapres) 0.1 mg PO TID [facility] Last Admin: 02/17/18 09:32 Dose: 0.1 mg Clonidine HCl (Catapres) 0.1 mg PO Q4H PRN PRN Reason: Systolic Blood Pressure Enoxaparin Sodium (Lovenox) 40 mg SC DAILY [facility] PRN Reason: Protocol Last Admin: 02/17/18 09:34 Dose: Not Given Ergocalciferol (Drisdol 50,000 Intl Units Cap) 1 cap PO Q7D [facility] Last Admin: 02/14/18 13:11 Dose: 1 cap Ferrous Gluconate (Fergon) 324 mg PO TID [facility] Last Admin: 02/17/18 09:33 Dose: 324 mg Folic Acid (Folic Acid) 1 mg PO DAILY [facility] Last Admin: 02/17/18 09:33 Dose: 1 mg Guaifenesin (Mucinex La) 600 mg PO BID [facility] Last Admin: 02/17/18 09:34 Dose: 600 mg Guaifenesin/Codeine Phosphate (Robitussin W/Codeine) 5 ml PO Q6H PRN PRN Reason: Cough and congestion Last Admin: 02/16/18 21:51 Dose: 5 ml Hydralazine HCl (Apresoline) 10 mg IVP Q6 PRN PRN Reason: Systolic Blood Pressure Last Admin: 02/16/18 06:33 Dose: 10 mg Hydralazine HCl (Apresoline) 100 mg PO TID [facility] Last Admin: 02/17/18 09:31 Dose: 100 mg Cefazolin Sodium/Dextrose (Ancef Iv 2 Gm Duplex) 2 gm in 50 mls @ 50 mls/hr IVPB Q8 [facility] PRN Reason: Protocol Stop: 03/10/18 14:01 Lorazepam (Ativan) 0.5 mg IVP Q6H PRN; Protocol PRN Reason: Anxiety Last Admin: 02/13/18 17:13 Dose: 0.5 mg Losartan Potassium (Cozaar) 100 mg PO DAILY [facility] Last Admin: 02/17/18 09:32 Dose: 100 mg Nystatin (Nystatin Oral Susp) 5 ml PO QID [facility] Last Admin: 02/17/18 09:35 Dose: 5 ml Oxycodone HCl (Oxycodone Immediate Release Tab) 10 mg PO Q6H PRN PRN Reason: Pain, moderate (4-7) Last Admin: 02/16/18 21:47 Dose: 10 mg Prednisone (Prednisone Tab) 20 mg PO DAILY [facility] Last Admin: 02/17/18 09:35 Dose: 20 mg Vitamin B Complex/Vit C/Folic Acid (Nephro-Karely) 1 tab PO 0800 [facility] Last Admin: 02/17/18 09:34 Dose: 1 tab Zolpidem Tartrate (Ambien) 10 mg PO HS PRN; Protocol PRN Reason: Insomnia Last Admin: 02/16/18 21:48 Dose: 10 mg - Labs Labs: 02/13/18 06:30 02/14/18 07:00 PT 12.2 SECONDS (9.4-12.5) 02/10/18 12:15 INR 1.06 (0.93-1.08) 02/10/18 12:15 APTT 26.4 Seconds (25.1-36.5) 02/10/18 12:15 - Constitutional Appears: Non-toxic, Chronically Ill - Head Exam Head Exam: NORMAL INSPECTION - Respiratory Exam Respiratory Exam: Decreased Breath Sounds - Cardiovascular Exam Cardiovascular Exam: +S1, +S2 - GI/Abdominal Exam GI & Abdominal Exam: Soft. absent: Tenderness Assessment and Plan - Assessment and Plan (Free Text) Plan: Assessment Methicillin-sensitive Staph aureus bacteremia, source unclear, 2D echo is negative S/P severe sepsis due to healthcare-associated pneumonia with possible gram positive cocci and/or gram negative bacilli and/or atypical organisms chronic asthma obesity with BMI 38 anxiety bipolar disorder HTN Plan repeat blood cx are negative - will continue Cefazolin (day 6 from 1st negative blood cx) to complete 21 days of therapy with outpatient follow up with PMD discussed with patient
--- NOTE | 2018-02-17 18:58 | PN ---
Copied To: Miguelina Glynn MD Attending MD: Miguelina Glynn MD DATE: 02/17/2018 PULMONARY PROGRESS NOTE REFERRING PHYSICIAN: Blas Dixon MD SUBJECTIVE: She is lying in the bed, head at 45 degrees. Night was unremarkable. Breathing is better. No cough. No sputum production. No nausea, no vomiting, no diarrhea. No leg pain or leg swelling. OBJECTIVE: GENERAL: In no acute distress. VITAL SIGNS: Temperature is 98, heart rate 72, respiratory rate is 20, blood pressure 148/88, and pulse ox 99% on room air. HEENT: Moist mucous membrane. Crowded airway. NECK: Supple. No JVD. LUNGS: Fair airflow with rhonchi. HEART: S1 and S2. ABDOMEN: Soft and nontender. No organomegaly. EXTREMITIES: No edema. NEUROLOGIC: Awake, alert, and follows simple command. MEDICATIONS: She is on Ambien 10 mg at bedtime p.r.n., Ancef 2 g IV every 8 hours, hydralazine 10 mg every 6 hours p.r.n., Ativan 0.5 mg every 6 hours p.r.n., Catapres 0.1 mg every 4 hours p.r.n., Catapres 0.1 mg three times a day, Cepacol lozenges every 2 hours p.r.n., Cozaar 100 mg daily, vitamin D 50,000 units weekly, DuoNeb every 2 hours p.r.n. and every 4 hours [id number], ferrous gluconate 325 mg three times a day, folic acid 1 mg daily, chlorthalidone 25 mg daily, Klonopin 0.5 mg twice a day, Lovenox 40 mg daily, Mucinex LA 600 mg twice a day, Nephro vitamins daily, Norvasc 10 mg daily, nystatin 5 mL four times a day, OxyContin immediate release 10 mg every 6 hours p.r.n., prednisone 20 mg daily, budesonide inhaled twice a day, Robitussin with codeine p.r.n. basis, Tenormin 25 mg twice a day, Tessalon Perles 100 mg three times a day. LABORATORY DATA: Reviewed. No new lab is available. Microbiology blood culture which was 02/10, one out of two has a Staph aureus. Repeat blood culture on 02/12, so far there is no growth. IMPRESSION AND PLAN: Exacerbation of chronic obstructive lung disease, bipolar disorder, hypertension, renal insufficiency, lumbar radiculopathy, bacteremia. Spoke to nursing staff. Midline IV access is being obtained to continue to treat bacteremia as per Infectious Diseases. Pulmonary point of view, she is doing great. We will decrease prednisone to 10 mg daily. Continue inhaled bronchodilator, fall precaution. Thank you and we will follow with you. Miguelina Glynn MD
[2018-02-18] MEDS: Albuterol-Ipratrop 3 mg / 0.5 (3 ml) UD IH SCH ×3 (03:09→11:10)
[2018-02-18] MEDS: ceFAZolin IV 2 gm in Dextrose 2 GM/50 ML BAG IVPB SCH (06:11)
[2018-02-18] MEDS: Benzocaine/Menthol (Cepacol) Lozenge MT PRN (06:41)
[2018-02-18] MEDS: guaiFENesin-Codeine 100-10mg/5ml Syrup (5 ml) UD PO PRN (06:41)
[2018-02-18] MEDS: oxyCODONE 10 mg Immediate Release Tab PO PRN ×2 (06:41→10:56)
[2018-02-18] MEDS: Budesonide 0.25 mg/2 ml Inhal Susp UD IH SCH (07:56)
[2018-02-18 08:56] VITALS: BP 145/82; PULSE 78; RESP 20; TEMP 97.7; O2SAT 95
[2018-02-18] MEDS: guaiFENesin 600 mg ER Tab PO SCH (09:42)
[2018-02-18] MEDS: Enoxaparin 40 mg Syringe SC SCH (09:42)
[2018-02-18] MEDS: Multivitamin Vitamin B Complex (Nephro-Vite) Tab PO SCH (09:43)
[2018-02-18] MEDS: Nystatin 100,000 Units/ml Oral Susp 5 ml UD PO SCH (09:43)
--- NOTE | 2018-02-18 09:48 | PN ---
Copied To: Harley Le MD Attending MD: Harley Le MD DATE: 02/18/2018 SUBJECTIVE: The patient is seen earlier today, in no acute distress, nontoxic. PHYSICAL EXAMINATION: VITAL SIGNS: Temperature is 99, blood pressure is 114/70, respiratory rate of 16. HEENT: Examination of HEENT is unremarkable. NECK: Supple. LUNGS: Have decreased breath sounds. HEART: Normal S1, S2. ABDOMEN: Soft, nontender. LABORATORY DATA: Laboratory examination reveals the patient's white count of 16,700, sed rate of 107. BUN of 20, creatinine of 0.7. Urinalysis is noted. Toxicology is reviewed. Immunology is noted. Serology is reviewed. Microbiology reveals the cultures are negative. ASSESSMENT AND PLAN: A 47-year-old female with sensitive Staphylococcus aureus bacteremia and severe sepsis and healthcare-associated pneumonia. Negative MRI of the spine in a patient with anxiety, bipolar, hypertension, source of the bacteremia is not entirely clear. On cefazolin day #7, will need at least 21 days of therapy, maybe longer. Follow the C-reactive protein and sedimentation rate. Review of orders reveals the patient to be on cefazolin at 2 g every 8 hours. Harley Le MD
--- NOTE | 2018-02-20 02:51 | PN ---
Copied To: Blas Dixon MD Attending MD: Blas Dixon MD DATE: 02/17/2018 SUBJECTIVE: The patient seems doing very well, had a PICC line put in. She has no chest pain. No short of breath. Will be discharged in the morning. The patient is getting Ancef 1 g IV every 8 hours. PHYSICAL EXAMINATION: VITAL SIGNS: Her temperature is 97.6, heart rate 78, blood pressure is 162/98, respirations 18, saturation 99%. HEAD AND NECK: Normal. No JVD. No thyromegaly. CHEST: Clear bilaterally. CARDIAC: First sound and second sound are normal. No murmur, rub or gallop. ABDOMEN: Soft, obese, and nontender. EXTREMITIES: No edema. NEUROLOGIC: Normal. LABORATORY DATA: The patient has laboratory study, which shows no labs done. Sed rate 107 and she has also high C-reactive protein. IMPRESSION: 1. Sepsis, etiology unclear, could be lung etiology; however, the patient had multiple cultures, which two of them shows gram-positive cocci. The patient had echocardiography, which was negative and she had also MRI of her back, which was severe facet arthropathy, mild disk degeneration, otherwise, no diskitis or osteomyelitis. We will continue IV antibiotics as recommended by Infectious Disease consult for six weeks minimum or more. Source is unclear. The patient also seen by Cardiology, Dr. Bains. 2. Hypertension, better controlled. We will continue current blood pressure medications. 3. Chronic osteoarthritis, back pain, osteoarthritis of the knee. Continue current medications. The patient also had acute asthma exacerbation. Continue prednisone. Continue inhaled bronchodilators. We will follow up clinically. PLAN: Continue current therapy. Will discharge in the morning. Current medications, Percocet. She had hydrochlorothiazide. She has Protonix 40 and Singulair. She had prednisone 10 mg twice a day, Cozaar 100, Ativan 0.5 b.i.d., Claritin 10, Advair, DuoNeb plus Pulmicort, and Tenormin 100 b.i.d. The patient also has Norvasc 10 mg. We will continue current therapy. We will follow up clinically. The patient should be discharged in the morning and her medications will be sent to the pharmacy. Blas Dixon MD [facility] # [id number]
--- NOTE | 2018-02-20 22:05 | DS ---
Copied To: Blas Dixon MD Attending MD: Blas Dixon MD HISTORY OF PRESENT ILLNESS: The patient is admitted with acute asthma exacerbation, severe leukocytosis, high Sed rate, high C-reactive protein. The patient was seen by ID consult, Dr. Le. Blood cultures and urine cultures. Had positive blood culture, gram-positive cocci, Staph aureus, was being treated by vancomycin and meropenem. We then switched later to Ancef 1 g IV every 8 hours. The patient had multiple tests included an ultrasound of the gallbladder, which was negative. She had also hepatitis profile, which is negative. Her BUN and creatinine was elevated and went down by hydration. She also had V/Q scan and was negative, low probability. She also had MRI of the spine, lumbosacral, which was negative for osteomyelitis. Patient was seen in renal consults, ID consults, pulmonary consults, and multiple consultations were seen and cardiology consult. The patient will be discharged to home. DISCHARGE DIAGNOSES: 1. Acute asthma exacerbation. 2. Gram-positive coccemia. 3. Chronic anxiety. 4. Difficult controlled hypertension. 5. Obesity. 6. Osteoarthritis and chronic back pain. 7. Insomnia. PLAN: Discharge the patient home. She got multiple blood pressure medicines. She got chlorthalidone 25 mg. She got Cozaar 100 mg. She got Norvasc 10 mg, hydralazine 100 mg t.i.d., and Klonopin 0.5 mg b.i.d. p.r.n. She got also Protonix. She got prednisone 10 mg for 2 days, then 5 mg for 2 days, then stop. The patient also got a nebulizer treatment, inhalers, Ventolin two puffs 4 times a day. She does have these prescriptions before. She is to continue all prescribed medications. Continue IV antibiotics, Ancef IV every 8 hours for 6 weeks. Follow up as an outpatient. Blas Dixon MD
== END 2018-02-18 13:52 | disposition home health service (06) | DRG 584 ==
LOC: ED 11:06 → ERH 13:29 → CCU 15:57 → 3RNO 02-11 13:44
PROVIDERS: ADMIT Internal Medicine; ATTEND Internal Medicine
PROC: 05HY33Z Insertion of Infusion Device into Upper Vein, Percutaneous Approach (ICD-10-PCS; principal; 2018-02-17)
DX: A41.01 Sepsis due to Methicillin susceptible Staphylococcus aureus (principal); J18.9 Pneumonia, unspecified organism; J96.01 Acute respiratory failure with hypoxia; M62.82 Rhabdomyolysis; N17.9 Acute kidney failure, unspecified; I11.0 Hypertensive heart disease with heart failure; I50.9 Heart failure, unspecified; J44.0 Chronic obstructive pulmonary disease with (acute) lower respiratory infection; J44.1 Chronic obstructive pulmonary disease with (acute) exacerbation; J45.901 Unspecified asthma with (acute) exacerbation; D50.9 Iron deficiency anemia, unspecified; E55.9 Vitamin D deficiency, unspecified; E66.01 Morbid (severe) obesity due to excess calories; F31.9 Bipolar disorder, unspecified; F43.22 Adjustment disorder with anxiety; G47.00 Insomnia, unspecified; G47.33 Obstructive sleep apnea (adult) (pediatric); G89.4 Chronic pain syndrome; K21.9 Gastro-esophageal reflux disease without esophagitis; K76.0 Fatty (change of) liver, not elsewhere classified; M16.10 Unilateral primary osteoarthritis, unspecified hip; M17.10 Unilateral primary osteoarthritis, unspecified knee; M46.90 Unspecified inflammatory spondylopathy, site unspecified; M54.16 Radiculopathy, lumbar region; R65.20 Severe sepsis without septic shock; R79.1 Abnormal coagulation profile; Y95 Nosocomial condition; Z68.38 Body mass index [BMI] 38.0-38.9, adult; Z77.120 Contact with and (suspected) exposure to mold (toxic); Z79.2 Long term (current) use of antibiotics; Z79.899 Other long term (current) drug therapy; Z82.49 Family history of ischemic heart disease and other diseases of the circulatory system; Z87.891 Personal history of nicotine dependence; Z91.14 Patient's other noncompliance with medication regimen; Z91.19 Patient's noncompliance with other medical treatment and regimen; Z68.37 Body mass index [BMI] 37.0-37.9, adult

== ENCOUNTER 2018-02-25 16:29 | Emergency (ER) | payer MEDICAID ==
[2018-02-25 16:56] VITALS: RESP 18; TEMP 98.4; O2SAT 97; BMI 41.1
--- NOTE | 2018-02-25 17:35 | ED PDOC ---
Arrival/HPI - General Chief Complaint: Abnormal Skin Integrity Time Seen by Provider: 02/25/18 16:31 Historian: Patient - History of Present Illness Narrative History of Present Illness (Text): 02/25/18 17:55 47yr old female presents today with rash to area between breast and on back since last night. pt denies fever/chills. denies pruritis. denies cp or sob. no vomiting/diarrhea. pt denies fatigue or weakness. pt states she is on IV abx via picc line for bacteremia. pt states she has been feeling much better since being out of the hospital. she denies new soaps, lotions, detergents, perfumes. denies pain. no other complaints. Past Medical History - Provider Review Nursing Documentation Reviewed: Yes - Travel History Have you recently traveled outside [place] w/in the past 3 mons?: No - Infectious Disease Hx of Infectious Diseases: None - Tetanus Immunization Tetanus Immunization: Unknown - Reproductive Menopause: No - Past Medical History Past Medical History: No Previous - Cardiac Hx Cardiac Disorders: Yes Hx Hypertension: Yes Hx Pacemaker: No - Pulmonary Hx Respiratory Disorders: Yes Hx Asthma: Yes - Neurological Hx Neurological Disorder: No - HEENT Hx HEENT Disorder: No - Renal Hx Renal Disorder: No - Endocrine/Metabolic Hx Endocrine Disorders: No - Hematological/Oncological Hx Cancer: No - Integumentary Hx Dermatological Disorder: Yes Other/Comment: bruising multiple left arm - Musculoskeletal/Rheumatological Hx Falls: No - Gastrointestinal Hx Gastrointestinal Disorders: Yes (obese) Hx Gastroesophageal Reflux: Yes - Genitourinary/Gynecological Hx Genitourinary Disorders: No - Psychiatric Hx Psychophysiologic Disorder: Yes Hx Anxiety: Yes Hx Depression: Yes (loss of 2018) Hx Emotional Abuse: No Hx Physical Abuse: No Hx Substance Use: No Other/Comment: previous suicide attempt 2018 pills; - Past Surgical History Past Surgical History: No Previous - Surgical History Hx Mastectomy: No - Anesthesia Hx Anesthesia: No Hx Anesthesia Reactions: No - Suicidal Assessment Feels Threatened In Home Enviroment: No Family/Social History - Physician Review Nursing Documentation Reviewed: Yes Family/Social History: Unknown Family HX Smoking Status: Never Smoked Hx Alcohol Use: No Hx Substance Use: No Hx Substance Use Treatment: No Allergies/Home Meds Allergies/Adverse Reactions: Allergies No Known Allergies Allergy (Verified 02/10/18 11:56) Review of Systems - Review of Systems Constitutional: absent: Fatigue, Fevers Respiratory: absent: SOB, Cough Cardiovascular: absent: Chest Pain, Palpitations Gastrointestinal: absent: Abdominal Pain, Nausea, Vomiting Genitourinary Female: absent: Dysuria Musculoskeletal: absent: Arthralgias Skin: Rash. absent: Pruritis Neurological: absent: Headache, Dizziness Physical Exam Vital Signs Reviewed: Yes Vital Signs Temp Pulse Resp BP Pulse Ox 02/25/18 16:50 98.4 F 86 18 136/89 97 Temperature: Afebrile Blood Pressure: Normal Pulse: Regular Respiratory Rate: Normal Appearance: Positive for: Well-Appearing, Non-Toxic, Comfortable Pain Distress: None Mental Status: Positive for: Alert and Oriented X 3 - Systems Exam Head: Present: Atraumatic Mouth: Present: Moist Mucous Membranes Neck: Present: Normal Range of Motion Respiratory/Chest: Present: Clear to Auscultation, Good Air Exchange. No: Respiratory Distress, Accessory Muscle Use Cardiovascular: Present: Regular Rate and Rhythm, Normal S1, S2. No: Murmurs Upper Extremity: Present: Normal ROM, Other (picc line in place without erythema. ) Lower Extremity: Present: Normal ROM Neurological: Present: GCS=15, Speech Normal Skin: Present: Warm, Dry, Rashes (there are few small pustules noted to the anterior chest between the breasts without surrounding erythema; non tender. there are a few sporatic erythematous papules noted to the lower back bilaterally. ), Normal Color Psychiatric: Present: Alert, Oriented x 3 Medical Decision Making ED Course and Treatment: 02/25/18 18:04 pt is non toxic well appearing; no distress. pt is with non specific rash on to the anterior chest between the breasts and to the lower back. does not appear to be allergic. pt was seen and evaluated by dr. allen. case was discussed with dr. schmitt. will send home to f/u with dr schmitt in the office. pt was advised to f/u with dr. schmitt. pt was advised to return if symptoms worsen, persist or if new symptoms develop. Patient verbalizes understanding of discharge instructions and need for immediate followup. all aspects of this case were discussed the attending of record. Impression: rash Follow up with dr. schmitt within the next 2 days Follow up with the hazardous materials waste technician within the next 2 days Return if symptoms worsen,persist or if new symptoms develop Disposition/Present on Arrival - Present on Arrival Any Indicators Present on Arrival: No History of DVT/PE: No History of Uncontrolled Diabetes: No Urinary Catheter: No History of Decub. Ulcer: No History Surgical Site Infection Following: None - Disposition Have Diagnosis and Disposition been Completed?: Yes Diagnosis: Rash Disposition: HOME/ ROUTINE Disposition Time: 17:35 Patient Plan: Discharge Patient Problems: Current Active Problems Problem Status Onset Rash Acute Condition: GOOD Discharge Instructions (ExitCare): Skin Rash (DC) Additional Instructions: Follow up with dr. schmitt within the next 2 days Follow up with the hazardous materials waste technician within the next 2 days Return if symptoms worsen,persist or if new symptoms develop. Referrals: Blas Schmitt MD [Primary Care Provider] - Follow up with primary Bijan Larose MD [Staff Provider] - Follow up with primary Harmony Valladares MD [Staff Provider] - Follow up with primary Forms: [employer] ([place])
[2018-02-25 19:12] VITALS: BP 137/85; PULSE 82
== END 2018-02-25 18:00 | disposition home or self-care (01) ==
LOC: ED 16:29
DX: R21 Rash and other nonspecific skin eruption (principal)

== ENCOUNTER 2018-03-09 23:08 | Inpatient (IN) | payer MEDICAID ==
[2018-03-09 23:08] VITALS: BMI 41.1
--- NOTE | 2018-03-10 00:45 | ED PDOC ---
Arrival/HPI - General Chief Complaint: Medical Clearance Time Seen by Provider: 03/09/18 23:46 Historian: Patient - History of Present Illness Narrative History of Present Illness (Text): 03/10/18 00:41 A 47 year old female, whose past medical history includes asthma, anxiety, bipolar disorder, hypertension, and bacteremia, presents to the emergency department with a complaint of left PICC line malfunction. She notes that the left PICC line site was draining from the site itself upon administration of antibiotics at around 4 PM today She states that she called the nurse to come in and see it. The nurse noted the PICC line was not working properly and sent her into the emergency department. The patient states that she noted redness to the PICC line site. The patient denies fevers, chills, night sweats, headache, dizziness, sore throat, cough, chest pain, shortness of breath, dyspnea on exertion, abdominal pain, nausea, vomiting, diarrhea, neck/back pain, urinary/ bowel changes or any other complaint. PMD: Dr. Dixon 03/10/18 04:09 Time/Duration: Other (Yesterday) Symptom Onset: Sudden Symptom Course: Unchanged Activities at Onset: Rest, Light Context: Home Past Medical History - Provider Review Nursing Documentation Reviewed: Yes - Infectious Disease Hx of Infectious Diseases: None - Tetanus Immunization Tetanus Immunization: Unknown - Past Medical History Past Medical History: No Previous - Cardiac Hx Cardiac Disorders: Yes Hx Hypertension: Yes Hx Pacemaker: No - Pulmonary Hx Respiratory Disorders: Yes Hx Asthma: Yes - Neurological Hx Neurological Disorder: No - HEENT Hx HEENT Disorder: No - Renal Hx Renal Disorder: No - Endocrine/Metabolic Hx Endocrine Disorders: No - Hematological/Oncological Hx Cancer: No - Integumentary Hx Dermatological Disorder: Yes Other/Comment: bruising multiple left arm - Musculoskeletal/Rheumatological Hx Falls: No - Gastrointestinal Hx Gastrointestinal Disorders: Yes (obese) Hx Gastroesophageal Reflux: Yes - Genitourinary/Gynecological Hx Genitourinary Disorders: No - Psychiatric Hx Psychophysiologic Disorder: Yes Hx Anxiety: Yes Hx Depression: Yes (loss of 2018) Hx Emotional Abuse: No Hx Physical Abuse: No Hx Substance Use: No Other/Comment: previous suicide attempt 2018 pills; - Past Surgical History Past Surgical History: No Previous - Surgical History Hx Mastectomy: No - Anesthesia Hx Anesthesia: No Hx Anesthesia Reactions: No - Suicidal Assessment Feels Threatened In Home Enviroment: No Family/Social History - Physician Review Nursing Documentation Reviewed: Yes Family/Social History: No Known Family HX Smoking Status: Never Smoked Hx Alcohol Use: No Hx Substance Use: No Hx Substance Use Treatment: No Allergies/Home Meds Allergies/Adverse Reactions: Allergies No Known Allergies Allergy (Verified 02/10/18 11:56) Home Medications: Home Meds Medication Instructions Recorded Confirmed Cefazolin Sodium in 0.9 % NaCl 2 gm IV Q8 03/09/18 03/09/18 [Cefazolin 2 G/100 ml-0.9% NaCl] Review of Systems - Physician Review All systems were reviewed & negative as marked: Yes - Review of Systems Constitutional: absent: Fevers, Night Sweats Respiratory: absent: SOB, Cough Cardiovascular: absent: Chest Pain, HENRY Gastrointestinal: absent: Abdominal Pain, Stool Changes, Diarrhea, Nausea, Vomiting Genitourinary Female: absent: Urine Output Changes Musculoskeletal: absent: Back Pain, Neck Pain Neurological: absent: Headache, Dizziness Physical Exam Vital Signs Reviewed: Yes Vital Signs Temp Pulse Resp BP Pulse Ox 03/10/18 02:53 72 18 108/54 L 98 03/09/18 23:20 99.5 F 90 18 119/70 98 Temperature: Afebrile Blood Pressure: Normal Pulse: Regular Respiratory Rate: Normal Appearance: Positive for: Well-Appearing, Non-Toxic, Comfortable Pain Distress: None Mental Status: Positive for: Alert and Oriented X 3 - Systems Exam Head: Present: Atraumatic, Normocephalic Pupils: Present: PERRL Extroacular Muscles: Present: EOMI Conjunctiva: Present: Normal Mouth: Present: Moist Mucous Membranes Neck: Present: Normal Range of Motion Respiratory/Chest: Present: Clear to Auscultation, Good Air Exchange. No: Respiratory Distress, Accessory Muscle Use Cardiovascular: Present: Regular Rate and Rhythm, Normal S1, S2. No: Murmurs Abdomen: No: Tenderness, Distention, Peritoneal Signs Back: Present: Normal Inspection Upper Extremity: Present: Tenderness (Mildly tender left bicep area PICC line site. No streaking. No crepitus.), Erythema (Errthema to left bicep area PICC line site. ). No: Cyanosis, Edema Lower Extremity: Present: Normal Inspection. No: Edema Neurological: Present: GCS=15, CN II-XII Intact, Speech Normal Skin: Present: Warm, Dry, Normal Color. No: Rashes Psychiatric: Present: Alert, Oriented x 3, Normal Insight, Normal Concentration Medical Decision Making ED Course and Treatment: 03/10/18 00:48 Impression: A 47 year old female presents to the emergency department with PICC line malfunction, questionable PICC line site infection. Will pull PICC line and give antibiotics given at home. Plan: -- Labs -- Blood/ Urine Culture -- Vancomycin and Ancef -- Reassess and disposition Prior Visits: Notes and results from previous visits were reviewed. Progress Notes: 03/10/18 00:09: Consulted Dr. Dixon who agrees with plan and requests admission to hospitalist's service. 03/10/18 00:45: Pulled PICC line. Good hemostasis. Cultured line. 03/10/18 01:23: appreciate consult w/ PMD- to hospitalist: to Case discussed with Dr. Jarquin who will come evaluate patient. 03/10/18 01:47: Case discussed in detail with medical education manager and Dr. Jarquin who accept patient to the hospitalist's service. 03/10/18 04:10 - Lab Interpretations Lab Results: 03/10/18 00:35 03/10/18 00:35 Lab Results 03/10/18 00:35: Sodium 144, Potassium 3.8, Chloride 102, Carbon Dioxide 27, Anion Gap 19, BUN 8, Creatinine 0.7, Est GFR ( Amer) > 60, Est GFR (Non- Af Amer) > 60, Random Glucose 107, Calcium 9.0, Total Bilirubin 0.6, AST 34, ALT 25, Alkaline Phosphatase 124, Total Protein 7.2, Albumin 4.0, Globulin 3.1, Albumin/Globulin Ratio 1.3 03/10/18 00:35: WBC 9.7 D, RBC 3.24 L, Hgb 9.3 L, Hct 29.2 L, MCV 90.1, MCH 28.7, MCHC 31.8, RDW 15.9 H, Plt Count 343, MPV 8.6, Gran % 64.2, Lymph % (Auto ) 25.1, Armstrong % (Auto) 7.5 H, Eos % (Auto) 2.8, Baso % (Auto) 0.4, Gran # 6.21, Lymph # (Auto) 2.4, Armstrong # (Auto) 0.7 H, Eos # (Auto) 0.3, Baso # (Auto) 0.04 I have reviewed the lab results: Yes - Medication Orders Current Medication Orders: Amitriptyline HCl (Elavil) 25 mg PO HS MANJINDER Atenolol (Tenormin) 25 mg PO BID MANJINDER Enoxaparin Sodium (Lovenox) 40 mg SC DAILY MANJINDER PRN Reason: Protocol Cefazolin Sodium/Dextrose (Ancef Iv 2 Gm Duplex) 2 gm in 50 mls @ 50 mls/hr IVPB Q8 MANJINDER Loratadine (Claritin) 10 mg PO DAILY MANJINDER Lorazepam (Ativan) 0.5 mg PO BID PRN; Protocol PRN Reason: Anxiety Losartan Potassium (Cozaar) 100 mg PO DAILY MANJINDER Montelukast Sodium (Singulair) 10 mg PO DAILY MANJINDER Non-Formulary Medication (Methylprednisolone [Medrol Dose Pack (21 Tabs)]) 4 mg PO DAILY MANJINDER Pantoprazole Sodium (Protonix Inj) 40 mg IVP DAILY MANJINDER Fluticasone/Salmeterol (Advair Diskus 250/50) puff IH PRN PRN PRN Reason: Shortness of Breath Tramadol/Acetaminophen (Ultracet 37.5/325 Mg) 1 tab PO Q6 MANJINDER Triamterene/HCTZ (Dyazide 25 Mg-37.5 Mg) 1 cap PO DAILY MANJINDER Discontinued Medications Vancomycin HCl (Vancomycin 1gm) 1 gm in 250 mls @ 167 mls/hr IVPB STAT STA PRN Reason: Protocol Stop: 03/10/18 02:15 Last Admin: 03/10/18 01:42 Dose: 167 mls/hr eMAR Start Stop Document 03/10/18 01:42 CNR (Rec: 03/10/18 01:42 CNR [id number]) Intravenous Solution Start Date 03/10/18 Start Time 01:42 Cefazolin Sodium/Dextrose (Ancef Iv 2 Gm Duplex) 2 gm in 50 mls @ 50 mls/hr IVPB STAT STA Stop: 03/10/18 01:49 Last Admin: 03/10/18 01:06 Dose: 50 mls/hr eMAR Start Stop Document 03/10/18 01:06 CNR (Rec: 03/10/18 01:07 CNR [id number]) Intravenous Solution Start Date 03/10/18 Start Time 01:06 End Date 03/10/18 End time 01:40 Total Infusion Time 34 - Scribe Statement The provider has reviewed the documentation as recorded by the Сергей Dobbins Provider Rafiibe Attestation: All medical record entries made by the Scribe were at my direction and personally dictated by me. I have reviewed the chart and agree that the record accurately reflects my personal performance of the history, physical exam, medical decision making, and the department course for this patient. I have also personally directed, reviewed, and agree with the discharge instructions and disposition. Disposition/Present on Arrival - Present on Arrival Any Indicators Present on Arrival: No History of DVT/PE: No History of Uncontrolled Diabetes: No Urinary Catheter: No History of Decub. Ulcer: No History Surgical Site Infection Following: None - Disposition Have Diagnosis and Disposition been Completed?: Yes Diagnosis: PICC line infection, Occluded PICC line Disposition: HOSPITALIZED Disposition Time: 00:43 Condition: GOOD
[2018-03-10] MEDS ORDERED: Vancomycin 1gm in NS 250ml 1 GM/250 ML BAG IVPB STA (00:46)
[2018-03-10] MEDS ORDERED: ceFAZolin IV 2 gm in 50 mL D5W IVPB STA (00:50)
[2018-03-10 00:58] LABS: BASO # 0.04 K/mm3 (0.0-2.0); BASO % 0.4 % (0.0-3.0); EOS # 0.3 (0.0-0.7); EOS % 2.8 % (1.5-5.0); GRAN # 6.21 (1.4-6.5); GRAN % 64.2 % (50.0-68.0); HEMOGLOBIN 9.3 g/dL (12.0-16.0); LYMPH # 2.4 (1.2-3.4); LYMPH % 25.1 % (22.0-35.0); MEAN CELL VOLUME 90.1 fl (80.0-105.0); MEAN CORPUSCULAR HEMOGLOBIN 28.7 pg (25.0-35.0); MEAN CORPUSCULAR HGB CONC 31.8 g/dl (31.0-37.0); MEAN PLATELET VOLUME 8.6 fl (7.0-11.0); MONO # 0.7 (0.1-0.6); MONO % 7.5 % (1.0-6.0); RBC 3.24 10^6/uL (3.5-6.1); RED CELL DISTRIBUTION WIDTH 15.9 % (11.5-14.5); WHITE BLOOD COUNT 9.7 10^3/ul (4.5-11.0)
[2018-03-10 01:04] LABS: ALB/GLOB RATIO 1.3 (1.1-1.8); ALT/SGPT 25 U/L (7-56); AST/SGOT 34 U/L (14-36); BLOOD UREA NITROGEN 8 mg/dL (7-21); GFR NON-AFRICAN AMERICAN > 60
--- NOTE | 2018-03-10 03:49 | CP.PCM.HP ---
<Shyam Escamilla - Last Filed: 03/10/18 06:18> History of Present Illness - History of Present Illness History of Present Illness: Shyam Escamilla, PGY-1, Internal Medicine History and Physical For Dr. Goss CC: Malfunctioning PICC line 47 year old female with past medical history of hypertension, gram positive coccemia, asthma, obesity, osteoarthritis, chronic back pain, and insomnia presents with malfunctioning PICC. Patient was discharged on 02/18/18 with ancef IV Q8 hours through a PICC line as per Dr. Dixon for 6 weeks for gram positive coccemia. Today, patient presents with malfunctioning PICC line. The PICC line is clogged and the antibiotics have been not been going through. As a result, patient was told to come to the ER. Patient reports left upper extremity tenderness and erythema, but no warmth or discharge. Patient denies as chest pain, shortness of breath, nausea, vomiting, constipation, diarrhea, dysuria, hematuria. 12-point ROS was negative except for what was listed above. PMH: as stated above PSH: denies Allergies: NKDA FMHx: grandmother from breast cancer. Grandfather from ACS. Uncle had throat cancer. Social: Patient denies smoking, drinking, or recreational drug history. PMD: Dr. Dixon Pharmacy: [facility] Insurance: [employer] Present on Admission - Present on Admission Any Indicators Present on Admission: No History of DVT/PE: No History of Uncontrolled Diabetes: No Review of Systems - Constitutional Constitutional: absent: Anorexia, Chills, Fever - EENT Eyes: absent: Blurred Vision Ears: absent: Ear Discharge Nose/Mouth/Throat: absent: Nasal Congestion - Cardiovascular Cardiovascular: absent: Chest Pain, Chest Pain at Rest, Dyspnea on Exertion - Respiratory Respiratory: absent: Cough, Dyspnea, Hemoptysis - Gastrointestinal Gastrointestinal: absent: Abdominal Pain, Constipation, Diarrhea, Nausea, Vomiting - Integumentary Integumentary: Dry Skin, Rash - Neurological Neurological: absent: Abnormal Gait - Psychiatric Psychiatric: absent: Anxiety, Depression Past Patient History - Infectious Disease Hx of Infectious Diseases: None - Tetanus Immunizations Tetanus Immunization: Unknown - Past Social History Smoking Status: Never Smoked - CARDIAC Hx Cardiac Disorders: Yes Hx Hypertension: Yes Hx Pacemaker: No - PULMONARY Hx Respiratory Disorders: Yes Hx Asthma: Yes - NEUROLOGICAL Hx Neurological Disorder: No - HEENT Hx HEENT Problems: No - RENAL Hx Chronic Kidney Disease: No - ENDOCRINE/METABOLIC Hx Endocrine Disorders: No - HEMATOLOGICAL/ONCOLOGICAL Hx Cancer: No - INTEGUMENTARY Hx Dermatological Problems: Yes Other/Comment: bruising multiple left arm - MUSCULOSKELETAL/RHEUMATOLOGICAL Hx Falls: No - GASTROINTESTINAL Hx Gastrointestinal Disorders: Yes (obese) Hx Gastroesophageal Reflux: Yes - GENITOURINARY/GYNECOLOGICAL Hx Genitourinary Disorders: No - PSYCHIATRIC Hx Psychophysiologic Disorder: Yes Hx Anxiety: Yes Hx Depression: Yes (loss of 2018) Hx Emotional Abuse: No Hx Physical Abuse: No Hx Substance Use: No Other/Comment: previous suicide attempt 2018 pills; - SURGICAL HISTORY Hx Mastectomy: No - ANESTHESIA Hx Anesthesia: No Hx Anesthesia Reactions: No Meds Allergies/Adverse Reactions: Allergies Allergy/AdvReac Type Severity Reaction Status Date / Time No Known Allergies Allergy Verified 02/10/18 11:56 Physical Exam - Constitutional Appears: Well, Non-toxic, No Acute Distress - Head Exam Head Exam: ATRAUMATIC, NORMAL INSPECTION, NORMOCEPHALIC - Eye Exam Eye Exam: EOMI, PERRL - ENT Exam ENT Exam: Mucous Membranes Moist - Respiratory Exam Respiratory Exam: Clear to Auscultation Bilateral, NORMAL BREATHING PATTERN - Cardiovascular Exam Cardiovascular Exam: REGULAR RHYTHM, RRR - GI/Abdominal Exam GI & Abdominal Exam: Normal Bowel Sounds, Soft - Extremities Exam Extremities exam: Positive for: full ROM, normal inspection, tenderness (left upper extremity) - Back Exam Back exam: absent: CVA tenderness (L), CVA tenderness (R) - Neurological Exam Neurological exam: Alert, CN II-XII Intact, Oriented x3 - Skin Skin Exam: Dry, Rash (around site of PICC line. Hard nodule was felt at the site of PICC line.) Results - Vital Signs Recent Vital Signs: Last Vital Signs Temp 99.5 F 03/09/18 23:20 Pulse 72 03/10/18 02:53 Resp 18 03/10/18 02:53 BP 108/54 L 03/10/18 02:53 Pulse Ox 98 03/10/18 02:53 - Labs Result Diagrams: 03/10/18 00:35 03/10/18 00:35 Assessment & Plan - Assessment and Plan (Free Text) Assessment: 47 year old female with past medical history of hypertension, gram positive coccemia, asthma, obesity, osteoarthritis, chronic back pain, and insomnia presents with malfunctioning PICC. Patient will be admitted for ruling out thrombus and for replacement of PICC line for MSSA. Plan: MSSA Bacteremia -On last discharge, patient was supposed to take cefazolin 1 gm Q8 for 6 weeks post discharge on 02/18/18. She is currently on week 4 of therapy -Blood culture ordered, catheter tip culture ordered -Dr. Rivera, ID, consulted for recommendations regarding whether to switch patient to xyvox or to keep patient on cefazolin with PICC line. -Continue cefazolin Rule out Left upper extremity DVT -Nodule appreciated at site of PICC line insertion -Duplex ultrasound of left upper extremity ordered to rule out DVT -Follow up results Hypertension -BP: 108/54 -Continue home dose of atenolol, losartan, hydrochlorothiazide -Continue to monitor. Normocytic Anemia 2/2 likely to anemia of chronic disease -Hgb: 9.3 -Iron, TIBC, Ferritin were normal on 02/13/18 -Continue to monitor. Asthma -O2 saturation: 98% on room air -Medrol dose pack, singulair dialy -Advair as needed Anxiety -Continue home ativan. Depression -Continue home amitriptyline Chronic pain syndrome -Continue tramadol/acetaminophen Q6 -Patient counseled regarding use of opiods. GI prophylaxis: protonix 40 mg daily DVT prophylaxis: lovenox 40 mg daily Patient plan discussed with Dr. Goss. - Date & Time Date: 03/10/18 Time: 03:54 <Violeta Goss - Last Filed: 03/10/18 06:21> Results - Vital Signs Recent Vital Signs: Last Vital Signs Temp 98 F 03/10/18 03:10 Pulse 70 03/10/18 03:10 Resp 20 03/10/18 03:10 BP 120/74 03/10/18 03:10 Pulse Ox 98 03/10/18 02:53 - Labs Result Diagrams: 03/10/18 00:35 03/10/18 00:35 Attending/Attestation - Attestation I have personally seen and examined this patient.: Yes I have fully participated in the care of the patient.: Yes I have reviewed all pertinent clinical information: Yes Notes (Text): Need to R/O DVT in LUE. Alternatively ID consult sought to see if pt. can be transitioned to PO Zyvox. 03/10/18 06:20
[2018-03-10] MEDS ORDERED: Fluticasone-Salmeterol 250-50mcg Diskus IH PRN (04:01)
[2018-03-10] MEDS: TraMADol/Apap 37.5/325 mg Tab PO SCH ×2 (05:59→15:35)
[2018-03-10] MEDS: ceFAZolin IV 2 gm in 50 mL D5W IVPB SCH ×3 (05:59→22:02)
[2018-03-10] MEDS: Budesonide 0.5 mg/2 ml Inhal Susp UD IH SCH ×2 (07:41→20:12)
[2018-03-10] MEDS: Arformoterol 15 mcg/2 ml Inh Sol IH SCH ×2 (07:41→20:12)
[2018-03-10] MEDS ORDERED: Budesonide 0.5 mg/2 ml Inhal Susp UD IH SCH (08:00)
[2018-03-10] MEDS ORDERED: Arformoterol 15 mcg/2 ml Inh Sol IH SCH (08:00)
[2018-03-10] MEDS ORDERED: METHYLPREDNISOLONE 4 MG PO SCH (10:00)
[2018-03-10] MEDS ORDERED: Enoxaparin 40 mg Syringe SC SCH (10:00)
[2018-03-10] MEDS: hydroCHLOROthiazide-Triamterene 25 mg-37.5 mg Cap UD PO SCH (10:43)
[2018-03-10] MEDS ORDERED: Enoxaparin 100 mg Syringe SC SCH (11:30)
[2018-03-10] MEDS ORDERED: Enoxaparin 60 mg Syringe SC STA (11:33)
--- NOTE | 2018-03-10 14:43 | US ---
PROCEDURE: Upper extremity JONO exam HISTORY: Peripheral vascular disease with pain. PHYSICIAN(S): Tam Rodgers MD. FINDINGS: The resting WBI's are normal: right, 1.10and left, 1.18. The upper arm, forearm, and wrist PVR waveforms are normal and symmetric. The segmental pressures are normal at all levels. IMPRESSION: 1. Normal WBI and PVR examination at rest.
--- NOTE | 2018-03-10 14:46 | US ---
HISTORY: Arm pain and swelling. Evaluate for deep venous thrombosis. PHYSICIAN(S): Tam Rodgers MD. FINDINGS: There is is occlusive thrombus noted in the left basilic vein above the elbow. The left axillary vein, left subclavian vein, and left innominate vein are patent and compressible. There is no sonographic evidence deep venous thrombosis in the visualized segments of the right upper extremity IMPRESSION: 1. Superficial thrombophlebitis in the left basilic vein above the elbow
[2018-03-10] MEDS: Enoxaparin 100 mg Syringe SC SCH (17:29)
[2018-03-10] MEDS: oxyCODONE 30 mg Immediate Release Tab PO PRN (22:03)
--- NOTE | 2018-03-10 22:36 | CP.PCM.CON ---
History of Present Illness - History of Present Illness History of Present Illness: 47 year old female with PMH of severe sepsis due to healthcare-associated pneumonia with possible gram positive cocci and/or gram negative bacilli and/or atypical organisms, chronic asthma, obesity with BMI 38, anxiety. bipolar disorder, HTN was recently in [facility] because of MSSA bacteremia and was recommended to get 4-6 weeks of antibiotics. She was doing well with her PICC line until she started having some swelling of her left arm and the PICC line is clogged. She denies fever or chills, no nausea or vomiting, no chest pain, no SOB, no headache or dizziness, no cough or rhinorrhea, no abdominal pain, no diarrhea, no dysuria. Infectious Diseases consult is requested to further evaluate and manage. Review of Systems - Review of Systems All systems: reviewed and no additional remarkable complaints except (as per HPI ) Past Patient History - Infectious Disease Hx of Infectious Diseases: None - Tetanus Immunizations Tetanus Immunization: Unknown - Past Social History Smoking Status: Never Smoked - CARDIAC Hx Cardiac Disorders: Yes Hx Hypertension: Yes Hx Pacemaker: No - PULMONARY Hx Respiratory Disorders: Yes Hx Asthma: Yes - NEUROLOGICAL Hx Neurological Disorder: No - HEENT Hx HEENT Problems: No - RENAL Hx Chronic Kidney Disease: No - ENDOCRINE/METABOLIC Hx Endocrine Disorders: No - HEMATOLOGICAL/ONCOLOGICAL Hx Cancer: No - INTEGUMENTARY Hx Dermatological Problems: Yes Other/Comment: bruising multiple left arm - MUSCULOSKELETAL/RHEUMATOLOGICAL Hx Falls: No - GASTROINTESTINAL Hx Gastrointestinal Disorders: Yes (obese) Hx Gastroesophageal Reflux: Yes - GENITOURINARY/GYNECOLOGICAL Hx Genitourinary Disorders: No - PSYCHIATRIC Hx Psychophysiologic Disorder: Yes Hx Anxiety: Yes Hx Depression: Yes (loss of 2018) Hx Emotional Abuse: No Hx Physical Abuse: No Hx Substance Use: No Other/Comment: previous suicide attempt 2018 pills; - SURGICAL HISTORY Hx Mastectomy: No - ANESTHESIA Hx Anesthesia: No Hx Anesthesia Reactions: No Meds Allergies/Adverse Reactions: Allergies Allergy/AdvReac Type Severity Reaction Status Date / Time No Known Allergies Allergy Verified 02/10/18 11:56 - Medications Medications: Current Medications Amitriptyline HCl (Elavil) 25 mg PO HS MANJINDER Arformoterol Tartrate (Brovana) 15 mcg IH [id number] MANJINDER Atenolol (Tenormin) 25 mg PO BID MANJINDER Budesonide (Pulmicort Respules) 0.5 mg IH [id number] [facility] Enoxaparin Sodium (Lovenox) 40 mg SC DAILY MANJINDER PRN Reason: Protocol Cefazolin Sodium/Dextrose (Ancef Iv 2 Gm Duplex) 2 gm in 50 mls @ 50 mls/hr IVPB Q8 [facility] Last Admin: 03/10/18 05:59 Dose: 50 mls/hr Lorazepam (Ativan) 0.5 mg PO BID PRN; Protocol PRN Reason: Anxiety Losartan Potassium (Cozaar) 100 mg PO DAILY [facility] Montelukast Sodium (Singulair) 10 mg PO DAILY [facility] Pantoprazole Sodium (Protonix Inj) 40 mg IVP DAILY [facility] Tramadol/Acetaminophen (Ultracet 37.5/325 Mg) 1 tab PO Q6 [facility] Last Admin: 03/10/18 05:59 Dose: 1 tab Triamterene/HCTZ (Dyazide 25 Mg-37.5 Mg) 1 cap PO DAILY [facility] Physical Exam - Constitutional Appears: Non-toxic, No Acute Distress, Chronically Ill - Head Exam Head Exam: NORMAL INSPECTION - ENT Exam ENT Exam: Mucous Membranes Moist - Neck Exam Neck exam: Negative for: Meningismus - Respiratory Exam Respiratory Exam: Decreased Breath Sounds - Cardiovascular Exam Cardiovascular Exam: +S1, +S2 - GI/Abdominal Exam GI & Abdominal Exam: Soft. absent: Tenderness - Extremities Exam Additional comments: mild swelling of left arm Results - Vital Signs Recent Vital Signs: Last Vital Signs Temp 98 F 03/10/18 03:10 Pulse 70 03/10/18 03:10 Resp 20 03/10/18 03:10 BP 120/74 03/10/18 03:10 Pulse Ox 98 03/10/18 02:53 - Labs Result Diagrams: 03/10/18 00:35 03/10/18 00:35 Assessment & Plan - Assessment and Plan (Free Text) Plan: Assessment Methicillin-sensitive Staph aureus bacteremia, source unclear, 2D echo is negative superficial thrombophlebitis of left basilic vein on left arm S/P severe sepsis due to healthcare-associated pneumonia with possible gram positive cocci and/or gram negative bacilli and/or atypical organisms chronic asthma obesity with BMI 38 anxiety bipolar disorder HTN Plan will repeat blood cx will continue Cefazolin (day 27 from 1st negative blood cx) to complete 4-6 weeks of therapy with outpatient follow up with PMD anticoagulation as per medical team will monitor clinically
[2018-03-11] MEDS: ceFAZolin IV 2 gm in 50 mL D5W IVPB SCH ×3 (06:00→21:32)
[2018-03-11] MEDS: Enoxaparin 100 mg Syringe SC SCH ×2 (06:00→17:09)
[2018-03-11] MEDS: Arformoterol 15 mcg/2 ml Inh Sol IH SCH ×2 (07:29→19:28)
[2018-03-11] MEDS: Budesonide 0.5 mg/2 ml Inhal Susp UD IH SCH ×2 (07:29→19:28)
[2018-03-11] MEDS: hydroCHLOROthiazide-Triamterene 25 mg-37.5 mg Cap UD PO SCH (09:59)
[2018-03-11] MEDS: Pantoprazole 40 mg EC Tab PO SCH (09:59)
[2018-03-11] MEDS: oxyCODONE 30 mg Immediate Release Tab PO PRN ×2 (10:28→21:06)
--- NOTE | 2018-03-11 13:03 | CP.PCM.PN ---
<Allison Boudreaux - Last Filed: 03/11/18 16:08> Subjective - Date & Time of Evaluation Date of Evaluation: 03/11/18 Time of Evaluation: 12:59 - Subjective Subjective: Allison Boudreaux PGY1 Progress Note for Dr. Tilley Ms. Mosher was examined at bedside this morning. She had no acute complaints. She denied any headache, dizziness, shortness of breath, chest pain, nausea, vomiting, diarrhea. Objective - Vital Signs/Intake and Output Vital Signs (last 24 hours): Temp Pulse Resp BP Pulse Ox 98.3 F 65 20 156/86 H 98 03/11/18 12:48 03/11/18 12:48 03/11/18 12:48 03/11/18 12:48 03/11/18 12:48 Intake and Output: 03/11/18 03/11/18 06:59 18:59 Intake Total 360 Balance 360 - Medications Medications: Current Medications Amitriptyline HCl (Elavil) [address] [facility] Last Admin: 03/10/18 22:02 Dose: 25 mg Arformoterol Tartrate (Brovana) [id number] [facility] Last Admin: 03/11/18 07:29 Dose: 15 mcg Atenolol (Tenormin) [address] [facility] Last Admin: 03/11/18 09:59 Dose: 25 mg Budesonide (Pulmicort Respules) 0.[id number] [facility] Last Admin: 03/11/18 07:29 Dose: 0.5 mg Docusate Sodium (Colace) [address] [facility] Last Admin: 03/11/18 09:59 Dose: 100 mg Enoxaparin Sodium (Lovenox) 100 mg SC Q12H [facility] PRN Reason: Protocol Last Admin: 03/11/18 06:00 Dose: 100 mg Cefazolin Sodium/Dextrose (Ancef Iv 2 Gm Duplex) 2 gm in 50 mls @ 50 mls/hr IVPB Q8 [facility] Last Admin: 03/11/18 06:00 Dose: 50 mls/hr Lorazepam (Ativan) 0.5 mg PO BID PRN; Protocol PRN Reason: Anxiety Last Admin: 03/11/18 01:30 Dose: 0.5 mg Losartan Potassium (Cozaar) [address] [facility] Last Admin: 03/11/18 09:59 Dose: 100 mg Montelukast Sodium (Singulair) [address] [facility] Last Admin: 03/11/18 10:00 Dose: 10 mg Oxycodone HCl (Oxycodone Immediate Release Tab) 30 mg PO Q8H PRN PRN Reason: Pain, severe (8-10) Last Admin: 03/11/18 10:28 Dose: 30 mg Pantoprazole Sodium (Protonix Ec Tab) [address] [facility] Last Admin: 03/11/18 09:59 Dose: 40 mg Triamterene/HCTZ (Dyazide 25 Mg-37.5 Mg) 1 cap PO DAILY [facility] Last Admin: 03/11/18 09:59 Dose: 1 cap - Constitutional Appears: Well, No Acute Distress - Head Exam Head Exam: ATRAUMATIC, NORMOCEPHALIC - Eye Exam Eye Exam: Normal appearance Pupil Exam: NORMAL ACCOMODATION - ENT Exam ENT Exam: Mucous Membranes Moist - Respiratory Exam Respiratory Exam: Clear to Ausculation Bilateral, NORMAL BREATHING PATTERN. absent: Rales, Rhonchi, Wheezes - Cardiovascular Exam Cardiovascular Exam: REGULAR RHYTHM, +S1, +S2 - GI/Abdominal Exam GI & Abdominal Exam: Soft, Normal Bowel Sounds. absent: Distended, Tenderness - Extremities Exam Extremities Exam: Pedal Edema Additional comments: LUE: areas of erythematous edematous papules on anterior arm, improved - Neurological Exam Neurological Exam: Alert, Awake, Oriented x3 - Psychiatric Exam Psychiatric exam: Normal Affect, Normal Mood Assessment and Plan - Assessment and Plan (Free Text) Assessment: 47 year old female with past medical history of hypertension, gram positive coccemia, asthma, obesity, osteoarthritis, chronic back pain, and insomnia presents with malfunctioning PICC. Patient will be admitted for ruling out thrombus and for replacement of PICC line for MSSA. Plan: MSSA Bacteremia - On week 4 ancef 1g q8h as per previous d/c plan - BCx: negative - rpt BCx: pending - catheter tip Cx: pending - pt afebrile - contiue ancef as per ID - possible insertion of new PICC line - ID consulted, Dr. Maldonado - michael appreciated LUE Thrombus - LUE US: occlusive thrombus in L vasilic vein above elbow, superficial thrombophlebitis - continue lovenox 100 - Heme/Onc Consulted, Dr. Chavarria - f/u recs LE Edema - pt reports b/l LE edema prior to admission - compression stockings on, advised larger size - LE doppler ordered: f/u results HTN -BP: 156/86 -Continue home dose of atenolol, losartan, hydrochlorothiazide -Continue to monitor Normocytic Anemia 2/2 likely to anemia of chronic disease - Hb (03/11): 9.3 - Continue to monitor Asthma - O2 saturation: 98% on room air - continue singulair daily - Advair PRN Anxiety - Continue home ativan Depression - Continue home amitriptyline Chronic pain syndrome - start oxycodone 30 q8h, confirmed with pt pharmacy - Patient counseled regarding use of opiods PPx: GI: protonix 40 mg daily Patient plan discussed with Dr. Tilley. <Jennifer Tilley R - Last Filed: 03/11/18 20:45> Objective - Vital Signs/Intake and Output Vital Signs (last 24 hours): Temp Pulse Resp BP Pulse Ox 98.3 F 65 20 155/84 H 98 03/11/18 12:48 03/11/18 12:48 03/11/18 12:48 03/11/18 17:10 03/11/18 12:48 Intake and Output: 03/11/18 03/12/18 18:59 06:59 Intake Total 720 Balance 720 - Medications Medications: Current Medications Amitriptyline HCl (Elavil) [address] [facility] Last Admin: 03/10/18 22:02 Dose: 25 mg Arformoterol Tartrate (Brovana) [id number] [facility] Last Admin: 03/11/18 19:28 Dose: 15 mcg Atenolol (Tenormin) [address] [facility] Last Admin: 03/11/18 17:10 Dose: 25 mg Budesonide (Pulmicort Respules) 0.[id number] [facility] Last Admin: 03/11/18 19:28 Dose: 0.5 mg Docusate Sodium (Colace) [address] [facility] Last Admin: 03/11/18 09:59 Dose: 100 mg Enoxaparin Sodium (Lovenox) [address] [facility] PRN Reason: Protocol Last Admin: 03/11/18 17:09 Dose: 100 mg Cefazolin Sodium/Dextrose (Ancef Iv 2 Gm Duplex) 2 gm in 50 mls @ 50 mls/hr IVPB Q8 [facility] Last Admin: 03/11/18 13:33 Dose: 50 mls/hr Lorazepam (Ativan) 0.5 mg PO BID PRN; Protocol PRN Reason: Anxiety Last Admin: 03/11/18 01:30 Dose: 0.5 mg Losartan Potassium (Cozaar) [address] [facility] Last Admin: 03/11/18 09:59 Dose: 100 mg Montelukast Sodium (Singulair) [address] [facility] Last Admin: 03/11/18 10:00 Dose: 10 mg Oxycodone HCl (Oxycodone Immediate Release Tab) 30 mg PO Q8H PRN PRN Reason: Pain, severe (8-10) Last Admin: 03/11/18 10:28 Dose: 30 mg Pantoprazole Sodium (Protonix Ec Tab) [address] [facility] Last Admin: 03/11/18 09:59 Dose: 40 mg Triamterene/HCTZ (Dyazide 25 Mg-37.5 Mg) [address] [facility] Last Admin: 03/11/18 09:59 Dose: 1 cap Attending/Attestation - Attestation I have personally seen and examined this patient.: Yes I have fully participated in the care of the patient.: Yes I have reviewed all pertinent clinical information, including history, physical exam and plan: Yes Notes (Text): Patient seen and examined by me at 10:20AM with resident. Case including HPI, physical exam, and assessment and plan discussed with resident. Agree with above with following additions/corrections. Patient is a 47 year old female with past medical history significant for hypertension, asthma, obesity, osteoarthritis, chronic back pain, insomnia, and gram positive bacteremia that presented to the emergency room with malfunctioning PICC line. Patient states is feeling ok. Denies any pain in LUE. She denies any chest pain or shortness of breath. No headache or dizziness. No fevers or chills. No nausea , vomiting, or abdominal pain. She does complain of some lower extremity swelling. Physical exam: Gen: Awake and alert sitting up in bed in no acute distress HEENT: Normocephalic, atraumatic. Extraocular muscles intact, pupils equal reactive. No scleral icterus. Oropharynx is pink and moist. Neck is supple. Cardiovascular: Normal rhythm. Normal S1, S2. No murmurs, rubs, or gallops appreciated Pulmonary: Normal respiratory effort. No rhonchi, rales, or wheezing appreciated. Gastrointestinal: Soft, nontender, nondistended. Positive bowel sounds all 4 quadrants, no guarding. Musculoskeletal: Moves all extremities. No calf tenderness. Positive hard area felt at sight of previous PICC line. Positive bilateral lower extremity edema. Central nervous system: AAO x 3. Dermatologic: Skin warm and dry Assessment and plan: Patient is a 47 year old female with past medical history significant for hypertension, asthma, obesity, osteoarthritis, chronic back pain , insomnia, and gram positive bacteremia that presented to the emergency room with malfunctioning PICC line 1. Malfunctioning PICC line. PICC line removed. ID following, recommendations appreciated. Follow up for recommended outpatient antibiotics 2. MSSA Bacteremia. One blood culture positive for staph aureus 02/10/18. Patient is on week for on Ancef. ID following, recommendations appreciated 3. LUE thrombus. LUE ultrasound positive for occlusive thrombus of left basilic vein above the left elbow, superficial thrombophlebitis. Continue therapeutic lovenox. Hem/onc consulted, follow up recommendations. 4. Bilateral lower extremity edema. Follow up lower extremity dopplers to rule out DVT 5. Hypertension. Continue atenolo, losartan, Triamterene/HCTZ 6. Anemia. Appears to be chronic. No signs of bleeding. Asymptomatic. Continue to monitor. 7. Asthma. Not in acute exacerbation. Continue Brovana, Singulair, and pulmicort 8. Depression and anxiety. Continue Elavil and ativan prn. 9. Chronic pain syndrome. Continue home oxycodone Case was discussed in detail with the patient regarding current diagnosis and treatment plan.
--- NOTE | 2018-03-11 14:52 | PN ---
Copied To: Harley Le MD Attending MD: Harley Le MD DATE: 03/11/2018 SUBJECTIVE: The patient is in bed, in no acute distress, nontoxic. PHYSICAL EXAMINATION: VITAL SIGNS: Temperature is 98, blood pressure is 150/70, respiratory rate of 16. HEENT: Unremarkable. NECK: Supple. LUNGS: Have decreased breath sounds. HEART: Normal S1, S2. ABDOMEN: Soft, nontender. LABORATORY DATA: Laboratory examination reveals a white count of 9.7 and hemoglobin of 9. Chemistries are noted. Microbiology reveals the blood cultures are no growth at 24 hours. Review of orders reveals the patient to be on cefazolin. ASSESSMENT AND PLAN: A 47-year-old female seen earlier today in 572, bed 1, admitted with sensitive Staphylococcus aureus bacteremia with superficial thrombophlebitis of left basilic vein and left arm and chronic asthma, obesity with a body mass index of 38, on cefazolin day #28, would complete 4-6 weeks of antibiotics in a patient with anxiety. We will follow with you and laboratories. Ultrasound of the extremity is pending. Repeat cultures from yesterday are no growth. Harley Le MD
[2018-03-11] MEDS ORDERED: DiphenhydrAMINE 50 mg/ml Inj IVP STA (22:06)
[2018-03-12] MEDS: oxyCODONE 30 mg Immediate Release Tab PO PRN ×3 (05:04→21:14)
[2018-03-12] MEDS: ceFAZolin IV 2 gm in 50 mL D5W IVPB SCH ×3 (06:07→21:09)
[2018-03-12] MEDS: Enoxaparin 100 mg Syringe SC SCH ×2 (06:08→17:03)
[2018-03-12 06:41] LABS: BASO # 0.04 K/mm3 (0.0-2.0); BASO % 0.4 % (0.0-3.0); EOS # 0.1 (0.0-0.7); EOS % 1.3 % (1.5-5.0); GRAN # 6.1 (1.4-6.5); GRAN % 67.9 % (50.0-68.0); HEMOGLOBIN 9.1 g/dL (12.0-16.0); LYMPH # 2.2 (1.2-3.4); LYMPH % 24.6 % (22.0-35.0); MEAN CELL VOLUME 87.7 fl (80.0-105.0); MEAN CORPUSCULAR HEMOGLOBIN 28.1 pg (25.0-35.0); MEAN PLATELET VOLUME 8.8 fl (7.0-11.0); MONO # 0.5 (0.1-0.6); MONO % 5.8 % (1.0-6.0); RBC 3.24 10^6/uL (3.5-6.1); RED CELL DISTRIBUTION WIDTH 15.5 % (11.5-14.5)
[2018-03-12 06:51] LABS: ALB/GLOB RATIO 1.2 (1.1-1.8); ALBUMIN 3.6 g/dL (3.0-4.8); ALT/SGPT 18 U/L (7-56); AST/SGOT 23 U/L (14-36); BLOOD UREA NITROGEN 8 mg/dL (7-21); CALCIUM 9.1 mg/dL (8.4-10.5); GFR NON-AFRICAN AMERICAN > 60
[2018-03-12] MEDS: Pantoprazole 40 mg EC Tab PO SCH (07:52)
[2018-03-12] MEDS: hydroCHLOROthiazide-Triamterene 25 mg-37.5 mg Cap UD PO SCH (09:51)
[2018-03-12] MEDS: Arformoterol 15 mcg/2 ml Inh Sol IH SCH ×2 (12:10→19:24)
[2018-03-12] MEDS: Budesonide 0.5 mg/2 ml Inhal Susp UD IH SCH ×2 (12:10→19:24)
--- NOTE | 2018-03-12 14:45 | CP.PCM.PN ---
<Allison Boudreaux - Last Filed: 03/12/18 16:04> Subjective - Date & Time of Evaluation Date of Evaluation: 03/12/18 Time of Evaluation: 14:42 - Subjective Subjective: Allison Boudreaux PGY1 Progress Note for Jarek Camacho Ms. Mosher was examined at bedside this morning. She reports having trouble sleeping last night due to long standing insomnia. She reports improvement of her leg swelling. She has no other complaints. She denies dizziness, shortness of breath, abdominal pain, chest pain, nausea, vomiting, diarrhea. Objective - Vital Signs/Intake and Output Vital Signs (last 24 hours): Temp Pulse Resp BP Pulse Ox 98.5 F 73 20 144/90 95 03/12/18 07:00 03/12/18 10:23 03/12/18 07:00 03/12/18 10:23 03/12/18 07:00 Intake and Output: 03/12/18 03/12/18 06:59 18:59 Intake Total 200 Balance 200 - Medications Medications: Current Medications Amitriptyline HCl (Elavil) 25 mg PO HS [facility] Last Admin: 03/11/18 21:06 Dose: 25 mg Amlodipine Besylate (Norvasc) 5 mg PO DAILY [facility] Last Admin: 03/12/18 10:23 Dose: 5 mg Arformoterol Tartrate (Brovana) 15 mcg IH [id number] [facility] Last Admin: 03/12/18 12:10 Dose: 15 mcg Atenolol (Tenormin) 25 mg PO BID [facility] Last Admin: 03/12/18 09:52 Dose: 25 mg Budesonide (Pulmicort Respules) 0.5 mg IH [id number] [facility] Last Admin: 03/12/18 12:10 Dose: 0.5 mg Docusate Sodium (Colace) 100 mg PO DAILY [facility] Last Admin: 03/12/18 09:52 Dose: 100 mg Enoxaparin Sodium (Lovenox) 100 mg SC Q12H [facility] PRN Reason: Protocol Last Admin: 03/12/18 06:08 Dose: 100 mg Cefazolin Sodium/Dextrose (Ancef Iv 2 Gm Duplex) 2 gm in 50 mls @ 50 mls/hr IVPB Q8 [facility] Last Admin: 03/12/18 13:17 Dose: 50 mls/hr Lorazepam (Ativan) 0.5 mg PO BID PRN; Protocol PRN Reason: Anxiety Last Admin: 03/11/18 22:41 Dose: 0.5 mg Losartan Potassium (Cozaar) 100 mg PO DAILY [facility] Last Admin: 03/12/18 09:52 Dose: 100 mg Montelukast Sodium (Singulair) 10 mg PO DAILY [facility] Last Admin: 03/12/18 09:52 Dose: 10 mg Oxycodone HCl (Oxycodone Immediate Release Tab) 30 mg PO Q8H PRN PRN Reason: Pain, severe (8-10) Last Admin: 03/12/18 13:08 Dose: 30 mg Pantoprazole Sodium (Protonix Ec Tab) 40 mg PO ACB [facility] Last Admin: 03/12/18 07:52 Dose: 40 mg Triamterene/HCTZ (Dyazide 25 Mg-37.5 Mg) 1 cap PO DAILY [facility] Last Admin: 03/12/18 09:51 Dose: 1 cap Zolpidem Tartrate (Ambien) 5 mg PO HS PRN; Protocol PRN Reason: Insomnia - Labs Labs: 03/12/18 06:00 03/12/18 06:00 - Constitutional Appears: Well, No Acute Distress - Head Exam Head Exam: ATRAUMATIC, NORMOCEPHALIC - ENT Exam ENT Exam: Mucous Membranes Moist - Respiratory Exam Respiratory Exam: Clear to Ausculation Bilateral, NORMAL BREATHING PATTERN. absent: Rales, Rhonchi, Wheezes - Cardiovascular Exam Cardiovascular Exam: REGULAR RHYTHM, +S1, +S2 - GI/Abdominal Exam GI & Abdominal Exam: Soft, Normal Bowel Sounds. absent: Tenderness - Extremities Exam Extremities Exam: Pedal Edema Additional comments: improved LE edema from yesterday - Neurological Exam Neurological Exam: Alert, Awake - Psychiatric Exam Psychiatric exam: Normal Affect, Normal Mood - Skin Additional comments: improved erythematous scaly papules on anterior L upper extremity Assessment and Plan - Assessment and Plan (Free Text) Assessment: 47 year old female with past medical history of hypertension, gram positive coccemia, asthma, obesity, osteoarthritis, chronic back pain, and insomnia presents with malfunctioning PICC. Patient will be admitted for ruling out thrombus and for replacement of PICC line for MSSA. Plan: MSSA Bacteremia - On week 4 ancef 1g q8h as per previous d/c plan - BCx: negative - rpt BCx: negative - catheter tip Cx: pending - pt continues to be afebrile - contiue ancef as per ID - d/c with levaquin PO daily x 2weeks - ID consulted, Dr. Maldonado - recs appreciated LUE Thrombus - LUE US: occlusive thrombus in L vasilic vein above elbow, superficial thrombophlebitis - continue lovenox 100 - Heme/Onc Consulted, Dr. Chavarria - f/u recs LE Edema - pt reports b/l LE edema prior to admission, improved today - LE doppler ordered: f/u results HTN - BP: 148/94 - Continue home dose of atenolol, losartan, hydrochlorothiazide - start norvasc 5 - Continue to monitor Normocytic Anemia 2/2 likely to anemia of chronic disease - Hb (03/12): 9.1 - Continue to monitor Asthma - O2 saturation: 95% on room air - continue singulair daily - Advair PRN Anxiety - Continue home ativan Depression - Continue home amitriptyline Chronic pain syndrome - start oxycodone 30 q8h, confirmed with pt pharmacy - Patient counseled regarding use of opiods Insomnia - start ambien 5 qhs PPx: GI: protonix 40 mg daily Patient plan discussed with Dr. Tilley. <Jennifer Tilley - Last Filed: 03/13/18 09:04> Objective - Vital Signs/Intake and Output Vital Signs (last 24 hours): Temp Pulse Resp BP Pulse Ox 98.4 F 72 20 158/93 H 100 03/13/18 06:00 03/13/18 06:00 03/13/18 06:00 03/13/18 06:00 03/13/18 06:00 Intake and Output: 03/13/18 03/13/18 06:59 18:59 Intake Total 1080 Balance 1080 - Medications Medications: Current Medications Amitriptyline HCl (Elavil) 25 mg PO HS [facility] Last Admin: 03/12/18 21:14 Dose: 25 mg Amlodipine Besylate (Norvasc) 5 mg PO DAILY [facility] Last Admin: 03/12/18 10:23 Dose: 5 mg Arformoterol Tartrate (Brovana) 15 mcg IH [id number] [facility] Last Admin: 03/13/18 07:18 Dose: 15 mcg Atenolol (Tenormin) 25 mg PO BID [facility] Last Admin: 03/12/18 17:00 Dose: 25 mg Budesonide (Pulmicort Respules) 0.5 mg IH [id number] [facility] Last Admin: 03/13/18 07:18 Dose: 0.5 mg Docusate Sodium (Colace) 100 mg PO DAILY [facility] Last Admin: 03/12/18 09:52 Dose: 100 mg Enoxaparin Sodium (Lovenox) 100 mg SC Q12H [facility] PRN Reason: Protocol Last Admin: 03/13/18 05:07 Dose: 100 mg Cefazolin Sodium/Dextrose (Ancef Iv 2 Gm Duplex) 2 gm in 50 mls @ 50 mls/hr IVPB Q8 [facility] Last Admin: 03/13/18 05:08 Dose: 50 mls/hr Lorazepam (Ativan) 0.5 mg PO BID PRN; Protocol PRN Reason: Anxiety Last Admin: 03/12/18 19:11 Dose: 0.5 mg Losartan Potassium (Cozaar) 100 mg PO DAILY [facility] Last Admin: 03/12/18 09:52 Dose: 100 mg Montelukast Sodium (Singulair) 10 mg PO DAILY [facility] Last Admin: 03/12/18 09:52 Dose: 10 mg Oxycodone HCl (Oxycodone Immediate Release Tab) 30 mg PO Q8H PRN PRN Reason: Pain, severe (8-10) Last Admin: 03/13/18 05:07 Dose: 30 mg Pantoprazole Sodium (Protonix Ec Tab) 40 mg PO ACB [facility] Last Admin: 03/12/18 07:52 Dose: 40 mg Triamterene/HCTZ (Dyazide 25 Mg-37.5 Mg) 1 cap PO DAILY [facility] Last Admin: 03/12/18 09:51 Dose: 1 cap Zolpidem Tartrate (Ambien) 5 mg PO HS PRN; Protocol PRN Reason: Insomnia Last Admin: 03/12/18 21:14 Dose: 5 mg - Labs Labs: 03/13/18 06:30 03/13/18 06:30 Attending/Attestation - Attestation I have personally seen and examined this patient.: Yes I have fully participated in the care of the patient.: Yes I have reviewed all pertinent clinical information, including history, physical exam and plan: Yes Notes (Text): Patient seen and examined by me at 10:00AM with resident 03/12/18. Case including HPI, physical exam, and assessment and plan discussed with resident. Agree with above with following additions/corrections. Patient is a 47 year old female with past medical history significant for hypertension, asthma, obesity, osteoarthritis, chronic back pain, insomnia, and gram positive bacteremia that presented to the emergency room with malfunctioning PICC line. Patient states is feeling better. Patient states her LUE looks improved. Denies any pain in LUE. She denies any chest pain or shortness of breath. No headache or dizziness. No fevers or chills. No nausea, vomiting, or abdominal pain. Physical exam: Gen: Awake and alert sitting up in bed in no acute distress HEENT: Normocephalic, atraumatic. Extraocular muscles intact, pupils equal reactive. No scleral icterus. Oropharynx is pink and moist. Neck is supple. Cardiovascular: Normal rhythm. Normal S1, S2. No murmurs, rubs, or gallops appreciated Pulmonary: Normal respiratory effort. No rhonchi, rales, or wheezing appreciated. Gastrointestinal: Soft, nontender, nondistended. Positive bowel sounds all 4 quadrants, no guarding. Musculoskeletal: Moves all extremities. No calf tenderness. Positive hard area felt at sight of previous PICC line, improved erythema. Positive bilateral lower extremity edema. Central nervous system: AAO x 3. Dermatologic: Skin warm and dry Assessment and plan: Patient is a 47 year old female with past medical history significant for hypertension, asthma, obesity, osteoarthritis, chronic back pain , insomnia, and gram positive bacteremia that presented to the emergency room with malfunctioning PICC line 1. Malfunctioning PICC line. PICC line removed. ID following, recommendations appreciated. Patient to complete antibiotics with PO Levaquin per ID. 2. MSSA Bacteremia. One blood culture positive for staph aureus 02/10/18. Patient is on week 4 of Ancef. ID following, recommendations appreciated 3. LUE thrombus. LUE ultrasound positive for occlusive thrombus of left basilic vein above the left elbow, superficial thrombophlebitis. Continue therapeutic lovenox. Hem/onc consulted, follow up recommendations. 4. Bilateral lower extremity edema. Pending lower extremity dopplers results to rule out DVT 5. Hypertension. Continue atenolol, losartan, Triamterene/HCTZ. Will add Norvasc. 6. Anemia. Appears to be chronic. No signs of bleeding. Asymptomatic. Continue to monitor. 7. Asthma. Not in acute exacerbation. Continue Brovana, Singulair, and pulmicort 8. Depression and anxiety. Continue Elavil and ativan prn. 9. Chronic pain syndrome. Continue home oxycodone Case was discussed in detail with the patient regarding current diagnosis and treatment plan.
--- NOTE | 2018-03-12 14:52 | PN ---
Copied To: Harley Le MD Attending MD: Harley Le MD DATE: 03/12/2018 SUBJECTIVE: The patient is seen in 572, bed 1. The patient is awake and alert. She is eager about going home today. PHYSICAL EXAMINATION: VITAL SIGNS: On exam, temperature is 98, blood pressure is 140/80, respiratory rate of 18. HEENT: Examination of HEENT is unremarkable. NECK: Supple. LUNGS: Have decreased breath sounds. HEART: Normal S1, S2. ABDOMEN: Soft, nontender. LABORATORY DATA: Laboratory examination reveals a white count of 9, hemoglobin of 9, platelets of 392. Chemistries reveals a BUN of 8, creatinine of 0.8. Cultures reveal the patient's blood cultures have no growth. Catheter tip cultures, greater than 15,000 colonies. ASSESSMENT AND PLAN: A 47-year-old female, was seen today, who was admitted with a sensitive Staph aureus bacteremia with superficial thrombophlebitis of the left basilic vein and left arm and chronic asthma, obesity, body mass index of 38, on cefazolin, day #29 and history of anxiety. Repeat cultures negative. The catheter tip culture has greater than 15,000 colonies and no further information. The blood cultures are negative at this time. Dr. Tilley's progress note from yesterday is reviewed. The patient with malfunctioning peripherally inserted central catheter line, which was removed and admitted with a superficial thrombophlebitis in the left basilic vein above the elbow, on cefazolin. We will check on the sedimentation rate and a C-reactive protein. Repeat cultures are negative. Review of microbiology reveals the patient did have one bottle of Staphylococcus aureus from 02/10/2018 and which was pansensitive and repeat blood cultures from 02/12/2018 were negative. Harley Le MD
[2018-03-13] MEDS: Enoxaparin 100 mg Syringe SC SCH (05:07)
[2018-03-13] MEDS: oxyCODONE 30 mg Immediate Release Tab PO PRN ×2 (05:07→13:03)
[2018-03-13] MEDS: ceFAZolin IV 2 gm in 50 mL D5W IVPB SCH ×2 (05:08→13:45)
[2018-03-13 07:03] LABS: BASO # 0.05 K/mm3 (0.0-2.0); BASO % 0.5 % (0.0-3.0); EOS # 0.1 (0.0-0.7); EOS % 1.3 % (1.5-5.0); GRAN # 7.42 (1.4-6.5); GRAN % 68.6 % (50.0-68.0); HEMOGLOBIN 9.5 g/dL (12.0-16.0); LYMPH # 2.6 (1.2-3.4); LYMPH % 23.8 % (22.0-35.0); MEAN CELL VOLUME 88.3 fl (80.0-105.0); MEAN CORPUSCULAR HEMOGLOBIN 27.8 pg (25.0-35.0); MEAN CORPUSCULAR HGB CONC 31.5 g/dl (31.0-37.0); MEAN PLATELET VOLUME 8.7 fl (7.0-11.0); MONO # 0.6 (0.1-0.6); MONO % 5.8 % (1.0-6.0); RBC 3.42 10^6/uL (3.5-6.1); RED CELL DISTRIBUTION WIDTH 15.8 % (11.5-14.5); WHITE BLOOD COUNT 10.8 10^3/ul (4.5-11.0)
[2018-03-13] MEDS: Arformoterol 15 mcg/2 ml Inh Sol IH SCH (07:18)
[2018-03-13] MEDS: Budesonide 0.5 mg/2 ml Inhal Susp UD IH SCH (07:18)
[2018-03-13 07:21] LABS: ALB/GLOB RATIO 1.2 (1.1-1.8); ALBUMIN 3.9 g/dL (3.0-4.8); ALT/SGPT 18 U/L (7-56); AST/SGOT 51 U/L (14-36); BLOOD UREA NITROGEN 9 mg/dL (7-21); CALCIUM 9.7 mg/dL (8.4-10.5); GFR NON-AFRICAN AMERICAN > 60
[2018-03-13 08:05] VITALS: O2SAT 100
[2018-03-13] MEDS: hydroCHLOROthiazide-Triamterene 25 mg-37.5 mg Cap UD PO SCH (10:06)
[2018-03-13] MEDS: Pantoprazole 40 mg EC Tab PO SCH (10:07)
--- NOTE | 2018-03-13 10:55 | CP.PCM.CON ---
History of Present Illness - History of Present Illness History of Present Illness: Heme/Onc Consult Note for Dr. Chavarria -- Edwin Harvey DO PGY2 CC: PICC Line Malfunction Patient is a 47 yo F with PMH of hypertension, gram positive coccemia, asthma, obesity, osteoarthritis, chronic back pain, and insomnia presents to [facility] due to malfunctioning PICC line. Patient was recently admitted and treated for MSSA bacteremia. She was subsequently discharged on 02/18/18 with a PICC line in her left arm for 6 weeks of outpatient antibiotics. However, on 03/10/18 patient was instructed to proceed to the ED due to malfunctioning PICC line and admitted to rule out UE DVT and for continued IV antibiotics. Patient had upper extremity duplex ultrasound, which revealed superficial thrombophlebitis in the left basilic vein above the elbow. PICC line was removed and she was placed on therapeutic lovenox. Hematology was consulted for discharge anticoagulation recommendations. Today, patient reports minimal pain, reythema, or swelling at prior PICC line site. Patient denies any CP, SOB, n/v/d, abdominal pain, fever, chills, [place], or dizziness. PMH: hypertension, gram positive coccemia, asthma, obesity, osteoarthritis, chronic back pain, and insomnia Surg: None All: NKDA SH: Denied tobacco, EtOH, and illicit drug use FHx: Grandmother from breast cancer. Grandfather from ACS. Uncle had throat cancer. Medications: Reviewed, as per SEP PMD: Destiny Review of Systems - Review of Systems All systems: reviewed and no additional remarkable complaints except (12 point ROS reviewed and is negative other than what is stated in HPI.) Past Patient History - Infectious Disease Hx of Infectious Diseases: None - Tetanus Immunizations Tetanus Immunization: Unknown - Past Social History Smoking Status: Never Smoked - CARDIAC Hx Cardiac Disorders: Yes Hx Hypertension: Yes Hx Pacemaker: No - PULMONARY Hx Respiratory Disorders: Yes Hx Asthma: Yes - NEUROLOGICAL Hx Neurological Disorder: No - HEENT Hx HEENT Problems: No - RENAL Hx Chronic Kidney Disease: No - ENDOCRINE/METABOLIC Hx Endocrine Disorders: No - HEMATOLOGICAL/ONCOLOGICAL Hx Cancer: No - INTEGUMENTARY Hx Dermatological Problems: Yes Other/Comment: bruising multiple left arm - MUSCULOSKELETAL/RHEUMATOLOGICAL Hx Falls: No - GASTROINTESTINAL Hx Gastrointestinal Disorders: Yes (obese) Hx Gastroesophageal Reflux: Yes - GENITOURINARY/GYNECOLOGICAL Hx Genitourinary Disorders: No - PSYCHIATRIC Hx Psychophysiologic Disorder: Yes Hx Anxiety: Yes Hx Depression: Yes (loss of 2018) Hx Emotional Abuse: No Hx Physical Abuse: No Hx Substance Use: No Other/Comment: previous suicide attempt 2018 pills; - SURGICAL HISTORY Hx Mastectomy: No - ANESTHESIA Hx Anesthesia: No Hx Anesthesia Reactions: No Meds Allergies/Adverse Reactions: Allergies Allergy/AdvReac Type Severity Reaction Status Date / Time No Known Allergies Allergy Verified 02/10/18 11:56 - Medications Medications: Current Medications Amitriptyline HCl (Elavil) 25 mg PO HS [facility] Last Admin: 03/12/18 21:14 Dose: 25 mg Amlodipine Besylate (Norvasc) 5 mg PO DAILY [facility] Last Admin: 03/13/18 10:07 Dose: 5 mg Arformoterol Tartrate (Brovana) 15 mcg IH [id number] [facility] Last Admin: 03/13/18 07:18 Dose: 15 mcg Atenolol (Tenormin) 25 mg PO BID [facility] Last Admin: 03/13/18 10:07 Dose: 25 mg Budesonide (Pulmicort Respules) 0.5 mg IH [id number] [facility] Last Admin: 03/13/18 07:18 Dose: 0.5 mg Docusate Sodium (Colace) 100 mg PO DAILY [facility] Last Admin: 03/13/18 10:07 Dose: 100 mg Enoxaparin Sodium (Lovenox) 100 mg SC Q12H [facility] PRN Reason: Protocol Last Admin: 03/13/18 05:07 Dose: 100 mg Cefazolin Sodium/Dextrose (Ancef Iv 2 Gm Duplex) 2 gm in 50 mls @ 50 mls/hr IVPB Q8 [facility] Last Admin: 03/13/18 05:08 Dose: 50 mls/hr Lorazepam (Ativan) 0.5 mg PO BID PRN; Protocol PRN Reason: Anxiety Last Admin: 03/12/18 19:11 Dose: 0.5 mg Losartan Potassium (Cozaar) 100 mg PO DAILY [facility] Last Admin: 03/13/18 10:06 Dose: 100 mg Montelukast Sodium (Singulair) 10 mg PO DAILY [facility] Last Admin: 03/13/18 10:07 Dose: 10 mg Oxycodone HCl (Oxycodone Immediate Release Tab) 30 mg PO Q8H PRN PRN Reason: Pain, severe (8-10) Last Admin: 03/13/18 05:07 Dose: 30 mg Pantoprazole Sodium (Protonix Ec Tab) 40 mg PO ACB MANJINDER Last Admin: 03/13/18 10:07 Dose: 40 mg Triamterene/HCTZ (Dyazide 25 Mg-37.5 Mg) 1 cap PO DAILY [facility] Last Admin: 03/13/18 10:06 Dose: 1 cap Zolpidem Tartrate (Ambien) 5 mg PO HS PRN; Protocol PRN Reason: Insomnia Last Admin: 03/12/18 21:14 Dose: 5 mg Physical Exam - Constitutional Appears: No Acute Distress - Head Exam Head Exam: NORMAL INSPECTION - Eye Exam Eye Exam: Normal appearance - ENT Exam ENT Exam: Mucous Membranes Moist, Normal Exam - Neck Exam Neck exam: Positive for: Normal Inspection - Respiratory Exam Respiratory Exam: Clear to Auscultation Bilateral. absent: Rales, Rhonchi, Wheezes - Cardiovascular Exam Cardiovascular Exam: RRR, +S1, +S2. absent: Gallop, Rubs, Systolic Murmur - GI/Abdominal Exam GI & Abdominal Exam: Soft. absent: Guarding, Rebound, Tenderness - Extremities Exam Additional comments: No swelling, erythema, discharge, ecchymosis at site of PICC line - Back Exam Back exam: NORMAL INSPECTION - Neurological Exam Neurological exam: Alert, CN II-XII Intact, Oriented x3 - Psychiatric Exam Psychiatric exam: Normal Affect, Normal Mood - Skin Skin Exam: Dry, Intact, Normal Color, Warm Results - Vital Signs Recent Vital Signs: Last Vital Signs Temp 98.4 F 03/13/18 06:00 Pulse 72 03/13/18 06:00 Resp 20 03/13/18 06:00 BP 158/93 H 03/13/18 06:00 Pulse Ox 100 03/13/18 06:00 - Labs Result Diagrams: 03/13/18 06:30 03/13/18 06:30 Labs: Laboratory Results - last 24 hr 03/12/18 03/12/18 03/13/18 07:00 07:00 06:30 WBC 10.8 RBC 3.42 L Hgb 9.5 L Hct 30.2 L MCV 88.3 MCH 27.8 MCHC 31.5 RDW 15.8 H Plt Count 454 H MPV 8.7 Gran % 68.6 H Lymph % (Auto) 23.8 [place] % (Auto) 5.8 Eos % (Auto) 1.3 L Baso % (Auto) 0.5 Gran # 7.42 H Lymph # (Auto) 2.6 [place] # (Auto) 0.6 Eos # (Auto) 0.1 Baso # (Auto) 0.05 ESR 61 H Sodium Potassium Chloride Carbon Dioxide Anion Gap BUN Creatinine Est GFR ( Amer) Est GFR (Non-Af Amer) Random Glucose Calcium Total Bilirubin AST ALT Alkaline Phosphatase C-Reactive Protein 32.30 H Total Protein Albumin Globulin Albumin/Globulin Ratio 03/13/18 06:30 WBC RBC Hgb Hct MCV MCH MCHC RDW Plt Count MPV Gran % Lymph % (Auto) [place] % (Auto) Eos % (Auto) Baso % (Auto) Gran # Lymph # (Auto) [place] # (Auto) Eos # (Auto) Baso # (Auto) ESR Sodium 145 Potassium 4.6 Chloride 101 Carbon Dioxide 32 Anion Gap 17 BUN 9 Creatinine 0.9 Est GFR ( Amer) > 60 Est GFR (Non-Af Amer) > 60 Random Glucose 103 Calcium 9.7 Total Bilirubin 0.4 AST 51 H D ALT 18 Alkaline Phosphatase 99 C-Reactive Protein Total Protein 7.1 Albumin 3.9 Globulin 3.2 Albumin/Globulin Ratio 1.2 Assessment & Plan - Assessment and Plan (Free Text) Assessment: 47 yo F with PMH of hypertension, gram positive coccemia, asthma, obesity, osteoarthritis, chronic back pain, and insomnia presents with malfunctioning PICC line. Patient also with normocytic anemia likely 2/2 chronic disease. Hematology consulted for outpatient anticoagulation recommendations. Plan: - UE US showed thrombus in L basilic vein above the elbow - Recommend repeat UE US 3-5 days after initial US - Recommend Eliquis 5 mg BID for at least 3 months - Hgb stable, continue to monitor - Antibiotics per ID - Medical management per primary Case discussed with Dr. Chavarria. Edwin Harvey, DO PGY2
[2018-03-13 14:14] VITALS: BP 151/77; PULSE 70; RESP 98; TEMP 98.5
--- NOTE | 2018-03-13 16:43 | CP.PCM.DIS ---
Provider - Provider Date of Admission: 03/10/18 01:55 Attending physician: Anabela Atkinson MD Primary care physician: Blas Dixon MD Consults: ID- Nicole Heme/Onc - Deon Time Spent in preparation of Discharge (in minutes): 100 Hospital Course - Lab Results Lab Results: Most Recent Lab Values WBC 10.8 10^3/ul (4.5-11.0) 03/13/18 06:30 RBC 3.42 10^6/uL (3.5-6.1) L 03/13/18 06:30 Hgb 9.5 g/dL (12.0-16.0) L 03/13/18 06:30 Hct 30.2 % (36.0-48.0) L 03/13/18 06:30 MCV 88.3 fl (80.0-105.0) 03/13/18 06:30 MCH 27.8 pg (25.0-35.0) 03/13/18 06:30 MCHC 31.5 g/dl (31.0-37.0) 03/13/18 06:30 RDW 15.8 % (11.5-14.5) H 03/13/18 06:30 Plt Count 454 10^3/uL (120.0-450.0) H 03/13/18 06:30 MPV 8.7 fl (7.0-11.0) 03/13/18 06:30 Gran % 68.6 % (50.0-68.0) H 03/13/18 06:30 Lymph % (Auto) 23.8 % (22.0-35.0) 03/13/18 06:30 [place] % (Auto) 5.8 % (1.0-6.0) 03/13/18 06:30 Eos % (Auto) 1.3 % (1.5-5.0) L 03/13/18 06:30 Baso % (Auto) 0.5 % (0.0-3.0) 03/13/18 06:30 Gran # 7.42 (1.4-6.5) H 03/13/18 06:30 Lymph # (Auto) 2.6 (1.2-3.4) 03/13/18 06:30 [place] # (Auto) 0.6 (0.1-0.6) 03/13/18 06:30 Eos # (Auto) 0.1 (0.0-0.7) 03/13/18 06:30 Baso # (Auto) 0.05 K/mm3 (0.0-2.0) 03/13/18 06:30 ESR 61 mm/hr (0.0-20.0) H 03/12/18 07:00 Sodium 145 mmol/L (132-148) 03/13/18 06:30 Potassium 4.6 mmol/L (3.6-5.0) 03/13/18 06:30 Chloride 101 mmol/L (98-107) 03/13/18 06:30 Carbon Dioxide 32 mmol/L (21-33) 03/13/18 06:30 Anion Gap 17 (10-20) 03/13/18 06:30 BUN 9 mg/dL (7-21) 03/13/18 06:30 Creatinine 0.9 mg/dl (0.7-1.2) 03/13/18 06:30 Est GFR ( Amer) > 60 03/13/18 06:30 Est GFR (Non-Af Amer) > 60 03/13/18 06:30 Random Glucose 103 mg/dL (70-110) 03/13/18 06:30 Calcium 9.7 mg/dL (8.4-10.5) 03/13/18 06:30 Total Bilirubin 0.4 mg/dL (0.2-1.3) 03/13/18 06:30 AST 51 U/L (14-36) H D 03/13/18 06:30 ALT 18 U/L (7-56) 03/13/18 06:30 Alkaline Phosphatase 99 U/L (38-126) 03/13/18 06:30 C-Reactive Protein 32.30 mg/L (0.0-9.9) H 03/12/18 07:00 Total Protein 7.1 g/dL (5.8-8.3) 03/13/18 06:30 Albumin 3.9 g/dL (3.0-4.8) 03/13/18 06:30 Globulin 3.2 gm/dL 03/13/18 06:30 Albumin/Globulin Ratio 1.2 (1.1-1.8) 03/13/18 06:30 - Hospital Course Hospital Course: Upon Admission: 47- year old female that came into the ER admitted for left PICC line malfunction. The patient noticed that the PICC line site was draining upon administration of antibiotic. Patient called nurse to come look at the PICC line , and the nurse confirmed that the PICC line was not functioning properly and sent the patient to the ER. The patient admits to redness around the PICC line insertion site. Hospital Course: Patient underwent Doppler of Bilateral Upper extremity veins and was found to have a superficial thrombophlebitis in the left basilica vein above the elbow. ID was consulted and patient was found to have sensitive Staphylococcus bacteremia and started on cefazolin for 4-6 weeks. On 03/11/18 Patient was continued on home dose of atenolol, losartan and hydrochlorothiazide, was given Advair PRN for 98% O2 saturation on room air, was continued on home dosages of amitriptyline and Ativan. Patient was also started on oxycodone 30 q8h and protonix 40 mg daily per home medications. Repeat blood cultures on 03/12 were found to be negative. Catheter tip cultures found positive for acinetobacter baumanii. ID recommended levaquin daily for the next two weeks. Patient was given ambien 5 qhr in order to sleep. She was ambulating and tolerating diet. Upon discharge: 03/13 D/C with eliquis 5mg BID x 3 months, Levaquin, and Lactobacillus. She is to follow up with PMD, ID, and Heme/Onc within 1-2 weeks. - Date & Time of H&P Date of H&P: 03/10/18 Time of H&P: 03:40 Discharge Exam - Head Exam Head Exam: ATRAUMATIC, NORMAL INSPECTION, NORMOCEPHALIC - Eye Exam Eye Exam: EOMI Pupil Exam: PERRL - ENT Exam ENT Exam: Mucous Membranes Moist, Normal Exam - Respiratory Exam Respiratory Exam: NORMAL BREATHING PATTERN, UNREMARKABLE. absent: Wheezes - Cardiovascular Exam Cardiovascular Exam: REGULAR RHYTHM, +S1, +S2. absent: Systolic Murmur - GI/Abdominal Exam GI & Abdominal Exam: Normal Bowel Sounds, Soft. absent: Tenderness - Extremities Exam Extremities exam: full ROM, pedal pulses present - Neurological Exam Neurological exam: Alert, Oriented x3 - Psychiatric Exam Psychiatric exam: Normal Affect, Normal Mood - Skin Skin Exam: Dry, Erythema, Intact, Normal Color, Warm Discharge Plan - Discharge Medications Prescriptions: Apixaban [Eliquis] 5 mg PO BID 30 Days #60 tab Lactobacillus Acidophilus [Bacid Acidophilus] 1 cap PO BID 21 Days #42 cap levoFLOXacin [Levaquin] 500 mg PO DAILY 14 Days #14 tab - Follow Up Plan Condition: GOOD Disposition: HOME/ ROUTINE Additional Instructions: Please follow up with your primary care doctor, Dr. Dixon, within 3-5 days regarding a follow up ultrasound of the left arm. Please follow up with Dr. Chavarria (Video Coordinator) within 1-2 week. Please follow up with Dr. Le (Infectious Disease) in 1 week. Upon discharge, please resume your home medications. Please start the anticoagulant medication, Eliquis 5mg twice a day for the next 3 months. Please start antibiotics prescribed as instructed for the next 2 weeks. Please start the Bacid prescribed as instructed for the next 3 weeks. Please return to the emergency room if symptoms return. Referrals: Lisa Chavarria MD [Staff Provider] - Blas Dixon MD [Primary Care Provider] - Harley Le MD [Staff Provider] -
--- NOTE | 2018-03-13 17:59 | US ---
HISTORY: Leg pain and swelling. Evaluate for DVT PHYSICIAN(S): Tam Rodgers MD. TECHNIQUE: Duplex sonography and color-flow Doppler with graded compression were used to evaluate the deep venous systems of both lower extremities. The exam is somewhat limited by edema FINDINGS: The visualized deep venous systems of both lower extremities are sonographically normal and compressible. Normal wave forms and augmentation are seen. There is no sonographic evidence for deep venous thrombosis in the visualized segments of both lower extremities. IMPRESSION: No sonographic evidence for deep venous thrombosis in the visualized segments of both lower extremities.
--- NOTE | 2018-03-13 22:17 | PN ---
Copied To: Harley Le MD Attending MD: Harley Le MD DATE: 03/13/2018 SUBJECTIVE: The patient is in bed, in no acute distress, was seen earlier today in 572, bed 1. She is doing well. No nausea, no vomiting. No fevers and chills. PHYSICAL EXAMINATION: VITAL SIGNS: On exam, temperature is 98, blood pressure is 150/70, respiratory rate of 18. HEENT: Examination of HEENT is unremarkable. NECK: Supple. LUNGS: Have decreased breath sounds. HEART: Normal S1, S2. ABDOMEN: Soft, nontender. LABORATORY DATA: Laboratory examination is noted and reviewed. Sed rate is 61 which I had ordered yesterday. C-reactive protein is 32 which is also high and chemistries are reviewed. Microbiology reveals Acinetobacter baumannii on the catheter tip. The blood cultures are negative and it is sensitive to Cipro. ASSESSMENT AND PLAN: A 47-year-old female with morbid obesity with a history of sensitive Staphylococcus aureus bacteremia, superficial thrombophlebitis in the left basilic vein, left arm; and chronic asthma; obesity; body mass index of 38 with 30 days of cefazolin. To continue with p.o. antibiotics as discussed with PMD and follow the sed rate and C-reactive protein to resolution and the patient states that she will follow as outpatient. Harley Le MD
== END 2018-03-13 18:36 | disposition home or self-care (01) | DRG 569 ==
LOC: ED 23:08 → ERH 03-10 01:55 → 5RSO 03-10 03:08
PROVIDERS: ADMIT Internal Medicine; ATTEND Internal Medicine
DX: T82.898A Other specified complication of vascular prosthetic devices, implants and grafts, initial encounter (principal); I80.8 Phlebitis and thrombophlebitis of other sites; R78.81 Bacteremia; B95.61 Methicillin susceptible Staphylococcus aureus infection as the cause of diseases classified elsewhere; Z68.38 Body mass index [BMI] 38.0-38.9, adult; F31.9 Bipolar disorder, unspecified; I10 Essential (primary) hypertension; G89.4 Chronic pain syndrome; D64.9 Anemia, unspecified; E66.01 Morbid (severe) obesity due to excess calories; K21.9 Gastro-esophageal reflux disease without esophagitis; M54.9 Dorsalgia, unspecified; F41.9 Anxiety disorder, unspecified; G47.00 Insomnia, unspecified; J45.909 Unspecified asthma, uncomplicated; Y84.8 Other medical procedures as the cause of abnormal reaction of the patient, or of later complication, without mention of misadventure at the time of the procedure